=== PATIENT | female | born 1930 | race Caucasian/White ===

== ENCOUNTER 2016-11-25 14:58 | Inpatient (IN) | payer OTHER ==
[2016-11-25] VITALS (22 sets, daily range): BP systolic 133–182; BP diastolic 61–99; PULSE 68–81; TEMP 36.7; O2SAT 93–98; Ht 154.9 cm; Wt 55.3 kg
[~2016-11-25] VITALS: Ht 154.9 cm; Wt 55.3 kg
[~2016-11-25 14:58] MED LIST: ALBU0.5N2 NEB; ALBUAER2 INH; ATOR-26 PO; ATV5X PO; CITA40TA4 PO; FSM70 PO; FURO-85 PO; IBUP200C9 PO; IPRA1AER2 INH; METO25TA3 PO; NTRGSL/4 UT; OMEP20CA9 PO; OXYC-57 PO; SODIUM CHLORIDE 0.9% 1000ML 1,000 ML IV SCH
--- NOTE | 2016-11-25 15:16 | DIAGNOSTIC IMAGING REPORT ---
CT OF THE HEAD WITHOUT CONTRAST CLINICAL HISTORY: Stroke alert. COMPARISON STUDY: No previous studies for comparison. TECHNIQUE: Helical axial images of the head were obtained without IV contrast. Automated exposure control was utilized for the study. A dose lowering technique was utilized adhering to the principles of ALARA. FINDINGS: No acute intracranial hemorrhage, midline shift or mass effect is present. Ventricular system is unremarkable. Basilar cisterns are patent. There are no extra-axial collections. Extensive white matter hypodensities likely reflect small vessel disease. There is suggestion of loss of feliz-white differentiation involving the left insular cortex and portions of the left frontal and temporal lobes. There is no calvarial fracture. There may be an old left occipital lobe infarct. IMPRESSION: 1. No acute intracranial hemorrhage or mass effect. 2. Suspected acute left MCA territory infarct. No hemorrhage. No mass effect. Discussed with Dr. Aviles at time of dictation. Electronically signed by: Kota Tate M.D. 11/25/2016 3:15 PM Dictated Date/Time: 11/25/2016 3:09 PM
[2016-11-25] MEDS ORDERED: SET 2260-0500 IV ONE (15:19)
[2016-11-25] MEDS ORDERED: RECOMBINANT IV ONE (15:19)
[2016-11-25] MEDS ORDERED: ALTEPLASE IV ONE (15:19)
[2016-11-25] MEDS ORDERED: ALTEPLASE IV SCH (15:20)
[2016-11-25] MEDS ORDERED: RECOMBINANT IV SCH (15:20)
[2016-11-25 15:26] LABS: BASO % 0.3 %; BASO ABS # 0.03 K/uL (0-0.2); COMPLETE YES; EOS % 0.3 %; HEMATOCRIT 37.1 % (37-47); IG% 0.3 %; LYMPH % 18.3 %; LYMPH ABS # 1.66 K/uL (1.2-3.4); MEAN CELL VOLUME 90.5 fL (80-100); MEAN CORPUSCULAR HGB CONC 33.2 g/dl (32-36); MEAN PLATELET VOLUME 10.8 fL (7.4-10.4); MONO % 7.5 %; NEUT % 73.3 %; PLATELET COUNT 151 K/uL (130-400); WHITE BLOOD COUNT 9.06 K/uL (4.8-10.8)
[2016-11-25 15:36] LABS: PARTIAL THROMBOPLASTIN RATIO 0.9; PROTHROMBIN TIME (PATIENT) 10.6 SECONDS (9.0-12.0)
--- NOTE | 2016-11-25 15:37 | EMERGENCY ROOM VISIT NOTE ---
History Report prepared by Shyam: Sandrita Ahmadi Under the Supervision of: Dr. Jasbir Aviles D.O. 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 The patient was last seen well by her daughter at 1350. The daughter came back downstairs at 1430 and found her on the floor unable to move her right side. EMS was called and upon arrival she was aphasic with right sided paralysis and right sided neglect. She had an episode of dry heaving in route and was given Zofran. She has a history of breast cancer which did not spread and was treated with mastectomy. The history is limited secondary to CVA. 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 Review of Systems Unobtainable due to CVA. Past Medical & Surgical Medical Problems: (1) Acute ischemic left middle cerebral artery (MCA) stroke (2) Ascending aortic aneurysm (3) Breast cancer (4) CAD (coronary artery disease) (5) CKD (chronic kidney disease), stage III (6) COPD (chronic obstructive pulmonary disease) (7) Depression (8) Dyslipidemia (9) HTN (hypertension) (10) Intestinal metaplasia of gastric mucosa (11) Osteoporosis (12) Vascular dementia Surgical Problems: (1) H/O: hysterectomy (2) Hx of cataract surgery (3) Hx of cholecystectomy Social History Problems: (1) Tobacco use Family History Cancer Social History Smoking Status: Current Every Day Smoker Housing Status: lives with family Occupation Status: retired Current/Historical Medications Scheduled Alendronate Sodium (Fosamax), 1 TAB PO WK Aspirin (Aspirin Chewable), 81 MG PO DAILY Atorvastatin (Lipitor), 80 MG PO QAM Citalopram (Citalopram Hydrobromide), 40 MG PO QAM Fluticasone Prop/Salmeterol (Advair Diskus 250/50 60 Dose), 1 PUFFS INH BID Fluticasone Propionate (Nasal) (Flonase Allergy Relief), 2 PUFF RAAD DAILY Furosemide (Lasix), 20 MG PO QAM Gabapentin (Gabapentin), 100 MG PO BID Home O2 Therapy (Oxygen), 2 LITERS NA PRN Ipratropium-Albuterol (Combivent Respimat), 1 PUFFS INH QID Metoprolol Succinate (Toprol Xl), 25 MG PO DAILY Montelukast Sod (Montelukast Sodium), 10 MG PO DAILY Nitroglycerin (Nitrostat), 0.4 MG UT PRN Omeprazole (Prilosec), 20 MG PO BID Tamoxifen Citrate (Tamoxifen Citrate), 20 MG PO DAILY Scheduled PRN Acetaminophen (Tylenol), 500 MG PO TID PRN for Pain Albuterol Sulf (Proventil 0.083% 2.5MG/3ML), 2.5 MG INH QID PRN for SOB/Wheezing Allergies Coded Allergies: Codeine (Verified Allergy, Unknown, unsure of rxn, 02/07/16) Morphine (Verified Allergy, Unknown, per PCP records , 02/07/16) Corder Tree (Verified Allergy, Unknown, SEASONAL, 02/07/16) Physical Exam Vital Signs Date Time Temp Pulse Resp B/P (MAP) Pulse Ox O2 Delivery O2 Flow Rate FiO2 11/25/16 17:01 75 20 155/84 94 Room Air 11/25/16 16:46 75 20 150/84 93 Room Air 11/25/16 16:31 71 20 145/75 93 Room Air 11/25/16 16:16 74 18 169/79 94 11/25/16 16:01 74 20 175/81 94 Room Air 11/25/16 15:46 75 18 168/83 93 Room Air 11/25/16 15:42 74 20 158/72 96 Room Air 11/25/16 15:25 78 11/25/16 15:10 80 20 160/93 90 Room Air Physical Exam GENERAL: Patient is looking around and listless appearing, frail and ill. EYES: The pupils are mid size and reactive bilaterally, unable to look to the right with right side neglect. EARS, NOSE, MOUTH AND THROAT: The nose is without any evidence of any deformity. Mucous membranes are moist tongue is midline NECK: The neck is nontender and supple. No bruits noted to auscultation. RESPIRATORY: Shallow respirations noted, no tachypnea or abnormal lung sounds appreciated. CARDIOVASCULAR: Regular rate and rhythm noted there no murmurs rubs or gallops normal S1 normal S2 GASTROINTESTINAL: The abdomen is soft. Bowel sounds are present in all quadrants. Abdomen is nontender MUSCULOSKELETAL/EXTREMITIES: There is no evidence of gross deformity full range of motion is noted in the hips and shoulders SKIN: There is trace pedal edema bilaterally, small abrasion over the right knee , no active bleeding. NEUROLOGIC: Patient is aphasic and does not follow commands, right sided neglect noted, facial droop is noted on the right, patient appears to have flaccid right upper and right lower extremities. Medical Decision & Procedures ER Provider Diagnostic Interpretation: X-ray results as stated below per interpretation by me and the radiologist. Radiology results as stated below per my review and radiologist interpretation: CHEST ONE VIEW PORTABLE CLINICAL HISTORY: Stroke COMPARISON STUDY: Chest radiograph December 14, 2014. FINDINGS: There is no pneumothorax or pleural effusion. Cardiomediastinal silhouette is stable. Calcified mediastinal lymph nodes are noted. No consolidation to suggest pneumonia. There is no evidence of pulmonary edema. IMPRESSION: No acute cardiopulmonary findings. Electronically signed by: Kota Tate M.D. 11/25/2016 4:34 PM Dictated Date/Time: 11/25/2016 4:[address] OF THE HEAD WITHOUT CONTRAST CLINICAL HISTORY: Stroke alert. COMPARISON STUDY: No previous studies for comparison. TECHNIQUE: Helical axial images of the head were obtained without IV contrast. Automated exposure control was utilized for the study. A dose lowering technique was utilized adhering to the principles of ALARA. FINDINGS: No acute intracranial hemorrhage, midline shift or mass effect is present. Ventricular system is unremarkable. Basilar cisterns are patent. There are no extra-axial collections. Extensive white matter hypodensities likely reflect small vessel disease. There is suggestion of loss of feliz-white differentiation involving the left insular cortex and portions of the left frontal and temporal lobes. There is no calvarial fracture. There may be an old left occipital lobe infarct. IMPRESSION: 1. No acute intracranial hemorrhage or mass effect. 2. Suspected acute left MCA territory infarct. No hemorrhage. No mass effect. Discussed with Dr. Aviles at time of dictation. Electronically signed by: Kota Tate M.D. 11/25/2016 3:15 PM Dictated Date/Time: 11/25/2016 3:[address] OF THE CERVICAL SPINE WITHOUT CONTRAST CLINICAL HISTORY: Found on the floor. COMPARISON STUDY: No previous studies for comparison. TECHNIQUE: Helical axial images of the cervical spine were obtained without IV contrast. Sagittal and coronal reconstructions were viewed. A dose lowering technique was utilized adhering to the principles of ALARA. FINDINGS: Craniocervical junction is intact. There is no acute cervical spine fracture. Moderate multilevel degenerative changes are present. There is no prevertebral edema. Moderate emphysema is shown within visualized portions of the lungs. There is no prevertebral edema. Incidental note is made of a 1.6 cm right lobe thyroid nodule. IMPRESSION: No acute cervical spine fracture or subluxation. Electronically signed by: Kota Tate M.D. 11/25/2016 4:07 PM Dictated Date/Time: 11/25/2016 4:04 PM Laboratory Results 11/25/16 15:17 Red Blood Count 4.10, Mean Corpuscular Volume 90.5, Mean Corpuscular Hemoglobin 30.0, Mean Corpuscular Hemoglobin Concent 33.2, Mean Platelet Volume 10.8, Neutrophils (%) (Auto) 73.3, Lymphocytes (%) (Auto) 18.3, Monocytes (%) (Auto) 7.5, Eosinophils (%) (Auto) 0.3, Basophils (%) (Auto) 0.3, Neutrophils # (Auto) 6.63, Lymphocytes # (Auto) 1.66, Monocytes # (Auto) 0.68, Eosinophils # (Auto) 0.03, Basophils # (Auto) 0.03 11/25/16 15:17 Test 11/25/16 15:17 11/25/16 15:21 11/25/16 15:25 White Blood Count 9.06 K/uL (4.8-10.8) Red Blood Count 4.10 M/uL (4.2-5.4) Hemoglobin 12.3 g/dL (12.0-16.0) Hematocrit 37.1 % (37-47) Mean Corpuscular Volume 90.5 fL (80-100) Mean Corpuscular Hemoglobin 30.0 pg (25-34) Mean Corpuscular Hemoglobin Concent 33.2 g/dl (32-36) Platelet Count 151 K/uL (130-400) Mean Platelet Volume 10.8 fL (7.4-10.4) Neutrophils (%) (Auto) 73.3 % Lymphocytes (%) (Auto) 18.3 % Monocytes (%) (Auto) 7.5 % Eosinophils (%) (Auto) 0.3 % Basophils (%) (Auto) 0.3 % Neutrophils # (Auto) 6.63 K/uL (1.4-6.5) Lymphocytes # (Auto) 1.66 K/uL (1.2-3.4) Monocytes # (Auto) 0.68 K/uL (0.11-0.59) Eosinophils # (Auto) 0.03 K/uL (0-0.5) Basophils # (Auto) 0.03 K/uL (0-0.2) RDW Standard Deviation 46.0 fL (36.4-46.3) RDW Coefficient of Variation 14.0 % (11.5-14.5) Immature Granulocyte % (Auto) 0.3 % Immature Granulocyte # (Auto) 0.03 K/uL (0.00-0.02) Prothrombin Time 10.6 SECONDS (9.0-12.0) Prothromb Time International Ratio 1.0 (0.9-1.1) Activated Partial Thromboplast Time 23.6 SECONDS (21.0-31.0) Partial Thromboplastin Ratio 0.9 Anion Gap 4.0 mmol/L (3-11) Estimated GFR () 47.7 Estimated GFR (Non- 41.2 BUN/Creatinine Ratio 15.7 (10-20) Calcium Level 8.6 mg/dl (8.5-10.1) Total Creatine Kinase 85 U/L (26-192) Creatine Kinase MB 1.2 ng/ml (0.5-3.6) Creatine Kinase MB Ratio 1.4 (0-3.0) Troponin I 0.017 ng/ml (0-0.045) Bedside Glucose 115 mg/dl (70-90) Bedside Prothrombin Time INR 1.1 (0.9-1.1) Laboratory results per my review. Medications Administered Medications (Trade) Dose Ordered Sig/Millicent Route Start Time Stop Time Status Last Admin Dose Admin Sodium Chloride 1,000 ml @ 50 mls/hr Q20H IV 11/25/16 14:51 11/25/16 17:57 DC 11/25/16 14:51 50 MLS/HR Alteplase, Recombinant 46.8 mg/Empty Bag 46.8 ml @ 46.8 mls/hr TODAY@1520 IV 11/25/16 15:20 7/29/17 16:19 DC 11/25/16 15:35 46.8 MLS/HR Alteplase, Recombinant 5.2 mg/Syringe 5.2 ml @ 5.2 mls/min TODAY@1519 ONCE IV 11/25/16 15:19 11/25/16 15:20 DC 11/25/16 15:34 5.2 MLS/MIN ECG Indication: weakness Rate (beats per minute): 74 Rhythm: normal sinus Findings: no ectopy, other (no acute ST segment abnormalities) ED Course 1459: The patient was evaluated in room B1. A complete history and physical examination were performed. 1451: NSS 1000 ml @ 50 mls/hr IV. 1519: Alteplase, Recombinant 5.2 mg/Syringe 5.2 ml @ 5.2 mls/min IV. 1520: Alteplase, Recombinant 46.8 mg/Empty Bag 46.8 ml @ 46.8 mls/hr IV. 1521: I discussed the patient's case with Dr. Lindsay, [facility] tele[facility]. He will evaluate the patient. 1536: I reevaluated the patient. She is being evaluated by Dr. Lindsay. 1549: I reevaluated the patient. She is stable and seems to be improving. I updated her family on the results and treatment plan. They verbalize understanding and agreement. The patient will be evaluated for further management. 1553: I discussed the patient's case with Dr. Godwin, [facility]. The patient will be evaluated for further management. Medical Decision Prior records/ancillary studies reviewed and summarized above. Nursing notes reviewed. Additional history obtained from family. The patient's history was concerning for weakness. Differential diagnosis: Etiologies such as metabolic, infection, hypo/hyperglycemia, electrolyte abnormalities, cardiac sources, intracerebral event, toxicologic, neurologic, as well as others were entertained. The patient is an 86-year-old female who presented to the emergency department for strokelike syndrome. The patient was in her normal mental status prior to arrival. Her daughter states that she was found to be on the floor and she was unable to get her off of the floor so she called 911. I received a medical command phone call from the cast iron dipper requesting a stroke alert for the patient. She presented to the emergency department with a stroke alert in process. Orders were placed prior to arrival. The patient was taken directly for CT. No acute bleeding was noted and felt the patient was a good candidate for TPA. The patient had right sided neglect right-sided weakness right facial droop. I discussed the patient's condition with her daughter and she was able to consent for TPA. The patient was evaluated by the tele stroke neurologist from [facility]. He agreed that the patient was a good candidate for TPA. The patient was reevaluated multiple times. I discussed the patient's laboratory and radiographic studies with her and her daughter. Her condition slowly improved but she did not have a significant improvement while in the emergency department but she continued to maintain her airway and her saturation. She was able to sit up but still had continued weakness on the right side. I discussed his case with the on-call [facility] hospitalist. They' ve agreed to evaluate the patient in the emergency department for further management and disposition. Medication Reconcilliation Current Medication List: was personally reviewed by me Blood Pressure Screening Patient's blood pressure: Elevated blood pressure Blood pressure disposition: Elevated BP felt to be situational Secondary to acute neurological event. Consults Time Called: 1515 Consulting Physician: Dr. Lindsay, [facility] Returned Call: 1520 I discussed the patient's case with him. He will evaluate the patient. Additional Consults: Time Called: 1548 [facility]: [phone] Additional Comments: I discussed the patient's case with her. The patient will be evaluated for further management. Impression Primary Impression: Acute CVA (cerebrovascular accident) Critical Care I have personally spent greater than 60 minutes of critical care time in the direct management of this patient. This includes bedside care, interpretation of diagnostic studies, and testing, discussion with consultants, patient, and family members, and other required patient management activities. This 60 minutes is in excess of all separately billable procedures. Scribe Attestation The scribe's documentation has been prepared under my direction and personally reviewed by me in its entirety. I confirm that the note above accurately reflects all work, treatment, procedures, and medical decision making performed by me. Departure Information Dispostion Being Evaluated By Hospitalist Referrals Meghan Braxton M.D. (PCP) Patient Instructions My [facility] Stroke History Time Last Known Well 1350 Stroke t-PA Criteria Reviewed Meets criteria for t-PA Reason t-PA Not Given Treatment provided - N/A
[2016-11-25 15:43] LABS: BLOOD UREA NITROGEN 19 mg/dl (7-18); BUN/CREATININE RATIO 15.7 (10-20); CALCIUM 8.6 mg/dl (8.5-10.1); CARBON DIOXIDE 30 mmol/L (21-32); CHLORIDE 109 mmol/L (98-107); GLUCOSE 93 mg/dl (70-99); SODIUM 143 mmol/L (136-145)
[2016-11-25 15:48] LABS: CKMB/CK RATIO 1.4 (0-3.0)
[2016-11-25] MEDS ORDERED: NLV/20 PO (15:53)
[2016-11-25] MEDS ORDERED: SNG10 PO (15:53)
--- NOTE | 2016-11-25 16:08 | DIAGNOSTIC IMAGING REPORT ---
CT OF THE CERVICAL SPINE WITHOUT CONTRAST CLINICAL HISTORY: Found on the floor. COMPARISON STUDY: No previous studies for comparison. TECHNIQUE: Helical axial images of the cervical spine were obtained without IV contrast. Sagittal and coronal reconstructions were viewed. A dose lowering technique was utilized adhering to the principles of ALARA. FINDINGS: Craniocervical junction is intact. There is no acute cervical spine fracture. Moderate multilevel degenerative changes are present. There is no prevertebral edema. Moderate emphysema is shown within visualized portions of the lungs. There is no prevertebral edema. Incidental note is made of a 1.6 cm right lobe thyroid nodule. IMPRESSION: No acute cervical spine fracture or subluxation. Electronically signed by: Kota Tate M.D. 11/25/2016 4:07 PM Dictated Date/Time: 11/25/2016 4:04 PM
[2016-11-25] MEDS ORDERED: NRN100 PO (16:10)
[2016-11-25] MEDS ORDERED: ASPCH81X PO (16:10)
--- NOTE | 2016-11-25 16:36 | DIAGNOSTIC IMAGING REPORT ---
CHEST ONE VIEW PORTABLE CLINICAL HISTORY: Stroke COMPARISON STUDY: Chest radiograph December 14, 2014. FINDINGS: There is no pneumothorax or pleural effusion. Cardiomediastinal silhouette is stable. Calcified mediastinal lymph nodes are noted. No consolidation to suggest pneumonia. There is no evidence of pulmonary edema. IMPRESSION: No acute cardiopulmonary findings. Electronically signed by: Kota Tate M.D. 11/25/2016 4:34 PM Dictated Date/Time: 11/25/2016 4:34 PM
[2016-11-25] MEDS ORDERED: ONDANSETRON INJ 2 MG/ML 2 ML VIAL IV PRN (16:45)
[2016-11-25] MEDS ORDERED: LEVALBUTEROL 1.25MG/0.5ML NEB INH PRN (16:45)
[2016-11-25] MEDS ORDERED: IPRATROPIUM BROMIDE NEB SOLN 0.02% 2.5 ML VIAL INH PRN (16:45)
[2016-11-25] MEDS ORDERED: PHARMACIST DISCHARGE MED REC CONSULT PRN (16:45)
[2016-11-25] MEDS ORDERED: METO1TAB31 PO (17:10)
[2016-11-25] MEDS ORDERED: TYLOTC500 PO (17:10)
[2016-11-25] MEDS ORDERED: OXGN (17:10)
[2016-11-25] MEDS ORDERED: IPRA1AER2 INH (17:10)
[2016-11-25] MEDS ORDERED: ALEN70TA4 PO (17:10)
[2016-11-25] MEDS ORDERED: ALBINS/ INH (17:10)
[2016-11-25] MEDS ORDERED: ADVIN25/60 INH (17:10)
[2016-11-25] MEDS ORDERED: FLUT0.15 NAE (17:10)
[2016-11-25] MEDS ORDERED: LABETALOL HCL IV 5 MG/ML 20ML IV PRN (17:15)
[2016-11-25] MEDS ORDERED: ACETAMINOPHEN IV 650 MG in EMPTY BAG 0 ML IV PRN (17:15)
--- NOTE | 2016-11-25 17:35 | History and Physical ---
History & Physical Date & Time of Service: Nov 25, 2016 at 17:04 Chief Complaint: Stroke Alert Primary Care Physician: Meghan Braxton M.D. History of Present Illness Source: family, clinic records, hospital records 86 yo F smoker with h/o CAD presents with acute stroke. She was found by her daughter who had just seen her within 30 minutes looking fine, ambulating, articulating without any difficulty. She was found on the floor with facial droop on the R, unable to speak and unable to move her right side. EMS was contacted and per notes, patient vomiting in the ambulance. She ws evaluated by Neurology telemedicine at [facility] and tPA was advised and initiated. It is still running at the time of this evaluation and per daughter , facial droop seems to be improving. Daughter is at bedside and history is gathered from her; she lives with the patient. She gave the history as the patient is nonverbal and unable to communicate. Daughter states that patient has been looking great over the past couple of weeks having no issues. She reports a couple of days ago hat her mother got up on a step ladder in the home to change a lightbulb and did slip and fall. However, she got up and was not confused, and therefore, was not brought in for evaluation. Otherwise, daughter denies mom reporting any chest pain, shortness of breath, cold symptoms , nausea, vomiting, diarrhea, headaches, UTI symptoms, confusion, pain or any other symptoms. Daughter states she ambulates well at baseline without a walker or cane, and likes to garden in the yard. She doesn't drive a car but does still have a license. History includes lifelong smoking, recnet diagnosis of breast cancer s/p mastectomy with initiation of Tamoxifen 4-5 months ago. She also has HTN but is not on any antihypertensives. Past Medical/Surgical History Medical Problems: (1) Ascending aortic aneurysm Status: Chronic (2) Breast cancer Permanent Comment: R breast s/p mastectomy and initiation of Tamoxifen Status: Chronic (3) CAD (coronary artery disease) Permanent Comment: moderate CAD demonstrated on cath from 2008 Status: Chronic (4) CKD (chronic kidney disease), stage III Status: Chronic (5) COPD (chronic obstructive pulmonary disease) Status: Chronic (6) Depression Status: Chronic (7) Dyslipidemia Status: Chronic (8) HTN (hypertension) Status: Chronic (9) Intestinal metaplasia of gastric mucosa Status: Chronic (10) Osteoporosis Status: Chronic (11) Vascular dementia Status: Chronic Surgical Problems: (1) H/O: hysterectomy Status: Chronic (2) Hx of cataract surgery Status: Chronic (3) Hx of cholecystectomy Status: Chronic Social History Problems: (1) Tobacco use Status: Chronic Family History Cancer Social History Smoking Status: Current Every Day Smoker Alcohol Use: none Drug Use: none Marital Status: single Housing status: lives with family Occupational Status: retired Immunizations History of Influenza Vaccine: Yes Influenza Vaccine Date: Jan 25, 2015 History of Tetanus Vaccine?: Yes Tetanus Immunization Date: August 31, 2010 History of Pneumococcal: Yes Pneumococcal Date: September 05, 2016 History of Hepatitis B Vaccine: No Multi-Drug Resistant Organisms History of MDRO: No Allergies Coded Allergies: Codeine (Verified Allergy, Unknown, unsure of rxn, 02/07/16) Morphine (Verified Allergy, Unknown, per PCP records , 02/07/16) [place] (Verified Allergy, Unknown, SEASONAL, 02/07/16) Home Medications Scheduled Alendronate Sodium (Fosamax), 1 TAB PO WK Aspirin (Aspirin Chewable), 81 MG PO DAILY Atorvastatin (Lipitor), 80 MG PO QAM Citalopram (Citalopram Hydrobromide), 40 MG PO QAM Fluticasone Prop/Salmeterol (Advair Diskus 250/50 60 Dose), 1 PUFFS INH BID Fluticasone Propionate (Nasal) (Flonase Allergy Relief), 2 PUFF RAAD DAILY Furosemide (Lasix), 20 MG PO QAM Gabapentin (Gabapentin), 100 MG PO BID Home O2 Therapy (Oxygen), 2 LITERS NA PRN Ipratropium-Albuterol (Combivent Respimat), 1 PUFFS INH QID Metoprolol Succinate (Toprol Xl), 25 MG PO DAILY Montelukast Sod (Montelukast Sodium), 10 MG PO DAILY Nitroglycerin (Nitrostat), 0.4 MG UT PRN Omeprazole (Prilosec), 20 MG PO BID Tamoxifen Citrate (Tamoxifen Citrate), 20 MG PO DAILY Scheduled PRN Acetaminophen (Tylenol), 500 MG PO TID PRN for Pain Albuterol Sulf (Proventil 0.083% 2.5MG/3ML), 2.5 MG INH QID PRN for SOB/Wheezing Review of Systems Unable to obtain ROS from patient as she is aphasic Physical Exam Vital Signs Date Time Temp Pulse Resp B/P (MAP) Pulse Ox O2 Delivery O2 Flow Rate FiO2 11/25/16 17:01 75 20 155/84 94 Room Air 11/25/16 16:46 75 20 150/84 93 Room Air 11/25/16 16:31 71 20 145/75 93 Room Air 11/25/16 16:16 74 18 169/79 94 11/25/16 16:01 74 20 175/81 94 Room Air 11/25/16 15:46 75 18 168/83 93 Room Air 11/25/16 15:42 74 20 158/72 96 Room Air 11/25/16 15:25 78 11/25/16 15:10 80 20 160/93 90 Room Air GEN: elderly, frail, in no acute distress, alert with eyes open but no purposeful communication. Not responsive to questions even nonverbally. HEENT: NC/AT, PERRL, normal sclerae, MMM, pt would not open mouth for exam CARDIO: reg rate, S1/2 heard without m/g/r, no JVD, no edema LUNGS: CTA bilaterally, no crackles, rales or wheezes, good diaphragmatic excursion ABD: soft, non-distended, no rebound or guarding, +BS EXTREMITY: RP and DP palpable 2+ bilat, no LE swelling or edema, extremities are warm and well-perfused, R shoulder appears out of joint NEURO: CN could not be examined, R facial droop is present, sensation could not be appreciated, reflexes are 2/4 throughout, Babinski appears neg but difficult to appreciate. MUSC: frail, weak, ill-appearing. Pt has flaccidity to RUE and limited movement of RLE, more guarding of RLE and LLE. Strength testing could not be performed as patient unable to follow instructions. SKIN: warm and dry, bruising of R shoulder and LUE. Bruising with minor abrasion of the R knee. Diagnostics Laboratory Results Results Past 24 Hours Test 11/25/16 14:51 11/25/16 15:17 11/25/16 15:21 11/25/16 15:25 Range/Units White Blood Count 9.06 4.8-10.8 K/uL Red Blood Count 4.10 4.2-5.4 M/uL Hemoglobin 12.3 12.0-16.0 g/dL Hematocrit 37.1 37-47 % Mean Corpuscular Volume 90.5 80-100 fL Mean Corpuscular Hemoglobin 30.0 25-34 pg Mean Corpuscular Hemoglobin Concent 33.2 32-36 g/dl Platelet Count 151 130-400 K/uL Mean Platelet Volume 10.8 7.4-10.4 fL Neutrophils (%) (Auto) 73.3 % Lymphocytes (%) (Auto) 18.3 % Monocytes (%) (Auto) 7.5 % Eosinophils (%) (Auto) 0.3 % Basophils (%) (Auto) 0.3 % Neutrophils # (Auto) 6.63 1.4-6.5 K/uL Lymphocytes # (Auto) 1.66 1.2-3.4 K/uL Monocytes # (Auto) 0.68 0.11-0.59 K/uL Eosinophils # (Auto) 0.03 0-0.5 K/uL Basophils # (Auto) 0.03 0-0.2 K/uL RDW Standard Deviation 46.0 36.4-46.3 fL RDW Coefficient of Variation 14.0 11.5-14.5 % Immature Granulocyte % (Auto) 0.3 % Immature Granulocyte # (Auto) 0.03 0.00-0.02 K/uL Prothrombin Time 10.6 9.0-12.0 SECONDS Prothromb Time International Ratio 1.0 0.9-1.1 Activated Partial Thromboplast Time 23.6 21.0-31.0 SECONDS Partial Thromboplastin Ratio 0.9 Sodium Level 143 136-145 mmol/L Potassium Level 4.0 3.5-5.1 mmol/L Chloride Level 109 98-107 mmol/L Carbon Dioxide Level 30 21-32 mmol/L Anion Gap 4.0 3-11 mmol/L Blood Urea Nitrogen 19 7-18 mg/dl Creatinine 1.20 0.60-1.20 mg/dl Estimated GFR () 47.7 Estimated GFR (Non- 41.2 BUN/Creatinine Ratio 15.7 10-20 Random Glucose 93 70-99 mg/dl Calcium Level 8.6 8.5-10.1 mg/dl Total Creatine Kinase 85 26-192 U/L Creatine Kinase MB 1.2 0.5-3.6 ng/ml Creatine Kinase MB Ratio 1.4 0-3.0 Troponin I 0.017 0-0.045 ng/ml Bedside Glucose 115 70-90 mg/dl Bedside Prothrombin Time INR 1.1 0.9-1.1 Diagnostic Radiology RIGHT SHOULDER MIN 2 VIEWS ROUTINE CLINICAL HISTORY: fall on shoulder s/p stroke with collapse at home, bruising. COMPARISON: None FINDINGS: Alignment of the right shoulder is anatomic. There is motion artifact on the scapular Y view. No acute fracture is identified. Mild arthritis is noted within the right shoulder. IMPRESSION: No acute fracture or dislocation of the right shoulder. Study mildly compromised by motion artifact. CT OF THE CERVICAL SPINE WITHOUT CONTRAST CLINICAL HISTORY: Found on the floor. COMPARISON STUDY: No previous studies for comparison. TECHNIQUE: Helical axial images of the cervical spine were obtained without IV contrast. Sagittal and coronal reconstructions were viewed. A dose lowering technique was utilized adhering to the principles of ALARA. FINDINGS: Craniocervical junction is intact. There is no acute cervical spine fracture. Moderate multilevel degenerative changes are present. There is no prevertebral edema. Moderate emphysema is shown within visualized portions of the lungs. There is no prevertebral edema. Incidental note is made of a 1.6 cm right lobe thyroid nodule. IMPRESSION: No acute cervical spine fracture or subluxation. CHEST ONE VIEW PORTABLE CLINICAL HISTORY: Stroke COMPARISON STUDY: Chest radiograph December 14, 2014. FINDINGS: There is no pneumothorax or pleural effusion. Cardiomediastinal silhouette is stable. Calcified mediastinal lymph nodes are noted. No consolidation to suggest pneumonia. There is no evidence of pulmonary edema. IMPRESSION: No acute cardiopulmonary findings. CT OF THE HEAD WITHOUT CONTRAST CLINICAL HISTORY: Stroke alert. COMPARISON STUDY: No previous studies for comparison. TECHNIQUE: Helical axial images of the head were obtained without IV contrast. Automated exposure control was utilized for the study. A dose lowering technique was utilized adhering to the principles of ALARA. FINDINGS: No acute intracranial hemorrhage, midline shift or mass effect is present. Ventricular system is unremarkable. Basilar cisterns are patent. There are no extra-axial collections. Extensive white matter hypodensities likely reflect small vessel disease. There is suggestion of loss of feliz-white differentiation involving the left insular cortex and portions of the left frontal and temporal lobes. There is no calvarial fracture. There may be an old left occipital lobe infarct. IMPRESSION: 1. No acute intracranial hemorrhage or mass effect. 2. Suspected acute left MCA territory infarct. No hemorrhage. No mass effect. Discussed with Dr. Aviles at time of dictation. EKG SR 74 Impression Assessment and Plan 86 yo smoker presents with acute L MCA stroke 1. Acute L MCA stroke: risk factors include age, tamoxifen use, and active smoking. TPA given in ER and patient admitted to ICU for close BP monitoring over next [address] ordered in 24 hours and earlier if pt decompensates. No art sticks in noncompressible sites. No heparin products. Eval with [facility], PT, and OT ordered. Neurology consulted. Allow permissive HTN. NPO until swallow evaluation. Maintenance IVF to stay hydrated in the meantime. 2. CAD-once tolerating PO will cont medical management. At this time workup including trop and EKG are nonischemic and patient is hemodynamically stable with no recent reports of chest pain 3. COPD-stable, no wheezing heard on exam despite limitation as patient not able to follow directions and take deep breaths. Duonebs PRN SOB or wheezing 4. Depression/Anxiety 5. HTN-not on antihypertensives as outpatient. Allow permissive HTN and treat if >180 after TPA. PRN Labetalol ordered 6. breast cancer s/p R mastectomy 8 months ago-tamoxifen on hold and in setting of stroke, discussion will need to be had with oncologist prior to continuing. 7. Thyroid nodule- incidental finding on CT scan 1.6 cm. TSH pending. Will defer workup to outpatient setting. DVT prophy-SCDs thigh FULL CODE per daughter who states that she is POA Dispo-to ICU for close monitoring and rehab Peyton Godwin DO [facility] Level of Care Critical Care Resuscitation Status FULL RESUSCITATION VTE Prophylaxis VTE Risk Assessment Done? Y/N: Yes Risk Level: Moderate Given or contraindicated: SCD's, Contraindicated
--- NOTE | 2016-11-25 18:50 | DIAGNOSTIC IMAGING REPORT ---
RIGHT SHOULDER MIN 2 VIEWS ROUTINE CLINICAL HISTORY: fall on shoulder s/p stroke with collapse at home, bruising. COMPARISON: None FINDINGS: Alignment of the right shoulder is anatomic. There is motion artifact on the scapular Y view. No acute fracture is identified. Mild arthritis is noted within the right shoulder. IMPRESSION: No acute fracture or dislocation of the right shoulder. Study mildly compromised by motion artifact. Electronically signed by: Kota Tate M.D. 11/25/2016 6:48 PM Dictated Date/Time: 11/25/2016 6:47 PM
[2016-11-25] MEDS: D5NSS + 20MEQ KCL 1,000 ML IV SCH (19:48)
--- NOTE | 2016-11-25 20:00 | Critical Care Consultation ---
Critical Care Consultation Date of Consultation: Nov 25, 2016. Attending Physician: Peyton Godwin DO Reason for Consultation: Acute CVA, s/p tPA History of Present Illness This is a 86 year old female, active smoker that received tPA today for acute left MCA CVA. I could not get a clear history from her daughter, but apparently she was found on the floor, not speaking and unable to move the right side. Received tPA in ED at 15:19 At this moment she is still aphasic, not following commands, with right sided hemiplegia. At baseline she active, walks around, has no significant limitation except being hard of hearing. No known history of a-fib Past Medical/Surgical History (1) Ascending aortic aneurysm Status: Chronic (2) Breast cancer Permanent Comment: R breast s/p mastectomy and initiation of Tamoxifen Status: Chronic (3) CAD (coronary artery disease) Permanent Comment: moderate CAD demonstrated on cath from 2008 Status: Chronic (4) CKD (chronic kidney disease), stage III Status: Chronic (5) COPD (chronic obstructive pulmonary disease) Status: Chronic (6) Depression Status: Chronic (7) Dyslipidemia Status: Chronic (8) HTN (hypertension) Status: Chronic (9) Intestinal metaplasia of gastric mucosa Status: Chronic (10) Osteoporosis Status: Chronic (11) Vascular dementia Status: Chronic Surgical Problems: (1) H/O: hysterectomy Status: Chronic (2) Hx of cataract surgery Status: Chronic (3) Hx of cholecystectomy Status: Chronic Family History Cancer Social History Smoking Status: Current Every Day Smoker Alcohol Use: none Drug Use: none Marital Status: single Housing Status: lives with family Occupation Status: retired Allergies Coded Allergies: Codeine (Verified Allergy, Unknown, unsure of rxn, 02/07/16) Morphine (Verified Allergy, Unknown, per PCP records , 02/07/16) [place] (Verified Allergy, Unknown, SEASONAL, 02/07/16) Home Medications Scheduled Alendronate Sodium (Fosamax), 1 TAB PO WK Aspirin (Aspirin Chewable), 81 MG PO DAILY Atorvastatin (Lipitor), 80 MG PO QAM Citalopram (Citalopram Hydrobromide), 40 MG PO QAM Fluticasone Prop/Salmeterol (Advair Diskus 250/50 60 Dose), 1 PUFFS INH BID Fluticasone Propionate (Nasal) (Flonase Allergy Relief), 2 PUFF RAAD DAILY Furosemide (Lasix), 20 MG PO QAM Gabapentin (Gabapentin), 100 MG PO BID Home O2 Therapy (Oxygen), 2 LITERS NA PRN Ipratropium-Albuterol (Combivent Respimat), 1 PUFFS INH QID Metoprolol Succinate (Toprol Xl), 25 MG PO DAILY Montelukast Sod (Montelukast Sodium), 10 MG PO DAILY Nitroglycerin (Nitrostat), 0.4 MG UT PRN Omeprazole (Prilosec), 20 MG PO BID Tamoxifen Citrate (Tamoxifen Citrate), 20 MG PO DAILY Scheduled PRN Acetaminophen (Tylenol), 500 MG PO TID PRN for Pain Albuterol Sulf (Proventil 0.083% 2.5MG/3ML), 2.5 MG INH QID PRN for SOB/Wheezing Current Inpatient Medications Current Inpatient Medications Medications (Trade) Dose Ordered Sig/Millicent Route Start Time Stop Time Status Last Admin Dose Admin Miscellaneous Information (Pharmacist Discharge Med Rec Consult) 1 ea UD PRN N/A 11/25/16 16:45 12/25/16 16:44 Potassium Chloride/Dextrose/ Sod Cl 1,000 ml @ 75 mls/hr [id number] IV 11/25/16 18:15 12/25/16 18:14 Ondansetron HCl (Zofran Inj) 4 mg Q6H PRN IV 11/25/16 16:45 12/25/16 16:44 Levalbuterol (Xopenex 1.25MG/ 0.5ML Neb) 1.25 mg Q6H PRN INH 11/25/16 16:45 12/25/16 16:44 Ipratropium [place] (Atrovent 0.02% 0.5MG/2.5ML Neb) 0.5 mg Q6H PRN INH 11/25/16 16:45 12/25/16 16:44 Acetaminophen 650 mg/Empty Bag 65 ml @ 260 mls/hr Q6H PRN IV 11/25/16 17:15 12/25/16 17:14 Labetalol HCl (Normodyne IV) 10 mg Q6H PRN IV 11/25/16 17:15 12/25/16 17:14 Review of Systems Unable to obtain secondary to aphasia Physical Exam Date Time Temp Pulse Resp B/P (MAP) Pulse Ox O2 Delivery O2 Flow Rate FiO2 11/25/16 18:31 68 21 163/66 (98) 93 Room Air 11/25/16 18:01 74 19 165/89 (114) 95 Room Air 11/25/16 17:58 36.7 76 20 148/72 94 Room Air 11/25/16 17:38 21 182/83 (116) 96 Room Air 11/25/16 17:33 74 18 154/74 92 11/25/16 17:31 36.7 76 18 154/76 (102) 98 Room Air 11/25/16 17:19 74 18 154/73 92 11/25/16 17:01 75 20 155/84 94 Room Air 11/25/16 16:46 75 20 150/84 93 Room Air 11/25/16 16:31 71 20 145/75 93 Room Air 11/25/16 16:16 74 18 169/79 94 11/25/16 16:01 74 20 175/81 94 Room Air 11/25/16 15:46 75 18 168/83 93 Room Air 11/25/16 15:42 74 20 158/72 96 Room Air 11/25/16 15:25 78 11/25/16 15:10 80 20 160/93 90 Room Air General Appearance: WD/WN, no apparent distress Head: normocephalic, atraumatic Eyes: PERRLA Neck: trachea midline, no stridor Respiratory: breath sounds normal, clear to auscultation, no respiratory distress Cardiovasular: regular rate/rhythm, normal S1S2, no M/G/R Abdomen: non tender, no guarding Upper Extremities: no edema, abnormal exam (Right shoulder ecchymosis) Lower Extremities: no edema Neuro: alert, focal weakness (Does not follow commands, but clearly has RUE weakness and right facial droop. Reacts to pain in both lower extremities), other Laboratory Results Last 24 Hours Test 11/25/16 15:17 11/25/16 15:21 11/25/16 15:25 White Blood Count 9.06 K/uL Red Blood Count 4.10 M/uL Hemoglobin 12.3 g/dL Hematocrit 37.1 % Mean Corpuscular Volume 90.5 fL Mean Corpuscular Hemoglobin 30.0 pg Mean Corpuscular Hemoglobin Concent 33.2 g/dl Platelet Count 151 K/uL Mean Platelet Volume 10.8 fL Neutrophils (%) (Auto) 73.3 % Lymphocytes (%) (Auto) 18.3 % Monocytes (%) (Auto) 7.5 % Eosinophils (%) (Auto) 0.3 % Basophils (%) (Auto) 0.3 % Neutrophils # (Auto) 6.63 K/uL Lymphocytes # (Auto) 1.66 K/uL Monocytes # (Auto) 0.68 K/uL Eosinophils # (Auto) 0.03 K/uL Basophils # (Auto) 0.03 K/uL RDW Standard Deviation 46.0 fL RDW Coefficient of Variation 14.0 % Immature Granulocyte % (Auto) 0.3 % Immature Granulocyte # (Auto) 0.03 K/uL Prothrombin Time 10.6 SECONDS Prothromb Time International Ratio 1.0 Activated Partial Thromboplast Time 23.6 SECONDS Partial Thromboplastin Ratio 0.9 Sodium Level 143 mmol/L Potassium Level 4.0 mmol/L Chloride Level 109 mmol/L Carbon Dioxide Level 30 mmol/L Anion Gap 4.0 mmol/L Blood Urea Nitrogen 19 mg/dl Creatinine 1.20 mg/dl Estimated GFR () 47.7 Estimated GFR (Non- 41.2 BUN/Creatinine Ratio 15.7 Random Glucose 93 mg/dl Calcium Level 8.6 mg/dl Total Creatine Kinase 85 U/L Creatine Kinase MB 1.2 ng/ml Creatine Kinase MB Ratio 1.4 Troponin I 0.017 ng/ml Bedside Glucose 115 mg/dl Bedside Prothrombin Time INR 1.[address] brain: 1. No acute intracranial hemorrhage or mass effect. 2. Suspected acute left MCA territory infarct. No hemorrhage. No mass effect. Discussed with Dr. Aviles at time of dictation. CXR: FINDINGS: There is no pneumothorax or pleural effusion. Cardiomediastinal silhouette is stable. Calcified mediastinal lymph nodes are noted. No consolidation to suggest pneumonia. There is no evidence of pulmonary edema. IMPRESSION: No acute cardiopulmonary findings. Right shoulder Xray: No acute fracture or dislocation of the right shoulder. Study mildly compromised by motion artifact. Assessment & Plan 86 year old female with h/o HTN, breast CA, presented with acute CVA, s/p tPA Problems: Acute CVA s/p thrombolytic therapy HTN Smoker Breast CA Plan: Neurochecks every hour Repeat CT in 24 hrs Monitor BP, treat SBP > 180 Has significant deficits still, doubt she would make a significant recovery DVT prophylaxis: SCDs Critical care time spent 25 minutes
[2016-11-25] MEDS: BUDESONIDE 0.5 MG/2 ML VIAL (PULMICORT) INH SCH (20:35)
[2016-11-26] VITALS (56 sets, daily range): BP systolic 112–185; BP diastolic 52–114; PULSE 61–106; TEMP 36.6–36.7; O2SAT 90–100
--- NOTE | 2016-11-26 06:02 | DIAGNOSTIC IMAGING REPORT ---
HEAD WITHOUT CONTRAST (CT) CT DOSE: 537.48 mGy.cm HISTORY: Mental status change stroke, TPA, worsening symptoms TECHNIQUE: Multiaxial CT images of the head were performed without the use of intravenous contrast. A dose lowering technique was utilized adhering to the principles of ALARA. Comparison: 11/25/2016 Findings: The paranasal sinuses and mastoid air cells are clear. Diffuse chronic small vessel change and atrophy. This is unchanged from the prior exam. Possible subacute infarct left middle cerebral arterial territory. No evidence for acute intracranial hemorrhage. Impression: Unchanged exam from the prior study. Possible acute left middle cerebral arterial infarct. Considerable chronic small vessel change. The above report was generated using voice recognition software. It may contain grammatical, syntax or spelling errors. Electronically signed by: Roderick Whitaker M.D. 11/26/2016 6:01 AM Dictated Date/Time: 11/26/2016 5:59 AM
[2016-11-26] MEDS: BUDESONIDE 0.5 MG/2 ML VIAL (PULMICORT) INH SCH ×2 (07:27→20:07)
[2016-11-26] MEDS: D5NSS + 20MEQ KCL 1,000 ML IV SCH ×2 (09:22→20:59)
--- NOTE | 2016-11-26 11:22 | Critical Care Progress Note ---
Critical Care Progress Note Date of Service Nov 26, 2016. Attending Dr. Travis Subjective Remains aphasic, no significant improvement CT brain was repeated overnight because of reported nausea, not following commands, it was unchanged Objective General Appearance: WD/WN, no apparent distress Head: normocephalic, atraumatic Eyes: PERRLA Neck: trachea midline, no stridor Respiratory: breath sounds normal, clear to auscultation, no respiratory distress Cardiovasular: regular rate/rhythm, normal S1S2, no M/G/R Abdomen: non tender, no guarding Upper Extremities: no edema, abnormal exam (Right shoulder ecchymosis) Lower Extremities: no edema, mild right knee abrasion Neuro: alert, focal weakness (Does not follow commands, but clearly has RUE weakness and right facial droop. Reacts to pain in both lower extremities) Assessment & Plan 86 year old female with h/o HTN, breast CA, presented with acute CVA, s/p tPA Problems: Acute CVA s/p thrombolytic therapy HTN Smoker Breast CA Plan: Continue neurochecks Repeat CT 24 hours post tPA If no bleeding seen, start ASA and heparin for DVT prophylaxis Hold standing antihypertensives for now, BP normal. Allow SBP up to 180 for today Budesonide inhaler Bronchodilators Ordered carotid US, Echo Physical therapy Speech therapy Occupational therapy Keep NPO for the time being. Will insert NGT tonight to start tube feedings DVT prophylaxis: SCDs Critical care time spent 25 minutes Consults & Procedures Consultants: Critical care Neurology Procedures: None Data Medications: Current Inpatient Medications Medications (Trade) Dose Ordered Sig/Millicent Route Start Time Stop Time Status Last Admin Dose Admin Miscellaneous Information (Pharmacist Discharge Med Rec Consult) 1 ea UD PRN N/A 11/25/16 16:45 12/25/16 16:44 Potassium Chloride/Dextrose/ Sod Cl 1,000 ml @ 75 mls/hr [id number] IV 11/25/16 18:15 12/25/16 18:14 11/26/16 09:22 75 MLS/HR Ondansetron HCl (Zofran Inj) 4 mg Q6H PRN IV 11/25/16 16:45 12/25/16 16:44 11/26/16 02:30 4 MG Levalbuterol (Xopenex 1.25MG/ 0.5ML Neb) 1.25 mg Q6H PRN INH 11/25/16 16:45 12/25/16 16:44 11/26/16 07:27 1.25 MG Ipratropium [place] (Atrovent 0.02% 0.5MG/2.5ML Neb) 0.5 mg Q6H PRN INH 11/25/16 16:45 12/25/16 16:44 11/26/16 07:27 0.5 MG Acetaminophen 650 mg/Empty Bag 65 ml @ 260 mls/hr Q6H PRN IV 11/25/16 17:15 12/25/16 17:14 Labetalol HCl (Normodyne IV) 10 mg Q6H PRN IV 11/25/16 17:15 12/25/16 17:14 Budesonide (Pulmicort Respules 0.5MG/ 2ML Neb Soln) 0.5 mg BIDR INH 11/25/16 20:00 12/25/16 19:59 11/26/16 07:27 0.5 MG Vital Signs: Date Time Temp Pulse Resp B/P (MAP) Pulse Ox O2 Delivery O2 Flow Rate FiO2 11/26/16 08:00 Room Air 11/26/16 07:28 68 20 90 Room Air 11/26/16 06:01 36.7 70 20 125/80 (95) 90 Room Air 11/26/16 06:01 70 20 125/80 (95) 90 11/26/16 05:32 71 20 138/62 (87) 93 11/26/16 05:02 81 15 118/61 (80) 91 11/26/16 05:01 36.7 81 15 118/61 (80) 91 Room Air 11/26/16 04:19 94 Room Air 11/26/16 04:07 75 22 135/65 (88) 91 11/26/16 04:01 36.7 76 20 135/65 (88) 90 Room Air 11/26/16 03:40 79 22 142/81 (101) 93 11/26/16 03:31 36.7 79 22 142/81 (101) 93 Room Air 11/26/16 03:02 82 24 119/105 (110) 92 11/26/16 03:02 36.7 82 24 119/105 (110) 92 Room Air 11/26/16 03:01 36.7 82 24 119/105 (110) 92 Room Air 11/26/16 02:31 36.7 72 13 129/64 (85) 92 Room Air 11/26/16 02:31 72 13 129/64 (85) 92 11/26/16 02:01 74 16 127/52 (77) 92 11/26/16 02:01 36.7 74 16 127/52 (77) 92 Room Air 11/26/16 01:31 36.7 68 19 146/67 (93) 93 Room Air 11/26/16 01:31 68 19 146/67 (93) 93 Room Air 11/26/16 01:02 88 22 154/86 (108) 92 Room Air 11/26/16 01:01 36.7 88 22 154/86 (108) 92 Room Air 11/26/16 00:31 36.7 72 16 135/68 (90) 92 Room Air 11/26/16 00:31 72 16 135/68 (90) 92 Room Air 11/26/16 00:19 94 Room Air 11/26/16 00:01 36.7 73 17 140/64 (89) 93 Room Air 11/26/16 00:01 36.7 73 17 140/64 (89) 93 Room Air 11/25/16 23:32 78 23 133/99 (110) 96 Room Air 11/25/16 23:31 36.7 78 23 133/99 (110) 96 Room Air 11/25/16 23:02 76 19 133/67 (89) 93 Room Air 11/25/16 23:01 36.7 76 19 133/67 (89) 93 Room Air 11/25/16 22:31 36.7 76 20 133/69 (90) 93 Room Air 11/25/16 22:14 77 21 146/61 (89) 94 Room Air 11/25/16 22:01 36.7 77 21 146/61 (89) 94 Room Air 11/25/16 21:37 74 17 156/75 (102) 93 Room Air 11/25/16 21:31 36.7 74 17 156/75 (102) 93 Room Air 11/25/16 21:01 36.7 69 20 145/89 (107) 93 Room Air 11/25/16 21:01 69 20 145/89 (107) 93 Room Air 11/25/16 20:36 71 15 93 Room Air 11/25/16 20:31 71 17 151/89 (109) 93 Room Air 11/25/16 20:31 36.7 71 17 151/89 (109) 93 Room Air 11/25/16 20:12 94 Room Air 11/25/16 20:02 81 20 152/63 (92) 94 Room Air 11/25/16 20:02 36.7 81 20 152/63 (92) 94 Room Air 11/25/16 19:36 36.7 73 16 135/67 (89) 94 Room Air 11/25/16 19:31 36.7 73 16 135/67 (89) 94 Room Air 11/25/16 19:01 36.7 75 19 173/82 (112) 96 Room Air 11/25/16 19:01 36.7 75 19 173/82 (112) 96 Room Air 11/25/16 18:31 68 21 163/66 (98) 93 Room Air 11/25/16 18:01 74 19 165/89 (114) 95 Room Air 11/25/16 17:58 36.7 76 20 148/72 94 Room Air 11/25/16 17:38 21 182/83 (116) 96 Room Air 11/25/16 17:33 74 18 154/74 92 11/25/16 17:31 36.7 76 18 154/76 (102) 98 Room Air 11/25/16 17:19 74 18 154/73 92 11/25/16 17:01 75 20 155/84 94 Room Air 11/25/16 16:46 75 20 150/84 93 Room Air 11/25/16 16:31 71 20 145/75 93 Room Air 11/25/16 16:16 74 18 169/79 94 11/25/16 16:01 74 20 175/81 94 Room Air 11/25/16 15:46 75 18 168/83 93 Room Air 11/25/16 15:42 74 20 158/72 96 Room Air 11/25/16 15:25 78 11/25/16 15:10 80 20 160/93 90 Room Air Laboratory Results: Last 24 Hours Test 11/25/16 15:17 11/25/16 15:21 11/25/16 15:25 11/26/16 04:44 White Blood Count 9.06 K/uL Red Blood Count 4.10 M/uL Hemoglobin 12.3 g/dL Hematocrit 37.1 % Mean Corpuscular Volume 90.5 fL Mean Corpuscular Hemoglobin 30.0 pg Mean Corpuscular Hemoglobin Concent 33.2 g/dl Platelet Count 151 K/uL Mean Platelet Volume 10.8 fL Neutrophils (%) (Auto) 73.3 % Lymphocytes (%) (Auto) 18.3 % Monocytes (%) (Auto) 7.5 % Eosinophils (%) (Auto) 0.3 % Basophils (%) (Auto) 0.3 % Neutrophils # (Auto) 6.63 K/uL Lymphocytes # (Auto) 1.66 K/uL Monocytes # (Auto) 0.68 K/uL Eosinophils # (Auto) 0.03 K/uL Basophils # (Auto) 0.03 K/uL RDW Standard Deviation 46.0 fL RDW Coefficient of Variation 14.0 % Immature Granulocyte % (Auto) 0.3 % Immature Granulocyte # (Auto) 0.03 K/uL Prothrombin Time 10.6 SECONDS Prothromb Time International Ratio 1.0 Activated Partial Thromboplast Time 23.6 SECONDS Partial Thromboplastin Ratio 0.9 Sodium Level 143 mmol/L Potassium Level 4.0 mmol/L Chloride Level 109 mmol/L Carbon Dioxide Level 30 mmol/L Anion Gap 4.0 mmol/L Blood Urea Nitrogen 19 mg/dl Creatinine 1.20 mg/dl Estimated GFR () 47.7 Estimated GFR (Non- 41.2 BUN/Creatinine Ratio 15.7 Random Glucose 93 mg/dl Calcium Level 8.6 mg/dl Total Creatine Kinase 85 U/L Creatine Kinase MB 1.2 ng/ml Creatine Kinase MB Ratio 1.4 Troponin I 0.017 ng/ml Bedside Glucose 115 mg/dl Bedside Prothrombin Time INR 1.1
--- NOTE | 2016-11-26 15:30 | NEUROLOGY CONSULTATION ---
DATE OF CONSULTATION: 11/26/2016 For Peyton Godwin DO Benedict is 86 years old, is regular patient of Dr. Meghan Braxton, and has a history of an ascending aortic aneurysm, breast cancer, coronary artery disease, chronic renal disease stage III, COPD, depression, dyslipidemia, hypertension, has a history of gastric cancer, osteoporosis, is said to have mild vascular dementia and surgically has had a hysterectomy, cataract surgery and a cholecystectomy. In this setting, she presented yesterday with an acute left hemispheric CVA manifested by the sudden onset of dense aphasia and right hemiparesis noted by her daughter. Her daughter had actually seen her approximately half an hour before the event, found her to be normal and then found her mother in the room lying down totally aphasic with right-sided hemiplegia. I refer the reader to more detailed notes on the chart as the patient today is the only source and I am relying totally on these notes for the history. The daughter is not present in the room. She was brought in to the hospital, evaluated by the [facility] stroke neurology team, was felt to be an ideal candidate for TPA and did receive it but it is not clear to me whether there has been any improvement in her overall status, but certainly not declined. Another CT done today confirms the presence of a low density area in the left middle cerebral artery distribution in addition to the diffuse leukoencephalopathic changes. No imaging studies of the carotid arteries, vertebral arteries were done and the ICU staff has appropriately ordered this today along with an echocardiogram. According to protocol, she is due to start aspirin and I would add Plavix at this point as apparently she was taking aspirin at home before this started. FAMILY HISTORY: Noncontributory. SOCIAL HISTORY: Reveals her to be a current smoker. She is single. She lives with her family. She is retired. ALLERGIES: SHE HAS ALLERGIES TO CODEINE, MORPHINE, [place] TRE[place]. HOME MEDICATIONS: Include Fosamax, low dose aspirin, atorvastatin, Celexa, fluticasone, furosemide, gabapentin 100 mg twice a day, home oxygen, ipratropium, metoprolol, montelukast sodium, nitroglycerin, omeprazole, tamoxifen. PRN MEDICATIONS: Include acetaminophen and albuterol. REVIEW OF SYSTEMS: Could not be obtained today from the patient. Review of the chart from individuals who saw her and discussed her case with the daughter indicates no significant recent systemic illnesses or change in her head, eyes, ears, nose and throat, cardiovascular, pulmonary, gastrointestinal, genitourinary, or musculoskeletal reviews. PHYSICAL EXAMINATION: On admission, VITAL SIGNS: Revealed a blood pressure 163/66, pulse was 60 and regular, respirations were 21. GENERAL: She was a thin elderly woman who appeared her stated age, but was totally aphasic, confused and did not appear to be in any apparent acute distress. HEENT: There were no cranial deformities. LUNGS: Clear. No carotid bruits are recorded. HEART: Had a regular rate and rhythm. No murmurs were appreciated. ABDOMEN: Soft, nontender. EXTREMITIES: There was no peripheral edema. Good pulses were noted. NEUROLOGIC: She is alert but confused. She is staring off to the left. She is rearranging her bed clothes compulsively with her left hand. There is a right upper motor neuron facial paresis, dense right upper extremity paresis and a more modest paresis of the right leg with an extensor toe sign. Reflexes are beginning to get a little hyperactive on the right but these are difficult to test because of her inability to totally relax. She appears to be moving the left arm and left leg adequately. There is absolutely no speech output. She will not respond to any commands. She will not follow any commands, even command to squeeze my hand, although she did so randomly. Eye movements appear to be intact. I can get her to move her eyes over to the right by head rotation and modify doll's eyes. She seems to have a visual field cut to threat on the right, but I cannot map this any further. Sensory examination is virtually impossible. I reviewed the imaging studies and agree that there is a leukoencephalopathy and what appears to be recently originating left MCA distribution infarct. It has not undergone hemorrhagic transformation despite the use of TPA at her age. We need to do some imaging of the carotids, we need to do a cardiac echo and these have been appropriately ordered. She will be started on aspirin and I would add Plavix based on the current recommendations and continue both drugs for about 3 months unless of course we see an obvious cardiogenic source of emboli. Even if we did, I would be hard pressed to start this woman on novel anticoagulants or Coumadin until we get a better feel for how she is going to do in the immediate 4-5 days after this acute event and after the TPA. Dr. Huynh and Rody Velarde PA-C, will be assuming her care tomorrow. [facility]ALLS HOSPITALChelsie
[2016-11-26 15:53] LABS: HEMATOCRIT 35.7 % (37-47); MEAN CELL VOLUME 91.8 fL (80-100); MEAN CORPUSCULAR HEMOGLOBIN 29.8 pg (25-34); MEAN CORPUSCULAR HGB CONC 32.5 g/dl (32-36); PLATELET COUNT 170 K/uL (130-400); RED BLOOD COUNT 3.89 M/uL (4.2-5.4); WHITE BLOOD COUNT 8.23 K/uL (4.8-10.8)
[2016-11-26 16:31] LABS: BUN/CREATININE RATIO 14.9 (10-20); CALCIUM 8.1 mg/dl (8.5-10.1); CREATININE 1.2 mg/dl (0.60-1.20); POTASSIUM 3.9 mmol/L (3.5-5.1)
[2016-11-26 16:41] LABS: CHOLESTEROL/HDL RATIO 3.1; THYROID STIMULATING HORMONE 1.72 uIu/ml (0.300-4.500)
--- NOTE | 2016-11-26 18:05 | DIAGNOSTIC IMAGING REPORT ---
HEAD WITHOUT CONTRAST (CT) CT DOSE: 537.48 mGy.cm HISTORY: Stroke S/P t-PA for Stroke. Evaluate hemorrhage TECHNIQUE: Multiaxial CT images of the head were performed without the use of intravenous contrast. A dose lowering technique was utilized adhering to the principles of ALARA. Comparison: 11/26/2016 there 3:33 AM Findings: The paranasal sinuses and mastoid air cells are clear. No change from the prior study. Probable left middle cerebral arterial infarct. Considerable chronic small vessel change. No midline shift. No acute intracranial hemorrhage Impression: Involving left middle cerebral arterial infarct. No acute intracranial hemorrhage. Considerable chronic small vessel change throughout both cerebral hemispheres. The above report was generated using voice recognition software. It may contain grammatical, syntax or spelling errors. Electronically signed by: Roderick Whitaker M.D. 11/26/2016 6:04 PM Dictated Date/Time: 11/26/2016 6:02 PM
[2016-11-26] MEDS ORDERED: ASPIRIN 81 MG ECTAB PO STA (18:18)
[2016-11-26] MEDS ORDERED: CLOPIDOGREL BISULFATE 75 MG TAB PO ONE (18:30)
--- NOTE | 2016-11-26 20:35 | Progress Note ---
Medicine Progress Note Date & Time of Visit: Nov 26, 2016 at 16:26. Subjective 86 yo smoker presents with acute L MCA stroke s/p TPA on admission. Pt is in ICU with no significant changes except that she is opening her mouth and swallowing PO with much prompting. Could not obtain ROS as patient is aphasic. Objective Last 8 Hrs Date Time Temp Pulse Resp B/P (MAP) Pulse Ox O2 Delivery O2 Flow Rate FiO2 11/26/16 15:31 36.7 78 19 160/93 (115) 92 Room Air 11/26/16 15:01 36.7 66 19 151/69 (96) 91 Room Air 11/26/16 14:31 36.7 75 19 148/69 (95) 91 Room Air 11/26/16 14:01 36.7 75 19 148/69 (95) 91 Room Air 11/26/16 14:00 36.6 78 27 112/78 (89) 92 Room Air 11/26/16 13:31 36.7 79 20 121/99 (106) 91 Room Air 11/26/16 13:01 36.7 79 20 121/99 (106) 91 Room Air 11/26/16 12:31 36.7 74 16 149/76 (100) 91 Room Air 11/26/16 12:01 36.7 74 16 149/76 (100) 91 Room Air 11/26/16 12:00 Room Air 11/26/16 12:00 36.6 75 19 134/88 (103) 92 Room Air 11/26/16 11:31 36.7 80 16 162/62 (95) 91 Room Air 11/26/16 11:01 36.7 80 16 162/62 (95) 91 Room Air 11/26/16 10:31 36.7 73 20 146/67 (93) 93 Room Air 11/26/16 10:01 36.7 73 20 146/67 (93) 93 Room Air 11/26/16 10:00 36.6 73 18 140/64 (89) 92 Room Air 11/26/16 09:31 36.6 71 18 119/57 (77) 92 Room Air 11/26/16 09:01 36.6 71 18 119/57 (77) 92 Room Air 11/26/16 08:31 36.6 106 18 152/74 (100) 91 Room Air Physical Exam: GEN: frail, elderly, in no acute distress, eyes are open and patient continues to gaze to the left, unresponsive to commands, able to chew and swallow. HEENT: NC/AT, PERRL, normal sclerae, MMM CARDIO: reg rate, S1/2 heard without m/g/r LUNGS: CTA bilaterally, no crackles, rales or wheezes, very limited exam as patient unable to follow commands and take deep breaths. ABD: soft, non-distended, no rebound or guarding EXTREMITY: NVI, no LE swelling or edema, extremities are warm and well-perfused , RUE flaccid and RLE cannot assess as patient has legs bent up under her. NEURO: aphasic and unable to communicate. MUSC: cachectic-appearing. SKIN: warm and dry, some bruising on the R shoulder and L upper arm and on the R knee-mild. Laboratory Results: 11/26/16 15:37 11/26/16 15:37 Test 11/25/16 15:17 11/25/16 15:25 11/26/16 15:37 11/26/16 18:01 Immature Granulocyte % (Auto) 0.3 % White Blood Count 9.06 K/uL (4.8-10.8) Red Blood Count 4.10 M/uL (4.2-5.4) 3.89 M/uL (4.2-5.4) Hemoglobin 12.3 g/dL (12.0-16.0) Hematocrit 37.1 % (37-47) Mean Corpuscular Volume 90.5 fL (80-100) 91.8 fL (80-100) Mean Corpuscular Hemoglobin 30.0 pg (25-34) 29.8 pg (25-34) Mean Corpuscular Hemoglobin Concent 33.2 g/dl (32-36) 32.5 g/dl (32-36) Platelet Count 151 K/uL (130-400) Mean Platelet Volume 10.8 fL (7.4-10.4) 10.0 fL (7.4-10.4) Neutrophils (%) (Auto) 73.3 % Lymphocytes (%) (Auto) 18.3 % Monocytes (%) (Auto) 7.5 % Eosinophils (%) (Auto) 0.3 % Basophils (%) (Auto) 0.3 % Neutrophils # (Auto) 6.63 K/uL (1.4-6.5) Lymphocytes # (Auto) 1.66 K/uL (1.2-3.4) Monocytes # (Auto) 0.68 K/uL (0.11-0.59) Eosinophils # (Auto) 0.03 K/uL (0-0.5) Basophils # (Auto) 0.03 K/uL (0-0.2) Immature Granulocyte # (Auto) 0.03 K/uL (0.00-0.02) Prothrombin Time 10.6 SECONDS (9.0-12.0) Prothromb Time International Ratio 1.0 (0.9-1.1) Activated Partial Thromboplast Time 23.6 SECONDS (21.0-31.0) Partial Thromboplastin Ratio 0.9 Total Creatine Kinase 85 U/L (26-192) Creatine Kinase MB 1.2 ng/ml (0.5-3.6) Creatine Kinase MB Ratio 1.4 (0-3.0) Troponin I 0.017 ng/ml (0-0.045) Bedside Prothrombin Time INR 1.1 (0.9-1.1) RDW Standard Deviation 46.7 fL (36.4-46.3) RDW Coefficient of Variation 14.0 % (11.5-14.5) Anion Gap 6.0 mmol/L (3-11) Est Creatinine Clear Calc Drug Dose 25.9 ml/min Estimated GFR () 47.7 Estimated GFR (Non- 41.2 BUN/Creatinine Ratio 14.9 (10-20) Calcium Level 8.1 mg/dl (8.5-10.1) Triglycerides Level 106 mg/dl (0-150) Cholesterol Level 121 mg/dl (0-200) HDL Cholesterol 39 mg/dl LDL Cholesterol, Calculated 61 mg/dl VLDL Cholesterol, Calculated 21 mg/dl Cholesterol/HDL Ratio 3.1 Thyroid Stimulating Hormone (TSH) 1.720 uIu/ml (0.300-4.500) Bedside Glucose 165 mg/dl (70-90) Date/Time Source Procedure Growth Status 11/25/16 00:00 Nasal MRSA DNA Surveillance Screen - Final Specimen Negative for MRSA by DNA Probe Complete Last 24 Hours Test 11/26/16 12:02 11/26/16 15:37 Bedside Glucose 140 mg/dl White Blood Count 8.23 K/uL Red Blood Count 3.89 M/uL Hemoglobin 11.6 g/dL Hematocrit 35.7 % Mean Corpuscular Volume 91.8 fL Mean Corpuscular Hemoglobin 29.8 pg Mean Corpuscular Hemoglobin Concent 32.5 g/dl RDW Standard Deviation 46.7 fL RDW Coefficient of Variation 14.0 % Platelet Count 170 K/uL Mean Platelet Volume 10.0 fL Diagnostic Imaging: HEAD WITHOUT CONTRAST (CT) CT DOSE: 537.48 mGy.cm HISTORY: Stroke S/P t-PA for Stroke. Evaluate hemorrhage TECHNIQUE: Multiaxial CT images of the head were performed without the use of intravenous contrast. A dose lowering technique was utilized adhering to the principles of ALARA. Comparison: 11/26/2016 there 3:33 AM Findings: The paranasal sinuses and mastoid air cells are clear. No change from the prior study. Probable left middle cerebral arterial infarct. Considerable chronic small vessel change. No midline shift. No acute intracranial hemorrhage Impression: Involving left middle cerebral arterial infarct. No acute intracranial hemorrhage. Considerable chronic small vessel change throughout both cerebral hemispheres. Assessment & Plan 86 yo smoker presents with acute L MCA stroke s/p TPA on admission. 1. Acute L MCA stroke: risk factors include age, tamoxifen use, and active smoking. TPA given in ER and patient admitted to ICU for close monitoring. Head CT overnight was unchanged with no hemorrhagic conversion. Pt is starting to express herself through some nonverbal communication with the nurses and is able to swallow pills with a vehicle with significant prompting. Neuro following. TTE ordered, carotid us ordered. Allow permissive HTN. NPO until swallow evaluation. Maintenance IVF to stay hydrated in the meantime. Continue with therapy to assist in recouping as much function as possible. 2. CAD-once tolerating PO will cont medical management. At this time workup including trop and EKG are nonischemic and patient is hemodynamically stable with no recent reports of chest pain. ASA and Plavix were added to her regimen today. 3. COPD-stable, no wheezing heard on exam despite limitation as patient not able to follow directions and take deep breaths. Duonebs PRN SOB or wheezing. Budesonide respules scheduled BID. 4. Depression/Anxiety-appears stable, minimal expression at this time. 5. HTN-not on antihypertensives as outpatient. Allow permissive HTN and treat if >180 after TPA. PRN Labetalol ordered. BP has stayed within goal of <185. 6. breast cancer s/p R mastectomy 8 months ago-tamoxifen on hold and in setting of stroke, discussion will need to be had with oncologist prior to continuing. 7. Thyroid nodule- incidental finding on CT scan 1.6 cm. TSH pending. Will defer workup to outpatient setting. DVT prophy-SCDs thigh FULL CODE per daughter who states that she is POA Dispo-to ICU for close monitoring and rehab DO Kasia Paulino Hospitalist Consultants: Neurology-Dr. Washburn ICU PT/OT Speech pathology Current Inpatient Medications: Current Inpatient Medications Medications (Trade) Dose Ordered Sig/Millicent Route Start Time Stop Time Status Last Admin Dose Admin Miscellaneous Information (Pharmacist Discharge Med Rec Consult) 1 ea UD PRN N/A 11/25/16 16:45 12/25/16 16:44 Potassium Chloride/Dextrose/ Sod Cl 1,000 ml @ 75 mls/hr [id number] IV 11/25/16 18:15 12/25/16 18:14 11/26/16 09:22 75 MLS/HR Ondansetron HCl (Zofran Inj) 4 mg Q6H PRN IV 11/25/16 16:45 12/25/16 16:44 11/26/16 02:30 4 MG Levalbuterol (Xopenex 1.25MG/ 0.5ML Neb) 1.25 mg Q6H PRN INH 11/25/16 16:45 12/25/16 16:44 11/26/16 07:27 1.25 MG Ipratropium [place] (Atrovent 0.02% 0.5MG/2.5ML Neb) 0.5 mg Q6H PRN INH 11/25/16 16:45 12/25/16 16:44 11/26/16 07:27 0.5 MG Acetaminophen 650 mg/Empty Bag 65 ml @ 260 mls/hr Q6H PRN IV 11/25/16 17:15 12/25/16 17:14 Labetalol HCl (Normodyne IV) 10 mg Q6H PRN IV 11/25/16 17:15 12/25/16 17:14 Budesonide (Pulmicort Respules 0.5MG/ 2ML Neb Soln) 0.5 mg BIDR INH 11/25/16 20:00 12/25/16 19:59 11/26/16 07:27 0.5 MG
--- NOTE | 2016-11-26 21:12 | DIAGNOSTIC IMAGING REPORT ---
CAROTID DOPPLER NECK ART HISTORY: Stroke Left MCA CVA COMPARISON: None. TECHNIQUE: Real-time, grayscale, and color Doppler sonography of the carotid arteries was performed. Imaging reviewed in the transverse and longitudinal planes. All measurements were calculated based on NASCET criteria. FINDINGS: Antegrade flow is seen in the bilateral vertebral arteries. The brachial pressures are hemodynamically similar. Moderate plaque formation bilaterally The peak systolic velocity within the right ICA is 45. The right systolic ratio is 0.5. The peak systolic velocity within the left ICA is 49. The left systolic ratio is 0.75. IMPRESSION: No hemodynamically significant stenosis seen within the carotid arteries. Moderate plaque formation The above report was generated using voice recognition software. It may contain grammatical, syntax or spelling errors. Electronically signed by: Roderick Whitaker M.D. 11/26/2016 9:10 PM Dictated Date/Time: 11/26/2016 9:10 PM
[2016-11-26] MEDS: HEPARIN SOD 5000 UNIT/0.5 ML CARP SQ SCH (22:36)
[2016-11-27] VITALS (21 sets, daily range): BP systolic 147–191; BP diastolic 72–112; PULSE 65–84; TEMP 36.4–37; O2SAT 92–100
[2016-11-27 05:40] LABS: HEMATOCRIT 36.3 % (37-47); MEAN CELL VOLUME 90.5 fL (80-100); MEAN CORPUSCULAR HEMOGLOBIN 29.9 pg (25-34); MEAN CORPUSCULAR HGB CONC 33.1 g/dl (32-36); MEAN PLATELET VOLUME 10.2 fL (7.4-10.4); PLATELET COUNT 165 K/uL (130-400); RED BLOOD COUNT 4.01 M/uL (4.2-5.4)
[2016-11-27] MEDS: HEPARIN SOD 5000 UNIT/0.5 ML CARP SQ SCH ×3 (06:24→22:26)
[2016-11-27 06:32] LABS: BUN/CREATININE RATIO 11.6 (10-20); CALCIUM 8.3 mg/dl (8.5-10.1); CREATININE 0.9 mg/dl (0.60-1.20); MAGNESIUM 1.7 mg/dl (1.8-2.4); PHOSPHORUS 2.3 mg/dl (2.5-4.9); POTASSIUM 3.6 mmol/L (3.5-5.1)
[2016-11-27 06:33] LABS: ESTIMATED AVERAGE GLUCOSE 105 mg/dl; HA1C FLAG Normal (Normal)
[2016-11-27] MEDS: BUDESONIDE 0.5 MG/2 ML VIAL (PULMICORT) INH SCH ×2 (07:20→19:43)
--- NOTE | 2016-11-27 07:21 | Clinical Documentation Query ---
CLINICAL DOCUMENTATION QUERY Dr. HORNE, In your clinical opinion is this patient being managed for: ( x ) protein-calorie malnutrition/ cachexia ( ) Other explanation of clinical findings (Please Explain) ( ) Unable to determine (Please Define) ( ) Need to Discuss ( ) Not Agree The medical record reflects the following clinical findings, treatment, and risk factors. Clinical Indicators: 86 yo female presenting with an acute L MCA stroke. PN on 11/26 describes pt as cachectic appearing. Seen by rn child who documented 18% wt loss in 13 months. Treatment: ST eval--moist pureed diet, aspiration precautions, I/O, daily wts Risk Factors: breast cancer with mastectomy, age, CKD, COPD Please clarify and document your clinical opinion in the progress notes and discharge summary. Terms such as "probable", "suspected", "likely", "questionable", "possible", or "still to be ruled out" are acceptable. IF IN AGREEMENT, YOU MUST DOCUMENT ABOVE DIAGNOSTIC STATEMENT IN DAILY PROGRESS NOTES AND DISCHARGE SUMMARY. This document is not part of the patient's record. Thank You, Rafaela Cruz, DIMITRIS [phone]
[2016-11-27] MEDS: CLOPIDOGREL BISULFATE 75 MG TAB PO SCH (07:58)
[2016-11-27] MEDS: ASPIRIN 81 MG ECTAB PO SCH (07:58)
[2016-11-27] MEDS: D5NSS + 20MEQ KCL 1,000 ML IV SCH ×2 (10:15→13:36)
[2016-11-27] MEDS: MAGNESIUM SULFATE 1GM / D5W 1 GM in PREMIXED IN D5W 100 ML IV SCH ×2 (10:58→12:37)
[2016-11-27] MEDS: ATORVASTATIN 40 MG TAB PO SCH (10:59)
[2016-11-27] MEDS: MAGNESIUM OXIDE 400 MG TAB PO SCH (10:59)
--- NOTE | 2016-11-27 15:39 | Neurology Progress Notes ---
Neurology Progress Note Date of Service Nov 27, 2016. Eve Benedict is a 86 year old female PMH AAA, breast CA, CAD, CKD III, COPD, depression, DL, HTN, gastric CA hx, OA, mild vascular dementia. 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 She was seen by her daughter in her normal state of health 1/2 hour before the event. When she saw her lying on the floor and couldn't get her up she called 911. She was brought to the ED where a stroke alert was called and was found to be an ideal candidate for TPA. On CT there was a low density area in the L middle cerebral artery distribution and diffuse leukoencephalopathic changes. Aspirin was started (which she was taking prior to the event) and plavix after the initial period per protocol. Currently she is non verbal and wanting to stand and get out of bed. According to daughter prior to this event she was cooking and gardening on her own. Objective Date Time Temp Pulse Resp B/P (MAP) Pulse Ox O2 Delivery O2 Flow Rate FiO2 11/27/16 12:00 97 Nasal Cannula 2.0 11/27/16 11:35 36.8 67 18 172/79 (110) 97 Nasal Cannula 2.0 11/27/16 10:00 79 16 180/77 (111) 94 Nasal Cannula 2.0 11/27/16 08:00 37.0 79 22 149/72 (97) 94 Nasal Cannula 2.0 11/27/16 08:00 97 Nasal Cannula 2.0 11/27/16 07:20 78 21 96 Nasal Cannula 2.0 11/27/16 06:02 37.0 66 18 172/79 (110) 94 11/27/16 05:01 77 20 167/91 (116) 97 11/27/16 04:27 94 Room Air 11/27/16 04:27 65 17 179/78 (111) 98 11/27/16 04:08 76 21 179/78 (111) 97 11/27/16 03:01 70 18 159/83 (108) 97 11/27/16 02:01 73 18 166/88 (114) 97 11/27/16 01:20 94 Room Air 11/27/16 01:05 77 20 147/97 (114) 97 11/27/16 01:02 77 20 191/93 (125) 96 11/27/16 00:31 67 25 164/74 (104) 98 11/27/16 00:01 36.7 84 20 184/83 (116) 92 11/26/16 23:34 83 19 163/114 (130) 92 11/26/16 23:02 83 20 172/107 (128) 91 11/26/16 22:31 66 20 158/69 (98) 90 11/26/16 22:02 86 18 176/92 (120) 90 11/26/16 21:32 76 23 142/85 (104) 92 11/26/16 21:02 76 21 146/102 (117) 91 11/26/16 20:32 77 19 161/73 (102) 90 Room Air 11/26/16 20:25 94 Room Air 11/26/16 20:02 36.6 83 14 185/75 (111) 90 Room Air 11/26/16 19:32 76 21 177/66 (103) 91 Room Air 11/26/16 19:02 72 17 165/76 (105) 100 Room Air 11/26/16 19:00 61 21 91 Room Air 11/26/16 18:00 36.6 72 13 166/70 (102) 92 Room Air 11/26/16 16:00 Room Air 11/26/16 16:00 36.6 77 13 112/78 (89) 92 Room Air 11/26/16 15:31 36.7 78 19 160/93 (115) 92 Room Air Last 24 Hours Test 11/26/16 15:37 11/26/16 18:01 11/27/16 05:34 11/27/16 07:56 White Blood Count 8.23 K/uL 10.10 K/uL Red Blood Count 3.89 M/uL 4.01 M/uL Hemoglobin 11.6 g/dL 12.0 g/dL Hematocrit 35.7 % 36.3 % Mean Corpuscular Volume 91.8 fL 90.5 fL Mean Corpuscular Hemoglobin 29.8 pg 29.9 pg Mean Corpuscular Hemoglobin Concent 32.5 g/dl 33.1 g/dl RDW Standard Deviation 46.7 fL 45.7 fL RDW Coefficient of Variation 14.0 % 13.7 % Platelet Count 170 K/uL 165 K/uL Mean Platelet Volume 10.0 fL 10.2 fL Sodium Level 145 mmol/L 142 mmol/L Potassium Level 3.9 mmol/L 3.6 mmol/L Chloride Level 111 mmol/L 108 mmol/L Carbon Dioxide Level 28 mmol/L 29 mmol/L Anion Gap 6.0 mmol/L 5.0 mmol/L Blood Urea Nitrogen 18 mg/dl 10 mg/dl Creatinine 1.20 mg/dl 0.90 mg/dl Est Creatinine Clear Calc Drug Dose 25.9 ml/min 34.5 ml/min Estimated GFR () 47.7 67.6 Estimated GFR (Non- 41.2 58.3 BUN/Creatinine Ratio 14.9 11.6 Random Glucose 162 mg/dl 130 mg/dl Calcium Level 8.1 mg/dl 8.3 mg/dl Triglycerides Level 106 mg/dl Cholesterol Level 121 mg/dl HDL Cholesterol 39 mg/dl LDL Cholesterol, Calculated 61 mg/dl VLDL Cholesterol, Calculated 21 mg/dl Cholesterol/HDL Ratio 3.1 Thyroid Stimulating Hormone (TSH) 1.720 uIu/ml Bedside Glucose 165 mg/dl Phosphorus Level 2.3 mg/dl Magnesium Level 1.7 mg/dl Total Bilirubin 0.5 mg/dl Aspartate Amino Transf (AST/SGOT) 21 U/L Alanine Aminotransferase (ALT/SGPT) 16 U/L Alkaline Phosphatase 93 U/L Total Protein 5.9 gm/dl Albumin 3.0 gm/dl Globulin 2.9 gm/dl Albumin/Globulin Ratio 1.0 Imaging: carotid doppler- No hemodynamically significant stenosis seen within the carotid arteries. Moderate plaque formation CT head repeated 11/26/16- Involving left middle cerebral arterial infarct. No acute intracranial hemorrhage. Considerable chronic small vessel change throughout both cerebral hemispheres. TTE - completed but not resulted Exam: Physical Exam: Constitutional: appearance nourished, healthy and thin pale Ears, Nose, Mouth and Throat: mucous membranes moist, no injection and skin normal, eyes normal Cardiovascular: normal S-1 and S-2 and regular rate and rhythm Respiratory: clear to auscultation (CTA) and no rales, rhonchi or wheeze Musculoskeletal: no peripheral edema and good distal pulses Skin: no stigmata of neurocutaneous disease noted and normal and intact Eyes: follows around room NEUROLOGIC EXAMINATION: Mental status: Alert and interactive receptive and expressive aphasia Cranial Nerves face appears symmetric when she smiles Reflexes: Deep tendon reflexes were symmetrical and graded 2/5. Plantar responses were flexor. Sensory: unable to evaluate Coordination: unable to follow commands Gait/Stance: Posture sitting bedside and stands without assistance Motor: unable to left right arm. Strength: squeezes with left hand and resists with pulling, right arm unable to raise or maintain against gravity Current Inpatient Medications Medications (Trade) Dose Ordered Sig/Millicent Route Start Time Stop Time Status Last Admin Dose Admin Miscellaneous Information (Pharmacist Discharge Med Rec Consult) 1 ea UD PRN N/A 11/25/16 16:45 12/25/16 16:44 Potassium Chloride/Dextrose/ Sod Cl 1,000 ml @ 75 mls/hr [id number] IV 11/25/16 18:15 12/25/16 18:14 11/27/16 13:36 75 MLS/HR Ondansetron HCl (Zofran Inj) 4 mg Q6H PRN IV 11/25/16 16:45 12/25/16 16:44 11/26/16 02:30 4 MG Levalbuterol (Xopenex 1.25MG/ 0.5ML Neb) 1.25 mg Q6H PRN INH 11/25/16 16:45 12/25/16 16:44 11/26/16 07:27 1.25 MG Ipratropium [place] (Atrovent 0.02% 0.5MG/2.5ML Neb) 0.5 mg Q6H PRN INH 11/25/16 16:45 12/25/16 16:44 11/26/16 07:27 0.5 MG Acetaminophen 650 mg/Empty Bag 65 ml @ 260 mls/hr Q6H PRN IV 11/25/16 17:15 12/25/16 17:14 Labetalol HCl (Normodyne IV) 10 mg Q6H PRN IV 11/25/16 17:15 12/25/16 17:14 Budesonide (Pulmicort Respules 0.5MG/ 2ML Neb Soln) 0.5 mg BIDR INH 11/25/16 20:00 12/25/16 19:59 11/27/16 07:20 0.5 MG Aspirin (Ecotrin Tab) 81 mg QAM PO 11/27/16 09:00 12/27/16 08:59 11/27/16 07:58 81 MG Clopidogrel Bisulfate (plAVix TAB) 75 mg QAM PO 11/27/16 09:00 12/27/16 08:59 11/27/16 07:58 75 MG Heparin Sodium (Porcine) (Heparin Sq 5000 Unit/0.5ml) 5,000 unit Q8 SQ 11/26/16 22:00 12/26/16 21:59 11/27/16 13:37 5,000 UNIT Magnesium Oxide (Mag-Ox Tab) 400 mg QAM PO 11/27/16 09:00 12/27/16 08:59 11/27/16 10:59 400 MG Atorvastatin Calcium (Lipitor Tab) 80 mg QAM PO 11/27/16 10:00 12/27/16 09:59 11/27/16 10:59 80 MG Impression 86 year old female s/p left hemispheric CVA with aphasia and left arm paresis Plan 1. PT/OT and speech for discharge needs 2. permissive hypertension with consideration for age 3. TTE pending read 4. repeat CT head with any MS changes 5. LDL <70 -already 61 6. blood pressure control and DL control per protocol 7. fall precautions 8. was previously on aspirin 81 mg prior to event, aspirin 81 mg and plavix 75 mg x 3 months then stop aspirin and continue plavix 75 mg for lifetime 9. will see in our office 2-3 weeks after discharge from rehab Pt seen and examined, awake alert, globally aphasic. CT reviewed, carotid US noted.No gaze pref, flat RNLF, mute. RUE 0/5 RLE greater than antigrav. Imp L MCA infarct sp TPA, no hemorrhagic transformation. Continue ASA and Plavix for 3 months then dc asa. I would not pursue intermittent afib bc pt age, hx of falls. MELVA Huynh MD I have seen and discussed above patient with Dr Rody Huynh, neurology
[2016-11-27 16:32] LABS: URINE APPEARANCE CLEAR (CLEAR); URINE BILIRUBIN NEG (NEG); URINE COLOR YELLOW; URINE EPITHELIAL CELL AUTO 0-5 /lpf (0-5); URINE NITRITE NEG (NEG); URINE SPECIFIC GRAVITY 1.012 (1.000-1.030); UROBILINOGEN NEG (NEG); ZZUR CULT IF INDIC CLEAN CATCH YES
[2016-11-27 16:41] LABS: MANUAL MICROSCOPIC REQUIRED? NO; REVIEW REQ? NO
--- NOTE | 2016-11-27 18:06 | Progress Note ---
Medicine Progress Note Date & Time of Visit: Nov 27, 2016 at 17:18. Subjective 86 yo smoker presents with acute L MCA stroke s/p TPA on admission. ICU for [address] head did not reveal hemorrhagic transformation. BP parameters below. Speech eval--pt can tolerate PO with much prompting. PT/OT eval--patient needs acute inpatient rehab. Cont ASA/Plavix. Optimize then DC to rehab -pt unable to respond or follow commands so assessment is limited, cannot obtain ROS as a result. Objective Last 8 Hrs Date Time Temp Pulse Resp B/P (MAP) Pulse Ox O2 Delivery O2 Flow Rate FiO2 11/27/16 16:55 36.4 83 21 152/112 (125) 98 Nasal Cannula 2.0 11/27/16 12:00 97 Nasal Cannula 2.0 11/27/16 11:35 36.8 67 18 172/79 (110) 97 Nasal Cannula 2.0 11/27/16 10:00 79 16 180/77 (111) 94 Nasal Cannula 2.0 Physical Exam: GEN: frail, elderly, in no acute distress, unresponsive to commands HEENT: NC/AT, PERRL, normal sclerae, MMM CARDIO: reg rate, S1/2 heard without m/g/r LUNGS: CTA bilat, limited exam ABD: soft, non-distended, no rebound or guarding, +BS EXTREMITY: NVI, no LE swelling or edema, extremities are warm and well-perfused , RUE flaccid, limited eval of RLE 2/2 unable to follow commands NEURO: aphasic and unable to communicate. MUSC: cachectic-appearing. SKIN: warm and dry, some bruising on the R shoulder and L upper arm and on the R knee-mild. Thin skin Laboratory Results: 11/27/16 05:34 11/27/16 05:34 Test 11/25/16 15:17 11/25/16 15:25 11/26/16 15:37 11/26/16 18:01 Immature Granulocyte % (Auto) 0.3 % White Blood Count 9.06 K/uL (4.8-10.8) Red Blood Count 4.10 M/uL (4.2-5.4) Hemoglobin 12.3 g/dL (12.0-16.0) Hematocrit 37.1 % (37-47) Mean Corpuscular Volume 90.5 fL (80-100) Mean Corpuscular Hemoglobin 30.0 pg (25-34) Mean Corpuscular Hemoglobin Concent 33.2 g/dl (32-36) Platelet Count 151 K/uL (130-400) Mean Platelet Volume 10.8 fL (7.4-10.4) Neutrophils (%) (Auto) 73.3 % Lymphocytes (%) (Auto) 18.3 % Monocytes (%) (Auto) 7.5 % Eosinophils (%) (Auto) 0.3 % Basophils (%) (Auto) 0.3 % Neutrophils # (Auto) 6.63 K/uL (1.4-6.5) Lymphocytes # (Auto) 1.66 K/uL (1.2-3.4) Monocytes # (Auto) 0.68 K/uL (0.11-0.59) Eosinophils # (Auto) 0.03 K/uL (0-0.5) Basophils # (Auto) 0.03 K/uL (0-0.2) Immature Granulocyte # (Auto) 0.03 K/uL (0.00-0.02) Prothrombin Time 10.6 SECONDS (9.0-12.0) Prothromb Time International Ratio 1.0 (0.9-1.1) Activated Partial Thromboplast Time 23.6 SECONDS (21.0-31.0) Partial Thromboplastin Ratio 0.9 Estimated Average Glucose 105 mg/dl Hemoglobin A1c 5.3 % (4.5-5.6) Total Creatine Kinase 85 U/L (26-192) Creatine Kinase MB 1.2 ng/ml (0.5-3.6) Creatine Kinase MB Ratio 1.4 (0-3.0) Troponin I 0.017 ng/ml (0-0.045) Bedside Prothrombin Time INR 1.1 (0.9-1.1) Triglycerides Level 106 mg/dl (0-150) Cholesterol Level 121 mg/dl (0-200) HDL Cholesterol 39 mg/dl LDL Cholesterol, Calculated 61 mg/dl VLDL Cholesterol, Calculated 21 mg/dl Cholesterol/HDL Ratio 3.1 Thyroid Stimulating Hormone (TSH) 1.720 uIu/ml (0.300-4.500) Bedside Glucose 165 mg/dl (70-90) Test 11/27/16 05:34 11/27/16 08:15 Red Blood Count 4.01 M/uL (4.2-5.4) Mean Corpuscular Volume 90.5 fL (80-100) Mean Corpuscular Hemoglobin 29.9 pg (25-34) Mean Corpuscular Hemoglobin Concent 33.1 g/dl (32-36) RDW Standard Deviation 45.7 fL (36.4-46.3) RDW Coefficient of Variation 13.7 % (11.5-14.5) Mean Platelet Volume 10.2 fL (7.4-10.4) Anion Gap 5.0 mmol/L (3-11) Est Creatinine Clear Calc Drug Dose 34.5 ml/min Estimated GFR () 67.6 Estimated GFR (Non- 58.3 BUN/Creatinine Ratio 11.6 (10-20) Calcium Level 8.3 mg/dl (8.5-10.1) Phosphorus Level 2.3 mg/dl (2.5-4.9) Magnesium Level 1.7 mg/dl (1.8-2.4) Total Bilirubin 0.5 mg/dl (0.2-1) Aspartate Amino Transf (AST/SGOT) 21 U/L (15-37) Alanine Aminotransferase (ALT/SGPT) 16 U/L (12-78) Alkaline Phosphatase 93 U/L (45-117) Total Protein 5.9 gm/dl (6.4-8.2) Albumin 3.0 gm/dl (3.4-5.0) Globulin 2.9 gm/dl (2.5-4.0) Albumin/Globulin Ratio 1.0 (0.9-2) Urine Color YELLOW Urine Appearance CLEAR (CLEAR) Urine pH 8.0 (4.5-7.5) Urine Specific [place] 1.012 (1.000-1.030) Urine Protein NEG (NEG) Urine Glucose (UA) NEG (NEG) Urine Ketones NEG (NEG) Urine Occult Blood 1+ (NEG) Urine Nitrite NEG (NEG) Urine Bilirubin NEG (NEG) Urine Urobilinogen NEG (NEG) Urine Leukocyte Esterase TRACE (NEG) Urine WBC (Auto) >30 /hpf (0-5) Urine RBC (Auto) 5-10 /hpf (0-4) Urine Hyaline Casts (Auto) 10-30 /lpf (0-5) Urine Epithelial Cells (Auto) 0-5 /lpf (0-5) Urine Bacteria (Auto) 4+ (NEG) Date/Time Source Procedure Growth Status 11/25/16 00:00 Nasal MRSA DNA Surveillance Screen - Final Specimen Negative for MRSA by DNA Probe Complete 11/27/16 08:15 Urine , Clean Catch Urine Culture Pending Received Last 24 Hours Test 11/26/16 18:01 11/27/16 05:34 11/27/16 08:15 Bedside Glucose 165 mg/dl White Blood Count 10.10 K/uL Red Blood Count 4.01 M/uL Hemoglobin 12.0 g/dL Hematocrit 36.3 % Mean Corpuscular Volume 90.5 fL Mean Corpuscular Hemoglobin 29.9 pg Mean Corpuscular Hemoglobin Concent 33.1 g/dl RDW Standard Deviation 45.7 fL RDW Coefficient of Variation 13.7 % Platelet Count 165 K/uL Mean Platelet Volume 10.2 fL Sodium Level 142 mmol/L Potassium Level 3.6 mmol/L Chloride Level 108 mmol/L Carbon Dioxide Level 29 mmol/L Anion Gap 5.0 mmol/L Blood Urea Nitrogen 10 mg/dl Creatinine 0.90 mg/dl Est Creatinine Clear Calc Drug Dose 34.5 ml/min Estimated GFR () 67.6 Estimated GFR (Non- 58.3 BUN/Creatinine Ratio 11.6 Random Glucose 130 mg/dl Calcium Level 8.3 mg/dl Phosphorus Level 2.3 mg/dl Magnesium Level 1.7 mg/dl Total Bilirubin 0.5 mg/dl Aspartate Amino Transf (AST/SGOT) 21 U/L Alanine Aminotransferase (ALT/SGPT) 16 U/L Alkaline Phosphatase 93 U/L Total Protein 5.9 gm/dl Albumin 3.0 gm/dl Globulin 2.9 gm/dl Albumin/Globulin Ratio 1.0 Urine Color YELLOW Urine Appearance CLEAR Urine pH 8.0 Urine Specific [place] 1.012 Urine Protein NEG Urine Glucose (UA) NEG Urine Ketones NEG Urine Occult Blood 1+ Urine Nitrite NEG Urine Bilirubin NEG Urine Urobilinogen NEG Urine Leukocyte Esterase TRACE Urine WBC (Auto) >30 /hpf Urine RBC (Auto) 5-10 /hpf Urine Hyaline Casts (Auto) 10-30 /lpf Urine Epithelial Cells (Auto) 0-5 /lpf Urine Bacteria (Auto) 4+ Date/Time Source Procedure Growth Status 11/27/16 08:15 Urine , Clean Catch Urine Culture Pending Received Assessment & Plan 86 yo smoker presents with acute L MCA stroke s/p TPA on admission. ICU for [address] head did not reveal hemorrhagic transformation. BP parameters below. Speech eval--pt can tolerate PO with much prompting. PT/OT eval--patient needs acute inpatient rehab. Cont ASA/Plavix. Optimize then DC to rehab. 1. Acute L MCA stroke: risk factors include age, tamoxifen use, and active smoking. TPA given in ER and patient admitted to ICU for close monitoring. Head CT overnight was unchanged with no hemorrhagic conversion. Pt is starting to express herself through some nonverbal communication with the nurses and is able to swallow pills with a vehicle with significant prompting. Neuro following. TTE ordered, carotid us ordered. Allow permissive HTN. NPO until swallow evaluation. Maintenance IVF to stay hydrated in the meantime. Continue with therapy to assist in recouping as much function as possible. 2. COPD- Scheduled Duonebs. Budesonide respules scheduled BID. 3. CAD-cont medical management as tolerated 4. Depression/Anxiety-appears stable, minimal expression at this time. 5. HTN-not on antihypertensives as outpatient. Allow permissive HTN and treat if >180 after TPA. PRN Labetalol ordered. BP has stayed within goal of <180. 6. breast cancer s/p R mastectomy 8 months ago-tamoxifen on hold and in setting of stroke, discussion will need to be had with oncologist prior to continuing. 7. Thyroid nodule- incidental finding on CT scan 1.6 cm. TSH pending. Will defer workup to outpatient setting. 8. protein/calorie malnutrition/cachexia DVT prophy-SCDs thigh FULL CODE per daughter who states that she is POA Dispo-to ICU for close monitoring and rehab DO [facility] Hospitalist Consultants: Neurology-Dr. Washburn ICU PT/OT Speech pathology Current Inpatient Medications: Current Inpatient Medications Medications (Trade) Dose Ordered Sig/Millicent Route Start Time Stop Time Status Last Admin Dose Admin Miscellaneous Information (Pharmacist Discharge Med Rec Consult) 1 ea UD PRN N/A 11/25/16 16:45 12/25/16 16:44 Potassium Chloride/Dextrose/ Sod Cl 1,000 ml @ 75 mls/hr [id number] IV 11/25/16 18:15 12/25/16 18:14 11/27/16 13:36 75 MLS/HR Ondansetron HCl (Zofran Inj) 4 mg Q6H PRN IV 11/25/16 16:45 12/25/16 16:44 11/26/16 02:30 4 MG Levalbuterol (Xopenex 1.25MG/ 0.5ML Neb) 1.25 mg Q6H PRN INH 11/25/16 16:45 12/25/16 16:44 11/26/16 07:27 1.25 MG Ipratropium [place] (Atrovent 0.02% 0.5MG/2.5ML Neb) 0.5 mg Q6H PRN INH 11/25/16 16:45 12/25/16 16:44 11/26/16 07:27 0.5 MG Acetaminophen 650 mg/Empty Bag 65 ml @ 260 mls/hr Q6H PRN IV 11/25/16 17:15 12/25/16 17:14 Labetalol HCl (Normodyne IV) 10 mg Q6H PRN IV 11/25/16 17:15 12/25/16 17:14 Budesonide (Pulmicort Respules 0.5MG/ 2ML Neb Soln) 0.5 mg BIDR INH 11/25/16 20:00 12/25/16 19:59 11/27/16 07:20 0.5 MG Aspirin (Ecotrin Tab) 81 mg QAM PO 11/27/16 09:00 12/27/16 08:59 11/27/16 07:58 81 MG Clopidogrel Bisulfate (plAVix TAB) 75 mg QAM PO 11/27/16 09:00 12/27/16 08:59 11/27/16 07:58 75 MG Heparin Sodium (Porcine) (Heparin Sq 5000 Unit/0.5ml) 5,000 unit Q8 SQ 11/26/16 22:00 12/26/16 21:59 11/27/16 13:37 5,000 UNIT Magnesium Oxide (Mag-Ox Tab) 400 mg QAM PO 11/27/16 09:00 12/27/16 08:59 11/27/16 10:59 400 MG Atorvastatin Calcium (Lipitor Tab) 80 mg QAM PO 11/27/16 10:00 12/27/16 09:59 7/31/17 10:59 80 MG Ceftriaxone Sodium 1 gm/ Dextrose 50 ml @ 100 mls/hr Q24H IV 11/27/16 17:15 12/02/16 17:14 UNV
[2016-11-27] MEDS: CEFTRIAXONE SOD INJ 1 GM in DEXTROSE 5% ADD-VANTAGE 50ML 50 ML IV SCH (18:35)
--- NOTE | 2016-11-27 18:35 | DIAGNOSTIC IMAGING REPORT ---
SINGLE VIEW CHEST CLINICAL HISTORY: Wheezing. FINDINGS: An AP, portable, upright chest radiograph is compared to study dated 11/25/2016. Correlation is made with chest CT dated 02/01/2011. The examination is degraded by portable technique, apical lordotic positioning, and patient rotation. The heart is enlarged and there is atherosclerotic calcification of the thoracic aorta. The pulmonary vasculature is noncongested. Calcified mediastinal lymph nodes are similar to previous. Chronic interstitial thickening is similar to previous. No airspace consolidation or pleural effusion is seen. Scattered calcified granulomas are observed. No pneumothorax is seen. The skeletal structures are osteopenic. The bony thorax is grossly intact. IMPRESSION: Cardiomegaly with no active disease in the chest. Electronically signed by: Mani Scott M.D. 11/27/2016 6:33 PM Dictated Date/Time: 11/27/2016 6:32 PM
[2016-11-27] MEDS: LEVALBUTEROL 1.25MG/0.5ML NEB INH SCH (19:43)
[2016-11-27] MEDS: IPRATROPIUM BROMIDE NEB SOLN 0.02% 2.5 ML VIAL INH SCH (19:43)
[2016-11-28] VITALS (9 sets, daily range): BP systolic 113–161; BP diastolic 46–112; PULSE 74–85; TEMP 36.4–37; O2SAT 91–95
[2016-11-28] MEDS: IPRATROPIUM BROMIDE NEB SOLN 0.02% 2.5 ML VIAL INH SCH ×4 (02:20→19:12)
[2016-11-28] MEDS: LEVALBUTEROL 1.25MG/0.5ML NEB INH SCH ×4 (02:20→19:12)
[2016-11-28] MEDS: HEPARIN SOD 5000 UNIT/0.5 ML CARP SQ SCH ×3 (05:58→22:05)
[2016-11-28 06:29] LABS: HEMATOCRIT 34.8 % (37-47); MEAN CELL VOLUME 89.2 fL (80-100); MEAN CORPUSCULAR HEMOGLOBIN 31.3 pg (25-34); MEAN CORPUSCULAR HGB CONC 35.1 g/dl (32-36); MEAN PLATELET VOLUME 10.8 fL (7.4-10.4); PLATELET COUNT 190 K/uL (130-400)
[2016-11-28] MEDS: BUDESONIDE 0.5 MG/2 ML VIAL (PULMICORT) INH SCH ×2 (07:03→20:05)
[2016-11-28 07:06] LABS: BUN/CREATININE RATIO 11.2 (10-20); CALCIUM 8.4 mg/dl (8.5-10.1); CREATININE 0.86 mg/dl (0.60-1.20); MAGNESIUM 2.1 mg/dl (1.8-2.4); POTASSIUM 3.3 mmol/L (3.5-5.1)
[2016-11-28] MEDS ORDERED: POTASSIUM CHLORIDE 20 MEQ TABCR PO ONE (08:00)
[2016-11-28] MEDS: ATORVASTATIN 40 MG TAB PO SCH (08:26)
[2016-11-28] MEDS: MAGNESIUM OXIDE 400 MG TAB PO SCH (08:26)
[2016-11-28] MEDS: CLOPIDOGREL BISULFATE 75 MG TAB PO SCH (08:26)
[2016-11-28] MEDS: ASPIRIN 81 MG ECTAB PO SCH (08:26)
--- NOTE | 2016-11-28 08:26 | ECHOCARDIOGRAM REPORT ---
*NOTICE TO RECEIVING DEMOCRAT AGENCY This information is strictly Confidential and protected under [place] law. [place] law prohibits you from making any further disclosure of this information unless further disclosure is expressly permitted by the written consent of the person to whom it pertains or is authorized by law. A general authorization for the release of medical or other information is not sufficient for this purpose. Hospital accepts no responsibility if the information is made available to any other person, INCLUDING THE PATIENT. Interpretation Summary * Name: LYNDA SÁNCHEZ Study Date: 11/27/2016 06:48 AM BP: 172/73 mmHg * Patient Location: .[facility]ICU\S\E102\S\1 HR: 70 * : 1930 (M/d/yyyy) Gender: Female Height: 61 in * Age: 86 yrs Ethnicity: [place] Weight: 123 lb * Ordering Physician: Baldev Travis * Referring Physician: Self, Referred * Performed By: Oli Razo RCS * * Reason For Study: Cerebral Ischemia/Embolus * BSA: 1.5 m2 * -- Conclusions -- * Normal LV chamber size and wall thickness. * Normal LV systolic function, EF 55-60%. * No segmental left ventricular wall motion abnormalities are noted. * Grade I diastolic dysfunction. * Poorly visualized valvular structures with no significant stenosis or regurgitation by Doppler. Procedure Details * A complete two-dimensional transthoracic echocardiogram was performed (2D, M-mode, Doppler and color flow Doppler). * There were technical limitations due to patient'sinability to cooperate Left Ventricle * The left ventricle is normal in size. * There is normal left ventricular wall thickness. * Ejection Fraction = 55-60%. * Left ventricular systolic function is normal. * No segmental left ventricular wall motion abnormalities are noted. * The left ventricular wall motion is normal. Right Ventricle * The right ventricular cavity size is normal (basal dimension <4.2 cm in right ventricular apical 4-chamber view). * The right ventricular systolic function is normal as assessed by tricuspid annular plane systolic excursion (TAPSE) (normal >1.5 cm). Atria * The left atrial size is normal. * Right atrial size is normal. * No ASD detected; PFO is not assessed. Mitral Valve * The mitral valve is not well visualized. * There is moderate mitral annular calcification. * There is no mitral regurgitation noted. Tricuspid Valve * The tricuspid valve is not well visualized. * There is no tricuspid stenosis. * No tricuspid regurgitation. Aortic Valve * The aortic valve is not well visualized. * No hemodynamically significant valvular aortic stenosis. * There is no significant aortic regurgitation. Pulmonic Valve * The pulmonary valve is not well seen, but the Doppler examination is normal without significant regurgitation or stenosis. Great Vessels * The aortic root is normal size. Pericardium/Pleural * There is no pericardial effusion. Left Ventricular Diastolic Function * Grade I diastolic dysfunction, (abnormal relaxation pattern). MMode 2D Measurements and Calculations IVSd 0.95 cm IVSs 1.2 cm LVIDd 4.7 cm LVIDs 3.5 cm LVPWd 0.81 cm LVPWs 1.1 cm IVS/LVPW 1.2 FS 25.4 % EDV(Teich) 103.2 ml ESV(Teich) 51.5 ml EF(Teich) 50.0 % EDV(cubed) 104.9 ml ESV(cubed) 43.6 ml EF(cubed) 58.4 % % IVS thick 26.0 % % LVPW thick 32.2 % LV mass(C)d 139.0 grams LV mass(C)dI 90.5 grams/m\S\2 LV mass(C)s 125.3 grams LV mass(C)sI 81.5 grams/m\S\2 CO(Teich) 4.1 l/min CI(Teich) 2.7 l/min/m\S\2 SV(Teich) 51.6 ml SI(Teich) 33.6 ml/m\S\2 CO(cubed) 4.8 l/min CI(cubed) 3.2 l/min/m\S\2 SV(cubed) 61.3 ml SI(cubed) 39.9 ml/m\S\2 Ao root diam 3.4 cm Ao root area 8.9 cm\S\2 ACS 1.6 cm LA dimension 2.9 cm asc Aorta Diam 4.2 cm LA/Ao 0.85 LVAd ap4 24.9 cm\S\2 LVLd ap4 7.2 cm EDV(MOD-sp4) 71.0 ml LVAs ap4 15.4 cm\S\2 LVLs ap4 6.5 cm ESV(MOD-sp4) 31.0 ml EF(MOD-sp4) 56.3 % LVAd ap2 20.1 cm\S\2 LVLd ap2 6.8 cm EDV(MOD-sp2) 51.0 ml LVAs ap2 10.7 cm\S\2 LVLs ap2 5.6 cm ESV(MOD-sp2) 16.0 ml EF(MOD-sp2) 68.6 % CO(MOD-sp4) 3.2 l/min CI(MOD-sp4) 2.1 l/min/m\S\2 SV(MOD-sp4) 40.0 ml SI(MOD-sp4) 26.0 ml/m\S\2 CO(MOD-sp2) 2.8 l/min CI(MOD-sp2) 1.8 l/min/m\S\2 SV(MOD-sp2) 35.0 ml SI(MOD-sp2) 22.8 ml/m\S\2 Doppler Measurements and Calculations MV E max anuja 88.2 cm/sec MV A max anuja 143.8 cm/sec MV E/A 0.61 MV P1/2t max anuja 120.8 cm/sec MV P1/2t 59.5 msec MVA(P1/2t) 3.7 cm\S\2 MV dec slope 594.8 cm/sec\S\2 MV dec time 0.20 sec Ao V2 max 129.5 cm/sec Ao max PG 6.7 mmHg Ao max PG (full) 1.9 mmHg AI max anuja 439.8 cm/sec AI max PG 77.4 mmHg AI dec slope 197.1 cm/sec\S\2 AI P1/2t 653.4 msec LV V1 max PG 4.8 mmHg LV V1 max 109.8 cm/sec PA V2 max 100.4 cm/sec PA max PG 4.0 mmHg PI max anuja 202.9 cm/sec PI max PG 16.5 mmHg PI dec slope 176.6 cm/sec\S\2 PI P1/2t 336.5 msec TR max anuja 307.7 cm/sec
--- NOTE | 2016-11-28 15:04 | Neurology Progress Notes ---
Neurology Progress Note Date of Service Nov 28, 2016. Eve Benedict is a 86 year old female PMH AAA, breast CA, CAD, CKD III, COPD, depression, DL, HTN, gastric CA hx, OA, mild vascular dementia. 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 She was seen by her daughter in her normal state of health 1/2 hour before the event. When she saw her lying on the floor and couldn't get her up she called 911. She was brought to the ED where a stroke alert was called and was found to be an ideal candidate for TPA. On CT there was a low density area in the L middle cerebral artery distribution and diffuse leukoencephalopathic changes. Aspirin was started (which she was taking prior to the event) and plavix after the initial period per protocol. Currently she is non verbal but is pleasant with exam. According to daughter prior to this event she was cooking and gardening on her own. Objective Date Time Temp Pulse Resp B/P (MAP) Pulse Ox O2 Delivery O2 Flow Rate FiO2 11/28/16 11:47 36.4 78 21 145/75 (98) 92 Room Air 11/28/16 08:00 Room Air 11/28/16 07:52 36.9 78 23 113/46 (68) 91 Room Air 11/28/16 07:03 74 16 93 Room Air 11/28/16 04:09 36.9 78 17 161/75 (103) 92 Room Air 11/28/16 04:00 Room Air 11/28/16 02:20 75 20 92 Room Air 11/27/16 23:59 Nasal Cannula 1.0 11/27/16 22:46 36.5 68 22 156/74 (101) 95 Nasal Cannula 1.0 11/27/16 20:37 67 23 157/85 (109) 99 Nasal Cannula 2.0 11/27/16 20:00 Nasal Cannula 2.0 11/27/16 19:45 76 20 100 Nasal Cannula 2.0 11/27/16 18:58 36.9 71 20 185/88 (120) 100 Nasal Cannula 2.0 11/27/16 16:55 36.4 83 21 152/112 (125) 98 Nasal Cannula 2.0 11/27/16 16:00 Nasal Cannula 2.0 Last 24 Hours Test 11/27/16 16:11 11/28/16 05:50 Bedside Glucose 111 mg/dl White Blood Count 11.20 K/uL Red Blood Count 3.90 M/uL Hemoglobin 12.2 g/dL Hematocrit 34.8 % Mean Corpuscular Volume 89.2 fL Mean Corpuscular Hemoglobin 31.3 pg Mean Corpuscular Hemoglobin Concent 35.1 g/dl RDW Standard Deviation 44.8 fL RDW Coefficient of Variation 13.7 % Platelet Count 190 K/uL Mean Platelet Volume 10.8 fL Sodium Level 140 mmol/L Potassium Level 3.3 mmol/L Chloride Level 105 mmol/L Carbon Dioxide Level 30 mmol/L Anion Gap 5.0 mmol/L Blood Urea Nitrogen 10 mg/dl Creatinine 0.86 mg/dl Est Creatinine Clear Calc Drug Dose 36.1 ml/min Estimated GFR () 71.4 Estimated GFR (Non- 61.6 BUN/Creatinine Ratio 11.2 Random Glucose 113 mg/dl Calcium Level 8.4 mg/dl Magnesium Level 2.1 mg/dl Imaging: TTE Normal LV chamber size and wall thickness. * Normal LV systolic function, EF 55-60%. * No segmental left ventricular wall motion abnormalities are noted. * Grade I diastolic dysfunction. * Poorly visualized valvular structures with no significant stenosis or regurgitation by Doppler. ASD no visible Exam: gen: alert smiles face appear symmetric, receptive and expressive aphasia CV RRR lungs CTA does not left left arm or squeeze with left hand. can't maintain against gravity. 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 with right hand moves LE spontaneously bilaterally LE Current Inpatient Medications Medications (Trade) Dose Ordered Sig/Millicent Route Start Time Stop Time Status Last Admin Dose Admin Miscellaneous Information (Pharmacist Discharge Med Rec Consult) 1 ea UD PRN N/A 11/25/16 16:45 12/25/16 16:44 Ondansetron HCl (Zofran Inj) 4 mg Q6H PRN IV 11/25/16 16:45 12/25/16 16:44 11/26/16 02:30 4 MG Acetaminophen 650 mg/Empty Bag 65 ml @ 260 mls/hr Q6H PRN IV 11/25/16 17:15 12/25/16 17:14 Labetalol HCl (Normodyne IV) 10 mg Q6H PRN IV 11/25/16 17:15 12/25/16 17:14 11/27/16 20:10 10 MG Budesonide (Pulmicort Respules 0.5MG/ 2ML Neb Soln) 0.5 mg BIDR INH 11/25/16 20:00 12/25/16 19:59 11/28/16 07:03 0.5 MG Aspirin (Ecotrin Tab) 81 mg QAM PO 11/27/16 09:00 12/27/16 08:59 11/28/16 08:26 81 MG Clopidogrel Bisulfate (plAVix TAB) 75 mg QAM PO 11/27/16 09:00 12/27/16 08:59 11/28/16 08:26 75 MG Heparin Sodium (Porcine) (Heparin Sq 5000 Unit/0.5ml) 5,000 unit Q8 SQ 11/26/16 22:00 12/26/16 21:59 11/28/16 13:40 5,000 UNIT Magnesium Oxide (Mag-Ox Tab) 400 mg QAM PO 11/27/16 09:00 12/27/16 08:59 11/28/16 08:26 400 MG Atorvastatin Calcium (Lipitor Tab) 80 mg QAM PO 11/27/16 10:00 12/27/16 09:59 11/28/16 08:26 80 MG Ceftriaxone Sodium 1 gm/ Dextrose 50 ml @ 100 mls/hr Q24H IV 11/27/16 18:00 12/02/16 17:59 11/27/16 18:35 100 MLS/HR Ipratropium [place] (Atrovent 0.02% 0.5MG/2.5ML Neb) 0.5 mg Q6R INH 11/27/16 21:00 12/25/16 16:44 11/28/16 07:03 0.5 MG Levalbuterol (Xopenex 1.25MG/ 0.5ML Neb) 1.25 mg Q6R INH 11/27/16 21:00 12/25/16 16:44 11/28/16 07:03 1.25 MG Impression 86 year old female s/p left hemispheric CVA with aphasia and left arm paresis Plan 1. PT/OT and speech for discharge needs 2. permissive hypertension with consideration for age 3. TTE - no ASD 4. repeat CT head with any MS changes 5. LDL <70 -already 61 6. blood pressure control and DL control per protocol 7. fall precautions 8. was previously on aspirin 81 mg prior to event, aspirin 81 mg and plavix 75 mg x 3 months then stop aspirin and continue plavix 75 mg for lifetime 9. will see in our office 2-3 weeks after discharge from rehab 10. referral to HS pending approval I have seen and discussed above patient with Dr Rody Huynh, neurology PT seen and examined, attempting some speech, alert, flat r nlf, rue o/f rle greater than antigravity. Pt mildly improved.Continue antiplt tx.NO objection to dc to HS tomorrow. MELVA Huynh MD
--- NOTE | 2016-11-28 17:33 | Progress Note ---
Medicine Progress Note Date & Time of Visit: Nov 28, 2016 at 16:51. Subjective Pt was seen and examined Sitting bed with no distress with daughter at bedside Daughter is very anxious Early today she was sitting on the chair She is nonverbal, seems comfortable I gave her a pen to try to write, she was unable to do it she is able to follow few commands Objective Last 8 Hrs Date Time Temp Pulse Resp B/P (MAP) Pulse Ox O2 Delivery O2 Flow Rate FiO2 11/28/16 15:48 36.5 77 16 142/81 (101) 93 Room Air 11/28/16 12:00 Room Air 11/28/16 11:47 36.4 78 21 145/75 (98) 92 Room Air Physical Exam: General- no acute distress, non verbal Head- atraumatic Eyes- PERRL, EOMI ENT- oropharynx clear Neck- supple, no JVD Lungs- clear to auscultation Heart- regular rhythm; no murmur Abdomen- normal bowel sounds, soft Extremities- no calf tenderness Neuro- alert, awake, RUE flaccid, expressive aphasia, able to move LE spontaneously Skin- warm & dry Laboratory Results: Last 24 Hours Test 11/28/16 05:50 White Blood Count 11.20 K/uL Red Blood Count 3.90 M/uL Hemoglobin 12.2 g/dL Hematocrit 34.8 % Mean Corpuscular Volume 89.2 fL Mean Corpuscular Hemoglobin 31.3 pg Mean Corpuscular Hemoglobin Concent 35.1 g/dl RDW Standard Deviation 44.8 fL RDW Coefficient of Variation 13.7 % Platelet Count 190 K/uL Mean Platelet Volume 10.8 fL Sodium Level 140 mmol/L Potassium Level 3.3 mmol/L Chloride Level 105 mmol/L Carbon Dioxide Level 30 mmol/L Anion Gap 5.0 mmol/L Blood Urea Nitrogen 10 mg/dl Creatinine 0.86 mg/dl Est Creatinine Clear Calc Drug Dose 36.1 ml/min Estimated GFR () 71.4 Estimated GFR (Non- 61.6 BUN/Creatinine Ratio 11.2 Random Glucose 113 mg/dl Calcium Level 8.4 mg/dl Magnesium Level 2.1 mg/dl Assessment & Plan Acute L MCA stroke Risk factors include age, tamoxifen use, and active smoking. Stroke alert called upon arrival and meet criteria for TPA given in ER Was admitting in ICU for close monitoring. CT head on 11/26 showed involving left middle cerebral arterial infarct with no acute intracranial hemorrhage. Carotid U/S showed no hemodynamically significant stenosis seen within the carotid arteries. Moderate plaque formation Cannot get an MRI due to pacemaker Neurology on board recommended to continue aspirin 81 mg and plavix 75 mg x 3 months then stop aspirin and continue plavix 75 mg for lifetime Follow up with neurology btw 2to 3 weeks after discharging from rehab Speech therapy consulted and recommended Continue moist pureed diet, thin liquids, Aspiration precautions: Fully upright and alert; straws okay present to (L) side of mouth; alternate solids and liquids; monitor for oral pocketing. Continue PT/OT Fall precaution Plan to go to rehab Need to be off 1 to 1 sitter for 24 hrs before transfer to rehab Will check on her every 15 minutes ECHO showed: * Normal LV chamber size and wall thickness. * Normal LV systolic function, EF 55-60%. * No segmental left ventricular wall motion abnormalities are noted. * Grade I diastolic dysfunction. * Poorly visualized valvular structures with no significant stenosis or regurgitation by Doppler. CAD Continue ASA and Plavix were added during the hospital course Stable COPD Stable Depression/Anxiety Stable HTN not on antihypertensives as outpatient. Allow permissive HTN and treat if >180 after TPA. Stable Breast cancer s/p R mastectomy 8 months ago-tamoxifen on hold and in setting of stroke will talk to oncology about the tamoxifen Thyroid nodule incidental finding on CT scan 1.6 cm. TSH WNL. Follow up as an outpatient DVT prophy-SCDs thigh CODE STATUS FULL CODE DISPOSITION Possible transfer to rehab tomorrow Consultants: Neurology-Dr. Washburn ICU PT/OT Speech pathology Current Inpatient Medications: Current Inpatient Medications Medications (Trade) Dose Ordered Sig/Millicent Route Start Time Stop Time Status Last Admin Dose Admin Miscellaneous Information (Pharmacist Discharge Med Rec Consult) 1 ea UD PRN N/A 11/25/16 16:45 12/25/16 16:44 Ondansetron HCl (Zofran Inj) 4 mg Q6H PRN IV 11/25/16 16:45 12/25/16 16:44 11/26/16 02:30 4 MG Acetaminophen 650 mg/Empty Bag 65 ml @ 260 mls/hr Q6H PRN IV 11/25/16 17:15 12/25/16 17:14 Labetalol HCl (Normodyne IV) 10 mg Q6H PRN IV 11/25/16 17:15 12/25/16 17:14 11/27/16 20:10 10 MG Budesonide (Pulmicort Respules 0.5MG/ 2ML Neb Soln) 0.5 mg BIDR INH 11/25/16 20:00 12/25/16 19:59 11/28/16 07:03 0.5 MG Aspirin (Ecotrin Tab) 81 mg QAM PO 11/27/16 09:00 12/27/16 08:59 11/28/16 08:26 81 MG Clopidogrel Bisulfate (plAVix TAB) 75 mg QAM PO 11/27/16 09:00 12/27/16 08:59 11/28/16 08:26 75 MG Heparin Sodium (Porcine) (Heparin Sq 5000 Unit/0.5ml) 5,000 unit Q8 SQ 11/26/16 22:00 12/26/16 21:59 11/28/16 13:40 5,000 UNIT Magnesium Oxide (Mag-Ox Tab) 400 mg QAM PO 11/27/16 09:00 12/27/16 08:59 11/28/16 08:26 400 MG Atorvastatin Calcium (Lipitor Tab) 80 mg QAM PO 11/27/16 10:00 12/27/16 09:59 11/28/16 08:26 80 MG Ceftriaxone Sodium 1 gm/ Dextrose 50 ml @ 100 mls/hr Q24H IV 11/27/16 18:00 12/02/16 17:59 11/27/16 18:35 100 MLS/HR Ipratropium [place] (Atrovent 0.02% 0.5MG/2.5ML Neb) 0.5 mg Q6R INH 11/27/16 21:00 12/25/16 16:44 11/28/16 07:03 0.5 MG Levalbuterol (Xopenex 1.25MG/ 0.5ML Neb) 1.25 mg Q6R INH 11/27/16 21:00 12/25/16 16:44 11/28/16 07:03 1.25 MG
[2016-11-28] MEDS: CEFTRIAXONE SOD INJ 1 GM in DEXTROSE 5% ADD-VANTAGE 50ML 50 ML IV SCH (19:06)
[2016-11-29] VITALS (7 sets, daily range): BP systolic 138–176; BP diastolic 73–87; PULSE 72–87; TEMP 36.6–37; O2SAT 93–98
[2016-11-29] MEDS: LEVALBUTEROL 1.25MG/0.5ML NEB INH SCH ×3 (01:40→14:08)
[2016-11-29] MEDS: IPRATROPIUM BROMIDE NEB SOLN 0.02% 2.5 ML VIAL INH SCH ×3 (01:40→14:08)
[2016-11-29] MEDS: HEPARIN SOD 5000 UNIT/0.5 ML CARP SQ SCH ×2 (05:47→13:39)
[2016-11-29 06:53] LABS: HEMATOCRIT 37.2 % (37-47); MEAN CELL VOLUME 90.3 fL (80-100); MEAN CORPUSCULAR HEMOGLOBIN 30.3 pg (25-34); MEAN CORPUSCULAR HGB CONC 33.6 g/dl (32-36); MEAN PLATELET VOLUME 10.5 fL (7.4-10.4); PLATELET COUNT 213 K/uL (130-400); RED BLOOD COUNT 4.12 M/uL (4.2-5.4); WHITE BLOOD COUNT 10.66 K/uL (4.8-10.8)
[2016-11-29] MEDS: BUDESONIDE 0.5 MG/2 ML VIAL (PULMICORT) INH SCH (07:01)
[2016-11-29 07:25] LABS: CALCIUM 8.5 mg/dl (8.5-10.1); POTASSIUM 3.2 mmol/L (3.5-5.1)
[2016-11-29] MEDS: CLOPIDOGREL BISULFATE 75 MG TAB PO SCH (07:53)
[2016-11-29] MEDS: ATORVASTATIN 40 MG TAB PO SCH (07:53)
[2016-11-29] MEDS: ASPIRIN 81 MG ECTAB PO SCH (07:53)
[2016-11-29] MEDS: MAGNESIUM OXIDE 400 MG TAB PO SCH (07:53)
[2016-11-29] MEDS ORDERED: POTASSIUM CHLORIDE 20 MEQ TABCR PO ONE (08:15)
[2016-11-29] MEDS ORDERED: DOCUSATE SODIUM/SENNA 50/8.6MG TAB PO ONE (10:15)
[2016-11-29] MEDS ORDERED: NURSING VERBAL MED ORDER ONE (12:45)
[2016-11-29] MEDS ORDERED: SOD PHOSPHATE/SOD BIPHOSPHATE ENEMA 132 ML BTL PR ONE (13:00)
--- NOTE | 2016-11-29 14:47 | Progress Note ---
Medicine Progress Note Date & Time of Visit: Nov 29, 2016 at 14:40. Subjective Pt was seen and examined Lying in bed with no distress Pt speech is still affected she has a bowel movement today seems comfortable in bed Objective Last 8 Hrs Date Time Temp Pulse Resp B/P (MAP) Pulse Ox O2 Delivery O2 Flow Rate FiO2 11/29/16 14:22 77 18 95 Room Air 11/29/16 12:00 Room Air 11/29/16 10:46 36.9 87 19 138/82 (100) 93 Room Air 11/29/16 08:00 Room Air 11/29/16 07:32 37.0 77 18 174/86 (115) 95 Room Air 11/29/16 07:01 72 18 98 Room Air Physical Exam: General- no acute distress, non verbal Head- atraumatic Eyes- PERRL, EOMI ENT- oropharynx clear Neck- supple, no JVD Lungs- clear to auscultation Heart- regular rhythm; no murmur Abdomen- normal bowel sounds, soft Extremities- no calf tenderness Neuro- alert, awake, RUE flaccid, expressive aphasia, able to move LE spontaneously Skin- warm & dry Laboratory Results: Last 24 Hours Test 11/29/16 06:13 White Blood Count 10.66 K/uL Red Blood Count 4.12 M/uL Hemoglobin 12.5 g/dL Hematocrit 37.2 % Mean Corpuscular Volume 90.3 fL Mean Corpuscular Hemoglobin 30.3 pg Mean Corpuscular Hemoglobin Concent 33.6 g/dl RDW Standard Deviation 46.6 fL RDW Coefficient of Variation 13.9 % Platelet Count 213 K/uL Mean Platelet Volume 10.5 fL Sodium Level 140 mmol/L Potassium Level 3.2 mmol/L Chloride Level 105 mmol/L Carbon Dioxide Level 29 mmol/L Anion Gap 6.0 mmol/L Blood Urea Nitrogen 15 mg/dl Creatinine 1.00 mg/dl Est Creatinine Clear Calc Drug Dose 31.0 ml/min Estimated GFR () 59.5 Estimated GFR (Non- 51.3 BUN/Creatinine Ratio 15.0 Random Glucose 99 mg/dl Calcium Level 8.5 mg/dl Assessment & Plan Acute L MCA stroke Risk factors include age, tamoxifen use, and active smoking. Stroke alert called upon arrival and meet criteria for TPA given in ER Was admitting in ICU for close monitoring. CT head on 11/26 showed involving left middle cerebral arterial infarct with no acute intracranial hemorrhage. Carotid U/S showed no hemodynamically significant stenosis seen within the carotid arteries. Moderate plaque formation Cannot get an MRI due to pacemaker Neurology on board recommended to continue aspirin 81 mg and plavix 75 mg x 3 months then stop aspirin and continue plavix 75 mg for lifetime Follow up with neurology btw 2to 3 weeks after discharging from rehab Speech therapy consulted and recommended Continue moist pureed diet, thin liquids, Aspiration precautions: Fully upright and alert; straws okay present to (L) side of mouth; alternate solids and liquids; monitor for oral pocketing. Continue PT/OT Fall precaution has been off 1 to 1 since yesterday Plan to go to rehab today ECHO showed: * Normal LV chamber size and wall thickness. * Normal LV systolic function, EF 55-60%. * No segmental left ventricular wall motion abnormalities are noted. * Grade I diastolic dysfunction. * Poorly visualized valvular structures with no significant stenosis or regurgitation by Doppler. CAD Continue ASA and Plavix were added during the hospital course Stable COPD Stable Depression/Anxiety Stable HTN not on antihypertensives as outpatient. Allow permissive HTN and treat if >180 after TPA. Stable Breast cancer s/p R mastectomy 8 months ago-tamoxifen on hold and in setting of stroke Case discussed with Dr. Mac oncologist about the tamoxifen. Dr. Mac recommended to stop the tamoxifen. His office will call the patient for a follow up appointment Thyroid nodule incidental finding on CT scan 1.6 cm. TSH WNL. Follow up as an outpatient DVT prophy-SCDs thigh CODE STATUS FULL CODE DISPOSITION Possible transfer to rehab today Consultants: Neurology-Dr. Washburn ICU PT/OT Speech pathology Current Inpatient Medications: Current Inpatient Medications Medications (Trade) Dose Ordered Sig/Millicent Route Start Time Stop Time Status Last Admin Dose Admin Ondansetron HCl (Zofran Inj) 4 mg Q6H PRN IV 11/25/16 16:45 12/25/16 16:44 11/26/16 02:30 4 MG Acetaminophen 650 mg/Empty Bag 65 ml @ 260 mls/hr Q6H PRN IV 11/25/16 17:15 12/25/16 17:14 11/29/16 10:49 260 MLS/HR Labetalol HCl (Normodyne IV) 10 mg Q6H PRN IV 11/25/16 17:15 12/25/16 17:14 11/27/16 20:10 10 MG Budesonide (Pulmicort Respules 0.5MG/ 2ML Neb Soln) 0.5 mg BIDR INH 11/25/16 20:00 12/25/16 19:59 11/29/16 07:01 0.5 MG Aspirin (Ecotrin Tab) 81 mg QAM PO 11/27/16 09:00 12/27/16 08:59 11/29/16 07:53 81 MG Clopidogrel Bisulfate (plAVix TAB) 75 mg QAM PO 11/27/16 09:00 12/27/16 08:59 11/29/16 07:53 75 MG Heparin Sodium (Porcine) (Heparin Sq 5000 Unit/0.5ml) 5,000 unit Q8 SQ 11/26/16 22:00 12/26/16 21:59 11/29/16 13:39 5,000 UNIT Magnesium Oxide (Mag-Ox Tab) 400 mg QAM PO 11/27/16 09:00 12/27/16 08:59 11/29/16 07:53 400 MG Atorvastatin Calcium (Lipitor Tab) 80 mg QAM PO 11/27/16 10:00 12/27/16 09:59 11/29/16 07:53 80 MG Ceftriaxone Sodium 1 gm/ Dextrose 50 ml @ 100 mls/hr Q24H IV 11/27/16 18:00 12/02/16 17:59 11/28/16 19:06 100 MLS/HR Ipratropium [place] (Atrovent 0.02% 0.5MG/2.5ML Neb) 0.5 mg Q6R INH 11/27/16 21:00 12/25/16 16:44 11/29/16 14:08 0.5 MG Levalbuterol (Xopenex 1.25MG/ 0.5ML Neb) 1.25 mg Q6R INH 11/27/16 21:00 12/25/16 16:44 11/29/16 14:08 1.25 MG Senna/Docusate Sodium (Senokot S Tab) 1 tab QAM PO 11/30/16 09:00 12/30/16 08:59
[2016-11-29] MEDS ORDERED: PLV75 PO (15:13)
[2016-11-29] MEDS ORDERED: CIPR-255 PO (15:13)
[2016-11-29] MEDS ORDERED: POTA10CA28 PO (15:16)
--- NOTE | 2016-11-29 15:26 | Discharge Instructions ---
Discharge Instructions Date of Service Nov 29, 2016. Admission Reason for Admission: Acute Ischemic Lt Middle Cerebral Artery Stroke Discharge Discharge Diagnosis / Problem: Acute L MCA stroke, Urinary infection Discharge Goals Goal(s): Decrease discomfort, Improve function, Improve disease control Activity Recommendations Activity Limitations: resume your previous activity (as tolerated) . Instructions / Follow-Up Instructions / Follow-Up Follow up with your primary care provider once discharge from rehab Follow up with neurology Dr. Huynh between 2 to 3 weeks after rehab Follow up with oncology Dr. Mac do not resume the tamoxifen Continue PT/OT Continue follow with speech therapy Continue moist pureed diet, thin liquids, Aspiration precautions: Fully upright Fall precaution Complete antibiotic course Monitor potassium and magnesium (check BMP and mg in 1 week) outpatient follow up for the thyroid nodule seen on CT Continue Plavix and aspirin for 3 months, then stop aspirin and continue plavix 75 mg for lifetime Notify your doctor if you see any blood in your stool or urine Current Hospital Diet Patient's current hospital diet: AHA Diet (Heart Healthy) Discharge Diet Recommended Diet: AHA Diet (Heart Healthy) Diet Texture: Pureed (blended smooth) Pending Studies Studies pending at discharge: no Laboratory Results Hemoglobin A1c Test 11/25/16 15:17 Range/Units Estimated Average Glucose 105 mg/dl Hemoglobin A1c 5.3 4.5-5.6 % Lipid Panel Test 11/26/16 15:37 Range/Units Triglycerides Level 106 0-150 mg/dl Cholesterol Level 121 0-200 mg/dl HDL Cholesterol 39 mg/dl Cholesterol/HDL Ratio 3.1 LDL Cholesterol, Calculated 61 mg/dl Medical Emergencies . Who to Call and When: Medical Emergencies: If at any time you feel your situation is an emergency, please call 911 immediately. . Non-Emergent Contact Non-Emergency issues call your: Primary Care Provider Call Non-Emergent contact if: you have any medication questions . . "Provider Documentation" section prepared by Kayla Abreu. . VTE Core Measure Inpt VTE Proph given/why not?: Unfractionated heparin SQ, SCD's
[2016-11-30] MEDS ORDERED: DOCUSATE SODIUM/SENNA 50/8.6MG TAB PO SCH (09:00)
--- NOTE | 2016-12-03 16:55 | Discharge Summary ---
Discharge Summary Date of Service Dec 03, 2016. 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 COMPARISON STUDY: No previous studies for comparison. TECHNIQUE: Helical axial images of the head were obtained without IV contrast. Automated exposure control was utilized for the study. A dose lowering technique was utilized adhering to the principles of ALARA. FINDINGS: No acute intracranial hemorrhage, midline shift or mass effect is present. Ventricular system is unremarkable. Basilar cisterns are patent. There are no extra-axial collections. Extensive white matter hypodensities likely reflect small vessel disease. There is suggestion of loss of feliz-white differentiation involving the left insular cortex and portions of the left frontal and temporal lobes. There is no calvarial fracture. There may be an old left occipital lobe infarct. IMPRESSION: 1. No acute intracranial hemorrhage or mass effect. 2. Suspected acute left MCA territory infarct. No hemorrhage. No mass effect. Discussed with Dr. Aviles at time of dictation. Electronically signed by: Kota Tate M.D. 11/25/2016 3:15 PM Dictated Date/Time: 11/25/2016 3:09 PM CHEST ONE VIEW PORTABLE CLINICAL HISTORY: Stroke COMPARISON STUDY: Chest radiograph December 14, 2014. FINDINGS: There is no pneumothorax or pleural effusion. Cardiomediastinal silhouette is stable. Calcified mediastinal lymph nodes are noted. No consolidation to suggest pneumonia. There is no evidence of pulmonary edema. IMPRESSION: No acute cardiopulmonary findings. Electronically signed by: Kota Tate M.D. 11/25/2016 4:34 PM Dictated Date/Time: 11/25/2016 4:[address] OF THE CERVICAL SPINE WITHOUT CONTRAST CLINICAL HISTORY: Found on the floor. COMPARISON STUDY: No previous studies for comparison. TECHNIQUE: Helical axial images of the cervical spine were obtained without IV contrast. Sagittal and coronal reconstructions were viewed. A dose lowering technique was utilized adhering to the principles of ALARA. FINDINGS: Craniocervical junction is intact. There is no acute cervical spine fracture. Moderate multilevel degenerative changes are present. There is no prevertebral edema. Moderate emphysema is shown within visualized portions of the lungs. There is no prevertebral edema. Incidental note is made of a 1.6 cm right lobe thyroid nodule. IMPRESSION: No acute cervical spine fracture or subluxation. Electronically signed by: Kota Tate M.D. 11/25/2016 4:07 PM Dictated Date/Time: 11/25/2016 4:04 PM RIGHT SHOULDER MIN 2 VIEWS ROUTINE CLINICAL HISTORY: fall on shoulder s/p stroke with collapse at home, bruising. COMPARISON: None FINDINGS: Alignment of the right shoulder is anatomic. There is motion artifact on the scapular Y view. No acute fracture is identified. Mild arthritis is noted within the right shoulder. IMPRESSION: No acute fracture or dislocation of the right shoulder. Study mildly compromised by motion artifact. Electronically signed by: Kota Tate M.D. 11/25/2016 6:48 PM Dictated Date/Time: 11/25/2016 6:47 PM HEAD WITHOUT CONTRAST (CT) CT DOSE: 537.48 mGy.cm HISTORY: Mental status change stroke, TPA, worsening symptoms TECHNIQUE: Multiaxial CT images of the head were performed without the use of intravenous contrast. A dose lowering technique was utilized adhering to the principles of ALARA. Comparison: 11/25/2016 Findings: The paranasal sinuses and mastoid air cells are clear. Diffuse chronic small vessel change and atrophy. This is unchanged from the prior exam. Possible subacute infarct left middle cerebral arterial territory. No evidence for acute intracranial hemorrhage. Impression: Unchanged exam from the prior study. Possible acute left middle cerebral arterial infarct. Considerable chronic small vessel change. The above report was generated using voice recognition software. It may contain grammatical, syntax or spelling errors. Electronically signed by: Roderick Whitaker M.D. 11/26/2016 6:01 AM Dictated Date/Time: 11/26/2016 5:59 AM CAROTID DOPPLER NECK ART HISTORY: Stroke Left MCA CVA COMPARISON: None. TECHNIQUE: Real-time, grayscale, and color Doppler sonography of the carotid arteries was performed. Imaging reviewed in the transverse and longitudinal planes. All measurements were calculated based on NASCET criteria. FINDINGS: Antegrade flow is seen in the bilateral vertebral arteries. The brachial pressures are hemodynamically similar. Moderate plaque formation bilaterally The peak systolic velocity within the right ICA is 45. The right systolic ratio is 0.5. The peak systolic velocity within the left ICA is 49. The left systolic ratio is 0.75. IMPRESSION: No hemodynamically significant stenosis seen within the carotid arteries. Moderate plaque formation The above report was generated using voice recognition software. It may contain grammatical, syntax or spelling errors. Electronically signed by: Roderick Whitaker M.D. 11/26/2016 9:10 PM Dictated Date/Time: 11/26/2016 9:10 PM Consultations: Neurology-Dr. Washburn ICU PT/OT Speech pathology Medication Reconciliation New Medications: Ciprofloxacin Hcl (Cipro) 500 Mg Tab 250 MG PO BID for 5 Days, #5 TAB Potassium Chloride (Micro-K Ext Rel) 10 Meq Capcr 10 MEQ PO DAILY for 14 Days, #14 CAP Clopidogrel Bisulfate (Clopidogrel) 75 Mg Tab 75 MG PO QAM for 30 Days, #30 TAB Continued Medications: Acetaminophen (Tylenol) 500 Mg Tab 500 MG PO TID PRN for Pain, TAB Albuterol Sulf (Proventil 0.083% 2.5MG/3ML) 2.5 Mg/3 Ml Nebu 2.5 MG INH QID PRN for SOB/Wheezing, EA Alendronate Sodium (Fosamax) 70 Mg Tab 1 TAB PO WK for 28 Days, #4 TAB 3 Refills Aspirin (Aspirin Chewable) 81 Mg Chew 81 MG PO DAILY Atorvastatin (Lipitor) 80 Mg Tab 80 MG PO QAM, TAB Citalopram (Citalopram Hydrobromide) 40 Mg Tab 40 MG PO QAM, #30 Fluticasone Prop/Salmeterol (Advair Diskus 250/50 60 Dose) 1 Ea Aerp 1 PUFFS INH BID, 3 Refills Fluticasone Propionate (Nasal) (Flonase Allergy Relief) 50 Mcg/Act Spr 2 PUFF RAAD DAILY Furosemide (Lasix) 20 Mg Tab 20 MG PO QAM, TAB Gabapentin (Gabapentin) 100 Mg Cap 100 MG PO BID Home O2 Therapy (Oxygen) Gas 2 LITERS NA PRN Ipratropium-Albuterol (Combivent Respimat) 1 Aer Aer 1 PUFFS INH QID, INH Metoprolol Succinate (Toprol Xl) 25 Mg Tab 25 MG PO DAILY, #30 TAB Montelukast Sod (Montelukast Sodium) 10 Mg Tab 10 MG PO DAILY, #30 Nitroglycerin (Nitrostat) 0.4 Mg Tab 0.4 MG UT PRN, 0 Refills May repeat 3 times; if pain continues, call 911 Omeprazole (Prilosec) 20 Mg Cap 20 MG PO BID, #30 Discontinued Medications: Tamoxifen Citrate (Tamoxifen Citrate) 20 Mg Tab 20 MG PO DAILY, #90 Admission Information HPI (per Admitting provider): 86 yo F smoker with h/o CAD presents with acute stroke. She was found by her daughter who had just seen her within 30 minutes looking fine, ambulating, articulating without any difficulty. She was found on the floor with facial droop on the R, unable to speak and unable to move her right side. EMS was contacted and per notes, patient vomiting in the ambulance. She ws evaluated by Neurology telemedicine at [facility] and tPA was advised and initiated. It is still running at the time of this evaluation and per daughter , facial droop seems to be improving. Daughter is at bedside and history is gathered from her; she lives with the patient. She gave the history as the patient is nonverbal and unable to communicate. Daughter states that patient has been looking great over the past couple of weeks having no issues. She reports a couple of days ago hat her mother got up on a step ladder in the home to change a lightbulb and did slip and fall. However, she got up and was not confused, and therefore, was not brought in for evaluation. Otherwise, daughter denies mom reporting any chest pain, shortness of breath, cold symptoms , nausea, vomiting, diarrhea, headaches, UTI symptoms, confusion, pain or any other symptoms. Daughter states she ambulates well at baseline without a walker or cane, and likes to garden in the yard. She doesn't drive a car but does still have a license. History includes lifelong smoking, recnet diagnosis of breast cancer s/p mastectomy with initiation of Tamoxifen 4-5 months ago. She also has HTN but is not on any antihypertensives. Physical Exam (per Admitting): GEN: elderly, frail, in no acute distress, alert with eyes open but no purposeful communication. Not responsive to questions even nonverbally. HEENT: NC/AT, PERRL, normal sclerae, MMM, pt would not open mouth for exam CARDIO: reg rate, S1/2 heard without m/g/r, no JVD, no edema LUNGS: CTA bilaterally, no crackles, rales or wheezes, good diaphragmatic excursion ABD: soft, non-distended, no rebound or guarding, +BS EXTREMITY: RP and DP palpable 2+ bilat, no LE swelling or edema, extremities are warm and well-perfused, R shoulder appears out of joint NEURO: CN could not be examined, R facial droop is present, sensation could not be appreciated, reflexes are 2/4 throughout, Babinski appears neg but difficult to appreciate. MUSC: frail, weak, ill-appearing. Pt has flaccidity to RUE and limited movement of RLE, more guarding of RLE and LLE. Strength testing could not be performed as patient unable to follow instructions. SKIN: warm and dry, bruising of R shoulder and LUE. Bruising with minor abrasion of the R knee. Hospital Course Acute L MCA stroke Risk factors include age, tamoxifen use, and active smoking. Stroke alert called upon arrival and meet criteria for TPA given in ER Was admitting in ICU for close monitoring. CT head on 11/26 showed involving left middle cerebral arterial infarct with no acute intracranial hemorrhage. Carotid U/S showed no hemodynamically significant stenosis seen within the carotid arteries. Moderate plaque formation Cannot get an MRI due to pacemaker Neurology on board recommended to continue aspirin 81 mg and plavix 75 mg x 3 months then stop aspirin and continue plavix 75 mg for lifetime Follow up with neurology btw 2to 3 weeks after discharging from rehab Speech therapy consulted and recommended Continue moist pureed diet, thin liquids, Aspiration precautions: Fully upright and alert; straws okay present to (L) side of mouth; alternate solids and liquids; monitor for oral pocketing. Continue PT/OT Fall precaution has been off 1 to 1 since yesterday Plan to go to rehab today ECHO showed: * Normal LV chamber size and wall thickness. * Normal LV systolic function, EF 55-60%. * No segmental left ventricular wall motion abnormalities are noted. * Grade I diastolic dysfunction. * Poorly visualized valvular structures with no significant stenosis or regurgitation by Doppler. CAD Continue ASA and Plavix were added during the hospital course Stable COPD Stable Depression/Anxiety Stable HTN not on antihypertensives as outpatient. Allow permissive HTN and treat if >180 after TPA. Stable Breast cancer s/p R mastectomy 8 months ago-tamoxifen on hold and in setting of stroke Case discussed with Dr. Mac oncologist about the tamoxifen. Dr. Mac recommended to stop the tamoxifen. His office will call the patient for a follow up appointment Thyroid nodule incidental finding on CT scan 1.6 cm. TSH WNL. Follow up as an outpatient DVT prophy-SCDs thigh CODE STATUS FULL CODE DISPOSITION Possible transfer to rehab today Total time spent on discharge = 40 minutes This includes examination of the patient, discharge planning, medication reconciliation, and communication with other providers. Discharge Instructions Discharge Instructions Date of Service Nov 29, 2016. Admission Reason for Admission: Acute Ischemic Lt Middle Cerebral Artery Stroke Discharge Discharge Diagnosis / Problem: Acute L MCA stroke, Urinary infection Discharge Goals Goal(s): Decrease discomfort, Improve function, Improve disease control Activity Recommendations Activity Limitations: resume your previous activity (as tolerated) . Instructions / Follow-Up Instructions / Follow-Up Follow up with your primary care provider once discharge from rehab Follow up with neurology Dr. Huynh between 2 to 3 weeks after rehab Follow up with oncology Dr. Mac do not resume the tamoxifen Continue PT/OT Continue follow with speech therapy Continue moist pureed diet, thin liquids, Aspiration precautions: Fully upright Fall precaution Complete antibiotic course Monitor potassium and magnesium (check BMP and mg in 1 week) outpatient follow up for the thyroid nodule seen on CT Continue Plavix and aspirin for 3 months, then stop aspirin and continue plavix 75 mg for lifetime Notify your doctor if you see any blood in your stool or urine Current Hospital Diet Patient's current hospital diet: AHA Diet (Heart Healthy) Discharge Diet Recommended Diet: AHA Diet (Heart Healthy) Diet Texture: Pureed (blended smooth) Pending Studies Studies pending at discharge: no Laboratory Results Hemoglobin A1c Test 11/25/16 15:17 Range/Units Estimated Average Glucose 105 mg/dl Hemoglobin A1c 5.3 4.5-5.6 % Lipid Panel Test 11/26/16 15:37 Range/Units Triglycerides Level 106 0-150 mg/dl Cholesterol Level 121 0-200 mg/dl HDL Cholesterol 39 mg/dl Cholesterol/HDL Ratio 3.1 LDL Cholesterol, Calculated 61 mg/dl Medical Emergencies . Who to Call and When: Medical Emergencies: If at any time you feel your situation is an emergency, please call 911 immediately. . Non-Emergent Contact Non-Emergency issues call your: Primary Care Provider Call Non-Emergent contact if: you have any medication questions . . "Provider Documentation" section prepared by Kayla Abreu. . VTE Core Measure Inpt VTE Proph given/why not?: Unfractionated heparin SQ, SCD's Additional Copies To [facility], [place] Meghan Iraheta M.D.
== END 2016-11-29 16:00 | DRG 65 ==
LOC: C.EDB 14:58 → C.MSICU 17:03 → ENRESERV 17:09 → EDBEDREQ 11-27 08:44 → C.2E 11-27 11:31
PROVIDERS: ADMIT Hospitalist; ATTEND Internal Medicine
DX: I63.512 Cerebral infarction due to unspecified occlusion or stenosis of left middle cerebral artery (principal); G81.91 Hemiplegia, unspecified affecting right dominant side; R64 Cachexia; E46 Unspecified protein-calorie malnutrition; R47.01 Aphasia; R29.717 NIHSS score 17; E04.1 Nontoxic single thyroid nodule; N18.3 Chronic kidney disease, stage 3 (moderate); I25.10 Atherosclerotic heart disease of native coronary artery without angina pectoris; I13.10 Hypertensive heart and chronic kidney disease without heart failure, with stage 1 through stage 4 chronic kidney disease, or unspecified chronic kidney disease; J44.9 Chronic obstructive pulmonary disease, unspecified; E78.5 Hyperlipidemia, unspecified; C50.911 Malignant neoplasm of unspecified site of right female breast; F32.9 Major depressive disorder, single episode, unspecified; M81.0 Age-related osteoporosis without current pathological fracture; F01.50 Vascular dementia, unspecified severity, without behavioral disturbance, psychotic disturbance, mood disturbance, and anxiety; F17.200 Nicotine dependence, unspecified, uncomplicated; Z79.899 Other long term (current) drug therapy; Z90.11 Acquired absence of right breast and nipple; Z79.82 Long term (current) use of aspirin

== ENCOUNTER 2016-12-22 16:37 | Emergency (ER) | payer OTHER ==
[~2016-12-22 16:37] MED LIST changes: +ADVIN25/60 INH; +ALBINS/ INH; -ALBU0.5N2 NEB; -ALBUAER2 INH; +ALEN70TA4 PO; +ASPCH81X PO; -ATV5X PO; +CIPR-255 PO; +FLUT0.15 NAE; -FSM70 PO; -IBUP200C9 PO; +METO1TAB31 PO; -METO25TA3 PO; +NRN100 PO; +OXGN; -OXYC-57 PO; +PLV75 PO; +SNG10 PO; -SODIUM CHLORIDE 0.9% 1000ML 1,000 ML IV SCH; +TYLOTC500 PO
[2016-12-22 16:43] VITALS: TEMP 37; Ht 144.8 cm
[2016-12-22] MEDS ORDERED: [UNRECOGNIZED DRUG - OTHER] INH (17:35)
[2016-12-22] MEDS ORDERED: OPTIRAY 320 IV PRN (17:45)
[2016-12-22 18:11] LABS: BASO % 0.2 %; BASO ABS # 0.02 K/uL (0-0.2); COMPLETE YES; EOS % 1.3 %; HEMATOCRIT 32.6 % (37-47); IG% 0.2 %; LYMPH % 25.3 %; LYMPH ABS # 3.03 K/uL (1.2-3.4); MEAN CELL VOLUME 92.4 fL (80-100); MEAN CORPUSCULAR HEMOGLOBIN 30.6 pg (25-34); MEAN CORPUSCULAR HGB CONC 33.1 g/dl (32-36); MEAN PLATELET VOLUME 9.8 fL (7.4-10.4); MONO % 9.7 %; NEUT % 63.3 %; PLATELET COUNT 273 K/uL (130-400); RED BLOOD COUNT 3.53 M/uL (4.2-5.4); WHITE BLOOD COUNT 11.98 K/uL (4.8-10.8)
[2016-12-22 18:19] LABS: PROTHROMBIN TIME (PATIENT) 10.3 SECONDS (9.0-12.0)
--- NOTE | 2016-12-22 18:29 | DIAGNOSTIC IMAGING REPORT ---
RIGHT HAND MIN 3 VIEWS ROUTINE, RIGHT FOREARM 2 VIEWS ROUTINE HISTORY: 86 years-old Female acute right upper extremity pain status post fall. Uncooperative patient. COMPARISON: None available TECHNIQUE: 3 views of the right hand and 2 views of the right forearm FINDINGS: Hand: The bones are markedly demineralized. Advanced first carpometacarpal and interphalangeal degenerative changes are noted. Mild triscaphe the osteoarthritis is also noted. Study is mildly limited secondary to patient positioning with lack of digit extension. No acute fracture or dislocation is identified. Forearm: Bones are markedly demineralized. No acute fracture or dislocation. There is a small corticated bone fragment adjacent to the ulnar styloid suggesting remote trauma or accessory ossicle. Degenerative changes about the hand and wrist are noted. IMPRESSION: 1. No acute fracture or dislocation identified involving the right hand or forearm. 2. Markedly demineralized bony structures with degenerative changes as above. The above report was generated using voice recognition software. It may contain grammatical, syntax or spelling errors. Electronically signed by: Tal Taylor M.D. 12/22/2016 6:27 PM Dictated Date/Time: 12/22/2016 6:23 PM
--- NOTE | 2016-12-22 18:30 | DIAGNOSTIC IMAGING REPORT ---
PELVIS 1 OR 2 VIEW ROUTINE HISTORY: 86 years-old Female acute trauma. COMPARISON: None available TECHNIQUE: Single AP view of the pelvis. FINDINGS: Surgical clip is seen within the left hemipelvis. Vascular calcifications are noted. The bones are moderately demineralized with degenerative changes of the lower lumbar spine. Moderate osteoarthritis involves the bilateral hips. No acute fracture or dislocation is identified. IMPRESSION: 1. No acute fracture or dislocation identified involving the pelvis or proximal femora. 2. Moderate degenerative changes of the bilateral femoral acetabular joints. The above report was generated using voice recognition software. It may contain grammatical, syntax or spelling errors. Electronically signed by: Tal Taylor M.D. 12/22/2016 6:29 PM Dictated Date/Time: 12/22/2016 6:27 PM
[2016-12-22 18:39] LABS: BLOOD UREA NITROGEN 19 mg/dl (7-18); BUN/CREATININE RATIO 21.5 (10-20); CALCIUM 8.2 mg/dl (8.5-10.1); CARBON DIOXIDE 30 mmol/L (21-32); CHLORIDE 108 mmol/L (98-107); CREATININE 0.89 mg/dl (0.60-1.20); GLUCOSE 98 mg/dl (70-99); POTASSIUM 3.8 mmol/L (3.5-5.1); SODIUM 142 mmol/L (136-145)
[2016-12-22] MEDS ORDERED: FENTANYL CITRATE INJ 50 MCG/1 ML 2 ML VIAL IV STA (19:18)
[2016-12-22] MEDS ORDERED: ONDANSETRON 8 MG/54 ML D5W IV STA (19:19)
[2016-12-22] MEDS ORDERED: ONDANSETRON INJ 2 MG/ML 2 ML VIAL ONE (19:25)
--- NOTE | 2016-12-22 19:25 | DIAGNOSTIC IMAGING REPORT ---
HEAD WITHOUT CONTRAST (CT) CLINICAL HISTORY: 86 years-old Female presenting with trauma, fall Sunday night. TECHNIQUE: Multidetector CT imaging of the head was performed without the use of intravenous contrast. IV contrast: None. A dose lowering technique was used consistent with the principles of ALARA (as low as reasonably achievable). COMPARISON: 11/26/2016. CT DOSE (mGy.cm): The estimated cumulative dose is 3718.23 mGy.cm. 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 Proportional ventricular and sulcal prominence, likely age-related parenchymal volume loss. Periventricular and subcortical white matter hypoattenuation, nonspecific but likely indicative of chronic small vessel ischemic change. Bilateral old lacunar infarcts in the basal ganglia. No mass effect or midline shift. Continued interval evolution of the left middle cerebral artery territory infarct with greater hypoattenuation and minimal mass effect. No acute hemorrhage. No extra-axial fluid collection. Paranasal sinuses and mastoid air cells clear. Calvarium intact. IMPRESSION: 1. Expected interval evolution of the left MCA territory infarct, now subacute. No acute intracranial hemorrhage. 2. Chronic small vessel ischemic change and bilateral old lacunar infarcts in the basal ganglia. Electronically signed by: Blu Giles M.D. 12/22/2016 7:23 PM Dictated Date/Time: 12/22/2016 7:20 PM
[2016-12-22 19:28] VITALS: BP 141/68; PULSE 73; O2SAT 92
--- NOTE | 2016-12-22 19:30 | DIAGNOSTIC IMAGING REPORT ---
ABD/PELVIS IV CONTRAST ONLY HISTORY: 86 years-old Female acute trauma status post fall COMPARISON: None available TECHNIQUE: Multiple axial CT images of the abdomen and pelvis were obtained following the intravenous administration of 93 mL Optiray 320. A dose lowering technique was used consistent with the principals of VIOLETA. FINDINGS: Paraseptal emphysematous changes involve the lung bases. There is no pneumoperitoneum. The imaged inferior cardiac chambers are unremarkable. Annular calcifications involve the mitral valve. Prior cholecystectomy. Calcifications are seen within the anterior right hepatic lobe and spleen compatible with prior hematogenous granulomatous disease. Mild dilation of the common bile duct, 10 mm is likely secondary to postcholecystectomy state. There is moderate pancreatic atrophy. Thickening of the left adrenal gland suggests hyperplasia. The right adrenal gland is unremarkable. 2.1 cm exophytic cyst involves the inferior pole right kidney. Calcifications of the kidneys are seen on the left suggesting vascular calcifications. There is a 3 mm interpolar calcification of the right kidney suggesting nonobstructing calculus with additional calcifications along the superior pole bilaterally measuring up to 7 mm on the right which are cortical for calculi. Calcification adjacent to the proximal right ureter appears to be outside the lumen of the ureter. Urinary bladder is unremarkable. Prior hysterectomy. There is fusiform dilation of the aorta at the level of the diaphragm, 3.9 x 3.5 cm. Infrarenal abdominal aorta is normal in caliber. No bulky retroperitoneal adenopathy identified. Note is made of a retroaortic left renal vein. There is no bowel obstruction. Duodenal diverticulum noted. Extensive colonic diverticular disease is present without acute diverticulitis. No evidence of acute appendicitis. There is mild diffuse body wall edema. Bony structures appear osteoporotic. Probable bone island involves the left iliac wing. 10 mm anterolisthesis L4 on L5 is likely on a degenerative basis secondary to severe facet arthropathy. Schmorl's node involves the superior endplate L5. No definite acute compression deformity is identified. IMPRESSION: 1. No acute intra-abdominal or intrapelvic abnormality identified. No evidence of solid organ injury or acute fracture. 2. Fusiform aneurysmal dilation of the aorta is seen at the level of the diaphragmatic hiatus, 3.9 x 3.5 cm. No aneurysm identified involving the infrarenal abdominal aorta. 3. Incidental findings include prior cholecystectomy, colonic diverticulosis without diverticulitis and bilateral renal calcifications, most of which are likely vascular calcifications. Underlying renal calculi are in the differential. The above report was generated using voice recognition software. It may contain grammatical, syntax or spelling errors. Electronically signed by: Tal Taylor M.D. 12/22/2016 7:28 PM Dictated Date/Time: 12/22/2016 7:20 PM
--- NOTE | 2016-12-22 19:34 | DIAGNOSTIC IMAGING REPORT ---
CERVICAL SPINE W/O CLINICAL HISTORY: 86 years-old Female with trauma. Acute neck injury status post fall COMPARISON: CT cervical spine 11/25/2016 TECHNIQUE: Multiple axial CT images of the cervical spine were obtained without contrast. A dose lowering technique was utilized adhering to the principles of ALARA. FINDINGS: No acute cervical spine fracture or dislocation is identified. The bones are mildly demineralized. Multilevel degenerative changes are noted with intervertebral disc space narrowing, endplate spurring and facet arthropathy seen most prominently at the C4-C5, C5-C6 and C6-C7 levels. There is unchanged 2 mm anterolisthesis of C2 on C3, C3 on C4 and C4 on C5. Additionally, there is 3 mm anterolisthesis of T1 on T2 which is unchanged. These findings are likely on a degenerative basis secondary to underlying severe facet arthropathy. Varying degrees of neural foraminal stenosis are present at several levels. No high-grade central canal narrowing identified. Nonspecific calcifications are seen throughout the left parotid suggesting prior infectious or inflammatory etiology. There are vascular calcifications of the carotid bulbs. Centrilobular emphysema is noted. IMPRESSION: 1. No acute cervical spine fracture or subluxation identified. 2. Multilevel degenerative changes as above without significant change from comparison study 11/25/2016. 3. Additional incidental findings as above. The above report was generated using voice recognition software. It may contain grammatical, syntax or spelling errors. Electronically signed by: Tal Taylor M.D. 12/22/2016 7:33 PM Dictated Date/Time: 12/22/2016 7:28 PM
--- NOTE | 2016-12-22 19:43 | EMERGENCY ROOM VISIT NOTE ---
History Report prepared by Michelleibkim: Ace Minor Under the Supervision of: Dr. Chanel Evans D.O. First contact with patient: 17:00 Chief Complaint: FALL Stated Complaint: POSSIBLE BROKEN RT HAND History of Present Illness The patient is a 86 year old female who presents to the Emergency Room with complaints of constant right hand pain s/p fall occurring last night. Per daughter, the patient was walking to the bathroom during the night when she fell. She states that the patient typically needs assistance to the bathroom. She notes that the patient has difficulty with speech as well as right sided weakness after a stroke occurring less than 30 days ago. Patient is getting home physical therapy and speech therapy at this time after recently being discharged from rehabilitation. The patient did not have any pain or dizziness prior to her fall. She states that she hit her head on the fall, but is unsure if she lost consciousness. She also complains of back pain which she feels is consistent with her chronic pain. The patient denies any nausea, or vomiting. She is on aspirin. Her daughter believes she is on additional blood thinner as well. Daughter states that this time patient is acting normal for her and that her speech is consistent with her usual speech since the stroke. Source of History: patient, family (daughter) Onset: last night Position: hand (right) Timing: constant Associated Symptoms: + back pain, No nausea, No vomiting Review of Systems See HPI for pertinent positives & negatives. A total of 10 systems reviewed and were otherwise negative. Past Medical & Surgical Medical Problems: (1) Acute ischemic left middle cerebral artery (MCA) stroke (2) Ascending aortic aneurysm (3) Breast cancer (4) CAD (coronary artery disease) (5) CKD (chronic kidney disease), stage III (6) COPD (chronic obstructive pulmonary disease) (7) Depression (8) Dyslipidemia (9) HTN (hypertension) (10) Intestinal metaplasia of gastric mucosa (11) Osteoporosis (12) Vascular dementia Surgical Problems: (1) H/O: hysterectomy (2) Hx of cataract surgery (3) Hx of cholecystectomy Social History Problems: (1) Tobacco use Family History Cancer Social History Smoking Status: Former Smoker Drug Use: none Marital Status: single Housing Status: lives with family Occupation Status: retired Current/Historical Medications Scheduled Aspirin (Aspirin Chewable), 81 MG PO DAILY Atorvastatin (Lipitor), 80 MG PO QAM Citalopram (Citalopram Hydrobromide), 40 MG PO QAM Clopidogrel Bisulfate (Clopidogrel), 75 MG PO QAM Furosemide (Lasix), 20 MG PO 2XWK Gabapentin (Gabapentin), 100 MG PO BID Home O2 Therapy (Oxygen), 2 LITERS NA PRN Ipratropium-Albuterol (Combivent Respimat), 1 PUFFS INH QID Metoprolol Succinate (Toprol Xl), 25 MG PO DAILY Montelukast Sod (Montelukast Sodium), 10 MG PO DAILY Nitroglycerin (Nitrostat), 0.4 MG UT PRN Omeprazole (Prilosec), 20 MG PO BID [D'bonaire], 1 PUFF INH DAILY Scheduled PRN Acetaminophen (Tylenol), 500 MG PO TID PRN for Pain Allergies Coded Allergies: Codeine (Verified Allergy, Unknown, unsure of rxn, 12/22/16) Morphine (Verified Allergy, Unknown, per PCP records , 12/22/16) [place] (Verified Allergy, Unknown, SEASONAL, 12/22/16) Physical Exam Vital Signs Date Time Temp Pulse Resp B/P (MAP) Pulse Ox O2 Delivery O2 Flow Rate FiO2 12/22/16 19:28 73 18 141/68 92 Room Air 12/22/16 16:43 37.0 84 18 167/82 94 Room Air Physical Exam GENERAL: Elderly, frail appearing, well nourished, no distress, non-toxic HEAD: Normocephalic, atraumatic. EYE EXAM: normal conjunctiva, PERRL and EOM's grossly intact OROPHARYNX: no exudate, no erythema, lips, buccal mucosa, and tongue normal and mucous membranes are moist NECK: supple, no nuchal rigidity, no adenopathy. Non-tender without step off. LUNGS: Clear to auscultation. Normal chest wall mechanics HEART: no murmurs, S1 normal and S2 normal CHEST: No crepitus. No evidence of trauma. ABDOMEN: abdomen soft, non-tender, normo-active bowel sounds, no masses, no rebound or guarding. BACK: Back is symmetrical on inspection and there is no deformity, no midline tenderness, no CVA tenderness. Small area of ecchymosis over the right flank. SKIN: no rashes and no bruising UPPER EXTREMITIES: LUE with no pain or deformity. Normal pulses. RUE with edema to the right hand. Decreased ROM. Normal pulses, normal cap refill, normal sensory. Skin tear to the dorsal aspect of the central right forearm, small and superficial, covered with dressing. No bony tenderness of the elbow. Normal ROM of the shoulder and elbow. LOWER EXTREMITIES: No pitting edema. No pain or deformity. NEURO EXAM: Normal sensorium, cranial nerves II-XII grossly intact, dysarthria, weakness to right upper extremity right lower extremity, follows commands. Medical Decision & Procedures ER Provider Diagnostic Interpretation: Radiology results have been interpreted by the radiologist and reviewed by me. PELVIS 1 OR 2 VIEW ROUTINE FINDINGS: Surgical clip is seen within the left hemipelvis. Vascular calcifications are noted. The bones are moderately demineralized with degenerative changes of the lower lumbar spine. Moderate osteoarthritis involves the bilateral hips. No acute fracture or dislocation is identified. IMPRESSION: 1. No acute fracture or dislocation identified involving the pelvis or proximal femora. 2. Moderate degenerative changes of the bilateral femoral acetabular joints. The above report was generated using voice recognition software. It may contain grammatical, syntax or spelling errors. Electronically signed by: Tal Taylor M.D. RIGHT HAND MIN 3 VIEWS ROUTINE, RIGHT FOREARM 2 VIEWS ROUTINE FINDINGS: Hand: The bones are markedly demineralized. Advanced first carpometacarpal and interphalangeal degenerative changes are noted. Mild triscaphe the osteoarthritis is also noted. Study is mildly limited secondary to patient positioning with lack of digit extension. No acute fracture or dislocation is identified. Forearm: Bones are markedly demineralized. No acute fracture or dislocation. There is a small corticated bone fragment adjacent to the ulnar styloid suggesting remote trauma or accessory ossicle. Degenerative changes about the hand and wrist are noted. IMPRESSION: 1. No acute fracture or dislocation identified involving the right hand or forearm. 2. Markedly demineralized bony structures with degenerative changes as above. The above report was generated using voice recognition software. It may contain grammatical, syntax or spelling errors. Electronically signed by: Tal Taylor M.D. ABD/PELVIS IV CONTRAST ONLY FINDINGS: Paraseptal emphysematous changes involve the lung bases. There is no pneumoperitoneum. The imaged inferior cardiac chambers are unremarkable. Annular calcifications involve the mitral valve. Prior cholecystectomy. Calcifications are seen within the anterior right hepatic lobe and spleen compatible with prior hematogenous granulomatous disease. Mild dilation of the common bile duct, 10 mm is likely secondary to postcholecystectomy state. There is moderate pancreatic atrophy. Thickening of the left adrenal gland suggests hyperplasia. The right adrenal gland is unremarkable. 2.1 cm exophytic cyst involves the inferior pole right kidney. Calcifications of the kidneys are seen on the left suggesting vascular calcifications. There is a 3 mm interpolar calcification of the right kidney suggesting nonobstructing calculus with additional calcifications along the superior pole bilaterally measuring up to 7 mm on the right which are cortical for calculi. Calcification adjacent to the proximal right ureter appears to be outside the lumen of the ureter. Urinary bladder is unremarkable. Prior hysterectomy. There is fusiform dilation of the aorta at the level of the diaphragm, 3.9 x 3.5 cm. Infrarenal abdominal aorta is normal in caliber. No bulky retroperitoneal adenopathy identified. Note is made of a retroaortic left renal vein. There is no bowel obstruction. Duodenal diverticulum noted. Extensive colonic diverticular disease is present without acute diverticulitis. No evidence of acute appendicitis. There is mild diffuse body wall edema. Bony structures appear osteoporotic. Probable bone island involves the left iliac wing. 10 mm anterolisthesis L4 on L5 is likely on a degenerative basis secondary to severe facet arthropathy. Schmorl's node involves the superior endplate L5. No definite acute compression deformity is identified. IMPRESSION: 1. No acute intra-abdominal or intrapelvic abnormality identified. No evidence of solid organ injury or acute fracture. 2. Fusiform aneurysmal dilation of the aorta is seen at the level of the diaphragmatic hiatus, 3.9 x 3.5 cm. No aneurysm identified involving the infrarenal abdominal aorta. 3. Incidental findings include prior cholecystectomy, colonic diverticulosis without diverticulitis and bilateral renal calcifications, most of which are likely vascular calcifications. Underlying renal calculi are in the differential. The above report was generated using voice recognition software. It may contain grammatical, syntax or spelling errors. Electronically signed by: Tal Taylor M.D. CERVICAL SPINE W/O FINDINGS: No acute cervical spine fracture or dislocation is identified. The bones are mildly demineralized. Multilevel degenerative changes are noted with intervertebral disc space narrowing, endplate spurring and facet arthropathy seen most prominently at the C4-C5, C5-C6 and C6-C7 levels. There is unchanged 2 mm anterolisthesis of C2 on C3, C3 on C4 and C4 on C5. Additionally, there is 3 mm anterolisthesis of T1 on T2 which is unchanged. These findings are likely on a degenerative basis secondary to underlying severe facet arthropathy. Varying degrees of neural foraminal stenosis are present at several levels. No high-grade central canal narrowing identified. Nonspecific calcifications are seen throughout the left parotid suggesting prior infectious or inflammatory etiology. There are vascular calcifications of the carotid bulbs. Centrilobular emphysema is noted. IMPRESSION: 1. No acute cervical spine fracture or subluxation identified. 2. Multilevel degenerative changes as above without significant change from comparison study 11/25/2016. 3. Additional incidental findings as above. The above report was generated using voice recognition software. It may contain grammatical, syntax or spelling errors. Electronically signed by: Tal Taylor M.D. HEAD WITHOUT CONTRAST (CT) FINDINGS: Motel Operator topogram: Unremarkable. Proportional ventricular and sulcal prominence, likely age-related parenchymal volume loss. Periventricular and subcortical white matter hypoattenuation, nonspecific but likely indicative of chronic small vessel ischemic change. Bilateral old lacunar infarcts in the basal ganglia. No mass effect or midline shift. Continued interval evolution of the left middle cerebral artery territory infarct with greater hypoattenuation and minimal mass effect. No acute hemorrhage. No extra-axial fluid collection. Paranasal sinuses and mastoid air cells clear. Calvarium intact. IMPRESSION: 1. Expected interval evolution of the left MCA territory infarct, now subacute. No acute intracranial hemorrhage. 2. Chronic small vessel ischemic change and bilateral old lacunar infarcts in the basal ganglia. Electronically signed by: Blu Giles M.D. Laboratory Results 12/22/16 17:53 Red Blood Count 3.53, Mean Corpuscular Volume 92.4, Mean Corpuscular Hemoglobin 30.6, Mean Corpuscular Hemoglobin Concent 33.1, Mean Platelet Volume 9.8, Neutrophils (%) (Auto) 63.3, Lymphocytes (%) (Auto) 25.3, Monocytes (%) (Auto) 9.7, Eosinophils (%) (Auto) 1.3, Basophils (%) (Auto) 0.2, Neutrophils # (Auto) 7.59, Lymphocytes # (Auto) 3.03, Monocytes # (Auto) 1.16, Eosinophils # (Auto) 0.16, Basophils # (Auto) 0.02 12/22/16 17:53 Test 12/22/16 17:53 White Blood Count 11.98 K/uL (4.8-10.8) Red Blood Count 3.53 M/uL (4.2-5.4) Hemoglobin 10.8 g/dL (12.0-16.0) Hematocrit 32.6 % (37-47) Mean Corpuscular Volume 92.4 fL (80-100) Mean Corpuscular Hemoglobin 30.6 pg (25-34) Mean Corpuscular Hemoglobin Concent 33.1 g/dl (32-36) Platelet Count 273 K/uL (130-400) Mean Platelet Volume 9.8 fL (7.4-10.4) Neutrophils (%) (Auto) 63.3 % Lymphocytes (%) (Auto) 25.3 % Monocytes (%) (Auto) 9.7 % Eosinophils (%) (Auto) 1.3 % Basophils (%) (Auto) 0.2 % Neutrophils # (Auto) 7.59 K/uL (1.4-6.5) Lymphocytes # (Auto) 3.03 K/uL (1.2-3.4) Monocytes # (Auto) 1.16 K/uL (0.11-0.59) Eosinophils # (Auto) 0.16 K/uL (0-0.5) Basophils # (Auto) 0.02 K/uL (0-0.2) RDW Standard Deviation 47.4 fL (36.4-46.3) RDW Coefficient of Variation 14.2 % (11.5-14.5) Immature Granulocyte % (Auto) 0.2 % Immature Granulocyte # (Auto) 0.02 K/uL (0.00-0.02) Prothrombin Time 10.3 SECONDS (9.0-12.0) Prothromb Time International Ratio 1.0 (0.9-1.1) Anion Gap 4.0 mmol/L (3-11) Estimated GFR () 68.5 Estimated GFR (Non- 59.1 BUN/Creatinine Ratio 21.5 (10-20) Calcium Level 8.2 mg/dl (8.5-10.1) Chemistry Specimen Hemolysis Laboratory results per my review. Medications Administered Medications (Trade) Dose Ordered Sig/Millicent Route Start Time Stop Time Status Last Admin Dose Admin Fentanyl Citrate (Fentanyl Inj) 50 mcg NOW STAT IV 12/22/16 19:18 12/22/16 19:19 DC 12/22/16 19:28 50 MCG Ondansetron HCl (Zofran Inj) 4 mg STK-MED ONCE .ROUTE 12/22/16 19:25 12/22/16 19:26 DC 12/22/16 19:28 4 MG Oxycodone/ Acetaminophen (Percocet 5/ 325MG Home Pack) 1 homepack UD ONCE PO 12/22/16 19:45 12/22/16 19:46 DC 12/22/16 19:52 1 HOMEPACK ECG Indication: other (fall) Rate (beats per minute): 74 Rhythm: normal sinus Findings: no acute ischemic change, no ectopy, other (Normal axis. Normal intervals. ) ED Course 1709: The patient was evaluated in room C12B. A complete history and physical exam was performed. 1917: Ordered Fentanyl Inj 50 mcg IV, Zofran 8 mg IV. 1944: Ordered Percocet 5/325 mg home pack PO. Upon reevaluation, the patient is feeling better. I discussed the findings and the treatment plan with the patient. She verbalizes agreement and understanding. The patient was discharged home. Medical Decision Differential diagnoses include major intracranial, cervical, spinal, thoracic, abdominal, pelvic and neurologic injury. Fracture, contusion, sprain, strain, laceration, abrasions included as well. No additional occult traumatic injury noted on scans of the patient at this time. Daughter feels patient is acting normally for her status post her recent stroke. Patient given small amount of pain medication here. Patient be placed in a sling to help minimize any additional swelling to the right hand. No fracture noted. Discussed with the daughter follow-up with family doctor, symptoms to watch return for, continued physical therapy for her deficits since the stroke, continuing her routine medications, assistance in helping her with ambulation. Patient and the daughter live together. Daughter verbalized understanding of all this was agreeable with plan. Given daughters description fall likely mechanical, and patient denies any prodromal or preceding symptoms otherwise. Head Trauma GCS Score: 15 Medication Reconcilliation Current Medication List: was personally reviewed by me Blood Pressure Screening Patient's blood pressure: Elevated blood pressure Blood pressure disposition: Referred to PCP Impression Primary Impression: Fall Additional Impressions: Contusion of multiple sites CHI (closed head injury) Scribe Attestation The scribe's documentation has been prepared under my direction and personally reviewed by me in its entirety. I confirm that the note above accurately reflects all work, treatment, procedures, and medical decision making performed by me. Departure Information Dispostion Home / Self-Care Referrals Meghan Braxton M.D. (PCP) Patient Instructions My [facility] Additional Instructions Please continue all of your usual medications as prescribed. Please do not walk without assistance. Please continue your physical therapy and speech therapy. If you develop any worsening pain, dizziness, increasing weakness, fevers, cough, trouble breathing, vomiting, vision changes, or any other new concerns, please return the emergency room. Problem Qualifiers Primary Impression: Fall Encounter type: initial encounter Qualified Codes: W19.XXXA - Unspecified fall, initial encounter Additional Impressions: CHI (closed head injury) Encounter type: initial encounter Qualified Codes: S09.90XA - Unspecified injury of head, initial encounter
[2016-12-22] MEDS ORDERED: PERCOCET HOME PACK PO ONE (19:45)
== END 2016-12-22 20:03 | disposition home or self-care (01) ==
LOC: C.EDB 16:38 → C.EDC 20:03
DX: S51.811A Laceration without foreign body of right forearm, initial encounter (principal); W22.09XA Striking against other stationary object, initial encounter; W19.XXXA Unspecified fall, initial encounter; S09.90XA Unspecified injury of head, initial encounter; T14.8 Other injury of unspecified body region; I69.351 Hemiplegia and hemiparesis following cerebral infarction affecting right dominant side; M54.9 Dorsalgia, unspecified; G89.29 Other chronic pain; Z79.82 Long term (current) use of aspirin; Z85.3 Personal history of malignant neoplasm of breast; N18.3 Chronic kidney disease, stage 3 (moderate); I12.9 Hypertensive chronic kidney disease with stage 1 through stage 4 chronic kidney disease, or unspecified chronic kidney disease; J44.9 Chronic obstructive pulmonary disease, unspecified; F32.9 Major depressive disorder, single episode, unspecified; E78.5 Hyperlipidemia, unspecified; M81.0 Age-related osteoporosis without current pathological fracture; Z90.710 Acquired absence of both cervix and uterus; Z90.49 Acquired absence of other specified parts of digestive tract; Z98.49 Cataract extraction status, unspecified eye; Z87.891 Personal history of nicotine dependence; Z79.899 Other long term (current) drug therapy

== ENCOUNTER 2017-02-07 12:34 | Emergency (ER) | payer OTHER ==
[~2017-02-07] VITALS: Ht 144.8 cm; Wt 54.0 kg
[~2017-02-07 12:34] MED LIST changes: -ADVIN25/60 INH; -ALBINS/ INH; -ALEN70TA4 PO; -CIPR-255 PO; -FLUT0.15 NAE; +[UNRECOGNIZED DRUG - OTHER] INH
[2017-02-07 12:40] VITALS: TEMP 37; Ht 144.8 cm; Wt 54.0 kg
[2017-02-07] MEDS ORDERED: MAGNESIUM SULFATE 1GM / D5W 1 GM BAG IV STA (13:15)
[2017-02-07] MEDS ORDERED: AZITHROMYCIN SUSP 200 MG/5 ML 22.5 ML PO ONE (13:15)
[2017-02-07] MEDS ORDERED: ALBUT/IPRATROP 3MG/0.5MG NEB 3 ML VIAL INH STA (13:15)
[2017-02-07] MEDS ORDERED: METHYLPREDNISOLONE 125 MG VIAL IV STA (13:15)
[2017-02-07 13:55] LABS: BASO % 0.2 %; BASO ABS # 0.02 K/uL (0-0.2); COMPLETE YES; EOS % 0.8 %; IG% 0.2 %; LYMPH % 20.5 %; MEAN CELL VOLUME 88.9 fL (80-100); MEAN CORPUSCULAR HEMOGLOBIN 29.2 pg (25-34); MEAN CORPUSCULAR HGB CONC 32.8 g/dl (32-36); MONO % 11.5 %; NEUT % 66.8 %; PLATELET COUNT 403 K/uL (130-400); WHITE BLOOD COUNT 12.69 K/uL (4.8-10.8)
[2017-02-07 14:12] LABS: BUN/CREATININE RATIO 18.9 (10-20); CALCIUM 8.4 mg/dl (8.5-10.1); CREATININE 0.92 mg/dl (0.60-1.20); POTASSIUM 2.8 mmol/L (3.5-5.1)
[2017-02-07 14:14] VITALS: PULSE 81; O2SAT 92
[2017-02-07 14:17] LABS: C-REACTIVE PROTEIN 6.73 mg/dl (0-0.29)
[2017-02-07] MEDS ORDERED: POTASSIUM CHLORIDE 20 MEQ/15 ML UDC PO STA (14:21)
--- NOTE | 2017-02-07 14:25 | EMERGENCY ROOM VISIT NOTE ---
History Report prepared by Shyam: Ace Minor Under the Supervision of: Dr. Pipo Galvan M.D. First contact with patient: 12:38 Chief Complaint: ILLNESS Stated Complaint: AMMONIA? History of Present Illness The patient is a 86 year old white female with a past medical history of aphasia /right-sided weakness s/p CVA, and COPD who presents to the ED with a cc of constant shortness of breath beginning this week. Per daughter, the patient has symptoms of pneumonia. Wears 2 L of supplemental oxygen at home. Smokes occasionally at home. Positive right hand swelling. Eating and drinking normally. Does not usually drink much water. HPI limited secondary to mental state. Source of History: family (daughter) History Limited By: other (mental state) Onset: This week Quality: other (shortness of breath) Timing: constant Note: Positive right hand swelling. Review of Systems ROS limited secondary to mental state. Past Medical & Surgical Medical Problems: (1) Acute ischemic left middle cerebral artery (MCA) stroke (2) Ascending aortic aneurysm (3) Breast cancer (4) CAD (coronary artery disease) (5) CKD (chronic kidney disease), stage III (6) COPD (chronic obstructive pulmonary disease) (7) Depression (8) Dyslipidemia (9) HTN (hypertension) (10) Intestinal metaplasia of gastric mucosa (11) Osteoporosis (12) Vascular dementia Surgical Problems: (1) H/O: hysterectomy (2) Hx of cataract surgery (3) Hx of cholecystectomy Social History Problems: (1) Tobacco use Family History Cancer Social History Smoking Status: Former Smoker Drug Use: none Marital Status: single Housing Status: lives with family Occupation Status: retired Current/Historical Medications Scheduled Acetaminophen (Acetaminophen Extra Stren), 30 ML PO BID Aspirin (Aspirin Chewable), 81 MG PO DAILY Atorvastatin (Lipitor), 80 MG PO QAM Azithromycin (Zithromax), 250 MG PO DAILY Citalopram Hydrobromide (Citalopram Hydrobromide), 1 DOSE PO DAILY Fluticasone Furoate-Vilanterol (Breo Ellipta), 1 PUFF INH DAILY Fluticasone Propionate (Fluticasone Propionate), 2 SPRAYS RAAD DAILY Gabapentin (Gabapentin), 100 MG PO BID Home O2 Therapy (Oxygen), 2 LITERS NA PRN Ipratropium-Albuterol (Combivent Respimat), 1 PUFFS INH QID Lorazepam (Lorazepam), 1 TAB PO BID Metoprolol Succinate (Toprol Xl), 25 MG PO DAILY Montelukast Sod (Montelukast Sodium), 10 MG PO DAILY Montelukast Sod (Montelukast Sodium), 2 TAB PO DAILY Nitroglycerin (Nitrostat), 0.4 MG UT PRN Omeprazole (Prilosec), 20 MG PO BID Scheduled PRN Acetaminophen (Tylenol), 500 MG PO TID PRN for Pain Albuterol Sulf (Proventil 0.083% 2.5MG/3ML), 1 VIAL NEB QID PRN for SOB/Wheezing Allergies Coded Allergies: Codeine (Verified Allergy, Unknown, unsure of rxn, 02/07/17) Morphine (Verified Allergy, Unknown, per PCP records , 02/07/17) [place] (Verified Allergy, Unknown, SEASONAL, 02/07/17) Physical Exam Vital Signs Date Time Temp Pulse Resp B/P (MAP) Pulse Ox O2 Delivery O2 Flow Rate FiO2 02/07/17 15:20 97 Nasal Cannula 2.0 02/07/17 14:53 95 113/62 100 Non-Rebreather 2.0 02/07/17 14:14 81 20 92 Room Air 02/07/17 13:03 83 02/07/17 12:40 37.0 83 18 123/75 93 Room Air Physical Exam GENERAL: Awake, alert, well-appearing, NAD, appears consistent with staged age. HENT: Normocephalic, atraumatic. EYES: Normal conjunctiva. Sclera non-icteric. NECK: Supple. No nuchal rigidity. FROM. RESPIRATORY: Rhonchi bilateral anteriorly. Decreased breath sounds. CARDIAC: RRR, no MRG ABDOMEN: Soft, NTND, BS+ MSK: No chest wall TTP, no LE edema. Right hand with mild edema. Does not extend up the arm. Trace warmth with mild erythema. NEURO: GCS 15, CN 2-12 intact, moves all 4s. Residual right sided weakness and deficit. Expressive aphasia. Occasionally follows commands. SKIN: No rash or jaundice noted. Medical Decision & Procedures ER Provider Diagnostic Interpretation: Radiology results as stated below per my review and radiologist interpretation: RIGHT HAND 3 VIEWS FINDINGS: Marked demineralization of the visualized osseous structures of the right hand. This results in suboptimal evaluation. No fracture or dislocation. Soft tissue swelling most pronounced within the thumb and index finger. This has improved from the prior study. No bony erosions identified. No radiopaque foreign bodies. IMPRESSION: 1. Soft tissue swelling most pronounced within the thumb and index finger. This has improved. 2. Markedly demineralized bony structures. No definite fractures. Electronically signed by: Chavez Awan M.D. 02/07/2017 2:38 PM CHEST ONE VIEW PORTABLE FINDINGS: Atherosclerosis of aortic arch. Cardiac silhouette top normal in size. Lungs hyperinflated. Vague bibasilar opacities suggested. Heterogeneity of lung parenchyma. No large effusion or pneumothorax. Osteopenia suggested. IMPRESSION: 1. Hyperinflation and heterogeneity of lung parenchyma suggests emphysema. 2. Bibasilar vague opacities could represent pulmonary edema, aspiration, or infection. Electronically signed by: Blu Giles M.D. 02/07/2017 2:38 PM Laboratory Results 02/07/17 13:40 Red Blood Count 3.60, Mean Corpuscular Volume 88.9, Mean Corpuscular Hemoglobin 29.2, Mean Corpuscular Hemoglobin Concent 32.8, Mean Platelet Volume 9.0, Neutrophils (%) (Auto) 66.8, Lymphocytes (%) (Auto) 20.5, Monocytes (%) (Auto) 11.5, Eosinophils (%) (Auto) 0.8, Basophils (%) (Auto) 0.2, Neutrophils # (Auto ) 8.48, Lymphocytes # (Auto) 2.60, Monocytes # (Auto) 1.46, Eosinophils # (Auto ) 0.10, Basophils # (Auto) 0.02 02/07/17 13:40 Test 02/07/17 13:40 White Blood Count 12.69 K/uL (4.8-10.8) Red Blood Count 3.60 M/uL (4.2-5.4) Hemoglobin 10.5 g/dL (12.0-16.0) Hematocrit 32.0 % (37-47) Mean Corpuscular Volume 88.9 fL (80-100) Mean Corpuscular Hemoglobin 29.2 pg (25-34) Mean Corpuscular Hemoglobin Concent 32.8 g/dl (32-36) Platelet Count 403 K/uL (130-400) Mean Platelet Volume 9.0 fL (7.4-10.4) Neutrophils (%) (Auto) 66.8 % Lymphocytes (%) (Auto) 20.5 % Monocytes (%) (Auto) 11.5 % Eosinophils (%) (Auto) 0.8 % Basophils (%) (Auto) 0.2 % Neutrophils # (Auto) 8.48 K/uL (1.4-6.5) Lymphocytes # (Auto) 2.60 K/uL (1.2-3.4) Monocytes # (Auto) 1.46 K/uL (0.11-0.59) Eosinophils # (Auto) 0.10 K/uL (0-0.5) Basophils # (Auto) 0.02 K/uL (0-0.2) RDW Standard Deviation 44.6 fL (36.4-46.3) RDW Coefficient of Variation 13.6 % (11.5-14.5) Immature Granulocyte % (Auto) 0.2 % Immature Granulocyte # (Auto) 0.03 K/uL (0.00-0.02) Erythrocyte Sedimentation Rate 58 mm/hr (0-21) Anion Gap 5.0 mmol/L (3-11) Est Creatinine Clear Calc Drug Dose 31.6 ml/min Estimated GFR () 65.8 Estimated GFR (Non- 56.8 BUN/Creatinine Ratio 18.9 (10-20) Calcium Level 8.4 mg/dl (8.5-10.1) Troponin I 0.017 ng/ml (0-0.045) C-Reactive Protein 6.73 mg/dl (0-0.29) Laboratory results reviewed by me Medications Administered Medications (Trade) Dose Ordered Sig/Millicent Route Start Time Stop Time Status Last Admin Dose Admin Methylprednisolone Sodium Succinate (Solu-Medrol IV) 125 mg NOW STAT IV 02/07/17 13:15 02/07/17 13:20 DC 02/07/17 13:43 125 MG Albuterol/ Ipratropium (Duoneb) 9 ml ONE STAT INH 02/07/17 13:15 02/07/17 13:20 DC 02/07/17 14:00 9 ML Magnesium Sulfate (Magnesium Sulfate) 1 gm NOW STAT IV 02/07/17 13:15 02/07/17 13:20 DC 02/07/17 13:44 1 GM Azithromycin (Zithromax Susp) 12.5 ml NOW ONCE PO 02/07/17 13:15 02/07/17 13:20 DC 02/07/17 13:44 12.5 ML Potassium Chloride (Yaneth Ciel Elix) 40 meq NOW STAT PO 02/07/17 14:21 02/07/17 14:22 DC 02/07/17 15:17 40 MEQ ECG Indication: SOB/dyspnea Rate (beats per minute): 79 Rhythm: normal sinus Findings: other (Normal intervals. Low voltage inferiorly. No other STS changes or TWI.) Comparison ECG Date: December 22, 2016 Change: no significant change ED Course 1300: The patient was evaluated in room B5. A complete history and physical exam was performed. 1315: Ordered Zithromax Susp 12.5 mL PO, Magnesium Sulfate 1 gm IV, DuoNeb 9 mL INH, Solu-Medrol 125 mg IV. 1421: Ordered Yaneth Ciel Elix 40 meq PO. 1520: I reevaluated the patient. Discussed results and discharge instructions: she verbalized understanding and agreement. The patient is ready for discharge. Medical Decision The patient is a 86 year old white female with a past medical history of aphasia /right-sided weakness s/p CVA, and COPD who presents to the ED with a cc of constant shortness of breath beginning this week. Differential diagnosis includes but is not limited to COPD exacerbation, chronic bronchitis, pneumonia , reactive arthritis, gout, and septic arthritis. Patient was seen and evaluated at the bedside. Patient does have a known history of CAD, COPD, hypertension. Patient is taken care of by her daughter. Patient still does ambulate with some assistance that she has some right-sided deficits from a prior CVA. Patient does have an expressive aphasia. Patient's daughter was concerned about right hand swelling in addition to some concern for a pneumonia and she's had some cough and sputum production. Patient looks her stated age Asians fairly well-appearing. Patient does continue to smoke. She was counseled on smoking cessation. Patient did have labs EKG, chest x-ray , troponin. Patient was also treated as a COPD exacerbation given her wheezing and rhonchi. Patient was given as a through, nebs, mag, and steroids. Patient did have hypokalemia and was given supplemental potassium and was given a gram of mag IV. Patient looking well and feeling improved. Completed her potassium and mag repletement. Steroids and azithro called in. Trop .01, non ischemic EKG. Less likely ACS. CXR ? early onset infection. Given h/o will trx given COPD and smoking. Patient hand film w/ swelling but no other changes. Of not patient had had fall back in November. Had swelling at this time. Improved swelling when compared. Patient less likely septic arthritis, osteo given the chronicity w/o radiographic changes. mild WBC 12. patient not tachy nor hypoxic. Does use O2 at home 1-2Ls for several hours/day. Patient given f/u, d/c , return precautions and d/c'ed to home. Medication Reconcilliation Current Medication List: was personally reviewed by me Blood Pressure Screening Patient's blood pressure: Normal blood pressure Blood pressure disposition: Did not require urgent referral Impression Primary Impression: COPD (chronic obstructive pulmonary disease) Additional Impressions: Hypokalemia Encounter for smoking cessation counseling Scribe Attestation The scribe's documentation has been prepared under my direction and personally reviewed by me in its entirety. I confirm that the note above accurately reflects all work, treatment, procedures, and medical decision making performed by me. Departure Information Dispostion Home / Self-Care Prescriptions Prednisone (PREDNISONE) 50 Mg Tab 50 MG PO DAILY for 4 Days, #4 TAB Please crush this medicine and place in apple sauce or liquid to help facilitate taking this medicine. Prov: Pipo Galvan M.D. 02/07/17 Azithromycin (ZITHROMAX 200MG/5ML) 200 Mg/5 Ml Susp 12.5 ML PO QD for 5 Days, #65 ML Prov: Pipo Galvan M.D. 02/07/17 Referrals No Doctor, Assigned (PCP) Patient Instructions COPD, COPD Dc, ED Smoking Cessation, My [facility] Additional Instructions Please return to the emergency department if you have worsening or recurrent symptoms not amenable to at-home treatment. Please call for a follow-up appointment with her primary care physician. Please take your medications as prescribed. If you have other concerns and/or complaints please feel free to also call your primary care physician's office or return the ED for further evaluation, management, and treatment. You have been examined and treated today on an emergency basis only. This is not a substitute for, or an effort to provide, complete comprehensive medical care. It is impossible to recognize and treat all injuries or illnesses in a single emergency department visit. It is therefore important that you follow up closely with [facility]. Call as soon as possible for an appointment. Thank you for your time and consideration. I look forward to speaking with you again soon. Please don't hesitate to call us if you have any questions. Problem Qualifiers Primary Impression: COPD (chronic obstructive pulmonary disease) COPD type: unspecified COPD Qualified Codes: J44.9 - Chronic obstructive pulmonary disease, unspecified
--- NOTE | 2017-02-07 14:39 | DIAGNOSTIC IMAGING REPORT ---
CHEST ONE VIEW PORTABLE CLINICAL HISTORY: 86 years-old Female presenting with +smoker, cough, sputum. TECHNIQUE: Portable upright AP view of the chest was obtained. COMPARISON: 11/27/2016. FINDINGS: Atherosclerosis of aortic arch. Cardiac silhouette top normal in size. Lungs hyperinflated. Vague bibasilar opacities suggested. Heterogeneity of lung parenchyma. No large effusion or pneumothorax. Osteopenia suggested. IMPRESSION: 1. Hyperinflation and heterogeneity of lung parenchyma suggests emphysema. 2. Bibasilar vague opacities could represent pulmonary edema, aspiration, or infection. Electronically signed by: Blu Giles M.D. 02/07/2017 2:38 PM Dictated Date/Time: 02/07/2017 2:37 PM
--- NOTE | 2017-02-07 14:39 | DIAGNOSTIC IMAGING REPORT ---
RIGHT HAND 3 VIEWS HISTORY: swelling to R hand, isolated COMPARISON: Right hand 12/22/2016. FINDINGS: Marked demineralization of the visualized osseous structures of the right hand. This results in suboptimal evaluation. No fracture or dislocation. Soft tissue swelling most pronounced within the thumb and index finger. This has improved from the prior study. No bony erosions identified. No radiopaque foreign bodies. IMPRESSION: 1. Soft tissue swelling most pronounced within the thumb and index finger. This has improved. 2. Markedly demineralized bony structures. No definite fractures. Electronically signed by: Chavez Awan M.D. 02/07/2017 2:38 PM Dictated Date/Time: 02/07/2017 2:35 PM
[2017-02-07] MEDS ORDERED: AZIT250T PO (14:55)
[2017-02-07] MEDS ORDERED: ALBINS/ NEB (15:15)
[2017-02-07] MEDS ORDERED: SNGCH5 PO (15:15)
[2017-02-07] MEDS ORDERED: ACET500L2 PO (15:15)
[2017-02-07] MEDS ORDERED: ATV5X PO (15:15)
[2017-02-07] MEDS ORDERED: FLNIN/ NAE (15:15)
[2017-02-07] MEDS ORDERED: FLUT1INH INH (15:15)
[2017-02-07] MEDS ORDERED: CITA10SO PO (15:15)
[2017-02-07 15:20] VITALS: O2SAT 97
[2017-02-07] MEDS ORDERED: ZTHL20015 PO (16:04)
[2017-02-07] MEDS ORDERED: PRED50TA PO (16:04)
[2017-02-07 16:58] VITALS: BP 107/65; PULSE 91; O2SAT 96
== END 2017-02-07 16:49 | disposition home or self-care (01) ==
LOC: C.EDB 12:35
DX: J44.9 Chronic obstructive pulmonary disease, unspecified (principal); E87.6 Hypokalemia; Z71.6 Tobacco abuse counseling; I25.10 Atherosclerotic heart disease of native coronary artery without angina pectoris; I12.9 Hypertensive chronic kidney disease with stage 1 through stage 4 chronic kidney disease, or unspecified chronic kidney disease; Z86.73 Personal history of transient ischemic attack (TIA), and cerebral infarction without residual deficits; Z85.3 Personal history of malignant neoplasm of breast; N18.3 Chronic kidney disease, stage 3 (moderate); E78.5 Hyperlipidemia, unspecified; F32.9 Major depressive disorder, single episode, unspecified; M81.0 Age-related osteoporosis without current pathological fracture; F01.50 Vascular dementia, unspecified severity, without behavioral disturbance, psychotic disturbance, mood disturbance, and anxiety; Z80.9 Family history of malignant neoplasm, unspecified; Z79.82 Long term (current) use of aspirin; Z79.899 Other long term (current) drug therapy

== ENCOUNTER 2017-05-15 10:34 | Inpatient (IN) | payer OTHER ==
[~2017-05-15] VITALS: Ht 149.9 cm; Wt 57.7 kg
[~2017-05-15 10:34] MED LIST changes: +ACET500L2 PO; +ALBINS/ NEB; +ATV5X PO; +CITA10SO PO; -CITA40TA4 PO; +FLNIN/ NAE; +FLUT1INH INH; -FURO-85 PO; +METO-478 PO; -METO1TAB31 PO; +MONT1CHW12 PO; -PLV75 PO; -[UNRECOGNIZED DRUG - OTHER] INH
[2017-05-15] MEDS ORDERED: SODIUM CHLORIDE 0.9% 250ML 250 ML IV STA (10:59)
[2017-05-15] MEDS ORDERED: [UNRECOGNIZED DRUG - OTHER] PO (11:03)
[2017-05-15] MEDS ORDERED: OMEP1SUS4 PO (11:03)
[2017-05-15] MEDS ORDERED: TAMO20TA9 PO (11:03)
[2017-05-15] MEDS ORDERED: CITA40TA12 PO (11:03)
[2017-05-15] MEDS ORDERED: CLOP1TAB54 PO (11:03)
[2017-05-15 11:29] LABS: BASO % 0.3 %; BASO ABS # 0.03 K/uL (0-0.2); EOS % 1.3 %; EOS ABS # 0.13 K/uL (0-0.5); HEMATOCRIT 33.6 % (37-47); HEMOGLOBIN 10.8 g/dL (12.0-16.0); IG# 0.03 K/uL (0.00-0.02); LYMPH % 23.3 %; LYMPH ABS # 2.35 K/uL (1.2-3.4); MEAN CELL VOLUME 89.6 fL (80-100); MEAN CORPUSCULAR HEMOGLOBIN 28.8 pg (25-34); MEAN CORPUSCULAR HGB CONC 32.1 g/dl (32-36); MONO % 8.9 %; NEUT % 65.9 %; NEUT ABS # 6.65 K/uL (1.4-6.5); PLATELET COUNT 235 K/uL (130-400); RED CELL DISTRIBUTION WIDTH CV 15.6 % (11.5-14.5); RED CELL DISTRIBUTION WIDTH SD 51.5 fL (36.4-46.3); WHITE BLOOD COUNT 10.09 K/uL (4.8-10.8)
[2017-05-15 11:37] LABS: PTT PATIENT 25.8 SECONDS (21.0-31.0)
[2017-05-15 11:48] LABS: ALBUMIN 2.7 gm/dl (3.4-5.0); ALT/SGPT 14 U/L (12-78); AST/SGOT 12 U/L (15-37); BLOOD UREA NITROGEN 20 mg/dl (7-18); CALCIUM 7.9 mg/dl (8.5-10.1); CARBON DIOXIDE 31 mmol/L (21-32); CREATININE 1.12 mg/dl (0.60-1.20); GLUCOSE 89 mg/dl (70-99); LIPASE 147 U/L (73-393); POTASSIUM 3.4 mmol/L (3.5-5.1); SODIUM 145 mmol/L (136-145)
[2017-05-15 11:50] LABS: ALKALINE PHOSPHATASE 114 U/L (45-117); TOTAL PROTEIN 5.9 gm/dl (6.4-8.2)
--- NOTE | 2017-05-15 12:04 | DIAGNOSTIC IMAGING REPORT ---
CT OF THE ABDOMEN AND PELVIS WITHOUT CONTRAST, STONE PROTOCOL CLINICAL HISTORY: Lower abdominal pain. Constipation. COMPARISON STUDY: CT of the abdomen and pelvis December 22, 2016. TECHNIQUE: Helical axial images of the abdomen and pelvis were obtained without IV or oral contrast according to renal stone protocol. A dose lowering technique was utilized adhering to the principles of ALARA. FINDINGS: Fusiform dilatation of the visualized portions of the distal descending thoracic aorta is noted, measuring 4.1 x 3.6 cm just superior to the diaphragmatic hiatus. There is no evidence for rupture. Visualized portions of the lower chest demonstrate moderate emphysema with right lower lobe subpleural opacity. There is a 1.1 cm lobulated right lower lobe nodule shown on image 8 of 161. Unenhanced images of the liver, adrenal glands and pancreas are unremarkable. There is slight granulomas within the spleen. There are calcifications within each renal sinus. The majority of these are likely vascular however renal calculi could appear similar. There is a right renal cyst. No ureteral calculi are identified. There is no evidence for a bowel obstruction. There is a large amount of stool within the rectum and moderate amount stool within the colon. There is moderate perirectal infiltration. There is no free air, pneumatosis or portal venous gas. There is extensive left colon diverticulosis without evidence for acute diverticulitis. Several healing right sided rib fractures are noted as well as a healing fracture of the medial left pubic bone. IMPRESSION: 1. 1.1 cm lobulated right lower lobe pulmonary nodule which is worrisome for bronchogenic carcinoma. Nonemergent chest CT and pulmonary consultation are recommended. Findings and recommendations discussed with Dr. Turcios at time of dictation. 2. Large amount of stool within the rectum and moderate amount of stool within the colon suggestive of fecal impaction. Moderate perirectal infiltration suggestive of colitis, possibly reflecting stercoral colitis. No free air. 3. Extensive left colon diverticulosis without evidence for acute diverticulitis. 4. Moderate emphysema. 5. 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 6. Mild right lower lobe opacity which favors pneumonia. Electronically signed by: Kota Tate M.D. 05/15/2017 12:03 PM Dictated Date/Time: 05/15/2017 11:48 AM
[2017-05-15] MEDS ORDERED: MILK AND MOLASSES ENEMA PR STA (12:10)
--- NOTE | 2017-05-15 12:28 | DIAGNOSTIC IMAGING REPORT ---
CHEST ONE VIEW PORTABLE CLINICAL HISTORY: Evaluate for pneumonia. COMPARISON STUDY: Chest radiograph February 07, 2017. FINDINGS: There is no pneumothorax or pleural effusion. Underlying emphysema is noted. Calcified right paratracheal lymph node is noted. Dilatation of the thoracic aorta appears unchanged. There is no evidence for overt pulmonary edema. There is mild right lower lung opacity, better depicted on the abdominal CT performed earlier today. IMPRESSION: 1. Mild medial right basilar airspace opacity, better depicted on the abdominal CT performed earlier today. This may reflect atelectasis or pneumonia. 2. Emphysema. 3. No significant change in dilatation of the thoracic aorta. Electronically signed by: Kota Tate M.D. 05/15/2017 12:27 PM Dictated Date/Time: 05/15/2017 12:25 PM
[2017-05-15] MEDS ORDERED: ACETAMINOPHEN 325 MG TAB PO PRN (13:00)
[2017-05-15] MEDS ORDERED: HEPARIN SOD 5000 UNIT/0.5 ML CARP SQ SCH (13:00)
[2017-05-15] MEDS ORDERED: ONDANSETRON INJ 2 MG/ML 2 ML VIAL IV PRN (13:00)
[2017-05-15] MEDS ORDERED: MAGNESIUM HYDROXIDE SUSP 30 ML UDC PO PRN (13:15)
[2017-05-15] MEDS ORDERED: POLYETHYLENE (MIRALAX) 17 GM PACK PO PRN (13:15)
[2017-05-15] MEDS ORDERED: POTASSIUM CHLORIDE 20 MEQ TABCR PO STA (13:21)
[2017-05-15] MEDS ORDERED: OPTIRAY 320 IV PRN (13:30)
[2017-05-15] MEDS ORDERED: SODIUM CHLORIDE 0.9% 1000ML 1,000 ML IV SCH (13:30)
--- NOTE | 2017-05-15 13:38 | EMERGENCY ROOM VISIT NOTE ---
History Report prepared by Shyam: Eliceo Alfaro Under the Supervision of: Dr. Boone Turcios M.D. First contact with patient: 10:48 Chief Complaint: CONSTIPATION Stated Complaint: PAIN History of Present Illness The patient is an 86 year old female who presents to the Emergency Room with complaints of persistent constipation for an unknown time, possibly several days to a week. Per family, the patient lives at home with her grandson. Per daughter, the patient has been complaining of abdominal pain and inability to use the bathroom. Per daughter, the patient has a hemorrhoid issue that she became aware of one week ago. The patient had a stroke Summer 2016 and has been unable to form complete sentences. Per daughter, the patient has not had any fevers. She has not vomited. Per daughter, the patient does not normally have high blood pressure. Per daughter, the patient is dehydrated and has only been drinking juice not water. HPI is limited secondary to dementia and aphasia. Source of History: patient, other (dementia and aphasia) History Limited By: dementia, aphasia Onset: an unknown time [employer] Position: other (global ) Quality: other Modifying Factors (Worsening): other (constipation) Associated Symptoms: + abdominal pain, No fevers Review of Systems ROS is limited secondary to dementia and aphasia. Past Medical & Surgical Medical Problems: (1) Acute ischemic left middle cerebral artery (MCA) stroke (2) Ascending aortic aneurysm (3) Breast cancer (4) CAD (coronary artery disease) (5) CKD (chronic kidney disease), stage III (6) COPD (chronic obstructive pulmonary disease) (7) Depression (8) Dyslipidemia (9) HTN (hypertension) (10) Intestinal metaplasia of gastric mucosa (11) Osteoporosis (12) Pneumonia (13) Pulmonary nodule (14) Vascular dementia Surgical Problems: (1) H/O: hysterectomy (2) Hx of cataract surgery (3) Hx of cholecystectomy Social History Problems: (1) Tobacco use Family History Cancer Social History Smoking Status: Former Smoker Drug Use: none Marital Status: single Housing Status: lives with family Occupation Status: retired Current/Historical Medications Scheduled Acetaminophen (Acetaminophen Extra Stren), 30 ML PO BID Aspirin (Aspirin Chewable), 81 MG PO DAILY Atorvastatin (Lipitor), 80 MG PO HS Citalopram Hydrobromide (Citalopram Hydrobromide), 40 MG PO DAILY Citalopram Hydrobromide (Celexa), 40 MG PO DAILY Clopidogrel Bisulfate (Plavix), 75 MG PO DAILY Fluticasone Furoate-Vilanterol (Breo Ellipta), 1 PUFF INH DAILY Gabapentin (Gabapentin), 100 MG PO BID Home O2 Therapy (Oxygen), 2 LITERS NA PRN Ipratropium-Albuterol (Combivent Respimat), 1 PUFFS INH QID Lorazepam (Lorazepam), 0.5 MG PO BID Metoprolol Succinate (Toprol Xl), 25 MG PO DAILY Montelukast Sod (Montelukast Sodium), 10 MG PO DAILY Montelukast Sod (Montelukast Sodium), 10 MG PO DAILY Nitroglycerin (Nitrostat), 0.4 MG UT PRN Omeprazole (Prilosec), 20 MG PO BID Omeprazole (Omeprazole + Syrspend Sf), 20 MG PO DAILY Risperidone (Risperdal), 2.5 ML PO BID Tamoxifen (Nolvadex), 20 MG PO DAILY Allergies Coded Allergies: Codeine (Verified Allergy, Unknown, unsure of rxn, 05/15/17) Morphine (Verified Allergy, Unknown, per PCP records , 05/15/17) [place] Tree (Verified Allergy, Unknown, SEASONAL, 05/15/17) Physical Exam Vital Signs Date Time Temp Pulse Resp B/P (MAP) Pulse Ox O2 Delivery O2 Flow Rate FiO2 05/15/17 12:08 76 18 151/68 100 Room Air 05/15/17 10:40 36.6 80 18 142/76 96 Room Air Physical Exam Constitutional: Vital signs reviewed. Eyes: Pupils are equal round reactive to light. Conjunctiva are noninjected. ENT: Pharynx is clear without erythema or exudate. Mucous membranes are moist. Neck supple without meningeal signs. Respiratory: Clear to auscultation bilaterally. Breath sounds are equal bilaterally. Cardiovascular: Regular rate and rhythm. No rubs or gallops. GI: Soft, nondistended. Bowel sounds are present. Grimaces when lower abdomen is palpated, no guarding. Musculoskeletal: No peripheral edema. No lower extremity tenderness. Rectal: Three external hemorrhoids, non-thrombosed. No bleeding. Soft brown stool in rectal vault. Integumentary: No cyanosis. Neurological: The patient is awake and alert. Aphasia. Psychiatric: Unable to assess. Medical Decision & Procedures ER Provider Diagnostic Interpretation: Radiology results as stated below per my review and the radiologist's interpretation: CT OF THE ABDOMEN AND PELVIS WITHOUT CONTRAST, STONE PROTOCOL CLINICAL HISTORY: Lower abdominal pain. Constipation. COMPARISON STUDY: CT of the abdomen and pelvis December 22, 2016. TECHNIQUE: Helical axial images of the abdomen and pelvis were obtained without IV or oral contrast according to renal stone protocol. A dose lowering technique was utilized adhering to the principles of ALARA. FINDINGS: Fusiform dilatation of the visualized portions of the distal descending thoracic aorta is noted, measuring 4.1 x 3.6 cm just superior to the diaphragmatic hiatus. There is no evidence for rupture. Visualized portions of the lower chest demonstrate moderate emphysema with right lower lobe subpleural opacity. There is a 1.1 cm lobulated right lower lobe nodule shown on image 8 of 161. Unenhanced images of the liver, adrenal glands and pancreas are unremarkable. There is slight granulomas within the spleen. There are calcifications within each renal sinus. The majority of these are likely vascular however renal calculi could appear similar. There is a right renal cyst. No ureteral calculi are identified. There is no evidence for a bowel obstruction. There is a large amount of stool within the rectum and moderate amount stool within the colon. There is moderate perirectal infiltration. There is no free air, pneumatosis or portal venous gas. There is extensive left colon diverticulosis without evidence for acute diverticulitis. Several healing right sided rib fractures are noted as well as a healing fracture of the medial left pubic bone. IMPRESSION: 1. 1.1 cm lobulated right lower lobe pulmonary nodule which is worrisome for bronchogenic carcinoma. Nonemergent chest CT and pulmonary consultation are recommended. Findings and recommendations discussed with Dr. Turcios at time of dictation. 2. Large amount of stool within the rectum and moderate amount of stool within the colon suggestive of fecal impaction. Moderate perirectal infiltration suggestive of colitis, possibly reflecting stercoral colitis. No free air. 3. Extensive left colon diverticulosis without evidence for acute diverticulitis. 4. Moderate emphysema. 5. 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 6. Mild right lower lobe opacity which favors pneumonia. Electronically signed by: Kota Tate M.D. 05/15/2017 12:03 PM Dictated Date/Time: 05/15/2017 11:48 AM CHEST ONE VIEW PORTABLE CLINICAL HISTORY: Evaluate for pneumonia. COMPARISON STUDY: Chest radiograph February 07, 2017. FINDINGS: There is no pneumothorax or pleural effusion. Underlying emphysema is noted. Calcified right paratracheal lymph node is noted. Dilatation of the thoracic aorta appears unchanged. There is no evidence for overt pulmonary edema. There is mild right lower lung opacity, better depicted on the abdominal CT performed earlier today. IMPRESSION: 1. Mild medial right basilar airspace opacity, better depicted on the abdominal CT performed earlier today. This may reflect atelectasis or pneumonia. 2. Emphysema. 3. No significant change in dilatation of the thoracic aorta. Electronically signed by: Kota Tate M.D. 05/15/2017 12:27 PM Dictated Date/Time: 05/15/2017 12:25 PM Laboratory Results 05/15/17 11:10 Red Blood Count 3.75, Mean Corpuscular Volume 89.6, Mean Corpuscular Hemoglobin 28.8, Mean Corpuscular Hemoglobin Concent 32.1, Mean Platelet Volume 10.0, Neutrophils (%) (Auto) 65.9, Lymphocytes (%) (Auto) 23.3, Monocytes (%) (Auto) 8.9, Eosinophils (%) (Auto) 1.3, Basophils (%) (Auto) 0.3, Neutrophils # (Auto) 6.65, Lymphocytes # (Auto) 2.35, Monocytes # (Auto) 0.90, Eosinophils # (Auto) 0.13, Basophils # (Auto) 0.03 05/15/17 11:10 Test 05/15/17 11:10 White Blood Count 10.09 K/uL (4.8-10.8) Red Blood Count 3.75 M/uL (4.2-5.4) Hemoglobin 10.8 g/dL (12.0-16.0) Hematocrit 33.6 % (37-47) Mean Corpuscular Volume 89.6 fL (80-100) Mean Corpuscular Hemoglobin 28.8 pg (25-34) Mean Corpuscular Hemoglobin Concent 32.1 g/dl (32-36) Platelet Count 235 K/uL (130-400) Mean Platelet Volume 10.0 fL (7.4-10.4) Neutrophils (%) (Auto) 65.9 % Lymphocytes (%) (Auto) 23.3 % Monocytes (%) (Auto) 8.9 % Eosinophils (%) (Auto) 1.3 % Basophils (%) (Auto) 0.3 % Neutrophils # (Auto) 6.65 K/uL (1.4-6.5) Lymphocytes # (Auto) 2.35 K/uL (1.2-3.4) Monocytes # (Auto) 0.90 K/uL (0.11-0.59) Eosinophils # (Auto) 0.13 K/uL (0-0.5) Basophils # (Auto) 0.03 K/uL (0-0.2) RDW Standard Deviation 51.5 fL (36.4-46.3) RDW Coefficient of Variation 15.6 % (11.5-14.5) Immature Granulocyte % (Auto) 0.3 % Immature Granulocyte # (Auto) 0.03 K/uL (0.00-0.02) Prothrombin Time 10.3 SECONDS (9.0-12.0) Prothromb Time International Ratio 1.0 (0.9-1.1) Activated Partial Thromboplast Time 25.8 SECONDS (21.0-31.0) Partial Thromboplastin Ratio 1.0 Anion Gap 5.0 mmol/L (3-11) Estimated GFR () 51.9 Estimated GFR (Non- 44.8 BUN/Creatinine Ratio 17.6 (10-20) Calcium Level 7.9 mg/dl (8.5-10.1) Total Bilirubin 0.3 mg/dl (0.2-1) Direct Bilirubin < 0.1 mg/dl (0-0.2) Aspartate Amino Transf (AST/SGOT) 12 U/L (15-37) Alanine Aminotransferase (ALT/SGPT) 14 U/L (12-78) Alkaline Phosphatase 114 U/L (45-117) Total Protein 5.9 gm/dl (6.4-8.2) Albumin 2.7 gm/dl (3.4-5.0) Lipase 147 U/L (73-393) Laboratory results as reviewed by me. Medications Administered Medications (Trade) Dose Ordered Sig/Millicent Route Start Time Stop Time Status Last Admin Dose Admin Sodium Chloride 250 ml @ 999 mls/hr Q16M STAT IV 05/15/17 10:59 05/15/17 11:14 DC 05/15/17 12:00 999 MLS/HR Miscellaneous Medication (Milk And Molasses Enema) 1 ea NOW STAT HI 05/15/17 12:10 05/15/17 12:12 DC 05/15/17 13:00 1 EA ED Course 1050: The patient was evaluated in room B6. A complete history and physical exam was performed. 1059: Ordered Sodium Chloride 250 ml @ 999 mls/hr IV 1158: I spoke with Dr. Tate, radiologist. There appears to be a mass in the lung and he is concerned for cancer. 1205: I reassessed the patient at this time. I discussed the results and treatment plan with the patient and her family. I answered all pertaining questions that the patient and the family had. The patient and family expressed understanding and verbalized agreement. The patient will be further evaluated. 1210: Ordered Milk and Molasses Enema 1 ea HI 1212: I spoke with Candida Walker PA-C. We discussed the patients case. The patient will be evaluated by the [facility] for further management. Medical Decision This is an 86-year-old female who presents with abdominal pain. Differential diagnosis includes fecal impaction, constipation, colitis, diverticulitis, bowel obstruction. I did perform a limited focused review of portions of the patient's old chart on the electronic medical record. The patient has had no recent pertinent visits to this hospital. I did evaluate the patient as noted above. History is severely limited due to patient's dementia and aphasia. I did obtain history from the patient's daughter. Apparently she has not had a bowel movement in several days to a week. She had significant pain while trying to have a bowel movement today. I did perform a rectal examination which showed stool in the rectal vault. I did attempt disimpaction and was able to remove a small amount of stool. I could not proceed further with the patient had significant discomfort with the procedure. IV access was established. I did treat patient with normal saline IV. I did order and review the patient's blood work as noted in the electronic medical record. I did order a CT of the abdomen and pelvis. I did review the images myself as well as the radiology report as described above. She does have possible colitis from her fecal impaction. The patient also has what looks like a mass in the right lower lobe with pneumonia. I did discuss the test results with the patient's daughter. I did order a chest x-ray as described above. Blood cultures are ordered for the possible pneumonia. I did order a milk and molasses enema. I did discuss case with the hospitalist and top case assembler. Medication Reconcilliation Current Medication List: was personally reviewed by me Blood Pressure Screening Patient's blood pressure: Elevated blood pressure Blood pressure disposition: Referred to PCP Consults Time Called: 1210 Consulting Physician: Candida Walker PA-C Returned Call: 1212 I spoke with Candida Walker PA-C. We discussed the patients case. The patient will be evaluated by the [facility] for further management. Impression Primary Impression: Colitis Additional Impressions: Fecal impaction of colon Right lower lobe pneumonia Dehydration Pulmonary nodule, right Scribe Attestation The scribe's documentation has been prepared under my direct and personally reviewed by me in its entirety. I confirm that the note above accurately reflects all work, treatment, procedures, and medical decision making performed by me. Departure Information Dispostion Being Evaluated By Hospitalist Referrals No Doctor, Assigned (PCP) Patient Instructions [facility] Problem Qualifiers Additional Impressions: Right lower lobe pneumonia Pneumonia type: due to unspecified organism Qualified Codes: J18.1 - Lobar pneumonia, unspecified organism
[2017-05-15] MEDS ORDERED: ALBUT/IPRATROP 3MG/0.5MG NEB 3 ML VIAL ONE (13:39)
[2017-05-15] MEDS ORDERED: ALBINS INH (14:05)
[2017-05-15] MEDS ORDERED: LPT40 PO (14:05)
[2017-05-15] MEDS ORDERED: LORAZEPAM 0.5 MG TAB PO PRN (14:15)
[2017-05-15] MEDS ORDERED: NITROGLYCERIN 0.4 MG SL PER TAB CHARGE UT SCH (14:15)
--- NOTE | 2017-05-15 14:39 | History and Physical ---
History & Physical Date & Time of Service: May 15, 2017 at 13:37 Chief Complaint: PAIN Primary Care Physician: Daniel De Los Santos M.D. 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 Pt unable to give hx. Family report for over one week pt with constipation and has been straining to try to have BM. Think last BM one week ago. Pt been groaning with discomfort when abdomen touched past week. Tried miralax twice without relief. Pt has been having decreased appetite also. Haven' t noticed increased cough or SOB or fever/chills. Denies vomiting or noticed rashes, rhinorrhea, changes in behavior, melena, hematochezia. Hasn't noticed increased urination. States pt needs assistance with all ADLs. She is living with grandson currently and family report it is getting harder for them to care for her at home and are considering exterminator helper placement. In ER pt afebrile, P: 80, R: 18, BP: 151/68, 96-100% on RA. WBC: 10. Hgb: 10.8 ( baseline). K: 3.4. Cr: 1.1 (baseline ~0.92). Pending blood cultures. CT abd/ pelvis: 1cm lobulated RLL nodule, large amount of stool rectum & colon, moderate perirectal infiltration, RLL opacity favors pneumonia. Given 250ml NSS and milk molasses enema ordered. Past Medical/Surgical History Medical Problems: (1) Ascending aortic aneurysm Status: Chronic (2) Breast cancer Permanent Comment: R breast s/p mastectomy and initiation of Tamoxifen Status: Chronic (3) CAD (coronary artery disease) Permanent Comment: moderate CAD demonstrated on cath from 2008 Status: Chronic (4) CKD (chronic kidney disease), stage III Status: Chronic (5) COPD (chronic obstructive pulmonary disease) Status: Chronic (6) Depression Status: Chronic (7) Dyslipidemia Status: Chronic (8) HTN (hypertension) Status: Chronic (9) Intestinal metaplasia of gastric mucosa Status: Chronic (10) Lumbar back pain with radiculopathy affecting left lower extremity Status: Chronic (11) Osteoporosis Status: Chronic (12) Shingles Status: Resolved (13) Spinal stenosis Status: Chronic (14) Vascular dementia Status: Chronic Surgical Problems: (1) H/O: hysterectomy Status: Chronic (2) Hx of cataract surgery Status: Chronic (3) Hx of cholecystectomy Status: Chronic Social History Problems: (1) Tobacco use Status: Chronic Family History Cancer Social History Smoking Status: Current Some Day Smoker (Pt smoked 0.25 ppd x 61 years, currently smoking 1 cigarette every couple of days) Alcohol Use: none Drug Use: none Marital Status: single Housing status: lives with family Occupational Status: retired Immunizations History of Influenza Vaccine: Yes Influenza Vaccine Date: Jan 25, 2015 History of Tetanus Vaccine?: Yes Tetanus Immunization Date: August 31, 2010 History of Pneumococcal: Yes Pneumococcal Date: September 05, 2016 History of Hepatitis B Vaccine: No Multi-Drug Resistant Organisms History of MDRO: No Allergies Coded Allergies: Codeine (Verified Allergy, Unknown, unsure of rxn, 05/15/17) Morphine (Verified Allergy, Unknown, per PCP records , 05/15/17) [place] (Verified Allergy, Unknown, SEASONAL, 05/15/17) Home Medications Scheduled Acetaminophen (Acetaminophen Extra Stren), 30 ML PO BID Albuterol Sulf (Albuterol Sulfate), 1 VIAL INH QID Aspirin (Aspirin Chewable), 81 MG PO DAILY Atorvastatin (Lipitor), 2 TAB PO HS Citalopram Hydrobromide (Citalopram Hydrobromide), 20 ML PO DAILY Clopidogrel Bisulfate (Plavix), 75 MG PO DAILY Fluticasone Furoate-Vilanterol (Breo Ellipta), 1 PUFF INH DAILY Gabapentin (Gabapentin), 100 MG PO BID Ipratropium-Albuterol (Combivent Respimat), 1 PUFFS INH QID Montelukast Sod (Montelukast Sodium), 10 MG PO DAILY Nitroglycerin (Nitrostat), 0.4 MG UT PRN Omeprazole (Prilosec), 20 MG PO BID Tamoxifen (Nolvadex), 20 MG PO DAILY Scheduled PRN Lorazepam (Lorazepam), 0.5 MG PO BID PRN for Anxiety Review of Systems Further ROS not able to be obtained secondary to pt's aphasia Physical Exam Vital Signs Date Time Temp Pulse Resp B/P (MAP) Pulse Ox O2 Delivery O2 Flow Rate FiO2 05/15/17 12:08 76 18 151/68 100 Room Air 05/15/17 10:40 36.6 80 18 142/76 96 Room Air General Appearance: WD/WN, no apparent distress Head: normocephalic, atraumatic Eyes: normal inspection, PERRL, EOMI, sclerae normal ENT: pharynx normal, + pertinent finding (mucous membranes slightly dry. Family reports pt hard of hearing and uses hearing aid) Neck: supple, no adenopathy, trachea midline Respiratory/Chest: chest non-tender, no respiratory distress, no accessory muscle use, + decreased breath sounds, + wheezing (scattered throughout) Cardiovascular: regular rate, rhythm, no edema, no murmur, normal peripheral pulses Abdomen/GI: normal bowel sounds, soft, + pertinent finding (+tenderness to palpation across entire lower abdomen) Back: no CVA tenderness Extremities/Musculoskelatal: normal capillary refill, no pedal edema, + pertinent finding (R arm with weakness and limited ROM 2/2 previous stroke. Right hand tender to palpation (family reports chronic since stroke), Left arm non-tender, ROM, slip cover estimator strength 3/5. pedal pushes and pulls intact bilaterally) Neurologic/Psych: alert, + pertinent finding (Pt with aphasia. Does say yes or no sometimes and groans with palpation of areas of discomfort) Skin: normal color, warm/dry Diagnostics Laboratory Results Last 24 Hours Test 05/15/17 11:10 05/15/17 14:00 White Blood Count 10.09 K/uL Red Blood Count 3.75 M/uL Hemoglobin 10.8 g/dL Hematocrit 33.6 % Mean Corpuscular Volume 89.6 fL Mean Corpuscular Hemoglobin 28.8 pg Mean Corpuscular Hemoglobin Concent 32.1 g/dl Platelet Count 235 K/uL Mean Platelet Volume 10.0 fL Neutrophils (%) (Auto) 65.9 % Lymphocytes (%) (Auto) 23.3 % Monocytes (%) (Auto) 8.9 % Eosinophils (%) (Auto) 1.3 % Basophils (%) (Auto) 0.3 % Neutrophils # (Auto) 6.65 K/uL Lymphocytes # (Auto) 2.35 K/uL Monocytes # (Auto) 0.90 K/uL Eosinophils # (Auto) 0.13 K/uL Basophils # (Auto) 0.03 K/uL RDW Standard Deviation 51.5 fL RDW Coefficient of Variation 15.6 % Immature Granulocyte % (Auto) 0.3 % Immature Granulocyte # (Auto) 0.03 K/uL Prothrombin Time 10.3 SECONDS Prothromb Time International Ratio 1.0 Activated Partial Thromboplast Time 25.8 SECONDS Partial Thromboplastin Ratio 1.0 Sodium Level 145 mmol/L Potassium Level 3.4 mmol/L Chloride Level 109 mmol/L Carbon Dioxide Level 31 mmol/L Anion Gap 5.0 mmol/L Blood Urea Nitrogen 20 mg/dl Creatinine 1.12 mg/dl Estimated GFR () 51.9 Estimated GFR (Non- 44.8 BUN/Creatinine Ratio 17.6 Random Glucose 89 mg/dl Calcium Level 7.9 mg/dl Total Bilirubin 0.3 mg/dl Direct Bilirubin < 0.1 mg/dl Aspartate Amino Transf (AST/SGOT) 12 U/L Alanine Aminotransferase (ALT/SGPT) 14 U/L Alkaline Phosphatase 114 U/L Total Protein 5.9 gm/dl Albumin 2.7 gm/dl Lipase 147 U/L Diagnostic Radiology CXR: IMPRESSION: 1. Mild medial right basilar airspace opacity, better depicted on the abdominal CT performed earlier today. This may reflect atelectasis or pneumonia. 2. Emphysema. 3. No significant change in dilatation of the thoracic aorta. CT ABD/PELVIS: IMPRESSION: 1. 1.1 cm lobulated right lower lobe pulmonary nodule which is worrisome for bronchogenic carcinoma. Nonemergent chest CT and pulmonary consultation are recommended. Findings and recommendations discussed with Dr. Turcios at time of dictation. 2. Large amount of stool within the rectum and moderate amount of stool within the colon suggestive of fecal impaction. Moderate perirectal infiltration suggestive of colitis, possibly reflecting stercoral colitis. No free air. 3. Extensive left colon diverticulosis without evidence for acute diverticulitis. 4. Moderate emphysema. 5. 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 6. Mild right lower lobe opacity which favors pneumonia. Impression Assessment and Plan PNEUMONIA Pt with RLL opacity on CXR and CT abd/pelvis. Pneumonia vs atelectasis. Afebrile , no leukocytosis. R: 18, Pulse ox 96-100% on RA. Pending blood cultures. -sputum culture ordered -flu swab ordered -unasyn and doxycycline -duonebs -gentle IVF -repeat CBC, PRP in am PULMONARY NODULE CT ABD/PELVIS: 1.1 cm lobulated right lower lobe pulmonary nodule which is worrisome for bronchogenic carcinoma. Moderate emphysema. Mild right lower lobe opacity which favors pneumonia. Pt long hx smoking. currently smokes 1 cigarette every couple of days -CT chest -pulmonary consult COPD Family denies increased cough or noted increased SOB. Denies home O2 use -duonebs -continue montelukast -continue breo CONSTIPATION pt with constipation [address] abd/pelvis: Large amount of stool within the rectum and moderate amount of stool within the colon suggestive of fecal impaction. Moderate perirectal infiltration suggestive of colitis, possibly reflecting stercoral colitis. No free air. Extensive left colon diverticulosis without evidence for acute diverticulitis. Pt ordered enema in ER. Pt had large BM -miralax prn constipation -continue to monitor HYPOKALEMIA K: 3.4 -replace and continue to monitor HTN Not on meds currently -continue to monitor HX STROKE Pt with aphasia, R arm weakness since. Denies new symptoms -swallowing eval to determine diet HX AAA: CT abd/pelvis: No change in 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 HX BREAST CA s/p partial mastectomy. On tamoxifen GERD -continue PPI HX CAD Pt unable to express if any CP -continue plavix, ASA, statin ANXIETY/DEPRESSION -continue citalopram -continue ativan prn ANEMIA: Hgb: 10.8 which is pt's baseline -continue to monitor DVT PROPHYLAXIS -SCD DISPOSITION -admit med surg -DNR/DNI as per discussion with family -Follows with Dr De Los Santos for routine care Pt was seen with Dr Palmer. See addendum Agree with above H and P. Briefly 86F with hx of CVA and aphasia was brought in by family for abdominal pain and constipation. In the ER after enema had a large bowel movement. Hemodynamics stable. Patient is aphasic and cannot get any history but seems comfortable.Hemodynamics stable. p/e Ge alert and awake. Not in distress Cvs s1 and s2 heard no murmurs Rs cta b/l no added sounds Abd benign Tool Clerk aphasia Ext no erythema a/p Constipation s/p enema and had large bowel movement bowel regimen Pneumonia aspiration? post obstructive? started on Unasyn and doxycycline speech evaluation Lung mass on ct scan consulted pulmonary Level of Care Med/Surg Resuscitation Status DO NOT RESUSCITATE VTE Prophylaxis VTE Risk Assessment Done? Y/N: Yes Risk Level: Moderate Given or contraindicated: SCD's Additional Copies To Daniel De Los Santos M.D.
[2017-05-15 14:46] LABS: INFLUENZA B ANTIGEN Neg for Influ B (NEG)
--- NOTE | 2017-05-15 14:52 | DIAGNOSTIC IMAGING REPORT ---
CT OF THE CHEST WITH IV CONTRAST CLINICAL HISTORY: pulmonary nodule COMPARISON STUDY: 02/01/2011, chest x-ray dated 05/15/2017, abdominal CT scan dated 05/15/2017 TECHNIQUE: Following the IV administration of 95 mL of Optiray-320, CT of the thorax was performed from the thoracic inlet to the lung bases. Images are reviewed in the axial, sagittal, and coronal planes. IV contrast was administered without complication. A dose lowering technique was utilized adhering to the principles of ALARA. CT DOSE: 259.30 mGycm FINDINGS: Thyroid: There is a 14 mm right lobe thyroid nodule. Thoracic aorta: There is aneurysmal dilatation of the ascending thoracic aorta which measures 4.8 cm in diameter. There is mild to moderate atheromatous plaque within the descending thoracic aorta. The descending thoracic aorta at the level of the diaphragmatic hiatus measures 41 mm. Pulmonary vasculature: The pulmonary trunk is normal in caliber. There are no central filling defects identified to suggest pulmonary embolus. Note that this examination was not protocoled for the evaluation of pulmonary emboli. HEART: There are coronary artery calcifications. The heart is normal in size Lungs and pleural spaces: There is a 12 mm right lower lobe pulmonary nodule as visualized on image #[id number]. This nodule was not present in January 2011. A bronchogenic neoplasm is the diagnosis of exclusion. There is a solid 4 mm left upper lobe pulmonary nodule as visualized in image #[id number]. This nodule was present in 2010 and demonstrates no greater than 1 mm interval increase in size. This favors a benign etiology. There are stable clustered calcifications within the right upper lobe. There is moderate underlying pulmonary emphysema There is right lower lobe bronchial wall thickening with patchy airspace opacities. The findings are suspicious for a pneumonitis. Mediastinum: There is no mediastinal lymphadenopathy. Bharti: There is no evidence of pathologic hilar adenopathy Axilla: Clear. Upper abdomen: Partially visualized upper abdominal viscera is within normal limits. Skeletal structures: There are no lytic or blastic osseous lesions. IMPRESSION: 1. 12 mm solid right lower lobe pulmonary nodule. This was not present in January 2011. A neoplasm is the diagnosis of exclusion 2. No evidence of pathologic adenopathy 3. Right lower lobe bronchial wall thickening and patchy airspace opacities. Clinical correlation in regards to a small focal pneumonia is recommended 4. Emphysema 5. Thoracic aortic aneurysm. The ascending thoracic aorta measures 4.8 cm. The descending aorta at the level of the diaphragmatic hiatus measures 4.1 cm 6. 14 mm right lobe thyroid nodule Electronically signed by: Francois Macdonald M.D. 05/15/2017 2:51 PM Dictated Date/Time: 05/15/2017 2:43 PM
[2017-05-15 15:56] VITALS: BP 135/61; PULSE 81; TEMP 36.7; O2SAT 98
[2017-05-15] MEDS ORDERED: POTASSIUM CHLORIDE 20 MEQ/15 ML UDC PO STA (15:56)
[2017-05-15] MEDS ORDERED: NSS + 20MEQ KCL 1000ML 1,000 ML IV SCH (16:00)
[2017-05-15] MEDS: DOXYCYCLINE IV 100 MG in DEXTROSE 5% 100ML 100 ML IV SCH (16:29)
[2017-05-15 16:55] VITALS: Ht 149.9 cm; Wt 57.7 kg
[2017-05-15] MEDS: ALBUT/IPRATROP 3MG/0.5MG NEB 3 ML VIAL INH SCH ×2 (17:13→19:07)
--- NOTE | 2017-05-15 19:02 | PULMONARY CONSULTATION ---
DATE OF CONSULTATION: 05/15/2017 PULMONARY VASCULAR CONSULTATION REASON FOR CONSULTATION: COPD/pulmonary nodule. HISTORY OF PRESENT ILLNESS: An 86-year-old white female with past medical history of severe CVA with aphasia and right arm weakness, hypertension, dementia, coronary artery disease status post angioplasty, severe COPD, anxiety and depression as well as a remote history of breast CA with partial mastectomy and a longstanding smoking history, presenting to the ER with increased constipation and abdominal pain. The patient was growing, MiraLax was administered, but she did not have a bowel movement. She is living with her grandson and they were having trouble caring for her at home. I am unable to get additional history from the patient given her severe aphasia. The patient apparently continues to smoke anywhere from 1/4 to a pack of cigarettes a day for 61 years but has only had 1 cigarette in the past several days, according to the notation by the admitting hospitalist. Chest x-ray suggests a right basilar airspace opacity that was seen from the abdominal CT scan done earlier in addition to emphysema. CAT scan of the abdomen and pelvis suggested a 1.1 cm lobulated right lower lobe pulmonary nodule, worrisome for neoplasm as well as large amount of stool in the rectum and colon. Diverticulosis and a fusiform aneurysm noted of 4.1 cm. For details of past medical history, medications, family and social history, I refer you to current and past record. The patient apparently in October 2016 when she suffered a CVA, was admitted to the ICU having received TPA earlier in the day for a left MCA/CVA. She tolerated the treatment without any obvious bleed, according to the notation and unfortunately suffered a severe stroke involving the left MCA territory with resultant deficit. IMAGING DATA: Chest CT done later this afternoon confirms the presence of a 12 mm solid right lower lobe pulmonary nodule, not present in January 2011. There is also right lower lobe bronchial wall thickening and airspace opacities, possibly secondary to focal pneumonia. LABORATORY DATA: White count is 10,000, H&H 10.8 and 33.6. A preponderance of polymorphonuclear leukocytes noted with slight left shift. Potassium 3.4. Influenza type A and B antigen were negative. PHYSICAL EXAMINATION: GENERAL: Cachectic elderly white female with severe aphasia and dementia, but does not experience any signs of respiratory distress. VITAL SIGNS: Temperature 36.7, pulse 81 and regular, respiratory rate 18, blood pressure 135/61, O2 sat 98% on 2 liters. SKIN: Warm and dry. HEENT: Atraumatic, normocephalic. PERRLA. LUNGS: Scattered rhonchi at the right base, otherwise distant P&A. CARDIAC: Regular rate and rhythm. No murmurs or gallops. ABDOMEN: Soft, protuberant. No rebound tenderness or guarding. EXTREMITIES: Trace pedal edema. No clubbing or peripheral cyanosis. NEUROLOGICAL: Severe aphasia with right-sided hemiparesis. DATA: CT scan as noted. OVERALL ASSESSMENT: An 86-year-old with severe with severe chronic obstructive pulmonary disease/emphysema and newly discovered right lower lobe pulmonary nodule measuring 1.1 cm that is very very suggestive of a primary lung neoplasm. It is extremely deep in the lungs and not peripheral and given patient's age, severe chronic obstructive pulmonary disease and previous cerebrovascular accident would not workup at this point in time given her comorbid medical problems and previous cerebrovascular accident in October. The patient currently is receiving intravenous antibiotics in the form of doxycycline and ampicillin/sulbactam and treatment for pneumonitis. I suspect the patient has both combined emphysema and chronic bronchitic changes and that is where we are seeing involving the right lower lobe and would switch to oral antibiotics as soon as the patient is able to be converted within 24-48 hours. At this point in time, I would not say for any additional workup for the lesion, which most assuredly represents a stage I bronchogenic neoplasm at this point in time. We will follow along with you. Thank you very much for this consultation.
[2017-05-15 19:08] VITALS: PULSE 64; O2SAT 98
[2017-05-15] MEDS: AMPICILLIN/SULBACTAM SOD INJ 3,000 MG in SODIUM CHLORIDE 0.9% 100ML 100 ML IV SCH (20:51)
[2017-05-15] MEDS: ATORVASTATIN 40 MG TAB PO SCH (20:53)
[2017-05-15] MEDS: PANTOprazole SOD 40 MG TAB PO SCH (20:53)
[2017-05-15] MEDS: DOCUSATE SODIUM/SENNA 50/8.6MG TAB PO SCH (20:53)
[2017-05-15] MEDS: GABAPENTIN 100 MG CAP PO SCH (20:53)
[2017-05-15] MEDS ORDERED: PNEUMOCOCCAL POLYSACCHARIDES 25 MCG/0.5 ML VIAL/SYR IM. ONE (22:15)
[2017-05-15] MEDS ORDERED: PNEUMOCOCCAL ADMINISTRATION CHARGE ONE (22:15)
[2017-05-16] MEDS: AMPICILLIN/SULBACTAM SOD INJ 3,000 MG in SODIUM CHLORIDE 0.9% 100ML 100 ML IV SCH ×4 (00:02→17:57)
[2017-05-16 00:27] VITALS: BP 123/66; PULSE 73; TEMP 37.4; O2SAT 97
[2017-05-16] MEDS: DOXYCYCLINE IV 100 MG in DEXTROSE 5% 100ML 100 ML IV SCH ×2 (04:57→15:53)
[2017-05-16] MEDS: ALBUT/IPRATROP 3MG/0.5MG NEB 3 ML VIAL INH SCH ×4 (06:56→19:01)
[2017-05-16 07:57] VITALS: BP 145/73; PULSE 66; TEMP 36.8; O2SAT 99
[2017-05-16] MEDS ORDERED: ASPIRIN 81 MG ECTAB PO SCH (08:00)
[2017-05-16 08:01] LABS: HEMATOCRIT 33.2 % (37-47); MEAN CELL VOLUME 89.7 fL (80-100); MEAN CORPUSCULAR HEMOGLOBIN 29.7 pg (25-34); MEAN CORPUSCULAR HGB CONC 33.1 g/dl (32-36); PLATELET COUNT 224 K/uL (130-400); RED CELL DISTRIBUTION WIDTH CV 15.9 % (11.5-14.5); RED CELL DISTRIBUTION WIDTH SD 52.3 fL (36.4-46.3); WHITE BLOOD COUNT 7.92 K/uL (4.8-10.8)
[2017-05-16] MEDS: ASPIRIN 81 MG CHEW PO SCH (08:19)
[2017-05-16] MEDS: GABAPENTIN 100 MG CAP PO SCH ×2 (08:20→20:23)
[2017-05-16] MEDS: PANTOprazole SOD 40 MG TAB PO SCH ×2 (08:20→20:22)
[2017-05-16] MEDS: MONTELUKAST SOD 5 MG CHEWABLE TAB PO SCH (08:20)
[2017-05-16] MEDS: CLOPIDOGREL BISULFATE 75 MG TAB PO SCH (08:21)
[2017-05-16] MEDS: CITALOPRAM 40 MG TAB PO SCH (08:22)
[2017-05-16] MEDS: TAMOXIFEN CITRATE 10 MG TAB PO SCH (08:24)
[2017-05-16 08:33] LABS: CALCIUM 8.2 mg/dl (8.5-10.1); CREATININE 0.85 mg/dl (0.60-1.20); POTASSIUM 3.7 mmol/L (3.5-5.1)
--- NOTE | 2017-05-16 13:47 | Progress Note ---
Internal Med Progress Note Date of Service: May 16, 2017. 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 No family at bedside Had BM today per staff CT chest is suggestive of primary lung neoplasm OBJECTIVE: Vital Signs-as noted below Physical Exam: General Appearance:Chronic ill appearing, no apparent distress Head: normocephalic, Atraumatic Eyes: normal inspection, EOMI, PERRL Neck: supple, Trachea midline Respiratory/Chest: Decreased breath sounds, scattered wheezes Cardiovascular: S1, S2, No murmur Abdomen/GI:Soft, Non tender, Bowel sounds present Extremities/Musculoskelatal:normal inspection, no edema Neurologic/Psych:Chronic neurological deficits from prior CVA Skin: normal color, warm Lab data as noted below. ASSESSMENT & PLAN: Pneumonia/Pneumonitis Chronic COPD Newly discovered right lower lobe pulmonary nodule suggestive of primary lung neoplasm Continue IV abx, Nebs Blood cultures pending Flu Screen: negative Given comorbidities, no further work up for Pulmonary Nodule Will discuss with family Appreciate Pulmonary Input Aspiration precautions COPD Family denies increased cough or noted increased SOB. Denies home O2 use Continue Nebs continue montelukast, home inhalers Wean off oxygen as able Constipation: CT abd/pelvis: Large amount of stool within the rectum and moderate amount of stool within the colon suggestive of fecal impaction. Moderate perirectal infiltration suggestive of colitis, possibly reflecting stercoral colitis. No free air. Extensive left colon diverticulosis without evidence for acute diverticulitis. Continue Bowel regimen miralax prn Hypokalemia: Resolved monitor HTN Not on meds currently monitor H/O CVA Pt with aphasia, R arm weakness since. Denies new symptoms swallow eval HX AAA: CT abd/pelvis: No change in 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 HX BREAST CA s/p partial mastectomy. On tamoxifen GERD continue PPI HX CAD continue ASA, Plavix, statin Anxiety/Depression: continue citalopram Ativan prn ANEMIA: Hgb: 10.8 which is pt's baseline monitor DVT Px: Heparin SQ Code Status: DNR/DNI Disposition: Follows with Dr De Los Santos for routine care Vital Signs: Date Time Temp Pulse Resp B/P (MAP) Pulse Ox O2 Delivery O2 Flow Rate FiO2 05/16/17 16:00 Room Air 05/16/17 15:58 37.3 72 18 134/82 (99) 94 Room Air 05/16/17 08:00 Nasal Cannula 2.0 05/16/17 07:57 36.8 66 18 145/73 (97) 99 Nasal Cannula 1.0 05/16/17 00:27 37.4 73 20 123/66 (85) 97 2.0 05/16/17 00:00 Nasal Cannula 2.0 05/15/17 20:00 Nasal Cannula 2.0 05/15/17 19:08 64 16 98 Nasal Cannula 1.5 05/15/17 16:55 Nasal Cannula 2.0 Lab Results: Results Past 24 Hours Test 05/16/17 07:29 Range/Units White Blood Count 7.92 4.8-10.8 K/uL Red Blood Count 3.70 4.2-5.4 M/uL Hemoglobin 11.0 12.0-16.0 g/dL Hematocrit 33.2 37-47 % Mean Corpuscular Volume 89.7 80-100 fL Mean Corpuscular Hemoglobin 29.7 25-34 pg Mean Corpuscular Hemoglobin Concent 33.1 32-36 g/dl RDW Standard Deviation 52.3 36.4-46.3 fL RDW Coefficient of Variation 15.9 11.5-14.5 % Platelet Count 224 130-400 K/uL Mean Platelet Volume 10.0 7.4-10.4 fL Sodium Level 145 136-145 mmol/L Potassium Level 3.7 3.5-5.1 mmol/L Chloride Level 111 98-107 mmol/L Carbon Dioxide Level 26 21-32 mmol/L Anion Gap 8.0 3-11 mmol/L Blood Urea Nitrogen 18 7-18 mg/dl Creatinine 0.85 0.60-1.20 mg/dl Est Creatinine Clear Calc Drug Dose 37.4 ml/min Estimated GFR () 72.4 Estimated GFR (Non- 62.5 BUN/Creatinine Ratio 21.1 10-20 Random Glucose 92 70-99 mg/dl Calcium Level 8.2 8.5-10.1 mg/dl
--- NOTE | 2017-05-16 15:28 | PULMONARY PROGRESS NOTE ---
DATE: 05/16/2017 PULMONARY MEDICINE PROGRESS NOTE SUBJECTIVE: The patient is severely aphasic with underlying dementia, so no additional history could be gleaned at bedside. The patient is not demonstrating any signs of respiratory distress and as stated in my primary pulmonary consultative note that the lesion seen on CT scan of the chest does suggest a strong likelihood of a primary bronchogenic neoplasm measured at 12 mm and deep within the right lower lobe. Given patient's age, previous CVA, dementia, and underlying lung disease, I do not believe any further workup is indicated. This lesion even if PET scan avid could not be biopsied and would require almost a lobectomy or multiple segmentectomy given its location and once again patient is not a candidate for surgical intervention.
[2017-05-16 15:58] VITALS: BP 134/82; PULSE 72; TEMP 37.3; O2SAT 94
[2017-05-16 19:03] VITALS: PULSE 89; O2SAT 94
[2017-05-16] MEDS: DOCUSATE SODIUM/SENNA 50/8.6MG TAB PO SCH (20:22)
[2017-05-16] MEDS: ATORVASTATIN 40 MG TAB PO SCH (20:23)
[2017-05-16] MEDS: HEPARIN SOD 5000 UNIT/0.5 ML CARP SQ SCH (20:48)
[2017-05-16 23:37] VITALS: BP 106/64; PULSE 86; TEMP 36.7; O2SAT 95
[2017-05-16 23:58] VITALS: BP 123/72; PULSE 84; TEMP 36.7; O2SAT 95
[2017-05-17] VITALS (8 sets, daily range): BP systolic 117–159; BP diastolic 65–80; PULSE 79–85; TEMP 37–37.2; O2SAT 92–94
[2017-05-17] MEDS: AMPICILLIN/SULBACTAM SOD INJ 3,000 MG in SODIUM CHLORIDE 0.9% 100ML 100 ML IV SCH ×5 (00:47→23:31)
[2017-05-17] MEDS: DOXYCYCLINE IV 100 MG in DEXTROSE 5% 100ML 100 ML IV SCH ×2 (04:43→16:21)
[2017-05-17] MEDS: ALBUT/IPRATROP 3MG/0.5MG NEB 3 ML VIAL INH SCH ×4 (07:10→19:38)
[2017-05-17 07:48] LABS: HEMATOCRIT 34.3 % (37-47); HEMOGLOBIN 11.3 g/dL (12.0-16.0); MEAN CELL VOLUME 89.6 fL (80-100); MEAN CORPUSCULAR HEMOGLOBIN 29.5 pg (25-34); MEAN CORPUSCULAR HGB CONC 32.9 g/dl (32-36); MEAN PLATELET VOLUME 10.5 fL (7.4-10.4); PLATELET COUNT 245 K/uL (130-400); RED CELL DISTRIBUTION WIDTH CV 15.8 % (11.5-14.5); WHITE BLOOD COUNT 9.23 K/uL (4.8-10.8)
[2017-05-17] MEDS: CITALOPRAM 40 MG TAB PO SCH (08:01)
[2017-05-17] MEDS: CLOPIDOGREL BISULFATE 75 MG TAB PO SCH (08:01)
[2017-05-17] MEDS: ASPIRIN 81 MG CHEW PO SCH (08:01)
[2017-05-17] MEDS: GABAPENTIN 100 MG CAP PO SCH ×2 (08:01→20:31)
[2017-05-17] MEDS: MONTELUKAST SOD 5 MG CHEWABLE TAB PO SCH (08:01)
[2017-05-17] MEDS: PANTOprazole SOD 40 MG TAB PO SCH ×2 (08:02→20:32)
[2017-05-17] MEDS: TAMOXIFEN CITRATE 10 MG TAB PO SCH (08:03)
[2017-05-17] MEDS: HEPARIN SOD 5000 UNIT/0.5 ML CARP SQ SCH ×3 (08:04→20:42)
[2017-05-17 08:19] LABS: CALCIUM 8.4 mg/dl (8.5-10.1); CREATININE 1.05 mg/dl (0.60-1.20); POTASSIUM 3.6 mmol/L (3.5-5.1)
[2017-05-17] MEDS ORDERED: MAGNESIUM SULFATE 1GM / D5W 1 GM in PREMIXED IN D5W 100 ML IV SCH (10:00)
--- NOTE | 2017-05-17 14:01 | PULMONARY PROGRESS NOTE ---
DATE: 05/17/2017 PROBLEM LIST: Includes abnormal lesion on imaging in the right lower lobe, CVA, dementia, underlying lung disease. SUBJECTIVE: The patient is severely aphasic with underlying dementia. No significant history was able to be obtained today. OBJECTIVE: GENERAL: The patient is an 86-year-old female lying in bed, appears to be good-natured, smiling when I entered the room and evaluated her, she was cooperative with exam, was not able to provide any recognizable speech. VITAL SIGNS: Temperature 37.0, pulse 85, respirations 20, blood pressure is 159/80, pulse ox 92% on room air. CHEST: Diminished breath sounds bilaterally. No wheeze, rale or rhonchi noted. CARDIOVASCULAR: Regular rate and rhythm. No murmurs, gallops or rubs. ABDOMEN: Bowel sounds are present. Abdomen is soft, nontender. No guarding, rigidity or organomegaly. IMPRESSION: This is an 86-year-old female with severe chronic obstructive pulmonary disease and emphysema with a newly discovered right lower lobe pulmonary nodule, measuring 1.2 cm, which is suggestive of potential for primary lung neoplasm. Unfortunately, this patient would not be a candidate for procedures to diagnose as well as with her other comorbid conditions. At this point, patient appears to be stable, and Pulmonary really has no further recommendations that would be beneficial for this patient, therefore at this time, we will sign off on this patient. If there is any need for further evaluation, please feel free to contact us.
--- NOTE | 2017-05-17 14:13 | Progress Note ---
Internal Med Progress Note Date of Service: May 17, 2017. 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 No family at bedside Constipation resolved No significant change from yesterday Afebrile OBJECTIVE: Vital Signs-as noted below Physical Exam: General Appearance:Chronic ill appearing, no apparent distress Head: normocephalic, Atraumatic Eyes: normal inspection, EOMI, PERRL Neck: supple, Trachea midline Respiratory/Chest: Decreased breath sounds, CTA Cardiovascular: S1, S2, No murmur Abdomen/GI:Soft, Non tender, Bowel sounds present Extremities/Musculoskelatal:normal inspection, no edema Neurologic/Psych:Chronic neurological deficits from prior CVA Skin: normal color, warm Lab data as noted below. ASSESSMENT & PLAN: Pneumonia/Pneumonitis Chronic COPD Newly discovered right lower lobe pulmonary nodule suggestive of primary lung neoplasm Continue IV abx, Nebs Blood cultures: No growth to date Flu Screen: negative Given comorbidities, no further work up for Pulmonary Nodule Lesion difficult to be biopsied given the location and may require a lobectomy or multiple segmentectomy given its location Patient is a poor candidate for any surgical intervention. Discussed with Patient's daughter: Ms. Vaughn. Who agreed with current management Appreciate Pulmonary Input Aspiration precautions COPD Family denies increased cough or noted increased SOB. Denies home O2 use Continue Nebs continue montelukast, home inhalers Oxygen Weaned off Saturating 93% on room air Constipation: CT abd/pelvis: Large amount of stool within the rectum and moderate amount of stool within the colon suggestive of fecal impaction. Moderate perirectal infiltration suggestive of colitis, possibly reflecting stercoral colitis. No free air. Extensive left colon diverticulosis without evidence for acute diverticulitis. Resolved Continue Bowel regimen PRN Hypokalemia/Hypomagnesemia: Replace and monitor HTN Labile Not on meds currently monitor H/O CVA Pt with aphasia, R arm weakness since. Denies new symptoms swallow eval HX AAA: CT abd/pelvis: No change in 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 HX BREAST CA s/p partial mastectomy. On tamoxifen GERD continue PPI HX CAD continue ASA, Plavix, statin Anxiety/Depression: continue citalopram Ativan prn ANEMIA: Hgb: 10.8 which is pt's baseline monitor DVT Px: Heparin SQ Code Status: DNR/DNI Disposition: Follows with Dr De Los Santos for routine care Likely planned to be discharged in next 48 hours Vital Signs: Date Time Temp Pulse Resp B/P (MAP) Pulse Ox O2 Delivery O2 Flow Rate FiO2 05/17/17 11:12 79 18 93 Room Air 05/17/17 07:56 37.0 85 20 159/80 (106) 92 Room Air 05/17/17 07:10 84 16 93 Room Air 05/17/17 00:15 Room Air 05/16/17 23:58 36.7 84 20 123/72 (89) 95 Room Air 05/16/17 23:37 36.7 86 19 106/64 (78) 95 Nasal Cannula 4.0 05/16/17 19:03 89 16 94 Room Air 05/16/17 16:00 Room Air 05/16/17 15:58 37.3 72 18 134/82 (99) 94 Room Air Lab Results: Results Past 24 Hours Test 05/17/17 07:00 Range/Units White Blood Count 9.23 4.8-10.8 K/uL Red Blood Count 3.83 4.2-5.4 M/uL Hemoglobin 11.3 12.0-16.0 g/dL Hematocrit 34.3 37-47 % Mean Corpuscular Volume 89.6 80-100 fL Mean Corpuscular Hemoglobin 29.5 25-34 pg Mean Corpuscular Hemoglobin Concent 32.9 32-36 g/dl RDW Standard Deviation 52.0 36.4-46.3 fL RDW Coefficient of Variation 15.8 11.5-14.5 % Platelet Count 245 130-400 K/uL Mean Platelet Volume 10.5 7.4-10.4 fL Sodium Level 142 136-145 mmol/L Potassium Level 3.6 3.5-5.1 mmol/L Chloride Level 106 98-107 mmol/L Carbon Dioxide Level 29 21-32 mmol/L Anion Gap 7.0 3-11 mmol/L Blood Urea Nitrogen 17 7-18 mg/dl Creatinine 1.05 0.60-1.20 mg/dl Est Creatinine Clear Calc Drug Dose 30.3 ml/min Estimated GFR () 56.1 Estimated GFR (Non- 48.4 BUN/Creatinine Ratio 16.5 10-20 Random Glucose 88 70-99 mg/dl Calcium Level 8.4 8.5-10.1 mg/dl Magnesium Level 1.6 1.8-2.4 mg/dl
[2017-05-17] MEDS: ATORVASTATIN 40 MG TAB PO SCH (20:32)
[2017-05-18] VITALS (7 sets, daily range): BP systolic 148–155; BP diastolic 61–76; PULSE 73–94; TEMP 36.6–37; O2SAT 91–96
[2017-05-18] MEDS: DOXYCYCLINE IV 100 MG in DEXTROSE 5% 100ML 100 ML IV SCH (04:06)
[2017-05-18] MEDS: AMPICILLIN/SULBACTAM SOD INJ 3,000 MG in SODIUM CHLORIDE 0.9% 100ML 100 ML IV SCH (05:40)
[2017-05-18] MEDS: ALBUT/IPRATROP 3MG/0.5MG NEB 3 ML VIAL INH SCH ×4 (07:04→20:00)
[2017-05-18 07:25] LABS: CALCIUM 7.9 mg/dl (8.5-10.1); CREATININE 1.34 mg/dl (0.60-1.20); POTASSIUM 3.7 mmol/L (3.5-5.1)
[2017-05-18] MEDS: CLOPIDOGREL BISULFATE 75 MG TAB PO SCH (08:34)
[2017-05-18] MEDS: CITALOPRAM 40 MG TAB PO SCH (08:34)
[2017-05-18] MEDS: TAMOXIFEN CITRATE 10 MG TAB PO SCH (08:35)
[2017-05-18] MEDS: PANTOprazole SOD 40 MG TAB PO SCH ×2 (08:35→20:54)
[2017-05-18] MEDS: HEPARIN SOD 5000 UNIT/0.5 ML CARP SQ SCH ×3 (08:36→20:57)
[2017-05-18] MEDS: ASPIRIN 81 MG CHEW PO SCH (08:36)
[2017-05-18] MEDS: GABAPENTIN 100 MG CAP PO SCH ×2 (08:36→20:54)
[2017-05-18] MEDS: MONTELUKAST SOD 5 MG CHEWABLE TAB PO SCH (08:36)
[2017-05-18] MEDS ORDERED: SODIUM CHLORIDE 0.9% 1000ML 1,000 ML IV ONE (12:00)
--- NOTE | 2017-05-18 12:12 | Progress Note ---
Internal Med Progress Note Date of Service: May 18, 2017. 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 No family at bedside Afebrile Cr levels elevated likely secondary to dehydration from diarrhea OBJECTIVE: Vital Signs-as noted below Physical Exam: General Appearance:Chronic ill appearing, no apparent distress Head: normocephalic, Atraumatic Eyes: normal inspection, EOMI, PERRL Neck: supple, Trachea midline Respiratory/Chest: Coarse breath sounds Cardiovascular: S1, S2, No murmur Abdomen/GI:Soft, Non tender, Bowel sounds present Extremities/Musculoskelatal:normal inspection, no edema Neurologic/Psych:Chronic neurological deficits from prior CVA Skin: normal color, warm Lab data as noted below. ASSESSMENT & PLAN: Pneumonia/Pneumonitis Chronic COPD Newly discovered right lower lobe pulmonary nodule suggestive of primary lung neoplasm Continue IV abx, Nebs>>> Switch to PO Augmentin Blood cultures: No growth to date Flu Screen: negative Given comorbidities, no further work up for Pulmonary Nodule Lesion difficult to be biopsied given the location and may require a lobectomy or multiple segmentectomy given its location Patient is a poor candidate for any surgical intervention. Discussed with Patient's daughter: Ms. Vaughn. Who agreed with current management Appreciate Pulmonary Input Aspiration precautions Swallow Eval Recommendations: 1. Pureed diet 2. Aspiration precautions, NO straws. Fully upright for meals and for 30 minutes after meals. 3. Assist with feeding. Small sips of liquids. 4. Speech will monitor for tolerance. Diarrhea: Likely secondary to antibiotics Check for C.diff if recurrent KAMINI: Likely Prerenal Start IV fluids Monitor renal function COPD Family denies increased cough or noted increased SOB. Denies home O2 use Continue Nebs continue montelukast, home inhalers Oxygen Weaned off Saturating well on room air Constipation: CT abd/pelvis: Large amount of stool within the rectum and moderate amount of stool within the colon suggestive of fecal impaction. Moderate perirectal infiltration suggestive of colitis, possibly reflecting stercoral colitis. No free air. Extensive left colon diverticulosis without evidence for acute diverticulitis. Resolved Hypokalemia/Hypomagnesemia: Resolved Monitor HTN Labile Not on meds currently monitor H/O CVA Pt with aphasia, R arm weakness since. Denies new symptoms swallow eval HX AAA: CT abd/pelvis: No change in 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 HX BREAST CA s/p partial mastectomy. On tamoxifen GERD continue PPI HX CAD continue ASA, Plavix, statin Anxiety/Depression: continue citalopram Ativan prn ANEMIA: Hgb: 10.8 which is pt's baseline monitor DVT Px: Heparin SQ Code Status: DNR/DNI Disposition: Follows with Dr De Los Santos for routine care Likely planned tomorrow if stable Vital Signs: Date Time Temp Pulse Resp B/P (MAP) Pulse Ox O2 Delivery O2 Flow Rate FiO2 05/18/17 11:28 91 16 91 Room Air 05/18/17 08:00 Room Air 05/18/17 07:59 37.0 83 20 153/74 (100) 96 05/18/17 07:41 73 16 94 Room Air 05/18/17 00:00 Room Air 05/17/17 23:00 37.2 84 18 117/66 (83) 94 Room Air 05/17/17 19:38 80 16 92 Room Air 05/17/17 16:00 93 Room Air 05/17/17 15:21 37.2 84 18 120/65 (83) 93 Room Air 05/17/17 15:15 82 16 94 Room Air Lab Results: Results Past 24 Hours Test 05/18/17 06:20 Range/Units Sodium Level 142 136-145 mmol/L Potassium Level 3.7 3.5-5.1 mmol/L Chloride Level 108 98-107 mmol/L Carbon Dioxide Level 28 21-32 mmol/L Anion Gap 6.0 3-11 mmol/L Blood Urea Nitrogen 21 7-18 mg/dl Creatinine 1.34 0.60-1.20 mg/dl Est Creatinine Clear Calc Drug Dose 23.8 ml/min Estimated GFR () 41.8 Estimated GFR (Non- 36.0 BUN/Creatinine Ratio 15.7 10-20 Random Glucose 95 70-99 mg/dl Calcium Level 7.9 8.5-10.1 mg/dl Magnesium Level 1.9 1.8-2.4 mg/dl
[2017-05-18] MEDS: AMOXICILLIN/CLAVULANATE TAB 875 MG TAB PO SCH ×2 (13:54→18:48)
[2017-05-18] MEDS: LACTOBACILLUS ACIDOPHILUS 1 GM PACK PO SCH (17:55)
[2017-05-18] MEDS: ATORVASTATIN 40 MG TAB PO SCH (20:56)
[2017-05-19 07:18] VITALS: BP 145/71; PULSE 78; TEMP 36.9; O2SAT 93
[2017-05-19] MEDS: ALBUT/IPRATROP 3MG/0.5MG NEB 3 ML VIAL INH SCH ×3 (07:29→14:13)
[2017-05-19 07:31] VITALS: PULSE 70; O2SAT 94
[2017-05-19 07:43] LABS: HEMATOCRIT 30.1 % (37-47); HEMOGLOBIN 9.9 g/dL (12.0-16.0); MEAN CELL VOLUME 88.8 fL (80-100); MEAN CORPUSCULAR HEMOGLOBIN 29.2 pg (25-34); MEAN CORPUSCULAR HGB CONC 32.9 g/dl (32-36); MEAN PLATELET VOLUME 10.4 fL (7.4-10.4); PLATELET COUNT 219 K/uL (130-400); RED CELL DISTRIBUTION WIDTH SD 52.2 fL (36.4-46.3); WHITE BLOOD COUNT 5.97 K/uL (4.8-10.8)
[2017-05-19 08:09] LABS: CALCIUM 8.1 mg/dl (8.5-10.1); CREATININE 1.18 mg/dl (0.60-1.20); POTASSIUM 3.7 mmol/L (3.5-5.1)
[2017-05-19 08:15] VITALS: O2SAT 94
[2017-05-19] MEDS: MONTELUKAST SOD 5 MG CHEWABLE TAB PO SCH (08:51)
[2017-05-19] MEDS: CLOPIDOGREL BISULFATE 75 MG TAB PO SCH (08:51)
[2017-05-19] MEDS: CITALOPRAM 40 MG TAB PO SCH (08:51)
[2017-05-19] MEDS: ASPIRIN 81 MG CHEW PO SCH (08:51)
[2017-05-19] MEDS: LACTOBACILLUS ACIDOPHILUS 1 GM PACK PO SCH ×2 (08:51→14:29)
[2017-05-19] MEDS: PANTOprazole SOD 40 MG TAB PO SCH (08:52)
[2017-05-19] MEDS: AMOXICILLIN/CLAVULANATE TAB 875 MG TAB PO SCH (08:52)
[2017-05-19] MEDS: GABAPENTIN 100 MG CAP PO SCH (08:54)
[2017-05-19] MEDS: HEPARIN SOD 5000 UNIT/0.5 ML CARP SQ SCH ×2 (08:56→14:31)
[2017-05-19] MEDS: TAMOXIFEN CITRATE 10 MG TAB PO SCH (08:56)
[2017-05-19 11:07] VITALS: PULSE 84; O2SAT 91
--- NOTE | 2017-05-19 13:19 | Progress Note ---
Internal Med Progress Note Date of Service: May 19, 2017. 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 No family at bedside Afebrile Cr levels normalized No tenderness on abdominal exam Diarrhea much improved OBJECTIVE: Vital Signs-as noted below Physical Exam: General Appearance:Chronic ill appearing, no apparent distress Head: normocephalic, Atraumatic Eyes: normal inspection, EOMI, PERRL Neck: supple, Trachea midline Respiratory/Chest: Coarse breath sounds Cardiovascular: S1, S2, No murmur Abdomen/GI:Soft, Non tender, Bowel sounds present Extremities/Musculoskelatal:normal inspection, no edema Neurologic/Psych:Chronic neurological deficits from prior CVA Skin: normal color, warm Lab data as noted below. ASSESSMENT & PLAN: Pneumonia/Pneumonitis Chronic COPD Newly discovered right lower lobe pulmonary nodule suggestive of primary lung neoplasm Continue IV abx>>> Switch to PO Augmentin Day # 2 Blood cultures: No growth to date Flu Screen: negative Given comorbidities, no further work up for Pulmonary Nodule Lesion difficult to be biopsied given the location and may require a lobectomy or multiple segmentectomy given its location Patient is a poor candidate for any surgical intervention. Discussed with Patient's daughter: Ms. aVughn. Who agreed with current management Appreciate Pulmonary Input Aspiration precautions Diarrhea: Improved Likely secondary to antibiotics Check for C.diff if recurrent KAMINI: Likely Prerenal Resolved DC IV fluids Monitor renal function COPD Family denies increased cough or noted increased SOB. Denies home O2 use Continue Nebs continue montelukast, home inhalers Oxygen Weaned off Saturating well on room air Constipation: CT abd/pelvis: Large amount of stool within the rectum and moderate amount of stool within the colon suggestive of fecal impaction. Moderate perirectal infiltration suggestive of colitis, possibly reflecting stercoral colitis. No free air. Extensive left colon diverticulosis without evidence for acute diverticulitis. Resolved Hypokalemia/Hypomagnesemia: Resolved Monitor HTN Labile Not on meds currently monitor H/O CVA Pt with aphasia, R arm weakness since. Denies new symptoms swallow eval HX AAA: CT abd/pelvis: No change in 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 HX BREAST CA s/p partial mastectomy. On tamoxifen GERD continue PPI HX CAD continue ASA, Plavix, statin Anxiety/Depression: continue citalopram Ativan prn ANEMIA: Hgb: 10.8 which is pt's baseline monitor DVT Px: Heparin SQ Code Status: DNR/DNI Disposition: Plan to discharge to SNF today Follows with Dr De Los Santos for routine care 1 week after being discharged from [facility] Complete the antibiotics as prescribed Seek immediate medical attention if your symptoms reoccur or worsen Swallow Eval Recommendations: 1. Pureed diet 2. Aspiration precautions, NO straws. Fully upright for meals and for 30 minutes after meals. 3. Assist with feeding. Small sips of liquids. 4. Speech will monitor for tolerance. Vital Signs: Date Time Temp Pulse Resp B/P (MAP) Pulse Ox O2 Delivery O2 Flow Rate FiO2 05/19/17 11:07 84 16 91 Room Air 05/19/17 08:15 94 Room Air 05/19/17 07:31 70 16 94 Room Air 05/19/17 07:18 36.9 78 20 145/71 (95) 93 05/19/17 00:00 Room Air 05/18/17 23:08 36.9 79 16 155/61 (92) 92 Room Air 05/18/17 20:00 80 16 94 Room Air 05/18/17 20:00 Room Air 05/18/17 14:38 36.6 94 18 148/76 (100) 93 05/18/17 14:09 85 16 94 Room Air Lab Results: Results Past 24 Hours Test 05/19/17 07:16 Range/Units White Blood Count 5.97 4.8-10.8 K/uL Red Blood Count 3.39 4.2-5.4 M/uL Hemoglobin 9.9 12.0-16.0 g/dL Hematocrit 30.1 37-47 % Mean Corpuscular Volume 88.8 80-100 fL Mean Corpuscular Hemoglobin 29.2 25-34 pg Mean Corpuscular Hemoglobin Concent 32.9 32-36 g/dl RDW Standard Deviation 52.2 36.4-46.3 fL RDW Coefficient of Variation 16.0 11.5-14.5 % Platelet Count 219 130-400 K/uL Mean Platelet Volume 10.4 7.4-10.4 fL Sodium Level 145 136-145 mmol/L Potassium Level 3.7 3.5-5.1 mmol/L Chloride Level 112 98-107 mmol/L Carbon Dioxide Level 23 21-32 mmol/L Anion Gap 10.0 3-11 mmol/L Blood Urea Nitrogen 20 7-18 mg/dl Creatinine 1.18 0.60-1.20 mg/dl Est Creatinine Clear Calc Drug Dose 27.0 ml/min Estimated GFR () 48.7 Estimated GFR (Non- 42.0 BUN/Creatinine Ratio 17.2 10-20 Random Glucose 90 70-99 mg/dl Calcium Level 8.1 8.5-10.1 mg/dl Magnesium Level 1.9 1.8-2.4 mg/dl
[2017-05-19] MEDS ORDERED: LCTXP PO (13:28)
[2017-05-19] MEDS ORDERED: AMOX1TAB43 PO (13:28)
[2017-05-19] MEDS ORDERED: ATV5X PO (13:28)
--- NOTE | 2017-05-19 13:34 | Discharge Summary ---
Discharge Summary Date of Service May 19, 2017. Discharge Summary Admission Date: May 15, 2017 at 12:55 Discharge Date: May 19, 2017 Discharge Disposition: senior care facility Principal Diagnosis: Pneumonia, Pulmonary Nodule Procedures: CT chest: 1. 12 mm solid right lower lobe pulmonary nodule. This was not present in January 2011. A neoplasm is the diagnosis of exclusion 2. No evidence of pathologic adenopathy 3. Right lower lobe bronchial wall thickening and patchy airspace opacities. Clinical correlation in regards to a small focal pneumonia is recommended 4. Emphysema 5. Thoracic aortic aneurysm. The ascending thoracic aorta measures 4.8 cm. The descending aorta at the level of the diaphragmatic hiatus measures 4.1 cm 6. 14 mm right lobe thyroid nodule CT ABD: 1. 1.1 cm lobulated right lower lobe pulmonary nodule which is worrisome for bronchogenic carcinoma. Nonemergent chest CT and pulmonary consultation are recommended. Findings and recommendations discussed with Dr. Turcios at time of dictation. 2. Large amount of stool within the rectum and moderate amount of stool within the colon suggestive of fecal impaction. Moderate perirectal infiltration suggestive of colitis, possibly reflecting stercoral colitis. No free air. 3. Extensive left colon diverticulosis without evidence for acute diverticulitis. 4. Moderate emphysema. 5. 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 6. Mild right lower lobe opacity which favors pneumonia. Consultations: Pulmonology Pending Studies/Follow-Up: Follows with Dr De Los Santos for routine care 1 week after being discharged from [facility] Complete the antibiotics as prescribed Seek immediate medical attention if your symptoms reoccur or worsen Swallow Eval Recommendations: 1. Pureed diet 2. Aspiration precautions, NO straws. Fully upright for meals and for 30 minutes after meals. 3. Assist with feeding. Small sips of liquids. 4. Speech will monitor for tolerance. Medication Reconciliation New Medications: Amoxicillin & Pot Clavulanate (Amoxicillin/Clavulanate P) 1 Tab Tab 875 MG PO BIDM for 2 Days, #4 TAB Lactobacillus Acidophilus (Lactinex Granules) 1 Gm Pack 1 GM PO TIDM for 7 Days, #21 EA Continued Medications: Acetaminophen (Acetaminophen Extra Stren) 500 Mg/15 Ml Liq 30 ML PO BID Albuterol Sulf (Albuterol Sulfate) 2.5 Mg/3 Ml Nebu 1 VIAL INH QID for SOB/Wheezing Aspirin (Aspirin Chewable) 81 Mg Chew 81 MG PO DAILY Atorvastatin (Lipitor) 40 Mg Tab 2 TAB PO HS Citalopram Hydrobromide (Citalopram Hydrobromide) 10 Mg/5 Ml Maria L 20 ML PO DAILY Clopidogrel Bisulfate (Plavix) 75 Mg Tab 75 MG PO DAILY Fluticasone Furoate-Vilanterol (Breo Ellipta) 1 Inh Inh 1 PUFF INH DAILY Gabapentin (Gabapentin) 100 Mg Cap 100 MG PO BID Ipratropium-Albuterol (Combivent Respimat) 1 Aer Aer 1 PUFFS INH QID, INH Lorazepam (Lorazepam) 0.5 Mg Tab 0.5 MG PO BID PRN for Anxiety for 2 Days, #4 (This prescription has been renewed ) Montelukast Sod (Montelukast Sodium) 5 Mg Chew 10 MG PO DAILY Nitroglycerin (Nitrostat) 0.4 Mg Tab 0.4 MG UT PRN, 0 Refills May repeat 3 times; if pain continues, call 911 Omeprazole (Prilosec) 20 Mg Cap 20 MG PO BID Tamoxifen (Nolvadex) 20 Mg Tab 20 MG PO DAILY Admission Information HPI (per Admitting provider): Pt is 86 y/o F with PMH stroke with aphasia and R arm weakness, HTN, dementia, CAD s/p angioplasty, COPD, anxiety/depression, hx breast CA s/p partial mastectomy presented to ER with family with c/o constipation and abdominal pain. Pt unable to give hx. Family report for over one week pt with constipation and has been straining to try to have BM. Think last BM one week ago. Pt been groaning with discomfort when abdomen touched past week. Tried miralax twice without relief. Pt has been having decreased appetite also. Haven' t noticed increased cough or SOB or fever/chills. Denies vomiting or noticed rashes, rhinorrhea, changes in behavior, melena, hematochezia. Hasn't noticed increased urination. States pt needs assistance with all ADLs. 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 In ER pt afebrile, P: 80, R: 18, BP: 151/68, 96-100% on RA. WBC: 10. Hgb: 10.8 ( baseline). K: 3.4. Cr: 1.1 (baseline ~0.92). Pending blood cultures. CT abd/ pelvis: 1cm lobulated RLL nodule, large amount of stool rectum & colon, moderate perirectal infiltration, RLL opacity favors pneumonia. Given 250ml NSS and milk molasses enema ordered. Physical Exam (per Admitting): General Appearance: WD/WN, no apparent distress Head: normocephalic, atraumatic Eyes: normal inspection, PERRL, EOMI, sclerae normal ENT: pharynx normal, + pertinent finding (mucous membranes slightly dry. Family reports pt hard of hearing and uses hearing aid) Neck: supple, no adenopathy, trachea midline Respiratory/Chest: chest non-tender, no respiratory distress, no accessory muscle use, + decreased breath sounds, + wheezing (scattered throughout) Cardiovascular: regular rate, rhythm, no edema, no murmur, normal peripheral pulses Abdomen/GI: normal bowel sounds, soft, + pertinent finding (+tenderness to palpation across entire lower abdomen) Back: no CVA tenderness Extremities/Musculoskelatal: normal capillary refill, no pedal edema, + pertinent finding (R arm with weakness and limited ROM 2/2 previous stroke. 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 pedal pushes and pulls intact bilaterally) Neurologic/Psych: alert, + pertinent finding (Pt with aphasia. Does say yes or no sometimes and groans with palpation of areas of discomfort) Skin: normal color, warm/dry Hospital Course Pneumonia/Pneumonitis Chronic COPD Newly discovered right lower lobe pulmonary nodule suggestive of primary lung neoplasm Continue IV abx>>> Switch to PO Augmentin Day # 2 Blood cultures: No growth to date Flu Screen: negative Given comorbidities, no further work up for Pulmonary Nodule Lesion difficult to be biopsied given the location and may require a lobectomy or multiple segmentectomy given its location Patient is a poor candidate for any surgical intervention. Discussed with Patient's daughter: Ms. Vaughn. Who agreed with current management Appreciate Pulmonary Input Aspiration precautions Diarrhea: Improved Likely secondary to antibiotics Check for C.diff if recurrent KAMINI: Likely Prerenal Resolved DC IV fluids Monitor renal function COPD Family denies increased cough or noted increased SOB. Denies home O2 use Continue Nebs continue montelukast, home inhalers Oxygen Weaned off Saturating well on room air Constipation: CT abd/pelvis: Large amount of stool within the rectum and moderate amount of stool within the colon suggestive of fecal impaction. Moderate perirectal infiltration suggestive of colitis, possibly reflecting stercoral colitis. No free air. Extensive left colon diverticulosis without evidence for acute diverticulitis. Resolved Hypokalemia/Hypomagnesemia: Resolved Monitor HTN Labile Not on meds currently monitor H/O CVA Pt with aphasia, R arm weakness since. Denies new symptoms swallow eval HX AAA: CT abd/pelvis: No change in 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 HX BREAST CA s/p partial mastectomy. On tamoxifen GERD continue PPI HX CAD continue ASA, Plavix, statin Anxiety/Depression: continue citalopram Ativan prn ANEMIA: Hgb: 10.8 which is pt's baseline monitor DVT Px: Heparin SQ Code Status: DNR/DNI Disposition: Plan to discharge to SNF today Follows with Dr De Los Santos for routine care 1 week after being discharged from [facility] Complete the antibiotics as prescribed Seek immediate medical attention if your symptoms reoccur or worsen Swallow Eval Recommendations: 1. Pureed diet 2. Aspiration precautions, NO straws. Fully upright for meals and for 30 minutes after meals. 3. Assist with feeding. Small sips of liquids. 4. Speech will monitor for tolerance. Total time spent on discharge = 34 minutes This includes examination of the patient, discharge planning, medication reconciliation, and communication with other providers. Discharge Instructions Discharge Instructions Date of Service May 19, 2017. Admission Reason for Admission: Pneumonia, Pulmonary Nodule Discharge Discharge Diagnosis / Problem: Pneumonia, Pulmonary Nodule Discharge Goals Goal(s): Decrease discomfort, Improve function Activity Recommendations Activity Limitations: resume your previous activity Exercise/Sports Limitations: as tolerated . Instructions / Follow-Up Instructions / Follow-Up Follows with Dr De Los Santos for routine care 1 week after being discharged from [facility] Complete the antibiotics as prescribed Seek immediate medical attention if your symptoms reoccur or worsen Swallow Eval Recommendations: 1. Pureed diet 2. Aspiration precautions, NO straws. Fully upright for meals and for 30 minutes after meals. 3. Assist with feeding. Small sips of liquids. 4. Speech will monitor for tolerance. Current Hospital Diet Patient's current hospital diet: AHA Diet (Heart Healthy) Discharge Diet Recommended Diet: AHA Diet (Heart Healthy) Diet Texture: Pureed (blended smooth) Pending Studies Studies pending at discharge: no Medical Emergencies . Who to Call and When: Medical Emergencies: If at any time you feel your situation is an emergency, please call 911 immediately. . Non-Emergent Contact Non-Emergency issues call your: Primary Care Provider Call Non-Emergent contact if: you have a fever, your pain is not controlled, your pain is worsening, your pain is unusual for you, your pain is concerning you, you have any medication questions Seek immediate medical attention if your symptoms reoccur or worsen . . "Provider Documentation" section prepared by Robert Rg. . VTE Core Measure Inpt VTE Proph given/why not?: Unfractionated heparin SQ, SCD's
[2017-05-19 14:17] VITALS: BP 145/71; PULSE 84; TEMP 36.9; O2SAT 91
[2017-05-19 14:22] VITALS: PULSE 84; O2SAT 94
== END 2017-05-19 16:40 | DRG 194 ==
LOC: EDBD 10:34 → C.EDB 10:35 → C.MS4W 12:55 → ENRESERV 14:39
PROVIDERS: ADMIT Internal Medicine; ATTEND Internal Medicine
DX: J18.9 Pneumonia, unspecified organism (principal); R47.01 Aphasia; I25.10 Atherosclerotic heart disease of native coronary artery without angina pectoris; K59.00 Constipation, unspecified; I12.9 Hypertensive chronic kidney disease with stage 1 through stage 4 chronic kidney disease, or unspecified chronic kidney disease; N18.3 Chronic kidney disease, stage 3 (moderate); J44.9 Chronic obstructive pulmonary disease, unspecified; Z66 Do not resuscitate; E78.5 Hyperlipidemia, unspecified; F32.9 Major depressive disorder, single episode, unspecified; M81.0 Age-related osteoporosis without current pathological fracture; F17.200 Nicotine dependence, unspecified, uncomplicated; R91.1 Solitary pulmonary nodule; E87.6 Hypokalemia; F41.9 Anxiety disorder, unspecified; Z99.81 Dependence on supplemental oxygen; Z79.82 Long term (current) use of aspirin; Z85.3 Personal history of malignant neoplasm of breast; Z86.73 Personal history of transient ischemic attack (TIA), and cerebral infarction without residual deficits; Z90.11 Acquired absence of right breast and nipple

== ENCOUNTER 2017-09-03 15:36 | Inpatient (IN) | payer OTHER ==
[~2017-09-03] VITALS: Ht 154.9 cm; Wt 63.0 kg
[~2017-09-03 15:36] MED LIST changes: +ALBINS INH; -ALBINS/ NEB; +AMOX1TAB43 PO; -ATOR-26 PO; +CLOP1TAB54 PO; -FLNIN/ NAE; +LCTXP PO; +LPT40 PO; -METO-478 PO; -OXGN; -SNG10 PO; +TAMO20TA9 PO; -TYLOTC500 PO
[2017-09-03] MEDS ORDERED: LACTATED RINGER'S 1000ML 1,000 ML IV SCH (16:32)
[2017-09-03] MEDS ORDERED: ACETAMINOPHEN 500 MG TAB PO PRN (16:45)
[2017-09-03] MEDS ORDERED: HYDROmorphone INJ 0.5 MG/0.5 ML SYR IV PRN ×2 (16:45)
[2017-09-03 16:52] LABS: BASO % 0.1 %; BASO ABS # 0.01 K/uL (0-0.2); HEMATOCRIT 33.1 % (37-47); HEMOGLOBIN 11.2 g/dL (12.0-16.0); IG# 0.03 K/uL (0.00-0.02); LYMPH % 10.5 %; LYMPH ABS # 1.33 K/uL (1.2-3.4); MEAN CELL VOLUME 89.5 fL (80-100); MEAN CORPUSCULAR HEMOGLOBIN 30.3 pg (25-34); MEAN CORPUSCULAR HGB CONC 33.8 g/dl (32-36); MEAN PLATELET VOLUME 9.8 fL (7.4-10.4); MONO % 4.7 %; MONO ABS # 0.59 K/uL (0.11-0.59); NEUT % 84.5 %; NEUT ABS # 10.65 K/uL (1.4-6.5); PLATELET COUNT 220 K/uL (130-400); RED CELL DISTRIBUTION WIDTH CV 14.3 % (11.5-14.5); WHITE BLOOD COUNT 12.61 K/uL (4.8-10.8)
[2017-09-03 17:06] LABS: PTT PATIENT 23.5 SECONDS (21.0-31.0)
--- NOTE | 2017-09-03 17:09 | DIAGNOSTIC IMAGING REPORT ---
L PELVIS/UNILATERAL HIP 2-3VIEWS HISTORY: 86 years-old Female fall acute pelvic and left hip pain status post fall COMPARISON: CT abdomen and pelvis 05/15/2017 TECHNIQUE: AP view of the pelvis with 2 views of the left hip FINDINGS: Moderate degenerative changes about the bilateral hips with moderately demineralized appearance of the bones. The right femur and bony pelvis appear intact. There is mild soft tissue swelling about the bilateral hips. There is an acute intertrochanteric fracture of the left femur with approximately 25 degrees apex lateral angulation. No significant displacement or impaction. Moderate stool volume is seen throughout the colon. IMPRESSION: Acute mildly angulated intratrochanteric fracture of the left femur. The above report was generated using voice recognition software. It may contain grammatical, syntax or spelling errors. Electronically signed by: Tal Taylor M.D. 09/03/2017 5:07 PM Dictated Date/Time: 09/03/2017 5:05 PM
--- NOTE | 2017-09-03 17:11 | DIAGNOSTIC IMAGING REPORT ---
CHEST ONE VIEW PORTABLE HISTORY: 86 years-old Female fall, hip fracture acute left femur fracture COMPARISON: Chest radiograph and chest CT 05/15/2017 TECHNIQUE: Portable supine AP view of the chest FINDINGS: Cardiomediastinal and hilar silhouettes are within normal limits. Atherosclerosis of the aorta. Calcified right hilar lymph nodes redemonstrated. Emphysema and hyperinflation without pneumothorax, pleural effusion or overt pulmonary edema. Subsegmental left basilar opacities are noted. Calcific granuloma of the right midlung. Demineralized appearance of the bones with degenerative changes of the shoulders and spine. IMPRESSION: 1. Subsegmental left basilar opacities suggest atelectasis. 2. Emphysema with hyperinflation. 3. Prior granulomatous disease. The above report was generated using voice recognition software. It may contain grammatical, syntax or spelling errors. Electronically signed by: Tal Taylor M.D. 09/03/2017 5:10 PM Dictated Date/Time: 09/03/2017 5:08 PM
[2017-09-03 17:12] LABS: CALCIUM 8.2 mg/dl (8.5-10.1); CREATININE 1.16 mg/dl (0.60-1.20); POTASSIUM 4.4 mmol/L (3.5-5.1)
[2017-09-03] MEDS ORDERED: IPRASOL4 INH (17:41)
[2017-09-03] MEDS ORDERED: DLCS PR (17:41)
[2017-09-03] MEDS ORDERED: ACET-1311 PO (17:41)
[2017-09-03] MEDS ORDERED: CITA20TA9 PO (17:41)
[2017-09-03] MEDS ORDERED: LINICRE61 TOP (17:41)
[2017-09-03] MEDS ORDERED: ATOR-26 PO (17:43)
[2017-09-03] MEDS ORDERED: LORA-741 PO (17:44)
[2017-09-03] MEDS ORDERED: POLY335019 PO (17:44)
[2017-09-03] MEDS ORDERED: ALUMINUM/MAGNESIUM/SIMETH (MAALOX MAX) 30 ML UDC PO PRN (18:00)
[2017-09-03] MEDS ORDERED: SOD PHOSPHATE/SOD BIPHOSPHATE ENEMA 132 ML BTL PR PRN (18:00)
[2017-09-03] MEDS ORDERED: POLYETHYLENE (MIRALAX) 17 GM PACK PO PRN (18:00)
[2017-09-03] MEDS ORDERED: NALOXONE HCL 0.4 MG/1 ML VIAL/CARP IV PRN (18:00)
[2017-09-03] MEDS ORDERED: ONDANSETRON INJ 2 MG/ML 2 ML VIAL IV PRN ×2 (18:00)
[2017-09-03] MEDS ORDERED: BISACODYL 10 MG SUPP PR PRN ×2 (18:00→18:15)
[2017-09-03] MEDS ORDERED: MAGNESIUM HYDROXIDE SUSP 30 ML UDC PO PRN ×2 (18:00)
[2017-09-03] MEDS ORDERED: NITROGLYCERIN 0.4 MG SL PER TAB CHARGE UT SCH (18:15)
[2017-09-03] MEDS ORDERED: ALBUT/IPRATROP 3MG/0.5MG NEB 3 ML VIAL INH PRN (18:15)
--- NOTE | 2017-09-03 18:57 | History and Physical ---
History & Physical Date & Time of Service: September 03, 2017 at 18:16 Chief Complaint: Fall/ Leg & Hip Pain Primary Care Physician: Andrew Elias M.D. 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 Unable to obtain any hx from pt secondary to aphasia from previous stroke. Pt had x-ray L hip at [facility] showing L hip fracture and pt sent to [facility] ER. In ER pt had L HIP XRAY: IMPRESSION: Acute mildly angulated intratrochanteric fracture of the left femur. Pt's daughter: nAita Vaughn was informed pt at ER and informed of diagnosis. She would like to be updated on her mothers status and plans. Her phone # wants to be reached at is [phone]. Past Medical/Surgical History Medical Problems: (1) Ascending aortic aneurysm Status: Chronic (2) Breast cancer Permanent Comment: R breast s/p mastectomy and initiation of Tamoxifen Status: Chronic (3) CAD (coronary artery disease) Permanent Comment: moderate CAD demonstrated on cath from 2008 Status: Chronic (4) CKD (chronic kidney disease), stage III Status: Chronic (5) COPD (chronic obstructive pulmonary disease) Status: Chronic (6) Depression Status: Chronic (7) Dyslipidemia Status: Chronic (8) HTN (hypertension) Status: Chronic (9) Intestinal metaplasia of gastric mucosa Status: Chronic (10) Lumbar back pain with radiculopathy affecting left lower extremity Status: Chronic (11) Osteoporosis Status: Chronic (12) Pneumonia Status: Resolved (13) Shingles Status: Resolved (14) Spinal stenosis Status: Chronic (15) Vascular dementia Status: Chronic Surgical Problems: (1) H/O: hysterectomy Status: Chronic (2) Hx of cataract surgery Status: Chronic (3) Hx of cholecystectomy Status: Chronic Family History Cancer Social History Smoking Status: Never Smoker Alcohol Use: none Drug Use: none Marital Status: single Housing status: other ([facility]) Occupational Status: retired Immunizations History of Influenza Vaccine: Yes Influenza Vaccine Date: Jan 25, 2015 History of Tetanus Vaccine?: Yes Tetanus Immunization Date: August 31, 2010 History of Pneumococcal: Yes Pneumococcal Date: September 05, 2016 History of Hepatitis B Vaccine: No Allergies Coded Allergies: Codeine (Verified Allergy, Unknown, unsure of rxn, 09/04/17) Morphine (Verified Allergy, Unknown, per PCP records , 09/04/17) [place] (Verified Allergy, Unknown, SEASONAL, 09/04/17) Home Medications Scheduled Acetaminophen (Tylenol), 650 MG PO DAILY Albuterol Sulf (Albuterol Sulfate), 1 VIAL INH QID Aspirin (Aspirin Chewable), 81 MG PO DAILY Atorvastatin (Lipitor), 80 MG PO HS Bisacodyl (Bisac-Evac), 10 MG SC UD Citalopram Hydrobromide (Celexa), 20 MG PO DAILY Clopidogrel Bisulfate (Plavix), 75 MG PO DAILY Gabapentin (Gabapentin), 100 MG PO BID Menthol-Methyl Salicylate (Samantha (Bengay Greaseless), TOP Q6 Montelukast Sod (Montelukast Sodium), 10 MG PO DAILY Nitroglycerin (Nitrostat), 0.4 MG UT PRN Omeprazole (Prilosec), 20 MG PO BID Polyethylene Glycol 3350 (Miralax), 17 GM PO Q2D Tamoxifen (Nolvadex), 20 MG PO DAILY Scheduled PRN Ipratropium-Albuterol (Duoneb), 1 TREATMENT INH Q6 PRN for SOB/Wheezing Lorazepam (Ativan), 0.5 MG PO DAILY PRN for Anxiety Review of Systems Unable to obtain secondary to pt's aphasia Physical Exam Vital Signs Date Time Temp Pulse Resp B/P (MAP) Pulse Ox O2 Delivery O2 Flow Rate FiO2 09/03/17 17:37 77 18 152/79 95 Room Air 09/03/17 15:48 83 09/03/17 15:44 37.1 77 18 176/81 95 Room Air General Appearance: WD/WN, no apparent distress Head: normocephalic, atraumatic Eyes: normal inspection, PERRL, EOMI ENT: pharynx normal, + pertinent finding (mucous membranes moist) Neck: supple, no JVD, trachea midline Respiratory/Chest: lungs clear, normal breath sounds, no respiratory distress, no accessory muscle use Cardiovascular: regular rate, rhythm, no murmur, normal peripheral pulses Abdomen/GI: normal bowel sounds, soft, + pertinent finding (no apparent tenderness to palpation) Extremities/Musculoskelatal: + pertinent finding (L leg shortened and externally rotated, no attempted ROM of L hip/leg. Distal pulses intact bilaterally with brisk capillary refill) Neurologic/Psych: alert (awake, non understandable speech) Skin: normal color, warm/dry Diagnostics Laboratory Results Results Past 24 Hours Test 09/03/17 16:21 09/03/17 17:09 Range/Units White Blood Count 12.61 4.8-10.8 K/uL Red Blood Count 3.70 4.2-5.4 M/uL Hemoglobin 11.2 12.0-16.0 g/dL Hematocrit 33.1 37-47 % Mean Corpuscular Volume 89.5 80-100 fL Mean Corpuscular Hemoglobin 30.3 25-34 pg Mean Corpuscular Hemoglobin Concent 33.8 32-36 g/dl Platelet Count 220 130-400 K/uL Mean Platelet Volume 9.8 7.4-10.4 fL Neutrophils (%) (Auto) 84.5 % Lymphocytes (%) (Auto) 10.5 % Monocytes (%) (Auto) 4.7 % Eosinophils (%) (Auto) 0.0 % Basophils (%) (Auto) 0.1 % Neutrophils # (Auto) 10.65 1.4-6.5 K/uL Lymphocytes # (Auto) 1.33 1.2-3.4 K/uL Monocytes # (Auto) 0.59 0.11-0.59 K/uL Eosinophils # (Auto) 0.00 0-0.5 K/uL Basophils # (Auto) 0.01 0-0.2 K/uL RDW Standard Deviation 47.0 36.4-46.3 fL RDW Coefficient of Variation 14.3 11.5-14.5 % Immature Granulocyte % (Auto) 0.2 % Immature Granulocyte # (Auto) 0.03 0.00-0.02 K/uL Prothrombin Time 10.3 9.0-12.0 SECONDS Prothromb Time International Ratio 1.0 0.9-1.1 Activated Partial Thromboplast Time 23.5 21.0-31.0 SECONDS Partial Thromboplastin Ratio 0.9 Sodium Level 140 136-145 mmol/L Potassium Level 4.4 3.5-5.1 mmol/L Chloride Level 108 98-107 mmol/L Carbon Dioxide Level 26 21-32 mmol/L Anion Gap 6.0 3-11 mmol/L Blood Urea Nitrogen 27 7-18 mg/dl Creatinine 1.16 0.60-1.20 mg/dl Est Creatinine Clear Calc Drug Dose 30.1 ml/min Estimated GFR () 49.7 Estimated GFR (Non- 42.9 BUN/Creatinine Ratio 23.5 10-20 Random Glucose 129 70-99 mg/dl Calcium Level 8.2 8.5-10.1 mg/dl Urine Color YELLOW Urine Appearance CLOUDY CLEAR Urine pH 8.5 4.5-7.5 Urine Specific [place] 1.023 1.000-1.030 Urine Protein NEG NEG Urine Glucose (UA) NEG NEG Urine Ketones NEG NEG Urine Occult Blood NEG NEG Urine Nitrite NEG NEG Urine Bilirubin NEG NEG Urine Urobilinogen NEG NEG Urine Leukocyte Esterase SMALL NEG Urine WBC (Auto) >30 0-5 /hpf Urine RBC (Auto) 0-4 0-4 /hpf Urine Hyaline Casts (Auto) 10-30 0-5 /lpf Urine Epithelial Cells (Auto) 5-10 0-5 /lpf Urine Bacteria (Auto) 4+ NEG Microbiology Results 09/03/17 Urine Culture, Received Pending Diagnostic Radiology CXR: IMPRESSION: 1. Subsegmental left basilar opacities suggest atelectasis. 2. Emphysema with hyperinflation. 3. Prior granulomatous disease. LEFT HIP X-RAY: IMPRESSION: Acute mildly angulated intratrochanteric fracture of the left femur. 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 No reported change in patient's mental status. In ER Left hip x-ray: Acute mildly angulated intratrochanteric fracture of the left femur. CXR : Subsegmental left basilar opacities suggest atelectasis. Emphysema with hyperinflation. Prior granulomatous disease. No acute EKG changes. Vitals stable. WBC: 12.6. Hgb: 11.2 (baseline). Cr: 1.16 (baseline). -Pt moderate surgical risk with age, hx CAD -UA pending -IVF -Dilaudid prn pain -Type and cross -npo after midnight -cbc, prp in am -ortho consult - informed Dr Angel that pt on plavix and ASA and is being held at this time. Reports tentative OR tomorrow afternoon COPD 95% on RA. No wheezing/rhonchi/rales on exam -continue montelukast, continue breo, duonebs HTN 176/81 down to 152/79 after pain meds. Probable secondary to pain -continue to monitor HX STROKE Pt with aphasia, R arm weakness since. No new symptoms -pt on pureed diet -holding plavix and ASA with probable surgical procedure tomorrow HX AAA: 04/2017 - CT abd/pelvis: No change in 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 HX BREAST CA s/p partial mastectomy. On tamoxifen GERD -continue PPI HX CAD Hx echo 11/13: EF: 55-60%, grade 1 diastolic dysfunction, no wall motion abnormalities -holding plavix, ASA today with probable surgical procedure tomorrow -continue statin ANXIETY/DEPRESSION -continue citalopram -continue ativan prn ANEMIA: Hgb: 10.8 which is pt's baseline -continue to monitor DVT Prophylaxis -SCDs Disposition admit medsurg DNR/DNI as per discussion with pt's daughter Pt was seen with Dr Steiner. See addendum ATTENDING ADDENDUM : Patient seen and examined 86-year-old female with advanced dementia, expressive aphasia from prior stroke Status post mechanical fall earlier today at [facility] X-ray showed acute mildly angulated intratrochanteric fracture of the left femur Orthopedics consulted Patient remains moderate to high risk secondary to her advanced age/ comorbidities Patient is on aspirin and Plavix for prior history of stroke which will be kept on hold Discussed with patient's daughter over phone Agreeable for left hip surgery She is a DNR/DNI, but okay for a clinical ventilation/intubation for intraoperatively and short period Postop if needed Orthopedics team updated Giana Steiner MD Pts Daughter/POA: Anita Vaughn [phone] Resuscitation Status DNR/DNI VTE Prophylaxis Will order VTE Prophylaxis: Yes
--- NOTE | 2017-09-03 19:34 | DIAGNOSTIC IMAGING REPORT ---
L FEMUR 2 VIEWS ROUTINE CLINICAL HISTORY: left hip fracture, fall trauma. Pain. COMPARISON: 09/03/2017 FINDINGS: intertrochanteric fracture left hip is again noted. Alignment is somewhat improved. No evidence of dislocation. Remaining osseous structures are unremarkable. IMPRESSION: Mildly improved alignment of the patient's intertrochanteric fracture. The above report was generated using voice recognition software. It may contain grammatical, syntax or spelling errors. Electronically signed by: Roderick Whitaker M.D. 09/03/2017 7:33 PM Dictated Date/Time: 09/03/2017 7:32 PM
[2017-09-03 19:54] VITALS: BP 157/88; PULSE 76; TEMP 36.6; O2SAT 95
[2017-09-03] MEDS: D5W AND LACTATED RINGERS 1,000 ML IV SCH (20:39)
[2017-09-03 20:41] VITALS: O2SAT 94; BMI 26.2
[2017-09-03] MEDS: PANTOprazole SOD 40 MG TAB PO SCH (21:24)
[2017-09-03] MEDS: DOCUSATE SODIUM/SENNA 50/8.6MG TAB PO SCH (21:25)
[2017-09-03] MEDS: GABAPENTIN 100 MG CAP PO SCH (21:25)
[2017-09-03] MEDS: ATORVASTATIN 40 MG TAB PO SCH (21:25)
[2017-09-03 21:30] VITALS: BP 156/84; PULSE 95; TEMP 36.7; O2SAT 97
[2017-09-03] MEDS: HYDROmorphone INJ 0.5 MG/0.5 ML SYR IV PRN (21:33)
[2017-09-03 23:08] VITALS: BP 138/76; PULSE 80; TEMP 37.1; O2SAT 95
--- NOTE | 2017-09-03 23:49 | EMERGENCY ROOM VISIT NOTE ---
History Report prepared by Shyam: Ty Alas Under the Supervision of: Dr. Ronan Mcdaniel M.D. First contact with patient: 16:13 Chief Complaint: FALL Stated Complaint: FALL/ LEG & HIP PAIN History of Present Illness The patient is an 86 year old female who presents to the Emergency Room via EMS from [facility] with complaints of a sudden mechanical fall that occurred this morning. Per the nursing staff, the patient has had left hip and leg pain ever since the fall, and has a left hip injury. History limited secondary to patient's dementia. Source of History: nursing staff History Limited By: dementia Onset: This morning Position: other (global) Symptom Intensity: left hip injury Quality: other (fall) Timing: other (sudden) Note: Associated symptoms: Left hip and leg pain. Review of Systems ROS limited secondary to patient's dementia. Past Medical & Surgical Medical Problems: (1) Acute ischemic left middle cerebral artery (MCA) stroke (2) Ascending aortic aneurysm (3) Breast cancer (4) CAD (coronary artery disease) (5) CKD (chronic kidney disease), stage III (6) COPD (chronic obstructive pulmonary disease) (7) Depression (8) Dyslipidemia (9) HTN (hypertension) (10) Intestinal metaplasia of gastric mucosa (11) Lumbar back pain with radiculopathy affecting left lower extremity (12) Osteoporosis (13) Pneumonia (14) Shingles (15) Spinal stenosis (16) Vascular dementia Surgical Problems: (1) H/O: hysterectomy (2) Hx of cataract surgery (3) Hx of cholecystectomy Family History Cancer Social History Smoking Status: Never Smoker Drug Use: none Marital Status: single Housing Status: lives with family Occupation Status: retired Current/Historical Medications Scheduled Acetaminophen (Tylenol), 650 MG PO DAILY Albuterol Sulf (Albuterol Sulfate), 1 VIAL INH QID Aspirin (Aspirin Chewable), 81 MG PO DAILY Atorvastatin (Lipitor), 80 MG PO HS Bisacodyl (Bisac-Evac), 10 MG NC UD Citalopram Hydrobromide (Celexa), 20 MG PO DAILY Clopidogrel Bisulfate (Plavix), 75 MG PO DAILY Gabapentin (Gabapentin), 100 MG PO BID Menthol-Methyl Salicylate (Samantha (Bengay Greaseless), TOP Q6 Montelukast Sod (Montelukast Sodium), 10 MG PO DAILY Nitroglycerin (Nitrostat), 0.4 MG UT PRN Omeprazole (Prilosec), 20 MG PO BID Polyethylene Glycol 3350 (Miralax), 17 GM PO Q2D Tamoxifen (Nolvadex), 20 MG PO DAILY Scheduled PRN Ipratropium-Albuterol (Duoneb), 1 TREATMENT INH Q6 PRN for SOB/Wheezing Lorazepam (Ativan), 0.5 MG PO DAILY PRN for Anxiety Allergies Coded Allergies: Codeine (Verified Allergy, Unknown, unsure of rxn, 05/15/17) Morphine (Verified Allergy, Unknown, per PCP records , 05/15/17) [place] (Verified Allergy, Unknown, SEASONAL, 05/15/17) Physical Exam Vital Signs Date Time Temp Pulse Resp B/P (MAP) Pulse Ox O2 Delivery O2 Flow Rate FiO2 09/03/17 17:37 77 18 152/79 95 Room Air 09/03/17 15:48 83 09/03/17 15:44 37.1 77 18 176/81 95 Room Air Physical Exam GENERAL: Awake, uncomfortable-appearing, mild distress HENT: Normocephalic, atraumatic. Oropharynx unremarkable. EYES: Normal conjunctiva. Sclera non-icteric. NECK: Supple. No nuchal rigidity. FROM. No masses. RESPIRATORY: Clear to auscultation. No wheezes. No rales. Normal respiratory effort. CARDIAC: Normal rate. Normal rhythm. No murmurs. No rubs. Extremities warm and well perfused. Pulses equal. No JVD. GI: Soft, non-distended. No tenderness to palpation. No rebound or guarding. No masses. RECTAL: Deferred. MUSCULOSKELETAL: Left hip range of motion limited with pain, tenderness left hip. Left hip is shortened and externally rotated.. Chest examination reveals no tenderness. The back is symmetrical on inspection without obvious abnormality. There is no CVA tenderness to palpation. LOWER EXTREMITIES: Calves are equal size bilaterally and non-tender. No edema. No discoloration. NEURO: Expressive aphasia, garbled speech. SKIN: No rash or jaundice noted. Medical Decision & Procedures ER Provider Diagnostic Interpretation: X-ray: Per my interpretation, radiologist review. L PELVIS/UNILATERAL HIP 2-3VIEWS HISTORY: 86 years-old Female fall acute pelvic and left hip pain status post fall COMPARISON: CT abdomen and pelvis 05/15/2017 TECHNIQUE: AP view of the pelvis with 2 views of the left hip FINDINGS: Moderate degenerative changes about the bilateral hips with moderately demineralized appearance of the bones. The right femur and bony pelvis appear intact. There is mild soft tissue swelling about the bilateral hips. There is an acute intertrochanteric fracture of the left femur with approximately 25 degrees apex lateral angulation. No significant displacement or impaction. Moderate stool volume is seen throughout the colon. IMPRESSION: Acute mildly angulated intratrochanteric fracture of the left femur. The above report was generated using voice recognition software. It may contain grammatical, syntax or spelling errors. Electronically signed by: Tal Taylor M.D. 09/03/2017 5:07 PM Dictated Date/Time: 09/03/2017 5:05 PM CHEST ONE VIEW PORTABLE HISTORY: 86 years-old Female fall, hip fracture acute left femur fracture COMPARISON: Chest radiograph and chest CT 05/15/2017 TECHNIQUE: Portable supine AP view of the chest FINDINGS: Cardiomediastinal and hilar silhouettes are within normal limits. Atherosclerosis of the aorta. Calcified right hilar lymph nodes redemonstrated. Emphysema and hyperinflation without pneumothorax, pleural effusion or overt pulmonary edema. Subsegmental left basilar opacities are noted. Calcific granuloma of the right midlung. Demineralized appearance of the bones with degenerative changes of the shoulders and spine. IMPRESSION: 1. Subsegmental left basilar opacities suggest atelectasis. 2. Emphysema with hyperinflation. 3. Prior granulomatous disease. The above report was generated using voice recognition software. It may contain grammatical, syntax or spelling errors. Electronically signed by: Tal Taylor M.D. 09/03/2017 5:10 PM Dictated Date/Time: 09/03/2017 5:08 PM Laboratory Results 09/03/17 16:21 Red Blood Count 3.70, Mean Corpuscular Volume 89.5, Mean Corpuscular Hemoglobin 30.3, Mean Corpuscular Hemoglobin Concent 33.8, Mean Platelet Volume 9.8, Neutrophils (%) (Auto) 84.5, Lymphocytes (%) (Auto) 10.5, Monocytes (%) (Auto) 4.7, Eosinophils (%) (Auto) 0.0, Basophils (%) (Auto) 0.1, Neutrophils # (Auto) 10.65, Lymphocytes # (Auto) 1.33, Monocytes # (Auto) 0.59, Eosinophils # (Auto) 0.00, Basophils # (Auto) 0.01 09/03/17 16:21 Test 09/03/17 16:21 09/03/17 17:09 White Blood Count 12.61 K/uL (4.8-10.8) Red Blood Count 3.70 M/uL (4.2-5.4) Hemoglobin 11.2 g/dL (12.0-16.0) Hematocrit 33.1 % (37-47) Mean Corpuscular Volume 89.5 fL (80-100) Mean Corpuscular Hemoglobin 30.3 pg (25-34) Mean Corpuscular Hemoglobin Concent 33.8 g/dl (32-36) Platelet Count 220 K/uL (130-400) Mean Platelet Volume 9.8 fL (7.4-10.4) Neutrophils (%) (Auto) 84.5 % Lymphocytes (%) (Auto) 10.5 % Monocytes (%) (Auto) 4.7 % Eosinophils (%) (Auto) 0.0 % Basophils (%) (Auto) 0.1 % Neutrophils # (Auto) 10.65 K/uL (1.4-6.5) Lymphocytes # (Auto) 1.33 K/uL (1.2-3.4) Monocytes # (Auto) 0.59 K/uL (0.11-0.59) Eosinophils # (Auto) 0.00 K/uL (0-0.5) Basophils # (Auto) 0.01 K/uL (0-0.2) RDW Standard Deviation 47.0 fL (36.4-46.3) RDW Coefficient of Variation 14.3 % (11.5-14.5) Immature Granulocyte % (Auto) 0.2 % Immature Granulocyte # (Auto) 0.03 K/uL (0.00-0.02) Prothrombin Time 10.3 SECONDS (9.0-12.0) Prothromb Time International Ratio 1.0 (0.9-1.1) Activated Partial Thromboplast Time 23.5 SECONDS (21.0-31.0) Partial Thromboplastin Ratio 0.9 Anion Gap 6.0 mmol/L (3-11) Est Creatinine Clear Calc Drug Dose 30.1 ml/min Estimated GFR () 49.7 Estimated GFR (Non- 42.9 BUN/Creatinine Ratio 23.5 (10-20) Calcium Level 8.2 mg/dl (8.5-10.1) Urine Color YELLOW Urine Appearance CLOUDY (CLEAR) Urine pH 8.5 (4.5-7.5) Urine Specific [place] 1.023 (1.000-1.030) Urine Protein NEG (NEG) Urine Glucose (UA) NEG (NEG) Urine Ketones NEG (NEG) Urine Occult Blood NEG (NEG) Urine Nitrite NEG (NEG) Urine Bilirubin NEG (NEG) Urine Urobilinogen NEG (NEG) Urine Leukocyte Esterase SMALL (NEG) Urine WBC (Auto) >30 /hpf (0-5) Urine RBC (Auto) 0-4 /hpf (0-4) Urine Hyaline Casts (Auto) 10-30 /lpf (0-5) Urine Epithelial Cells (Auto) 5-10 /lpf (0-5) Urine Bacteria (Auto) 4+ (NEG) Laboratory results reviewed by me Medications Administered Medications (Trade) Dose Ordered Sig/Millicent Route Start Time Stop Time Status Last Admin Dose Admin Lactated Ringer's 1,000 ml @ 75 mls/hr [id number] IV 09/03/17 16:32 09/03/17 19:52 DC 09/03/17 16:32 75 MLS/HR Hydromorphone HCl (Dilaudid Inj) 0.5 mg Q20M PRN IV 09/03/17 16:45 09/03/17 19:53 DC 09/03/17 17:39 0.5 MG ECG Per My Interpretation Indication: other (fall, trauma) Rate (beats per minute): 79 Rhythm: normal sinus Findings: no acute ischemic change, no ectopy ED Course 1625: The patient was evaluated in room A9A. A limited history and physical exam was performed. 1632: Lactated Ringer's 1000 ml @ 75 mls/hr IV. 1645: Dilaudid Inj 0.5 mg IV PRN, Dilaudid Inj 0.25 mg IV PRN, Tylenol Tab 1000 mg PO PRN. 1713: Upon reexamination, the patient was resting. The patient will be evaluated for further management. 1721: I discussed the patient with Dr. Jeanne MARTÍNEZ. 1725: I discussed the patient with Dr. Jatin Pedroza sole layer - she will evaluate the patient for further treatment. 2345: UTI noted on urinalysis specimen. Patient already admitted. Internal medicine made aware. Medical Decision Triage Nursing notes reviewed and agree them. The patient's history was concerning for traumatic injury. Differential diagnosis: Etiologies such as fracture, dislocation, neurovascular compromise, compartment syndrome, soft tissue injury, as well as others were entertained. Physical examination: Consistent with an isolated hip injury. ER treatment provided: IV lock LR hydration NPO Bedrest IV Dilaudid On reassessment the patient felt better. Diagnostics interpreted by me: ECG: As above The labs revealed an unremarkable CBC, coags, and chemistry panel except for mild leukocytosis. Urinalysis was pending at the time of admission. Imaging studies: Xrays as above. The patient has an isolated hip fracture and will need admission to the hospital. Consultation: A consultation was placed with orthopedics. The case was discussed and diagnostics were reviewed. The patient was evaluated in the ER for further treatment. It appears she also has a UTI. I did notify who will address the issue. Medication Reconcilliation Current Medication List: was personally reviewed by me Blood Pressure Screening Patient's blood pressure: Elevated blood pressure Referred to hospitalist. Consults Time Called: 1717 Consulting Physician: Dr. Jeanne MARTÍNEZ Returned Call: 1721 I discussed the patient with Dr. Jeanne MARTÍNEZ. Additional Consults: Time Called: 1720 Consulted Physician: Dr. Jatin Pedroza sole layer Returned Call: 1725 Additional Comments: I discussed the patient with Dr. Jatin Pedroza sole layer - she will evaluate the patient for further treatment. Impression Primary Impression: Hip fracture, left Scribe Attestation The scribe's documentation has been prepared under my direction and personally reviewed by me in its entirety. I confirm that the note above accurately reflects all work, treatment, procedures, and medical decision making performed by me. Departure Information Dispostion Being Evaluated By Hospitalist Referrals No Doctor, Assigned (PCP) Patient Instructions My [facility] Problem Qualifiers Primary Impression: Hip fracture, left Encounter type: initial encounter Fracture type: closed Qualified Codes: S72.002A - Fracture of unspecified part of neck of left femur, initial encounter for closed fracture
[2017-09-04] MEDS ORDERED: CEFAZOLIN 2000MG IV PUSH 15 ML IV SCH (06:00)
[2017-09-04] MEDS ORDERED: VANCOMYCIN 1GM/270ML NSS IV SCH (06:00)
[2017-09-04 07:36] LABS: HEMATOCRIT 31.7 % (37-47); HEMOGLOBIN 10.6 g/dL (12.0-16.0); MEAN CELL VOLUME 90.6 fL (80-100); MEAN CORPUSCULAR HEMOGLOBIN 30.3 pg (25-34); MEAN CORPUSCULAR HGB CONC 33.4 g/dl (32-36); MEAN PLATELET VOLUME 9.5 fL (7.4-10.4); PLATELET COUNT 216 K/uL (130-400); RED CELL DISTRIBUTION WIDTH CV 14.8 % (11.5-14.5); RED CELL DISTRIBUTION WIDTH SD 48.7 fL (36.4-46.3); WHITE BLOOD COUNT 13.06 K/uL (4.8-10.8)
[2017-09-04 07:42] VITALS: BP 169/83; PULSE 83; TEMP 36.8; O2SAT 95
--- NOTE | 2017-09-04 07:42 | Orthopedic Consultation ---
Orthopedic Consultation Date of Consultation: September 04, 2017. Attending Physician: Robert Rg MD Reason for Consultation: Left hip fracture History of Present Illness 86-year-old female significant past medical history for stroke, aphasia, right hemiparesis, hypertension, dementia, CAD, COPD and breast cancer presented from [facility] after mechanical fall the morning of 09/03/2017. Subsequently diagnosed with left hip fracture. Patient is a poor historian and unable to provide significant history of present illness. Past Medical/Surgical History Medical Problems: (1) Acute CVA (cerebrovascular accident) Status: Acute (2) CHI (closed head injury) Status: Acute (3) Colitis Status: Acute (4) Contusion of multiple sites Status: Acute (5) Dehydration Status: Acute (6) Encounter for smoking cessation counseling Status: Acute (7) Fall Status: Acute (8) Fecal impaction of colon Status: Acute (9) Hip fracture, left Status: Acute (10) Hypokalemia Status: Acute (11) Pulmonary nodule, right Status: Acute (12) Right lower lobe pneumonia Status: Acute Family History Cancer Social History Smoking Status: Never Smoker Alcohol Use: none Drug Use: none Marital Status: single Housing Status: lives with family Occupation Status: retired Allergies Coded Allergies: Codeine (Verified Allergy, Unknown, unsure of rxn, 05/15/17) Morphine (Verified Allergy, Unknown, per PCP records , 05/15/17) [place] (Verified Allergy, Unknown, SEASONAL, 05/15/17) Home Medications Scheduled Acetaminophen (Tylenol), 650 MG PO DAILY Albuterol Sulf (Albuterol Sulfate), 1 VIAL INH QID Aspirin (Aspirin Chewable), 81 MG PO DAILY Atorvastatin (Lipitor), 80 MG PO HS Bisacodyl (Bisac-Evac), 10 MG AK UD Citalopram Hydrobromide (Celexa), 20 MG PO DAILY Clopidogrel Bisulfate (Plavix), 75 MG PO DAILY Gabapentin (Gabapentin), 100 MG PO BID Menthol-Methyl Salicylate (Samantha (Bengay Greaseless), TOP Q6 Montelukast Sod (Montelukast Sodium), 10 MG PO DAILY Nitroglycerin (Nitrostat), 0.4 MG UT PRN Omeprazole (Prilosec), 20 MG PO BID Polyethylene Glycol 3350 (Miralax), 17 GM PO Q2D Tamoxifen (Nolvadex), 20 MG PO DAILY Scheduled PRN Ipratropium-Albuterol (Duoneb), 1 TREATMENT INH Q6 PRN for SOB/Wheezing Lorazepam (Ativan), 0.5 MG PO DAILY PRN for Anxiety Current Inpatient Medications Current Inpatient Medications Medications (Trade) Dose Ordered Sig/Millicent Route Start Time Stop Time Status Last Admin Dose Admin Acetaminophen (Tylenol Tab) 650 mg Q4H PRN PO 09/03/17 18:00 10/03/17 17:59 Al Hydrox/Mg Hydrox/Simethicone (Maalox Max Susp) 15 ml Q4H PRN PO 09/03/17 18:00 10/03/17 17:59 Magnesium Hydroxide (Milk Of Magnesia Susp) 30 ml Q6H PRN PO 09/03/17 18:00 10/03/17 17:59 Polyethylene (Miralax Powder Packet) 17 gm DAILY PRN PO 09/03/17 18:00 10/03/17 17:59 Ondansetron HCl (Zofran Inj) 4 mg Q6H PRN IV 09/03/17 18:00 10/03/17 17:59 Dextrose/Lactated Ringer's 1,000 ml @ 50 mls/hr Q20H IV 09/03/17 20:00 10/03/17 17:49 09/03/17 20:39 50 MLS/HR Cefazolin Sodium 15 ml @ 3.75 mls/ min PREOP IV 09/04/17 06:00 09/05/17 05:59 Hydromorphone HCl (Dilaudid Inj) 0.5 mg Q4 PRN IV 09/03/17 18:00 09/17/17 17:59 09/03/17 21:33 0.5 MG Naloxone HCl (Narcan Inj) 0.1 mg PRN PRN IV 09/03/17 18:00 10/03/17 17:59 Senna/Docusate Sodium (Senokot S Tab) 2 tab HS PO 09/03/17 21:00 10/03/17 20:59 09/03/17 21:25 2 TAB Polyethylene (Miralax Powder Packet) 17 gm DAILY PO 09/04/17 09:00 10/04/17 08:59 Magnesium Hydroxide (Milk Of Magnesia Susp) 30 ml DAILY PRN PO 09/03/17 18:00 10/03/17 17:59 Bisacodyl (Dulcolax Supp) 10 mg DAILY PRN AK 09/03/17 18:00 10/03/17 17:59 Sodium Biphosphate/ Sodium Phosphate (Fleet Enema) 132 ml PRN PRN AK 09/03/17 18:00 09/04/17 23:59 Atorvastatin Calcium (Lipitor Tab) 80 mg HS PO 09/03/17 21:00 10/03/17 20:59 09/03/17 21:25 80 MG Bisacodyl (Dulcolax Supp) 10 mg DAILY PRN AK 09/03/17 18:15 10/03/17 18:14 Citalopram Hydrobromide (celeXA TAB) 20 mg DAILY PO 09/04/17 09:00 10/04/17 08:59 Gabapentin (Neurontin Cap) 100 mg BID PO 09/03/17 21:00 10/03/17 20:59 09/03/17 21:25 100 MG Montelukast Sodium (Singulair Tab) 10 mg DAILY PO 09/04/17 09:00 10/04/17 08:59 Nitroglycerin (Nitrostat Tab) 0.4 mg PRN UT 09/03/17 18:15 10/03/17 18:14 Pantoprazole Sodium (Protonix Tab) 40 mg BID PO 09/03/17 21:00 10/03/17 20:59 09/03/17 21:24 40 MG Albuterol/ Ipratropium (Duoneb) 3 ml Q4R PRN INH 09/03/17 18:15 10/03/17 18:14 Review of Systems Review of systems unable to obtain secondary to underlying dementia Physical Exam Date Time Temp Pulse Resp B/P (MAP) Pulse Ox O2 Delivery O2 Flow Rate FiO2 09/04/17 01:15 Room Air 09/03/17 23:08 37.1 80 16 138/76 (96) 95 Room Air 09/03/17 22:23 Room Air 09/03/17 21:30 36.7 95 18 156/84 (108) 97 Room Air 09/03/17 20:41 94 Room Air 09/03/17 19:54 36.6 76 18 157/88 (111) 95 Room Air 09/03/17 17:37 77 18 152/79 95 Room Air 09/03/17 15:48 83 09/03/17 15:44 37.1 77 18 176/81 95 Room Air No apparent distress PE limited secondary to patient's underlying dementia, does not follow commands. Left lower extremity vascular intact +2 dorsalis pedis pulse, compartments soft nontender, skin intact, Right lower extremity is vascularly intact, +2 dorsalis pedis pulse, compartments soft nontender, skin intact Laboratory Results Last 24 Hours Test 09/03/17 16:21 09/03/17 17:09 09/03/17 18:34 09/04/17 07:08 White Blood Count 12.61 K/uL Red Blood Count 3.70 M/uL Hemoglobin 11.2 g/dL Hematocrit 33.1 % Mean Corpuscular Volume 89.5 fL Mean Corpuscular Hemoglobin 30.3 pg Mean Corpuscular Hemoglobin Concent 33.8 g/dl Platelet Count 220 K/uL Mean Platelet Volume 9.8 fL Neutrophils (%) (Auto) 84.5 % Lymphocytes (%) (Auto) 10.5 % Monocytes (%) (Auto) 4.7 % Eosinophils (%) (Auto) 0.0 % Basophils (%) (Auto) 0.1 % Neutrophils # (Auto) 10.65 K/uL Lymphocytes # (Auto) 1.33 K/uL Monocytes # (Auto) 0.59 K/uL Eosinophils # (Auto) 0.00 K/uL Basophils # (Auto) 0.01 K/uL RDW Standard Deviation 47.0 fL RDW Coefficient of Variation 14.3 % Immature Granulocyte % (Auto) 0.2 % Immature Granulocyte # (Auto) 0.03 K/uL Prothrombin Time 10.3 SECONDS Prothromb Time International Ratio 1.0 Activated Partial Thromboplast Time 23.5 SECONDS Partial Thromboplastin Ratio 0.9 Sodium Level 140 mmol/L Potassium Level 4.4 mmol/L Chloride Level 108 mmol/L Carbon Dioxide Level 26 mmol/L Anion Gap 6.0 mmol/L Blood Urea Nitrogen 27 mg/dl Creatinine 1.16 mg/dl Est Creatinine Clear Calc Drug Dose 30.1 ml/min Estimated GFR () 49.7 Estimated GFR (Non- 42.9 BUN/Creatinine Ratio 23.5 Random Glucose 129 mg/dl Calcium Level 8.2 mg/dl Urine Color YELLOW Urine Appearance CLOUDY Urine pH 8.5 Urine Specific [place] 1.023 Urine Protein NEG Urine Glucose (UA) NEG Urine Ketones NEG Urine Occult Blood NEG Urine Nitrite NEG Urine Bilirubin NEG Urine Urobilinogen NEG Urine Leukocyte Esterase SMALL Urine WBC (Auto) >30 /hpf Urine RBC (Auto) 0-4 /hpf Urine Hyaline Casts (Auto) 10-30 /lpf Urine Epithelial Cells (Auto) 5-10 /lpf Urine Bacteria (Auto) 4+ 25-Hydroxy Vitamin D Total 16.8 ng/ml Assessment & Plan Left hip intertrochanteric fracture. The patient is a 86-year-old female with displaced left hip intertrochanteric fracture sustained after a mechanical fall. I indicated the patient for left hip cephalo-medullary nail. The patient is unable to provide consent, The POA, daughter, Anita Vaughn was informed of the risks and benefits of surgery, which include but not limited to infection, bleeding, blood clots, damage to nerves, vessels, bone and soft tissue, dislocation, leg length discrepancy, malunion, nonunion, failure of the implants, need for additional surgery cardiac and pulmonary events and . The POA chose to proceed with surgical intervention and informed consent was obtained. Bed rest Nonweightbearing left lower extremity Summers N.p.o. Preoperative antibiotics sales communications manager to or Medical clearance pending Hold anticoagulation Pain control L FEMUR 2 VIEWS ROUTINE CLINICAL HISTORY: left hip fracture, fall trauma. Pain. COMPARISON: 09/03/2017 FINDINGS: intertrochanteric fracture left hip is again noted. Alignment is somewhat improved. No evidence of dislocation. Remaining osseous structures are unremarkable. IMPRESSION: Mildly improved alignment of the patient's intertrochanteric fracture. L PELVIS/UNILATERAL HIP 2-3VIEWS HISTORY: 86 years-old Female fall acute pelvic and left hip pain status post fall COMPARISON: CT abdomen and pelvis 05/15/2017 TECHNIQUE: AP view of the pelvis with 2 views of the left hip FINDINGS: Moderate degenerative changes about the bilateral hips with moderately demineralized appearance of the bones. The right femur and bony pelvis appear intact. There is mild soft tissue swelling about the bilateral hips. There is an acute intertrochanteric fracture of the left femur with approximately 25 degrees apex lateral angulation. No significant displacement or impaction. Moderate stool volume is seen throughout the colon. IMPRESSION: Acute mildly angulated intratrochanteric fracture of the left femur.
[2017-09-04 08:12] LABS: CALCIUM 7.8 mg/dl (8.5-10.1); CREATININE 1.05 mg/dl (0.60-1.20); POTASSIUM 4.1 mmol/L (3.5-5.1)
[2017-09-04] MEDS: POLYETHYLENE (MIRALAX) 17 GM PACK PO SCH (08:38)
[2017-09-04] MEDS: CITALOPRAM 20 MG TAB PO SCH (09:00)
[2017-09-04] MEDS: GABAPENTIN 100 MG CAP PO SCH ×2 (09:00→21:24)
[2017-09-04] MEDS: MONTELUKAST SOD 10 MG TAB PO SCH (09:00)
[2017-09-04] MEDS: PANTOprazole SOD 40 MG TAB PO SCH ×2 (09:00→21:24)
[2017-09-04] MEDS ORDERED: POLYETHYLENE (MIRALAX) 17 GM PACK PO SCH (09:00)
[2017-09-04 09:59] VITALS: Ht 154.9 cm; Wt 63.0 kg
[2017-09-04] MEDS: HYDROmorphone INJ 0.5 MG/0.5 ML SYR IV PRN (11:45)
[2017-09-04] MEDS ORDERED: VANCOMYCIN CONSULT ACTIVE PRN (12:45)
[2017-09-04] MEDS ORDERED: ERGOCALCIFEROL 50,000 INTER.UNIT CAP PO SCH (13:15)
--- NOTE | 2017-09-04 13:38 | Progress Note ---
Internal Med Progress Note Date of Service: September 04, 2017. Provider Documentation: SUBJECTIVE: Seen and examined at bedside Could not obtain any meaningful history secondary to aphasia from prior Stroke Daughter at bedside No apparent discomfort Planned for surgery today Discussed with patient's daughter POA:Explained the risks Vs benefits from surgery OBJECTIVE: Vital Signs-as noted below Physical Exam: General Appearance:Moderately built and nourished, no apparent distress Head: normocephalic, Atraumatic Eyes: normal inspection, EOMI, PERRL Neck: supple, Trachea midline Respiratory/Chest: Normal breath sounds, CTA Cardiovascular: S1, S2, No murmur Abdomen/GI:Soft, Non tender, Bowel sounds present Extremities/Musculoskelatal:normal inspection, no edema, Left leg shortened, externally rotated Neurologic/Psych:+ Aphasia, alert, awake, complete neuro exam could not be performed Skin: normal color, warm Lab data as noted below. ASSESSMENT & PLAN: Patient is an 86 yr female with PMH of CVA with aphasia and R arm weakness, HTN , dementia, CAD s/p angioplasty, COPD, anxiety/depression, hx breast CA s/p partial mastectomy presented to ER from [facility] with c/o reported mechanical fall and L hip pain and sustained L hip fracture Left Femoral Fracture: S/P Mechanical fall Presented from [facility] Left hip x-ray: Acute mildly angulated intratrochanteric fracture of the left femur. Patient is at moderate risk for surgery given her age and multiple comorbidities Pain control Orthopedics consulted Discussed with patient's family, POA risks Vs benefits from surgery Hold Plavix and ASA Possible UTI: Follow up Urine culture Started on ceftriaxone empirically Could not obtain history Afebrile mild leukocytosis H/O COPD No signs of exacerbation continue montelukast, continue breo, duonebs HTN Mildly elevated likely secondary to pain monitor Vitamin D deficiency: Started on Vit D supplements H/O CVA: Aphasia, R arm weakness at baseline pureed diet Plavix and ASA held as planned for procedure today HX AAA: 04/2017 - CT abd/pelvis: No change in 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 HX Breast Cancer s/p partial mastectomy. On tamoxifen GERD continue PPI H/O CAD ECHO in 11/13: EF: 55-60%, grade 1 diastolic dysfunction, no wall motion abnormalities Will resume Plavix, ASA as able continue statin Anxiety/Depression: continue citalopram continue Ativan prn ANEMIA: Hgb: 10.8 which is pt's baseline continue to monitor DVT Px: SCDs Code Status: DNR/DNI Disposition: To be determined animal services officer consulted Vital Signs: Date Time Temp Pulse Resp B/P (MAP) Pulse Ox O2 Delivery O2 Flow Rate FiO2 09/04/17 07:42 36.8 83 19 169/83 (111) 95 Room Air 09/04/17 07:30 Room Air 09/04/17 01:15 Room Air 09/03/17 23:08 37.1 80 16 138/76 (96) 95 Room Air 09/03/17 22:23 Room Air 09/03/17 21:30 36.7 95 18 156/84 (108) 97 Room Air 09/03/17 20:41 94 Room Air 09/03/17 19:54 36.6 76 18 157/88 (111) 95 Room Air 09/03/17 17:37 77 18 152/79 95 Room Air 09/03/17 15:48 83 09/03/17 15:44 37.1 77 18 176/81 95 Room Air Lab Results: Results Past 24 Hours Test 09/03/17 16:21 09/03/17 17:09 09/03/17 18:34 09/04/17 07:08 Range/Units White Blood Count 12.61 13.06 4.8-10.8 K/uL Red Blood Count 3.70 3.50 4.2-5.4 M/uL Hemoglobin 11.2 10.6 12.0-16.0 g/dL Hematocrit 33.1 31.7 37-47 % Mean Corpuscular Volume 89.5 90.6 80-100 fL Mean Corpuscular Hemoglobin 30.3 30.3 25-34 pg Mean Corpuscular Hemoglobin Concent 33.8 33.4 32-36 g/dl Platelet Count 220 216 130-400 K/uL Mean Platelet Volume 9.8 9.5 7.4-10.4 fL Neutrophils (%) (Auto) 84.5 % Lymphocytes (%) (Auto) 10.5 % Monocytes (%) (Auto) 4.7 % Eosinophils (%) (Auto) 0.0 % Basophils (%) (Auto) 0.1 % Neutrophils # (Auto) 10.65 1.4-6.5 K/uL Lymphocytes # (Auto) 1.33 1.2-3.4 K/uL Monocytes # (Auto) 0.59 0.11-0.59 K/uL Eosinophils # (Auto) 0.00 0-0.5 K/uL Basophils # (Auto) 0.01 0-0.2 K/uL RDW Standard Deviation 47.0 48.7 36.4-46.3 fL RDW Coefficient of Variation 14.3 14.8 11.5-14.5 % Immature Granulocyte % (Auto) 0.2 % Immature Granulocyte # (Auto) 0.03 0.00-0.02 K/uL Prothrombin Time 10.3 9.0-12.0 SECONDS Prothromb Time International Ratio 1.0 0.9-1.1 Activated Partial Thromboplast Time 23.5 21.0-31.0 SECONDS Partial Thromboplastin Ratio 0.9 Sodium Level 140 139 136-145 mmol/L Potassium Level 4.4 4.1 3.5-5.1 mmol/L Chloride Level 108 106 98-107 mmol/L Carbon Dioxide Level 26 27 21-32 mmol/L Anion Gap 6.0 6.0 3-11 mmol/L Blood Urea Nitrogen 27 20 7-18 mg/dl Creatinine 1.16 1.05 0.60-1.20 mg/dl Est Creatinine Clear Calc Drug Dose 30.1 33.3 ml/min Estimated GFR () 49.7 56.1 Estimated GFR (Non- 42.9 48.4 BUN/Creatinine Ratio 23.5 19.4 10-20 Random Glucose 129 122 70-99 mg/dl Calcium Level 8.2 7.8 8.5-10.1 mg/dl Urine Color YELLOW Urine Appearance CLOUDY CLEAR Urine pH 8.5 4.5-7.5 Urine Specific [place] 1.023 1.000-1.030 Urine Protein NEG NEG Urine Glucose (UA) NEG NEG Urine Ketones NEG NEG Urine Occult Blood NEG NEG Urine Nitrite NEG NEG Urine Bilirubin NEG NEG Urine Urobilinogen NEG NEG Urine Leukocyte Esterase SMALL NEG Urine WBC (Auto) >30 0-5 /hpf Urine RBC (Auto) 0-4 0-4 /hpf Urine Hyaline Casts (Auto) 10-30 0-5 /lpf Urine Epithelial Cells (Auto) 5-10 0-5 /lpf Urine Bacteria (Auto) 4+ NEG 25-Hydroxy Vitamin D Total 16.8 30-100 ng/ml Microbiology Results 09/03/17 Urine Culture - Preliminary, Resulted Gram Negative Bacilli Gram Positive Cocci
[2017-09-04] MEDS ORDERED: FENTANYL CITRATE INJ 50 MCG/1 ML 2 ML VIAL ONE (14:15)
[2017-09-04] MEDS ORDERED: LIDOCAINE HCL 2% 2 ML VIAL (20MG/ML) ONE (14:23)
[2017-09-04] MEDS ORDERED: PROPOFOL IV EMULSION 10 MG/ML 20 ML VIAL ONE (14:23)
[2017-09-04] MEDS ORDERED: ATROPINE SULFATE 0.1 MG/ML 5ML SYR IV PRN (14:45)
[2017-09-04] MEDS ORDERED: EpHEDrine SULFATE INJ 50 MG/ML AMP IV PRN (14:45)
[2017-09-04] MEDS ORDERED: PHENYLEPHRINE HCL INJ 10 MG/ML VIAL ONE (15:33)
[2017-09-04] MEDS ORDERED: ROCURONIUM BROMIDE 10 MG/ML 5 ML VIAL ONE (15:33)
[2017-09-04] MEDS ORDERED: BUPIVACAINE 0.5 % 5 MG/1 ML MPF 30ML VIAL ONE (15:34)
[2017-09-04] MEDS ORDERED: ONDANSETRON INJ 2 MG/ML 2 ML VIAL ONE (15:34)
[2017-09-04] MEDS ORDERED: DEXAMETHASONE SOD INJ 4 MG/ML VIAL ONE (15:34)
[2017-09-04] MEDS ORDERED: GLYCOPYRROLATE INJ 0.2 MG/ML VIAL ONE ×2 (15:56)
[2017-09-04] MEDS ORDERED: NEOSTIGMINE METHYLSULFATE 5 MG/5 ML SYR ONE (15:56)
--- NOTE | 2017-09-04 16:12 | [facility] Post Operative Brief Note ---
Immediate Operative Summary Operative Date September 04, 2017. Pre-Operative Diagnosis Intratrochanteric fracture of the left femur Post-Operative Diagnosis Intratrochanteric fracture of the left femur Procedure(s) Performed Left Hip Cephalomedullary Nail Surgeon Dr. Angel Help Desk Coordinator Surgeon(s) none Estimated Blood Loss 50 ml Findings Consistent with Post-Op Diagnosis Fluids (cc crystalloids) 500 Specimens none per surgeon Drains None Anesthesia Type General Complication(s) none Disposition Disposition: Recovery Room / PACU
--- NOTE | 2017-09-04 16:13 | DIAGNOSTIC IMAGING REPORT ---
HIP OR FILMS CLINICAL HISTORY: LT HIP FXfracture COMPARISON STUDY: None FLUOROSCOPY TIME: 109 seconds. FINDINGS: Image intensifier was used for left hip pinning procedure IMPRESSION: Image intensifier was used for left hip pinning procedure The above report was generated using voice recognition software. It may contain grammatical, syntax or spelling errors. Electronically signed by: Roderick Whitaker M.D. 09/04/2017 4:12 PM Dictated Date/Time: 09/04/2017 4:11 PM
--- NOTE | 2017-09-04 16:32 | [facility] Operative Report ---
Operative Report Operative Date September 04, 2017. Pre-Operative Diagnosis Intratrochanteric fracture of the left femur Post-Operative Diagnosis Intratrochanteric fracture of the left femur Procedure(s) Performed Left Hip short Cephalomedullary Nail Surgeon Dr. Angel Training Personnel Supervisor Surgeon(s) none Estimated Blood Loss 50 ml Findings See dictated op note Fluids 500 Specimens none per surgeon Drains None Anesthesia Type General Complication(s) none Disposition Recovery Room / PACU Indications The patient is a 86-year-old female with displaced left hip intertrochanteric fracture sustained after a mechanical fall at the long-term. She was subsequently brought to [facility] emergency department and diagnosed with a left hip intertrochanteric fracture. I indicated the patient for left hip cephalo-medullary nail. The patient is unable to provide consent, The POA, daughter, Anita Vaughn was informed of the risks and benefits of surgery, which include but not limited to infection, bleeding, blood clots, damage to nerves, vessels, bone and soft tissue, dislocation, leg length discrepancy, malunion, nonunion, failure of the implants, need for additional surgery cardiac and pulmonary events and . The POA chose to proceed with surgical intervention and informed consent was obtained. Description of Procedure Following induction of adequate general anesthesia, the patient was placed on the fracture table. The right leg was placed in the well leg obrien and the left leg in the traction leg obrien. All bony prominences were protected. Utilizing c-arm fluoroscopy closed reduction of the fracture was performed. Once satisfied with fracture reduction the left hip was prepped and draped in the usual sterile manner. A time out was performed and site verified. The incision was made from the tip of the greater trochanter proximally. Subcutaneous tissue was sharply dissected to the tip of the greater trochanter, electrocautery used for hemostasis. Under fluoroscopic guidance the drill tipped guidewire was inserted at the tip of the greater trochanter and advanced into the medullary canal. Utilizing the intramedullary drill the guidewire was overdrilled with tissue protector attached. A 11 mm short Synthes TFN was inserted and impacted into position and confirmed by c-arm fluoroscopy. Next the aiming arm was attached to the insertion handle. A incision was made and carried down through subcutaneous tissues to bone. The blade guide sleeve was inserted and secured down to bone. The guide wire was passed across the fracture site to the tip of the femoral head, position was confirmed in the AP and lateral planes utilizing c-arm fluoroscopy. The guide pin was measured and the 11.0mm drill bit passed over the guide pin to open lateral cortex followed by a 6.0mm/10.0mm cannulated reamer to a depth of 100 mm. Next the helical blade was inserted and locked proximally. Traction was released and interfragmentary compression applied. Distally a stab incision was made in the skin and carried down to bone. The triple trocar assembly was inserted into the aiming guide to bone. Utilizing a 4.0mm drill, both cortices were drilled. The nail was locked distally using a single 4.9mm x 38 mm locking bolt. The aiming guide was removed at this time and final radiographs were obtained utilizing c-arm fluoroscopy to confirm overall position and fracture reduction. Incisions were irrigated with copious amounts of sterile saline solution. Subcutaneous tissue were injected utilizing .5% marcaine without epi. Deep closure was performed using #1 Vicryl followed by 2-0 Vicryl for subcutaneous tissues and sean in the skin. Sterile dressing, Xeroform gauze, 4x4s and tegaderm were applied. The patient tolerated the procedure well and was transported to the PACU in stable condition. I attest to the content of the Intraoperative Record and any orders documented therein. Any exceptions are noted below.
[2017-09-04] MEDS: FENTANYL CITRATE INJ 50 MCG/1 ML 2 ML VIAL IV PRN ×3 (16:48→16:58)
--- NOTE | 2017-09-04 17:00 | DIAGNOSTIC IMAGING REPORT ---
L HIP UNILATERAL 2 VIEWS CLINICAL HISTORY: Hip fracture. Postoperative examination. COMPARISON: 09/03/2017 DISCUSSION: There has been interval internal fixation of an intertrochanteric left hip fracture with a femoral neck nail and interlocking intramedullary espinoza. IMPRESSION: Internally fixated intertrochanteric left hip fracture. Electronically signed by: Francois Macdonald M.D. 09/04/2017 4:58 PM Dictated Date/Time: 09/04/2017 4:57 PM
[2017-09-04 17:15] VITALS: BP 138/69; PULSE 87; TEMP 36.6; O2SAT 94
--- NOTE | 2017-09-04 17:15 | Anesthesiology Progress Note ---
Anesthesia Post Op Note Date & Time September 04, 2017 at 17:15 Vital Signs Pain Intensity: 4 Vital Signs Past 12 Hours Date Time Temp Pulse Resp B/P (MAP) Pulse Ox O2 Delivery O2 Flow Rate FiO2 09/04/17 17:00 37.5 89 20 108/31 100 Nasal Cannula 2 09/04/17 16:50 89 18 136/63 100 Nasal Cannula 2 09/04/17 16:40 81 18 138/65 100 Oxymask 10 09/04/17 16:30 83 16 141/69 100 Oxymask 10 09/04/17 16:22 37.8 89 16 132/87 100 Oxymask 10 09/04/17 07:42 36.8 83 19 169/83 (111) 95 Room Air 09/04/17 07:30 Room Air Notes Mental Status: alert / awake / arousable, participated in evaluation Pt Amnestic to Procedure: Yes Nausea / Vomiting: adequately controlled Pain: adequately controlled Airway Patency, RR, SpO2: stable & adequate BP & HR: stable & adequate Hydration State: stable & adequate Anesthetic Complications: no major complications apparent
[2017-09-04] MEDS: D5W AND LACTATED RINGERS 1,000 ML IV SCH (18:13)
[2017-09-04] MEDS: SODIUM CHLORIDE 0.9% 1000ML 1,000 ML IV SCH (18:21)
[2017-09-04] MEDS: CEFTRIAXONE SOD INJ 1 GM in DEXTROSE 5% ADD-VANTAGE 50ML 50 ML IV SCH (18:22)
[2017-09-04 18:28] VITALS: BP 152/86; PULSE 86; TEMP 36.7; O2SAT 94
--- NOTE | 2017-09-04 18:45 | Orthopedic Progress Note ---
Orthopedic Progress Note Date of Service September 04, 2017. Subjective Additional Notes: Postoperative progress note Patient seen resting comfortably in PACU, no acute issues, patient has dementia baseline enzymes will provide any subjective information or follow commands. Objective No apparent distress Left lower extremity is neurovascular sensory intact, +2 dorsalis pedis pulse, compartments soft nontender, dressing clean dry and intact. Date Time Temp Pulse Resp B/P (MAP) Pulse Ox O2 Delivery O2 Flow Rate FiO2 09/04/17 18:28 36.7 86 16 152/86 (108) 94 Nasal Cannula 2.0 09/04/17 17:15 36.6 87 16 138/69 (92) 94 Nasal Cannula 3.0 09/04/17 17:00 37.5 89 20 108/31 100 Nasal Cannula 2 09/04/17 16:50 89 18 136/63 100 Nasal Cannula 2 09/04/17 16:40 81 18 138/65 100 Oxymask 10 09/04/17 16:30 83 16 141/69 100 Oxymask 10 09/04/17 16:22 37.8 89 16 132/87 100 Oxymask 10 09/04/17 07:42 36.8 83 19 169/83 (111) 95 Room Air 09/04/17 07:30 Room Air 09/04/17 01:15 Room Air 09/03/17 23:08 37.1 80 16 138/76 (96) 95 Room Air 09/03/17 22:23 Room Air 09/03/17 21:30 36.7 95 18 156/84 (108) 97 Room Air 09/03/17 20:41 94 Room Air 09/03/17 19:54 36.6 76 18 157/88 (111) 95 Room Air Laboratory Results 24 Hours: Test 09/04/17 07:08 Hematocrit 31.7 % Hemoglobin 10.6 g/dL Assessment & Plan Assessment: Status post left hip short cephalo-medullary nail -Ancef 24 -Partial weightbearing left lower extremity -DVT prophylaxis will restart patient's home medication Eliquis and aspirin tomorrow -PT OT -A.m. labs -Postoperative x-ray demonstrates well aligned well fixed internal orthopedic implant with adequate reduction of the fracture.
[2017-09-04] MEDS ORDERED: DOCUSATE SODIUM/SENNA 50/8.6MG TAB PO SCH (21:00)
[2017-09-04 21:15] VITALS: BP 131/71; PULSE 86; TEMP 36.6; O2SAT 94
[2017-09-04] MEDS: ATORVASTATIN 40 MG TAB PO SCH (21:24)
[2017-09-04] MEDS: DOCUSATE SODIUM/SENNA 50/8.6MG TAB PO SCH (21:24)
[2017-09-04] MEDS: CEFAZOLIN IV 1,000 MG in SYRINGE 0 ML IV SCH (22:19)
[2017-09-04 22:58] VITALS: BP 134/76; PULSE 85; TEMP 37.8; O2SAT 97
[2017-09-05 03:16] VITALS: BP 155/69; PULSE 97; TEMP 37.5; O2SAT 97
[2017-09-05] MEDS: SODIUM CHLORIDE 0.9% 1000ML 1,000 ML IV SCH ×2 (03:43→16:15)
[2017-09-05] MEDS: HYDROmorphone INJ 0.5 MG/0.5 ML SYR IV PRN ×4 (03:44→17:48)
[2017-09-05] MEDS ORDERED: VANCOMYCIN IV 0 MG in SODIUM CHLORIDE 0.9% 250ML 250 ML IV SCH (06:00)
[2017-09-05] MEDS ORDERED: CEFAZOLIN IV 1,000 MG in DEXTROSE 5% 50ML 50 ML IV SCH (06:00)
[2017-09-05] MEDS: CEFAZOLIN IV 1,000 MG in SYRINGE 0 ML IV SCH (07:12)
[2017-09-05 08:20] VITALS: BP 112/66; PULSE 97; TEMP 36.9; O2SAT 97
--- NOTE | 2017-09-05 08:29 | Orthopedic Progress Note ---
Orthopedic Progress Note Date of Service September 05, 2017. Subjective Post OP Day: 1 Additional Notes: Pt awake, pleasantly confused. 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 Objective incision C/D/I, toes mobile Calves are soft, appear NT. NV appears intact. Date Time Temp Pulse Resp B/P (MAP) Pulse Ox O2 Delivery O2 Flow Rate FiO2 09/05/17 08:20 36.9 97 16 112/66 (81) 97 Room Air 09/05/17 03:16 37.5 97 16 155/69 (97) 97 Nasal Cannula 3.0 09/04/17 22:58 37.8 85 14 134/76 (95) 97 Nasal Cannula 3.0 09/04/17 22:45 Nasal Cannula 2.0 09/04/17 21:15 36.6 86 20 131/71 (91) 94 Nasal Cannula 3.0 09/04/17 18:28 36.7 86 16 152/86 (108) 94 Nasal Cannula 2.0 09/04/17 17:15 Nasal Cannula 2.0 09/04/17 17:15 36.6 87 16 138/69 (92) 94 Nasal Cannula 3.0 09/04/17 17:15 Nasal Cannula 2.0 09/04/17 17:00 37.5 89 20 108/31 100 Nasal Cannula 2 09/04/17 16:50 89 18 136/63 100 Nasal Cannula 2 09/04/17 16:40 81 18 138/65 100 Oxymask 10 09/04/17 16:30 83 16 141/69 100 Oxymask 10 09/04/17 16:22 37.8 89 16 132/87 100 Oxymask 10 Laboratory Results 24 Hours: Test 09/05/17 08:08 Assessment & Plan Assessment: POD 1 s/p Left TFN -Ancef 24 -Partial weightbearing left lower extremity -DVT prophylaxis will restart patient's home medication Eliquis and aspirin today -PT OT -A.m. labs pending PMH stroke with aphasia and R arm weakness, HTN, dementia, CAD s/p angioplasty , COPD, anxiety/depression, hx breast CA s/p partial mastectomy Inhouse Planning Pain Management: Dilaudid DVT Prophylaxis: TEDs, SCDs, ASA, other (Plavix)
[2017-09-05 08:35] LABS: HEMATOCRIT 29.3 % (37-47); HEMOGLOBIN 9.5 g/dL (12.0-16.0); MEAN CELL VOLUME 91.3 fL (80-100); MEAN CORPUSCULAR HEMOGLOBIN 29.6 pg (25-34); MEAN CORPUSCULAR HGB CONC 32.4 g/dl (32-36); MEAN PLATELET VOLUME 10.1 fL (7.4-10.4); PLATELET COUNT 210 K/uL (130-400); RED CELL DISTRIBUTION WIDTH CV 14.6 % (11.5-14.5); RED CELL DISTRIBUTION WIDTH SD 49.6 fL (36.4-46.3); WHITE BLOOD COUNT 13.48 K/uL (4.8-10.8)
[2017-09-05 09:11] LABS: CALCIUM 7.9 mg/dl (8.5-10.1); CREATININE 1.11 mg/dl (0.60-1.20); POTASSIUM 4.2 mmol/L (3.5-5.1)
[2017-09-05] MEDS: ASPIRIN 81 MG ECTAB PO SCH (09:48)
[2017-09-05] MEDS: GABAPENTIN 100 MG CAP PO SCH ×2 (09:49→23:23)
[2017-09-05] MEDS: CLOPIDOGREL BISULFATE 75 MG TAB PO SCH (09:49)
[2017-09-05] MEDS: PANTOprazole SOD 40 MG TAB PO SCH ×2 (09:49→23:23)
[2017-09-05] MEDS: CITALOPRAM 20 MG TAB PO SCH (09:49)
[2017-09-05] MEDS: MONTELUKAST SOD 10 MG TAB PO SCH (09:49)
[2017-09-05] MEDS: POLYETHYLENE (MIRALAX) 17 GM PACK PO SCH (09:55)
[2017-09-05] MEDS: ACETAMINOPHEN 325 MG TAB PO PRN ×2 (11:49→16:22)
[2017-09-05] MEDS: D5W AND LACTATED RINGERS 1,000 ML IV SCH (12:00)
[2017-09-05] MEDS: CEFTRIAXONE SOD INJ 1 GM in DEXTROSE 5% ADD-VANTAGE 50ML 50 ML IV SCH (16:15)
[2017-09-05 16:38] VITALS: BP 122/79; PULSE 106; TEMP 37.3; O2SAT 90
--- NOTE | 2017-09-05 17:16 | Progress Note ---
Internal Med Progress Note Date of Service: September 05, 2017. Provider Documentation: SUBJECTIVE: Seen and examined at bedside Decreased urine output Patient aphasic from prior Stroke No family at bedside No apparent discomfort Poor oral intake OBJECTIVE: Vital Signs-as noted below Physical Exam: General Appearance:Moderately built and nourished, no apparent distress Head: normocephalic, Atraumatic Eyes: normal inspection, EOMI, PERRL Neck: supple, Trachea midline Respiratory/Chest: Normal breath sounds, CTA Cardiovascular: S1, S2, No murmur Abdomen/GI:Soft, Non tender, Bowel sounds present Extremities/Musculoskelatal:normal inspection, no edema, Left leg surgical site in bandage Neurologic/Psych:+ Aphasia, alert, awake, complete neuro exam could not be performed Skin: normal color, warm Lab data as noted below. ASSESSMENT & PLAN: Patient is an 86 yr female with PMH of CVA with aphasia and R arm weakness, HTN , dementia, CAD s/p angioplasty, COPD, anxiety/depression, hx breast CA s/p partial mastectomy presented to ER from [facility] with c/o reported mechanical fall and L hip pain and sustained L hip fracture Left Femoral Fracture: S/P surgery POD # 1 S/P Mechanical fall Presented from [facility] Left hip x-ray: Acute mildly angulated intratrochanteric fracture of the left femur. 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 HX Breast Cancer s/p partial mastectomy. On tamoxifen GERD continue PPI H/O CAD ECHO in 11/13: EF: 55-60%, grade 1 diastolic dysfunction, no wall motion abnormalities Continue Plavix, ASA, statin Anxiety/Depression: continue citalopram continue Ativan prn ANEMIA: continue to monitor Hb:9.5 today DVT Px: SCDs Consider Heparin SQ if Ok with Ortho Code Status: DNR/DNI Disposition: Bed Hold at [facility] nutritional services host consulted Vital Signs: Date Time Temp Pulse Resp B/P (MAP) Pulse Ox O2 Delivery O2 Flow Rate FiO2 09/05/17 16:38 37.3 106 18 122/79 (93) 90 Room Air 09/05/17 08:20 36.9 97 16 112/66 (81) 97 Room Air 09/05/17 03:16 37.5 97 16 155/69 (97) 97 Nasal Cannula 3.0 09/04/17 22:58 37.8 85 14 134/76 (95) 97 Nasal Cannula 3.0 09/04/17 22:45 Nasal Cannula 2.0 09/04/17 21:15 36.6 86 20 131/71 (91) 94 Nasal Cannula 3.0 09/04/17 18:28 36.7 86 16 152/86 (108) 94 Nasal Cannula 2.0 Lab Results: Results Past 24 Hours Test 09/05/17 08:08 Range/Units White Blood Count 13.48 4.8-10.8 K/uL Red Blood Count 3.21 4.2-5.4 M/uL Hemoglobin 9.5 12.0-16.0 g/dL Hematocrit 29.3 37-47 % Mean Corpuscular Volume 91.3 80-100 fL Mean Corpuscular Hemoglobin 29.6 25-34 pg Mean Corpuscular Hemoglobin Concent 32.4 32-36 g/dl RDW Standard Deviation 49.6 36.4-46.3 fL RDW Coefficient of Variation 14.6 11.5-14.5 % Platelet Count 210 130-400 K/uL Mean Platelet Volume 10.1 7.4-10.4 fL Sodium Level 140 136-145 mmol/L Potassium Level 4.2 3.5-5.1 mmol/L Chloride Level 107 98-107 mmol/L Carbon Dioxide Level 28 21-32 mmol/L Anion Gap 5.0 3-11 mmol/L Blood Urea Nitrogen 21 7-18 mg/dl Creatinine 1.11 0.60-1.20 mg/dl Est Creatinine Clear Calc Drug Dose 31.5 ml/min Estimated GFR () 52.4 Estimated GFR (Non- 45.2 BUN/Creatinine Ratio 18.5 10-20 Random Glucose 113 70-99 mg/dl Calcium Level 7.9 8.5-10.1 mg/dl
[2017-09-05] MEDS ORDERED: SODIUM CHLORIDE 0.9% 1000ML 250 ML IV ONE (17:30)
[2017-09-05 23:04] VITALS: BP 105/65; PULSE 87; TEMP 36.7; O2SAT 97
[2017-09-05] MEDS: DOCUSATE SODIUM/SENNA 50/8.6MG TAB PO SCH (23:23)
[2017-09-05] MEDS: ATORVASTATIN 40 MG TAB PO SCH (23:23)
[2017-09-06] MEDS: SODIUM CHLORIDE 0.9% 1000ML 1,000 ML IV SCH ×2 (04:00→16:49)
[2017-09-06] MEDS ORDERED: NURSING VERBAL MED ORDER ONE (07:15)
[2017-09-06 07:44] VITALS: BP 128/74; PULSE 87; TEMP 36.8; O2SAT 97
[2017-09-06 08:58] LABS: HEMATOCRIT 25.2 % (37-47); HEMOGLOBIN 8.1 g/dL (12.0-16.0); MEAN CELL VOLUME 92.3 fL (80-100); MEAN CORPUSCULAR HEMOGLOBIN 29.7 pg (25-34); MEAN CORPUSCULAR HGB CONC 32.1 g/dl (32-36); MEAN PLATELET VOLUME 9.8 fL (7.4-10.4); PLATELET COUNT 192 K/uL (130-400); RED CELL DISTRIBUTION WIDTH CV 14.9 % (11.5-14.5); RED CELL DISTRIBUTION WIDTH SD 50.9 fL (36.4-46.3); WHITE BLOOD COUNT 13.97 K/uL (4.8-10.8)
[2017-09-06 09:32] LABS: CALCIUM 7.2 mg/dl (8.5-10.1); CREATININE 1.16 mg/dl (0.60-1.20); POTASSIUM 3.7 mmol/L (3.5-5.1)
[2017-09-06] MEDS: CLOPIDOGREL BISULFATE 75 MG TAB PO SCH (09:36)
[2017-09-06] MEDS: CITALOPRAM 20 MG TAB PO SCH (09:36)
[2017-09-06] MEDS: PANTOprazole SOD 40 MG TAB PO SCH ×2 (09:36→21:28)
[2017-09-06] MEDS: MONTELUKAST SOD 10 MG TAB PO SCH (09:36)
[2017-09-06] MEDS: GABAPENTIN 100 MG CAP PO SCH ×2 (09:37→21:29)
[2017-09-06] MEDS: ASPIRIN 81 MG ECTAB PO SCH (09:37)
[2017-09-06] MEDS: ACETAMINOPHEN 325 MG TAB PO PRN ×2 (09:37→18:02)
[2017-09-06] MEDS: POLYETHYLENE (MIRALAX) 17 GM PACK PO SCH (09:39)
--- NOTE | 2017-09-06 09:44 | Orthopedic Progress Note ---
Orthopedic Progress Note Date of Service September 06, 2017. Subjective Additional Notes: Patient seen lying in bed, comfortably, pleasantly demented. Objective No apparent distress Left lower extremity, vascular intact, +2 dorsalis pedis pulse, compartment soft nontender, spontaneously moves foot and toes, does not follow commands. Incision dressing clean dry and intact. Date Time Temp Pulse Resp B/P (MAP) Pulse Ox O2 Delivery O2 Flow Rate FiO2 09/06/17 07:44 36.8 87 18 128/74 (92) 97 2.0 09/06/17 01:00 Nasal Cannula 2.0 09/05/17 23:04 36.7 87 18 105/65 (78) 97 Nasal Cannula 2.0 09/05/17 16:38 37.3 106 18 122/79 (93) 90 Room Air 09/05/17 16:20 Room Air Laboratory Results 24 Hours: Test 09/06/17 08:38 Hematocrit 25.2 % Hemoglobin 8.1 g/dL Assessment & Plan Assessment: POD 2 s/p Left TFN -Ancef 24 -Partial weightbearing left lower extremity -DVT prophylaxis - eliquis and aspirin -PT OT -A.m. 8.1 PMH stroke with aphasia and R arm weakness, HTN, dementia, CAD s/p angioplasty , COPD, anxiety/depression, hx breast CA s/p partial mastectomy Inhouse Planning Pain Management: Dilaudid DVT Prophylaxis: TEDs, SCDs, ASA, other (Plavix)
[2017-09-06] MEDS: KETOROLAC TROMETHAMINE 10 MG TAB PO PRN ×2 (12:43→21:30)
[2017-09-06 15:03] VITALS: BP 118/60; PULSE 92; TEMP 37.4; O2SAT 97
--- NOTE | 2017-09-06 16:26 | Progress Note ---
Internal Med Progress Note Date of Service: September 06, 2017. Provider Documentation: SUBJECTIVE: Seen and examined at bedside Seemed to be comfortable No family at bedside +Dementia, aphasia Pain seemed to be controlled OBJECTIVE: Vital Signs-as noted below Physical Exam: General Appearance:Moderately built and nourished, no apparent distress Head: normocephalic, Atraumatic Eyes: normal inspection, EOMI, PERRL Neck: supple, Trachea midline Respiratory/Chest: Normal breath sounds, CTA Cardiovascular: S1, S2, No murmur Abdomen/GI:Soft, Non tender, Bowel sounds present Extremities/Musculoskelatal:normal inspection, no edema, Left leg surgical site in bandage Neurologic/Psych:+ Aphasia, alert, awake, complete neuro exam could not be performed Skin: normal color, warm Lab data as noted below. ASSESSMENT & PLAN: Patient is an 86 yr female with PMH of CVA with aphasia and R arm weakness, HTN , dementia, CAD s/p angioplasty, COPD, anxiety/depression, hx breast CA s/p partial mastectomy presented to ER from [facility] with c/o reported mechanical fall and L hip pain and sustained L hip fracture Left Femoral Fracture: S/P surgery POD # 2 S/P Mechanical fall Presented from [facility] Left hip x-ray: Acute mildly angulated intratrochanteric fracture of the left femur. 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 HX Breast Cancer s/p partial mastectomy. On tamoxifen GERD continue PPI H/O CAD ECHO in 11/13: EF: 55-60%, grade 1 diastolic dysfunction, no wall motion abnormalities Continue Plavix, ASA, statin Anxiety/Depression: continue citalopram continue Ativan prn ANEMIA: continue to monitor Hb:8.1 today, partly dilutional 2/2 IVF DVT Px: Heparin SQ Code Status: DNR/DNI Disposition: Bed Hold at [facility] mountain services manager consulted Vital Signs: Date Time Temp Pulse Resp B/P (MAP) Pulse Ox O2 Delivery O2 Flow Rate FiO2 09/06/17 15:03 37.4 92 18 118/60 (79) 97 09/06/17 07:44 36.8 87 18 128/74 (92) 97 2.0 09/06/17 07:30 Room Air 09/06/17 01:00 Nasal Cannula 2.0 09/05/17 23:04 36.7 87 18 105/65 (78) 97 Nasal Cannula 2.0 09/05/17 16:38 37.3 106 18 122/79 (93) 90 Room Air Lab Results: Results Past 24 Hours Test 09/06/17 08:38 Range/Units White Blood Count 13.97 4.8-10.8 K/uL Red Blood Count 2.73 4.2-5.4 M/uL Hemoglobin 8.1 12.0-16.0 g/dL Hematocrit 25.2 37-47 % Mean Corpuscular Volume 92.3 80-100 fL Mean Corpuscular Hemoglobin 29.7 25-34 pg Mean Corpuscular Hemoglobin Concent 32.1 32-36 g/dl RDW Standard Deviation 50.9 36.4-46.3 fL RDW Coefficient of Variation 14.9 11.5-14.5 % Platelet Count 192 130-400 K/uL Mean Platelet Volume 9.8 7.4-10.4 fL Sodium Level 141 136-145 mmol/L Potassium Level 3.7 3.5-5.1 mmol/L Chloride Level 112 98-107 mmol/L Carbon Dioxide Level 26 21-32 mmol/L Anion Gap 3.0 3-11 mmol/L Blood Urea Nitrogen 26 7-18 mg/dl Creatinine 1.16 0.60-1.20 mg/dl Est Creatinine Clear Calc Drug Dose 30.1 ml/min Estimated GFR () 49.7 Estimated GFR (Non- 42.9 BUN/Creatinine Ratio 22.0 10-20 Random Glucose 99 70-99 mg/dl Calcium Level 7.2 8.5-10.1 mg/dl Magnesium Level 1.8 1.8-2.4 mg/dl
[2017-09-06] MEDS: CEFTRIAXONE SOD INJ 1 GM in DEXTROSE 5% ADD-VANTAGE 50ML 50 ML IV SCH (16:49)
[2017-09-06 19:53] VITALS: PULSE 92; O2SAT 97
[2017-09-06] MEDS: DOCUSATE SODIUM/SENNA 50/8.6MG TAB PO SCH (21:00)
[2017-09-06] MEDS: ATORVASTATIN 40 MG TAB PO SCH (21:50)
[2017-09-06] MEDS: HEPARIN SOD 5000 UNIT/0.5 ML CARP SQ SCH (21:55)
[2017-09-06 22:54] VITALS: BP 106/64; PULSE 82; TEMP 36.5; O2SAT 97
[2017-09-07] MEDS: SODIUM CHLORIDE 0.9% 1000ML 1,000 ML IV SCH (04:37)
--- NOTE | 2017-09-07 07:01 | Orthopedic Progress Note ---
Orthopedic Progress Note Date of Service September 07, 2017. Subjective Post OP Day: 3 Additional Notes: Resting comfortably. Sleeping but easily awoken. Pleasantly confused. Objective calves soft nontender, N/V intact, incision C/D/I, toes mobile Date Time Temp Pulse Resp B/P (MAP) Pulse Ox O2 Delivery O2 Flow Rate FiO2 09/07/17 00:15 Nasal Cannula 2.0 09/06/17 22:54 36.5 82 16 106/64 (78) 97 Nasal Cannula 2.0 09/06/17 19:53 92 18 97 Nasal Cannula 2.0 09/06/17 19:20 Nasal Cannula 09/06/17 15:03 37.4 92 18 118/60 (79) 97 09/06/17 07:44 36.8 87 18 128/74 (92) 97 2.0 09/06/17 07:30 Room Air Laboratory Results 24 Hours: Test 09/06/17 08:38 09/07/17 04:44 Hematocrit 25.2 % Hemoglobin 8.1 g/dL Assessment & Plan Assessment: POD 3 s/p Left TFN -Ancef 24 -Partial weightbearing left lower extremity -DVT prophylaxis - eliquis and aspirin -PT OT -consider Tramadol for po pain control -Anemia - Labs pending PMH stroke with aphasia and R arm weakness, HTN, dementia, CAD s/p angioplasty , COPD, anxiety/depression, hx breast CA s/p partial mastectomy Ortho will sign off for now. Please call with any questions. Instructions placed in EMR Inhouse Planning Pain Management: Toradol DVT Prophylaxis: TEDs, SCDs, ASA, other (Plavix)
--- NOTE | 2017-09-07 07:06 | Consultant Recommendations ---
Stitch Bonding Machine Operator Recommendations Date of Service September 07, 2017. Stitch Bonding Machine Operator Recommendations [facility] [place] DISCHARGE INSTRUCTIONS: HIP FRACTURE SELF CARE INSTRUCTIONS: A. You are to ambulate with a walker or crutches for approximately 6 weeks. B. You are PARTIAL WEIGHT BEARING on your operative lower extremity for at least 6 weeks. C. Wear low heeled shoes with non-slip soles D. Be sure that your floors are free of things that could trip you throw rugs, electrical cords, and small objects. Avoid wet and waxed floors, especially with crutches/walker/cane. E. Try to walk several times a day with rest periods between. F. You may shower 48 hours after surgery and get the incision area wet, but DO NOT soak or submerge incision area in water. (No baths, swimming pools, hot tubs ) G. You may have a large, band-aid like dressing over your incision (Aquacel). This will remain on your incision for 7 days, and then can be removed. You CAN shower with this on. If incision is leaking through the dressing, please call the office . H. Do NOT apply soap or any ointment/lotions directly over incision. I. You may use ice as needed to operative site. SPECIAL CARE INSTRUCTIONS: VERY IMPORTANT TO READ AND REVIEW A. You may be at risk for phlebitis or blood clots. a. Wear surgical stockings (MICHELLE hose) for 2 weeks after surgery to improve circulation and reduce swelling. b. Take ASPIRIN and PLAVIX as directed. This is your blood thinner. Your primary medical Physician may change this as necessary c. If you are on Coumadin- you will have daily/weekly blood work to monitor your levels. This will be done by either your family physician/ jewelry inspector (if you are on Coumadin chronically) versus your orthopedic surgeon. Expect a phone call the day of or the day after your blood work is drawn to adjust your dose accordingly. B. There are a few signs you need to watch for after you are home. Call [facility] at [phone] if you experience any of the following: a. If you have a temperature of 101 degrees or higher. b. Sudden increase in pain in your hip not relieved by rest or pain medication. c. Any fluid or drainage from the incision; redness of the incision. d. Shortness of breath or chest pain. C. Call your physician if: a. Temperature is greater than 101 degrees (F). b. Pain is not relieved by prescribed pain medications. c. Increase drainage or redness from incision. d. Unanswered questions or concerns. D. Pain Medication: a. You will be prescribed pain medication upon discharge that should last till your first post-operative appointment. b. If you experience nausea and/or skin rash, discontinue this medication and contact our office for an alternative medication. c. Caution- narcotic pain medication can cause constipation. FOLLOW UP VISIT: Please call [facility] at [phone] to schedule a follow up appointment with Dr Angel in 10-14 days from the date of your surgery date.
[2017-09-07 07:34] LABS: HEMATOCRIT 22.6 % (37-47); HEMOGLOBIN 7.3 g/dL (12.0-16.0); MEAN CELL VOLUME 91.9 fL (80-100); MEAN CORPUSCULAR HEMOGLOBIN 29.7 pg (25-34); MEAN CORPUSCULAR HGB CONC 32.3 g/dl (32-36); MEAN PLATELET VOLUME 9.4 fL (7.4-10.4); PLATELET COUNT 196 K/uL (130-400); RED CELL DISTRIBUTION WIDTH CV 14.9 % (11.5-14.5); RED CELL DISTRIBUTION WIDTH SD 50.9 fL (36.4-46.3); WHITE BLOOD COUNT 10.95 K/uL (4.8-10.8)
[2017-09-07 07:46] VITALS: BP 131/71; PULSE 85; TEMP 36.9; O2SAT 98
[2017-09-07 07:58] LABS: CALCIUM 7.4 mg/dl (8.5-10.1); CREATININE 0.93 mg/dl (0.60-1.20)
[2017-09-07] MEDS: ACETAMINOPHEN 325 MG TAB PO PRN ×3 (09:37→21:40)
[2017-09-07] MEDS: GABAPENTIN 100 MG CAP PO SCH ×2 (09:38→21:35)
[2017-09-07] MEDS: ASPIRIN 81 MG ECTAB PO SCH (09:38)
[2017-09-07] MEDS: CLOPIDOGREL BISULFATE 75 MG TAB PO SCH (09:38)
[2017-09-07] MEDS: CITALOPRAM 20 MG TAB PO SCH (09:38)
[2017-09-07] MEDS: PANTOprazole SOD 40 MG TAB PO SCH ×2 (09:39→21:36)
[2017-09-07] MEDS: MONTELUKAST SOD 10 MG TAB PO SCH (09:39)
[2017-09-07] MEDS: HEPARIN SOD 5000 UNIT/0.5 ML CARP SQ SCH ×2 (09:53→21:40)
[2017-09-07 13:56] VITALS: O2SAT 95
[2017-09-07 15:04] VITALS: BP 164/67; PULSE 90; TEMP 36.8; O2SAT 96
[2017-09-07] MEDS: POLYETHYLENE (MIRALAX) 17 GM PACK PO SCH (16:00)
--- NOTE | 2017-09-07 16:35 | DIAGNOSTIC IMAGING REPORT ---
L EXTREMITY NONVASCULAR LIMITED HISTORY: 86 years-old Female R/O Hematoma: Left Hip acute left thigh pain and swelling COMPARISON: Left hip radiographs 09/04/2017 TECHNIQUE: Multiple real-time sonographic images of the left hip soft tissues were obtained assessing grayscale appearance FINDINGS/IMPRESSION: Study is limited secondary to lack of patient cooperation throughout the exam. Moderate amount of subcutaneous edema is noted without focal collection to suggest abscess or hematoma. The above report was generated using voice recognition software. It may contain grammatical, syntax or spelling errors. Electronically signed by: Tal Taylor M.D. 09/07/2017 4:33 PM Dictated Date/Time: 09/07/2017 4:32 PM
[2017-09-07] MEDS: CEFTRIAXONE SOD INJ 1 GM in DEXTROSE 5% ADD-VANTAGE 50ML 50 ML IV SCH (16:48)
[2017-09-07 18:30] VITALS: BP 102/46; PULSE 89
--- NOTE | 2017-09-07 18:55 | Progress Note ---
Internal Med Progress Note Date of Service: September 07, 2017. Provider Documentation: SUBJECTIVE: Seen and examined at bedside Has fecal Incontinence per staff Seemed to be comfortable No family at bedside +Dementia, aphasia Pain seemed to be controlled Hb dropped, no obvious source of bleeding USD LE: negative for hematoma OBJECTIVE: Vital Signs-as noted below Physical Exam: General Appearance:Moderately built and nourished, no apparent distress Head: normocephalic, Atraumatic Eyes: normal inspection, EOMI, PERRL Neck: supple, Trachea midline Respiratory/Chest: Coarse breath sounds, + Wheezes Cardiovascular: S1, S2, No murmur Abdomen/GI:Soft, Non tender, Bowel sounds present Extremities/Musculoskelatal:normal inspection, no edema, Left leg surgical site in bandage Neurologic/Psych:+ Aphasia, alert, awake, complete neuro exam could not be performed Skin: normal color, warm Lab data as noted below. ASSESSMENT & PLAN: Patient is an 86 yr female with PMH of CVA with aphasia and R arm weakness, HTN , dementia, CAD s/p angioplasty, COPD, anxiety/depression, hx breast CA s/p partial mastectomy presented to ER from [facility] with c/o reported mechanical fall and L hip pain and sustained L hip fracture Left Femoral Fracture: S/P surgery POD # 3 S/P Mechanical fall Presented from [facility] Left hip x-ray: Acute mildly angulated intratrochanteric fracture of the left femur. Patient is at moderate risk for surgery given her age and multiple comorbidities Pain control: Added tramadol Avoid opioids as able Appreciate Orthopedics Input Orthopedics following Anemia: Hb: dropped to 7.3 Partly dilutional 2/2 IVF Hold Aspirin, plavix and Heparin SQ if fecal occult positive Monitor Hb LE USD: negative for Hematoma Transfuse PRBC if Hb <7.0 Check FOBT UTI: Urine culture: Proteus, Group B step Continue ceftriaxone Day # 4 monitor H/O COPD continue montelukast, continue breo, duonebs Continue Nebs HTN Labile likely secondary to pain monitor Vitamin D deficiency: Continue Vit D supplements Q7D H/O CVA: Aphasia, R arm weakness at baseline pureed diet cotninue Plavix, ASA HX AAA: 04/2017 - CT abd/pelvis: No change in 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 HX Breast Cancer s/p partial mastectomy. On tamoxifen GERD continue PPI H/O CAD ECHO in 11/13: EF: 55-60%, grade 1 diastolic dysfunction, no wall motion abnormalities Continue Plavix, ASA, statin Anxiety/Depression: continue citalopram continue Ativan prn DVT Px: Heparin SQ Code Status: DNR/DNI Disposition: Bed Hold at [facility] protective services officer consulted Vital Signs: Date Time Temp Pulse Resp B/P (MAP) Pulse Ox O2 Delivery O2 Flow Rate FiO2 09/07/17 15:04 36.8 90 18 164/67 (99) 96 Room Air 09/07/17 13:56 95 Room Air 09/07/17 07:46 36.9 85 18 131/71 (91) 98 1.0 09/07/17 07:45 Nasal Cannula 1.0 09/07/17 00:15 Nasal Cannula 2.0 09/06/17 22:54 36.5 82 16 106/64 (78) 97 Nasal Cannula 2.0 09/06/17 19:53 92 18 97 Nasal Cannula 2.0 09/06/17 19:20 Nasal Cannula Lab Results: Results Past 24 Hours Test 09/07/17 07:18 Range/Units White Blood Count 10.95 4.8-10.8 K/uL Red Blood Count 2.46 4.2-5.4 M/uL Hemoglobin 7.3 12.0-16.0 g/dL Hematocrit 22.6 37-47 % Mean Corpuscular Volume 91.9 80-100 fL Mean Corpuscular Hemoglobin 29.7 25-34 pg Mean Corpuscular Hemoglobin Concent 32.3 32-36 g/dl RDW Standard Deviation 50.9 36.4-46.3 fL RDW Coefficient of Variation 14.9 11.5-14.5 % Platelet Count 196 130-400 K/uL Mean Platelet Volume 9.4 7.4-10.4 fL Sodium Level 143 136-145 mmol/L Potassium Level 4.0 3.5-5.1 mmol/L Chloride Level 113 98-107 mmol/L Carbon Dioxide Level 25 21-32 mmol/L Anion Gap 6.0 3-11 mmol/L Blood Urea Nitrogen 25 7-18 mg/dl Creatinine 0.93 0.60-1.20 mg/dl Est Creatinine Clear Calc Drug Dose 37.6 ml/min Estimated GFR () 65.0 Estimated GFR (Non- 56.0 BUN/Creatinine Ratio 26.6 10-20 Random Glucose 97 70-99 mg/dl Calcium Level 7.4 8.5-10.1 mg/dl Magnesium Level 1.8 1.8-2.4 mg/dl
[2017-09-07 20:39] LABS: HEMATOCRIT 23.8 % (37-47); HEMOGLOBIN 7.6 g/dL (12.0-16.0)
[2017-09-07] MEDS: ALBUT/IPRATROP 3MG/0.5MG NEB 3 ML VIAL INH SCH (21:23)
[2017-09-07] MEDS: ATORVASTATIN 40 MG TAB PO SCH (21:35)
[2017-09-07 23:00] VITALS: BP 134/80; PULSE 84; TEMP 36.8; O2SAT 99
[2017-09-08 06:44] LABS: HEMATOCRIT 24.2 % (37-47); MEAN CELL VOLUME 90.3 fL (80-100); MEAN CORPUSCULAR HEMOGLOBIN 29.9 pg (25-34); MEAN CORPUSCULAR HGB CONC 33.1 g/dl (32-36); MEAN PLATELET VOLUME 9.2 fL (7.4-10.4); PLATELET COUNT 267 K/uL (130-400); RED CELL DISTRIBUTION WIDTH CV 14.7 % (11.5-14.5); RED CELL DISTRIBUTION WIDTH SD 48.4 fL (36.4-46.3); WHITE BLOOD COUNT 10.71 K/uL (4.8-10.8)
[2017-09-08 06:56] VITALS: PULSE 88; O2SAT 95
[2017-09-08] MEDS: ALBUT/IPRATROP 3MG/0.5MG NEB 3 ML VIAL INH SCH ×2 (06:56→11:10)
[2017-09-08 07:25] VITALS: BP 144/65; PULSE 90; TEMP 37.1; O2SAT 93
[2017-09-08] MEDS: GABAPENTIN 100 MG CAP PO SCH (08:34)
[2017-09-08] MEDS: CITALOPRAM 20 MG TAB PO SCH (08:34)
[2017-09-08] MEDS: MONTELUKAST SOD 10 MG TAB PO SCH (08:35)
[2017-09-08] MEDS: PANTOprazole SOD 40 MG TAB PO SCH (08:35)
[2017-09-08] MEDS: HEPARIN SOD 5000 UNIT/0.5 ML CARP SQ SCH (08:37)
[2017-09-08] MEDS: KETOROLAC TROMETHAMINE 10 MG TAB PO PRN (08:38)
--- NOTE | 2017-09-08 09:06 | Progress Note ---
Internal Med Progress Note Date of Service: September 08, 2017. Provider Documentation: SUBJECTIVE: Seen and examined at bedside +Dementia, aphasia Hb stable, FOBT negative L LE USD: No loculated collection to suggest hematoma No family at bedside OBJECTIVE: Vital Signs-as noted below Physical Exam: General Appearance:Moderately built and nourished, no apparent distress Head: normocephalic, Atraumatic Eyes: normal inspection, EOMI, PERRL Neck: supple, Trachea midline Respiratory/Chest: Coarse breath sounds, Mild Wheezes Cardiovascular: S1, S2, No murmur Abdomen/GI:Soft, Non tender, Bowel sounds present Extremities/Musculoskelatal:normal inspection, Left leg surgical site in sean , no erythema, +edema Neurologic/Psych:+ Aphasia, alert, awake, complete neuro exam could not be performed Skin: normal color, warm Lab data as noted below. ASSESSMENT & PLAN: Patient is an 86 yr female with PMH of CVA with aphasia and R arm weakness, HTN , dementia, CAD s/p angioplasty, COPD, anxiety/depression, hx breast CA s/p partial mastectomy presented to ER from [facility] with c/o reported mechanical fall and L hip pain and sustained L hip fracture Left Femoral Fracture: S/P surgery POD # 4 S/P Mechanical fall Presented from [facility] Left hip x-ray: Acute mildly angulated intratrochanteric fracture of the left femur. Patient is at moderate risk for surgery given her age and multiple comorbidities Pain control Avoid opioids as able Appreciate Orthopedics Input Needs follow up with Orthopedics upon DC Anemia: Hb:8.0 Partly dilutional 2/2 IVF LE USD: negative for Hematoma Transfuse PRBC if Hb <7.0 FOBT:negative UTI: Urine culture: Proteus, Group B step Continue ceftriaxone Day # 5 monitor H/O COPD continue montelukast, continue breo, duonebs Continue Nebs HTN Labile likely secondary to pain monitor Vitamin D deficiency: Continue Vit D supplements Q7D H/O CVA: Aphasia, R arm weakness at baseline pureed diet continue Plavix, ASA HX AAA: 04/[address] - CT abd/pelvis: No change in 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 HX Breast Cancer s/p partial mastectomy. On tamoxifen GERD continue PPI H/O CAD ECHO in 11/13: EF: 55-60%, grade 1 diastolic dysfunction, no wall motion abnormalities Continue Plavix, ASA, statin Anxiety/Depression: continue citalopram continue Ativan prn DVT Px: Heparin SQ Code Status: DNR/DNI Disposition: Plan to discharge back to [facility] today Follow up with your PCP in 1 week Follow up with your Orthopedic Surgeon in 10 days. Please call [facility] at [phone] to schedule a follow up appointment Complete the antibiotic course as prescribed for UTI Continue Heparin SQ for 2 weeks for DVT prophylaxis Seek immediate medical attention if your symptoms reoccur or worsen Vital Signs: Date Time Temp Pulse Resp B/P (MAP) Pulse Ox O2 Delivery O2 Flow Rate FiO2 09/08/17 07:25 37.1 90 18 144/65 (91) 93 Room Air 09/08/17 06:56 88 18 95 Room Air 09/07/17 23:30 Nasal Cannula 2.0 09/07/17 23:00 36.8 84 16 134/80 (98) 99 Nasal Cannula 3.0 09/07/17 18:30 89 102/46 (64) 09/07/17 16:45 Room Air 09/07/17 15:04 36.8 90 18 164/67 (99) 96 Room Air 09/07/17 13:56 95 Room Air Lab Results: Results Past 24 Hours Test 09/07/17 19:51 09/07/17 20:03 09/08/17 06:38 Range/Units Stool Occult Blood NEGATIVE NEGATIVE Hemoglobin 7.6 8.0 12.0-16.0 g/dL Hematocrit 23.8 24.2 37-47 % White Blood Count 10.71 4.8-10.8 K/uL Red Blood Count 2.68 4.2-5.4 M/uL Mean Corpuscular Volume 90.3 80-100 fL Mean Corpuscular Hemoglobin 29.9 25-34 pg Mean Corpuscular Hemoglobin Concent 33.1 32-36 g/dl RDW Standard Deviation 48.4 36.4-46.3 fL RDW Coefficient of Variation 14.7 11.5-14.5 % Platelet Count 267 130-400 K/uL Mean Platelet Volume 9.2 7.4-10.4 fL
[2017-09-08] MEDS ORDERED: HPRIS5M SQ (09:12)
[2017-09-08] MEDS ORDERED: SENN8.6T7 PO (09:12)
[2017-09-08] MEDS ORDERED: TRD10 PO (09:12)
[2017-09-08] MEDS ORDERED: CEFU1TAB33 PO (09:12)
--- NOTE | 2017-09-08 09:14 | Discharge Summary ---
Discharge Summary Date of Service September 08, 2017. Discharge Summary Admission Date: September 03, 2017 at 17:50 Discharge Date: September 08, 2017 [facility] Principal Diagnosis: Left Hip fracture, UTI Procedures: Hip X ray: Acute mildly angulated intratrochanteric fracture of the left femur. CXR: 1. Subsegmental left basilar opacities suggest atelectasis. 2. Emphysema with hyperinflation. 3. Prior granulomatous disease. LE USD; Study is limited secondary to lack of patient cooperation throughout the exam. Moderate amount of subcutaneous edema is noted without focal collection to suggest abscess or hematoma. Consultations: Orthopedics Pending Studies/Follow-Up: Follow up with your PCP in 1 week Follow up with your Orthopedic Surgeon in 10 days. Please call [facility] at [phone] to schedule a follow up appointment Complete the antibiotic course as prescribed for UTI Continue Heparin SQ for 2 weeks for DVT prophylaxis Seek immediate medical attention if your symptoms reoccur or worsen Medication Reconciliation New Medications: Cefuroxime Axetil (Cefuroxime Axetil) 250 Mg Tab 250 MG PO BID for 5 Days, #10 TABS Heparin Sod (Porcine) (Heparin Sodium) 5,000 Unit/0.5 Ml Inj 5000 UNIT SQ Q12 for 14 Days Ketorolac Tromethamine (Ketorolac Tromethamine) 10 Mg Tab 10 MG PO Q6H PRN for Pain for 3 Days, #12 TAB Sennosides-Docusate Sodium (Senokot S) 1 Tab Tab 2 TAB PO HS PRN for Constipation for 7 Days, #7 TAB Continued Medications: Acetaminophen (Tylenol) 325 Mg Tab 650 MG PO DAILY, TAB Albuterol Sulf (Albuterol Sulfate) 2.5 Mg/3 Ml Nebu 1 VIAL INH QID for SOB/Wheezing Aspirin (Aspirin Chewable) 81 Mg Chew 81 MG PO DAILY Atorvastatin (Lipitor) 80 Mg Tab 80 MG PO HS, TAB Bisacodyl (Bisac-Evac) 10 Mg Supp 10 MG CO UD Citalopram Hydrobromide (Celexa) 20 Mg Tab 20 MG PO DAILY, TAB Clopidogrel Bisulfate (Plavix) 75 Mg Tab 75 MG PO DAILY Gabapentin (Gabapentin) 100 Mg Cap 100 MG PO BID Ipratropium-Albuterol (Duoneb) 3 Ml Nebu 1 TREATMENT INH Q6 PRN for SOB/Wheezing, INHA Lorazepam (Ativan) 0.5 Mg Tab 0.5 MG PO DAILY PRN for Anxiety, TAB Menthol-Methyl Salicylate (Samantha (Bengay Greaseless) 1 Cre Cre TOP Q6 Montelukast Sod (Montelukast Sodium) 5 Mg Chew 10 MG PO DAILY Nitroglycerin (Nitrostat) 0.4 Mg Tab 0.4 MG UT PRN, 0 Refills May repeat 3 times; if pain continues, call 911 Omeprazole (Prilosec) 20 Mg Cap 20 MG PO BID Polyethylene Glycol 3350 (Miralax) 1 Pow Pow 17 GM PO Q2D, #255 GM Tamoxifen (Nolvadex) 20 Mg Tab 20 MG PO DAILY Admission Information HPI (per Admitting provider): Pt is 86 y/o F with 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 with c/o reported mechanical fall this morning and L hip pain. Unable to obtain any hx from pt secondary to aphasia from previous stroke. Pt had x-ray L hip at [facility] showing L hip fracture and pt sent to [facility] ER. In ER pt had L HIP XRAY: IMPRESSION: Acute mildly angulated intratrochanteric fracture of the left femur. Pt's daughter: Anita Vaughn was informed pt at ER and informed of diagnosis. She would like to be updated on her mothers status and plans. Her phone # wants to be reached at is [phone]. Physical Exam (per Admitting): General Appearance: WD/WN, no apparent distress Head: normocephalic, atraumatic Eyes: normal inspection, PERRL, EOMI ENT: pharynx normal, + pertinent finding (mucous membranes moist) Neck: supple, no JVD, trachea midline Respiratory/Chest: lungs clear, normal breath sounds, no respiratory distress, no accessory muscle use Cardiovascular: regular rate, rhythm, no murmur, normal peripheral pulses Abdomen/GI: normal bowel sounds, soft, + pertinent finding (no apparent tenderness to palpation) Extremities/Musculoskelatal: + pertinent finding (L leg shortened and externally rotated, no attempted ROM of L hip/leg. Distal pulses intact bilaterally with brisk capillary refill) Neurologic/Psych: alert (awake, non understandable speech) Skin: normal color, warm/dry Hospital Course Patient is an 86 yr female with PMH of CVA with aphasia and R arm weakness, HTN , dementia, CAD s/p angioplasty, COPD, anxiety/depression, hx breast CA s/p partial mastectomy presented to ER from [facility] with c/o reported mechanical fall and L hip pain and sustained L hip fracture Left Femoral Fracture: S/P surgery POD # 4 S/P Mechanical fall Presented from [facility] Left hip x-ray: Acute mildly angulated intratrochanteric fracture of the left femur. Patient is at moderate risk for surgery given her age and multiple comorbidities Pain control Avoid opioids as able Appreciate Orthopedics Input Needs follow up with Orthopedics upon DC Anemia: Hb:8.0 Partly dilutional 2/2 IVF LE USD: negative for Hematoma Transfuse PRBC if Hb <7.0 FOBT:negative UTI: Urine culture: Proteus, Group B step Continue ceftriaxone Day # 5 monitor H/O COPD continue montelukast, continue breo, duonebs Continue Nebs HTN Labile likely secondary to pain monitor Vitamin D deficiency: Continue Vit D supplements Q7D H/O CVA: Aphasia, R arm weakness at baseline pureed diet continue Plavix, ASA HX AAA: 04/2017 - CT abd/pelvis: No change in 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 HX Breast Cancer s/p partial mastectomy. On tamoxifen GERD continue PPI H/O CAD ECHO in 11/13: EF: 55-60%, grade 1 diastolic dysfunction, no wall motion abnormalities Continue Plavix, ASA, statin Anxiety/Depression: continue citalopram continue Ativan prn DVT Px: Heparin SQ Code Status: DNR/DNI Disposition: Plan to discharge back to [facility] today Follow up with your PCP in 1 week Follow up with your Orthopedic Surgeon in 10 days. Please call [facility] at [phone] to schedule a follow up appointment Complete the antibiotic course as prescribed for UTI Continue Heparin SQ for 2 weeks for DVT prophylaxis Seek immediate medical attention if your symptoms reoccur or worsen Total time spent on discharge = 35 minutes This includes examination of the patient, discharge planning, medication reconciliation, and communication with other providers. Discharge Instructions Discharge Instructions Date of Service September 08, 2017. Admission Reason for Admission: Hip Fracture, Left Discharge Discharge Diagnosis / Problem: Left Hip fracture, UTI Discharge Goals Goal(s): Decrease discomfort, Improve function Activity Recommendations Activity Limitations: per Instructions/Follow-up section Lifting Limitations: gradually increase as tolerated Exercise/Sports Limitations: gradually increase as tolerated . Instructions / Follow-Up Instructions / Follow-Up Follow up with your PCP in 1 week Follow up with your Orthopedic Surgeon in 10 days. Please call [facility] at [phone] to schedule a follow up appointment Complete the antibiotic course as prescribed for UTI Continue Heparin SQ for 2 weeks for DVT prophylaxis Seek immediate medical attention if your symptoms reoccur or worsen Current Hospital Diet Patient's current hospital diet: Regular Diet Discharge Diet Recommended Diet: Regular Diet Diet Texture: Pureed (blended smooth) Procedures Procedures Performed: Left Hip short Cephalomedullary Nail Pending Studies Studies pending at discharge: no Medical Emergencies . Who to Call and When: Medical Emergencies: If at any time you feel your situation is an emergency, please call 911 immediately. . Non-Emergent Contact Non-Emergency issues call your: Primary Care Provider, Surgeon Call Non-Emergent contact if: you have a fever, your pain is not controlled, your pain is worsening, your pain is unusual for you, your pain is concerning you, wound has increased drainage, wound has increased redness, wound has increased pain, you have any medication questions Seek immediate medical attention if your symptoms reoccur or worsen . . "Provider Documentation" section prepared by Robert Rg. . Gold Leaf Printer Recommendations Gold Leaf Printer Recommendations: U DISCHARGE INSTRUCTIONS: HIP FRACTURE SELF CARE INSTRUCTIONS: A. You are to ambulate with a walker or crutches for approximately 6 weeks. B. You are PARTIAL WEIGHT BEARING on your operative lower extremity for at least 6 weeks. C. Wear low heeled shoes with non-slip soles D. Be sure that your floors are free of things that could trip you throw rugs, electrical cords, and small objects. Avoid wet and waxed floors, especially with crutches/walker/cane. E. Try to walk several times a day with rest periods between. F. You may shower 48 hours after surgery and get the incision area wet, but DO NOT soak or submerge incision area in water. (No baths, swimming pools, hot tubs ) G. You may have a large, band-aid like dressing over your incision (Aquacel). This will remain on your incision for 7 days, and then can be removed. You CAN shower with this on. If incision is leaking through the dressing, please call the office . H. Do NOT apply soap or any ointment/lotions directly over incision. I. You may use ice as needed to operative site. SPECIAL CARE INSTRUCTIONS: VERY IMPORTANT TO READ AND REVIEW A. You may be at risk for phlebitis or blood clots. a. Wear surgical stockings (MICHELLE hose) for 2 weeks after surgery to improve circulation and reduce swelling. b. Take ASPIRIN and PLAVIX as directed. This is your blood thinner. Your primary medical Physician may change this as necessary c. If you are on Coumadin- you will have daily/weekly blood work to monitor your levels. This will be done by either your family physician/ student financial services counselor (if you are on Coumadin chronically) versus your orthopedic surgeon. Expect a phone call the day of or the day after your blood work is drawn to adjust your dose accordingly. B. There are a few signs you need to watch for after you are home. Call [facility] at [phone] if you experience any of the following: a. If you have a temperature of 101 degrees or higher. b. Sudden increase in pain in your hip not relieved by rest or pain medication. c. Any fluid or drainage from the incision; redness of the incision. d. Shortness of breath or chest pain. C. Call your physician if: a. Temperature is greater than 101 degrees (F). b. Pain is not relieved by prescribed pain medications. c. Increase drainage or redness from incision. d. Unanswered questions or concerns. D. Pain Medication: a. You will be prescribed pain medication upon discharge that should last till your first post-operative appointment. b. If you experience nausea and/or skin rash, discontinue this medication and contact our office for an alternative medication. c. Caution- narcotic pain medication can cause constipation. FOLLOW UP VISIT: Please call [facility] at [phone] to schedule a follow up appointment with Dr Angel in 10-14 days from the date of your surgery date.
[2017-09-08] MEDS ORDERED: NURSING VERBAL MED ORDER ONE (09:15)
[2017-09-08] MEDS: ASPIRIN 81 MG ECTAB PO SCH (09:32)
[2017-09-08] MEDS: CLOPIDOGREL BISULFATE 75 MG TAB PO SCH (09:32)
[2017-09-08] MEDS: CEFTRIAXONE SOD INJ 1 GM in DEXTROSE 5% ADD-VANTAGE 50ML 50 ML IV SCH (09:55)
[2017-09-08 11:10] VITALS: BP 144/65; PULSE 87; PULSE 90; TEMP 37.1; O2SAT 93
== END 2017-09-08 11:54 | DRG 481 ==
LOC: EDBD 15:36 → C.EDA 15:37 → C.MSW 17:50 → ENRESERV 18:21
PROVIDERS: ADMIT Hospitalist; ATTEND Internal Medicine
PROC: 0QS706Z Reposition Left Upper Femur with Intramedullary Internal Fixation Device, Open Approach (ICD-10-PCS; principal; 2017-09-04 14:30)
DX: S72.142A Displaced intertrochanteric fracture of left femur, initial encounter for closed fracture (principal); N39.0 Urinary tract infection, site not specified; I69.320 Aphasia following cerebral infarction; I12.9 Hypertensive chronic kidney disease with stage 1 through stage 4 chronic kidney disease, or unspecified chronic kidney disease; I25.10 Atherosclerotic heart disease of native coronary artery without angina pectoris; N18.3 Chronic kidney disease, stage 3 (moderate); F32.9 Major depressive disorder, single episode, unspecified; E55.9 Vitamin D deficiency, unspecified; E78.5 Hyperlipidemia, unspecified; J44.9 Chronic obstructive pulmonary disease, unspecified; F03.90 Unspecified dementia, unspecified severity, without behavioral disturbance, psychotic disturbance, mood disturbance, and anxiety; I69.331 Monoplegia of upper limb following cerebral infarction affecting right dominant side; F41.9 Anxiety disorder, unspecified; K21.9 Gastro-esophageal reflux disease without esophagitis; D64.9 Anemia, unspecified; Z66 Do not resuscitate; Z79.82 Long term (current) use of aspirin; Z79.899 Other long term (current) drug therapy; Z85.3 Personal history of malignant neoplasm of breast; Z88.5 Allergy status to narcotic agent; W19.XXXA Unspecified fall, initial encounter

== ENCOUNTER → 2017-11-14 | Outpatient (CLI) | payer OTHER ==
[~2017-11-14] MED LIST changes: +ACET-1311 PO; -ACET500L2 PO; -AMOX1TAB43 PO; +ATOR-26 PO; -ATV5X PO; +CEFU1TAB33 PO; -CITA10SO PO; +CITA20TA9 PO; +DLCS PR; -FLUT1INH INH; +HPRIS5M SQ; +IPRA-64 INH; -IPRA1AER2 INH; -LCTXP PO; +LINICRE61 TOP; +LORA-741 PO; -LPT40 PO; +POLY335019 PO; +SENN8.6T7 PO; +TRD10 PO
[2017-11-14 08:57] LABS: BASO % 0.5 %; BASO ABS # 0.05 K/uL (0-0.2); EOS % 1.8 %; EOS ABS # 0.19 K/uL (0-0.5); HEMATOCRIT 32.9 % (37-47); HEMOGLOBIN 10.3 g/dL (12.0-16.0); IG# 0.02 K/uL (0.00-0.02); LYMPH ABS # 4.11 K/uL (1.2-3.4); MEAN CELL VOLUME 91.1 fL (80-100); MEAN CORPUSCULAR HEMOGLOBIN 28.5 pg (25-34); MEAN CORPUSCULAR HGB CONC 31.3 g/dl (32-36); MEAN PLATELET VOLUME 10.1 fL (7.4-10.4); MONO % 10.4 %; MONO ABS # 1.13 K/uL (0.11-0.59); NEUT % 49.1 %; NEUT ABS # 5.33 K/uL (1.4-6.5); PLATELET COUNT 253 K/uL (130-400); RED CELL DISTRIBUTION WIDTH CV 14.9 % (11.5-14.5); RED CELL DISTRIBUTION WIDTH SD 50.2 fL (36.4-46.3); WHITE BLOOD COUNT 10.83 K/uL (4.8-10.8)
[2017-11-14 09:16] LABS: ALBUMIN 2.5 gm/dl (3.4-5.0); ALKALINE PHOSPHATASE 92 U/L (45-117); ALT/SGPT 15 U/L (12-78); AST/SGOT 14 U/L (15-37); BLOOD UREA NITROGEN 23 mg/dl (7-18); CALCIUM 8.1 mg/dl (8.5-10.1); CARBON DIOXIDE 28 mmol/L (21-32); CHOLESTEROL 117 mg/dl (0-200); CREATININE 0.95 mg/dl (0.60-1.20); GLUCOSE 86 mg/dl (70-99); LDL CHOLESTEROL CALCULATED 50 mg/dl; POTASSIUM 4.7 mmol/L (3.5-5.1); SODIUM 142 mmol/L (136-145); TOTAL PROTEIN 5.7 gm/dl (6.4-8.2)
== END ==
LOC: C.LABCC 08:40
PROVIDERS: ATTEND Internal Medicine
DX: D64.9 Anemia, unspecified (principal); R63.4 Abnormal weight loss; E78.5 Hyperlipidemia, unspecified

== ENCOUNTER → 2017-11-26 | Outpatient (CLI) | payer OTHER | LOC: C.LABCC 08:23 | PROVIDERS: ATTEND Internal Medicine | DX: D64.9 Anemia, unspecified (principal); E61.1 Iron deficiency ==

== ENCOUNTER → 2017-12-11 | Outpatient (CLI) | payer OTHER ==
[2017-12-11 08:54] LABS: BASO % 0.3 %; BASO ABS # 0.03 K/uL (0-0.2); EOS % 3.7 %; EOS ABS # 0.35 K/uL (0-0.5); HEMATOCRIT 34.1 % (37-47); HEMOGLOBIN 10.9 g/dL (12.0-16.0); IG# 0.01 K/uL (0.00-0.02); LYMPH % 25.1 %; LYMPH ABS # 2.36 K/uL (1.2-3.4); MEAN CELL VOLUME 89.5 fL (80-100); MEAN CORPUSCULAR HEMOGLOBIN 28.6 pg (25-34); MEAN PLATELET VOLUME 10.3 fL (7.4-10.4); MONO % 11.1 %; MONO ABS # 1.04 K/uL (0.11-0.59); NEUT % 59.7 %; PLATELET COUNT 232 K/uL (130-400); RED CELL DISTRIBUTION WIDTH CV 15.4 % (11.5-14.5); WHITE BLOOD COUNT 9.39 K/uL (4.8-10.8)
== END | disposition home or self-care (01) ==
LOC: C.LABCC 08:30
PROVIDERS: ATTEND Internal Medicine
DX: D64.9 Anemia, unspecified (principal)